=== PATIENT | male | born 1940 | race African-American/Black ===

== ENCOUNTER 2019-11-09 17:41 | Inpatient (IN) | payer MEDICARE, MEDICAID, SELFPAY ==
[2019-11-09] VITALS (8 sets, daily range): BP systolic 107–158; BP diastolic 70–99; PULSE 52–137; RESP 18–25; TEMP 36.3–36.8; O2SAT 94–99; BMI 19.5
--- NOTE | ~2019-11-09 | XR_ITS ---
EXAMINATION: XR chest 1V portable EXAM DATE: 11/09/2019 18:19 INDICATION: Atrial fibrillation. TECHNIQUE: Portable AP frontal chest x-ray was obtained. Comparison is made to prior examination from 03/27/2019. FINDINGS: The lungs are clear. There are no pleural effusions. The cardiomediastinal silhouette is within normal limits. There is no pneumothorax suspected. Patient has diffuse idiopathic skeletal h yperostosis (DISH). There are bony degenerative changes. Compared to prior study, previously seen con gestive changes have resolved. IMPRESSION: No acute cardiopulmonary findings. Reviewed, dictated and finalized at location A.
--- NOTE | ~2019-11-09 | CT_ITS ---
EXAMINATION: CT brain wo con EXAM DATE: 11/09/2019 20:38 INDICATION: Transient alteration of awareness. TECHNIQUE: Spiral CT of the head was performed without contrast. Axial, coronal and sagittal images were reviewed. The dose-length product (DLP) for this examination was 681.00 mGy-cm. The exposure w as tailored according to patient size, and iterative reconstruction (ASIR) was used as additional dos e reduction technique. Comparison is made to prior examination from 03/27/2019. FINDINGS: Study is limited due to patient motion. There is no acute intraparenchymal hemorrhage. No evidence of intraparenchymal brain mass lesion. No evidence of acute infarction. Please note that i nitial head CT has limited sensitivity for small or acute infarctions. There is old small right occi pital lobe infarction again noted. There is periventricular and subcortical hypodensity, nonspecific but probably related to small vessel ischemic disease. There is prominence of the sulci and ventri cles related to cerebral atrophy. There is intracranial carotid arteriosclerosis. There are no ext ra-axial collections. There is no mass effect or midline shift. Patient has had bilateral ocular le ns surgery. Soft tissue is unremarkable. Chronic moderate left maxillary sinus mucoperiosteal thick ening. IMPRESSION: 1. No acute intracranial findings. 2. Chronic age related findings. 3. Old small right occipital lobe infarction. Reviewed, dictated and finalized at location A.
--- NOTE | 2019-11-09 17:48 | ED.AMS ---
HPI - Altered Mental Status General Chief Complaint: Altered Mental Status Stated Complaint: . Time Seen by Provider: 11/09/19 17:48 Source: EMS and RN notes reviewed Mode of arrival: EMS Limitations: other (patient is nonverbal) History of Present Illness HPI narrative: [facility] due to being combative and hitting staff. Per EMS the patient was found to have a blood glucose of 300 and was in A-fib with RVR in the 160's on the monitor. EMS states that they were told by the group home staff that the patient is typically alert and oriented to person, place, and thing, but that the patient has only been alert to person. EMS states that group home staff noted that the patient was seen at [facility] last week. The patient living at [facility]. complaint: other (Combative and hitting group home staff) Onset (ago): unknown Timing confirmed by: caregiver (group home staff) Context: unknown Associated symptoms: other (AMS) Related Data Home Medications Medication Instructions Recorded Confirmed atorvastatin 11/09/19 diltiazem HCl 11/09/19 donepezil mg 11/09/19 famotidine 11/09/19 medroxyprogesterone mg 11/09/19 memantine mg 11/09/19 metformin mg 11/09/19 olanzapine mg 11/09/19 olanzapine mg 11/09/19 sertraline mg 11/09/19 11/09/19 Allergies Allergy/AdvReac Type Severity Reaction Status Date / Time amoxicillin Allergy Unknown Verified 12/27/18 00:46 Penicillins Allergy Unknown Verified 12/27/18 00:46 Review of Systems Review of Systems: ROS unobtainable: Yes unobtainable due to mental status Neurologic: Reports other (AMS) Psychiatric: Psychiatric: Reports irritability (Combative and hitting group home staff) [facility] Past Medical History Medical History (Updated 11/09/19 @ 23:23 by Sera Schreiber MD) BPH (benign prostatic hyperplasia) Depression DM II (diabetes mellitus, type II), controlled GERD (gastroesophageal reflux disease) H/O: HTN (hypertension) History of angina Hx: UTI (urinary tract infection) Hypercholesteremia Schizophrenia Vascular dementia Surgical History Surgical History (Updated 11/09/19 @ 18:09 by Gareth Bowser) Surgical history unknown Social History Social History (Updated 11/09/19 @ 18:09 by Gareth Bowser) Smoking status: Unknown if ever smoked Exam Const: General: no acute distress and alert Nutritional Appearance: thin Orientation/consciousness: No patient oriented x3 HENMT: Mouth: Yes dry mucous membranes (very) Chest: Chest palpation & inspection: no tenderness Resp: Effort & Inspection: normal respiratory effort Auscultation: clear to auscultation bilaterally Cardio: Rate: regular rate Rhythm: regular rhythm Heart sounds: no murmurs GI: GI Palp: No abdominal tenderness Skin: General skin exam: normal color and dry skin Neuro: Speech: Abnormal speech present (mumbling) Course Reevaluation(s) Reevaluation #1: Reevaluated the patient and asked if he wanted anything to eat or drink. The patient only responded with grunts. Date: 11/09/19 Time: 21:00 Consultations Consultation #1: Discussed case with Dr. Hoff (Hospitalist). Accepts the patient. Date: 11/09/19 Time: 21:23 Vital Signs Vital signs: Vital Signs Temperature 97.6 F 11/09/19 17:41 Pulse Rate 137 H 11/09/19 17:41 Respiratory Rate 25 H 11/09/19 17:41 Blood Pressure 128/74 11/09/19 17:41 Temperature 98.3 F 11/09/19 20:06 Pulse Rate 117 H 11/09/19 22:40 Respiratory Rate 19 11/09/19 22:40 Blood Pressure 149/95 H 11/09/19 22:40 Pulse Oximetry 95 11/09/19 22:40 MDM - Altered Mental Status Lab Data Result diagrams: 11/09/19 18:13 11/09/19 18:13 Labs: Lab Results 11/09/19 11/09/19 11/09/19 Range/Units 18:13 18:13 18:13 WBC 6.8 (4.5-10.0) K/mm3 RBC 5.36 (4.6-6.20) M/mm3 Hgb 15.3 (14.0-18.0) g/dL Hct 46.7
--- NOTE | 2019-11-09 18:03 | ECG_ITS ---
Measurements Intervals [place] Rate: 137 P: 57 VA: 184 QRS: 94 QRSD: 175 T: 67 QT: 405 QTc: 613 Interpretive Statements ATRIAL FLUTTER/TACHYCARDIA WITH RAPID VENTRICULAR RESPONSE RIGHT AXIS DEVIATION RIGHT BUNDLE BRANCH BLOCK CANNOT RULE OUT SEPTAL INFARCT, AGE INDETERMINATE BASELINE ARTIFACT- II, III, AVL, AVF ABNORMAL ECG Electronically Signed On 11-10-2019 6:58:24 CDT by Donaldo Duran D.O.
[2019-11-09 18:24] LABS: Basophils Percent Auto 0.6 % (0.2-1.2); Eosinophils Absolute Auto 0.1 K/mm3 (0-0.3); Eosinophils Percent Auto 0.7 % (0-4.4); Hematocrit 46.7 % (42.0-52.0); Hemoglobin 15.3 g/dL (14.0-18.0); Immature Granulocyte Absolute 0.06 K/mm3 (0.00-0.031); Immature Granulocyte Percent A 0.9 % (0-0.5); Lymphocytes Absolute Auto 1.64 K/mm3 (0.9-3.2); Lymphocytes Percent Auto 24.2 % (18.3-44.2); Mean Corpuscular HGB Conc 32.8 g/dl (32-36); Mean Corpuscular Hemoglobin 28.5 pg (26-34); Mean Corpuscular Volume 87.1 fl (80-100); Monocytes Absolute Auto 0.9 K/mm3 (0.1-0.6); Monocytes Percent Auto 13.6 % (2.6-8.5); Neutrophils Absolute Auto 4.1 K/mm3 (1.3-6.7); Platelet Count Result 212 k/mm3 (150-375); Red Blood Count 5.36 M/mm3 (4.6-6.20); Red Cell Distribution Width 14.1 % (11.5-14.5); White Blood Count 6.8 K/mm3 (4.5-10.0)
[2019-11-09 18:33] LABS: INR 1.2; Prothrombin Time 14.7 Seconds (11.1-14.7)
[2019-11-09 18:34] LABS: Partial Thromboplastin Time 25.9 SECONDS (22.3-36.8)
[2019-11-09 18:37] LABS: Potassium 4.4 mmol/L (3.4-5.0)
[2019-11-09 18:41] LABS: Alanine Aminotransferase 19 U/L (4-50); Albumin Level 4.7 g/dL (3.5-5.1); Alkaline Phosphatase 58 U/L (38-126); Aspartate Amino Transferase 33 U/L (17-59); Bilirubin,Total 0.8 mg/dL (0.2-1.3); Blood Urea Nitrogen 30 mg/dL (9-20); Calcium 10.2 mg/dL (8.4-10.2); Carbon Dioxide 26 mmol/L (22-30); Chloride 102 mmol/L (98-107); Estimated Glomerular Filt Rate 55; Glucose 215 mg/dL (75-110); Sodium 140 mmol/L (137-145)
[2019-11-09 18:53] LABS: Troponin I 0.069 ng/mL (0.000-0.034)
[2019-11-09] MEDS: SODIUM CHLORIDE 0.9% IV 1,000 ML 999 ML IV CONT ×3 (18:53→21:05)
--- NOTE | 2019-11-09 18:58 | PC.NURSE ---
correction did not send paperwork with patient. Unable to obtain past medication list or past medical history.
[2019-11-09 19:01] LABS: Add Urine Microscopic? YES; Appearance Urine Cloudy (Clear); Bacteria Urine 1+ /hpf; Bilirubin Urine Negative (Negative); Blood Urine 2+ (Negative); Color Urine Yellow (Yellow); Glucose Urine UA Negative (Negative); Hyaline Casts Urine 20-29 /lpf; Ketones Urine Negative (Negative); Leukocyte Esterase Ur 3+ LEU/UL (Negative); Mucus Urine Rare /lpf; Nitrate Urine Negative (Negative); Protein Urine 2+ mg/dL (Negative); RBC Urine 21-50 /hpf (0-2); Specific Grav Ur 1.016 (1.001-1.035); Squamous Epithelial Cell Urine Rare /hpf (Few); Urobilinogen Urine Negative mg/dL (<2.0); WBC Clumps Urine Present /HPF; WBC Urine >75 /hpf
[2019-11-09] MEDS: ASPIRIN 300 MG SUPPOSITORY RECTAL (19:30)
[2019-11-09 19:34] LABS: Ammonia 10 umol/L (9-30)
[2019-11-09] MEDS: MORPHINE SULFATE 2 MG/ML INJ IV PUSH (21:06)
[2019-11-09 21:47] LABS: Troponin I 0.293 ng/mL (0.000-0.034)
--- NOTE | 2019-11-09 22:19 | ECG_ITS ---
Measurements Intervals [place] Rate: 113 P: RI: 0 QRS: 269 QRSD: 153 T: -68 QT: 357 QTc: 490 Interpretive Statements ATRIAL FLUTTER/TACHYCARDIA WITH RAPID VENTRICULAR RESPONSE RIGHT BUNDLE BRANCH BLOCK LEFT POSTERIOR FASCICULAR BLOCK ABNORMAL ECG Electronically Signed On 11-10-2019 7:02:03 CDT by Donaldo Duran D.O.
--- NOTE | 2019-11-09 22:30 | PC.NURSE ---
PATIENT TAKEN ADMITTED AND TAKEN UP STAIRS BEFORE EDP ORDERED CARDIZEM. CARDIZEM NOT STARTED IN ED. EDP NOTIFIED.
[2019-11-09] MEDS: SODIUM CHLORIDE 0.9% IV 1,000 ML 150 ML IV CONT (23:17)
[2019-11-10] VITALS (17 sets, daily range): BP systolic 118–148; BP diastolic 63–95; PULSE 51–108; RESP 18–20; TEMP 36.1–36.9; O2SAT 99–100
--- NOTE | 2019-11-10 00:18 | ADMGEN ---
This patient, Chirag Kyle, was admitted to IMU Room 207-01. Patient/family oriented to hospital policies and general routines including ID bracelet, bed and alarms, visiting hours, pain management, procedures, bathroom and other care routines, personal items, smoking policy, room service/diet, and visiting hours. Valuables list has been completed. Information on how to activate the Rapid Response Team has been discussed. Patient/Family are encouraged to report perceived risks to care and to ask questions if they do not understand what they are told or what they should do.
[2019-11-10 03:26] LABS: Lactic Acid Reflex 1.5 mmol/L (0.7-2.1)
[2019-11-10 03:27] LABS: Blood Urea Nitrogen 21 mg/dL (9-20); Calcium 8.7 mg/dL (8.4-10.2); Carbon Dioxide 28 mmol/L (22-30); Chloride 108 mmol/L (98-107); Estimated CRCL calculation 44 ml/min; Estimated Glomerular Filt Rate > 60; Glucose 102 mg/dL (75-110); Potassium 4.7 mmol/L (3.4-5.0); Sodium 140 mmol/L (137-145)
[2019-11-10] MEDS: DILTIAZEM HCL 60 MG TABLET PO ×4 (08:58→20:05)
[2019-11-10] MEDS: DIVALPROEX SODIUM 250 MG TABEC PO ×2 (08:58→20:05)
[2019-11-10] MEDS: CALCIUM CARBONATE (OSCAL) 500 MG TABLET PO ×2 (08:58→16:31)
[2019-11-10] MEDS: METOPROLOL TARTRATE 25 MG TABLET PO (08:59)
[2019-11-10] MEDS: FAMOTIDINE 20 MG TABLET PO (08:59)
[2019-11-10] MEDS: ATORVASTATIN 40 MG TABLET PO (08:59)
[2019-11-10] MEDS: MEMANTINE 10 MG TABLET PO ×2 (08:59→16:31)
[2019-11-10] MEDS: SERTRALINE HCL 50 MG TABLET PO (09:00)
[2019-11-10] MEDS: APIXABAN 5 MG TABLET PO ×2 (09:00→16:32)
[2019-11-10] MEDS: CALCIUM CARBONATE (OSCAL) 250 MG TABLET PO ×2 (09:00→16:32)
[2019-11-10 09:27] LABS: Magnesium 1.7 mg/dL (1.6-2.3)
[2019-11-10 11:44] LABS: Glucose Point of Care 102 (65-105)
[2019-11-10 12:16] LABS: Glucose Point of Care 184 (65-105)
--- NOTE | 2019-11-10 17:01 | PM.IMHP ---
H&P: HPI History of Present Illness Chief complaint: UROSEPSIS Narrative: Chirag Kyle is a 79 year old male A resident of [facility] with history of dementia atrial fibrillation apparently patient was combative and was hitting is staff and and 1 time he was unresponsive, patient was sent to emergency department further evaluation patient is unable to provide any review of symptoms or history most history is recorded from electronic medical record, upon arrival to emergency department patient on a AFib with RVR he was started on diltiazem drip and continued his diltiazem 60 mg q.i.d. and metoprolol 25 mg b.i.d., currently patient's rate is under control however patient still not cooperative, Review of Systems Review of Systems: ROS unobtainable: Yes unobtainable due to medical condition [facility] Past Medical History Medical History (Updated 11/09/19 @ 23:23 by Sera Schreiber MD) BPH (benign prostatic hyperplasia) Depression DM II (diabetes mellitus, type II), controlled GERD (gastroesophageal reflux disease) H/O: HTN (hypertension) History of angina Hx: UTI (urinary tract infection) Hypercholesteremia Schizophrenia Vascular dementia Surgical History Surgical History (Updated 11/09/19 @ 18:09 by Gareth Bowser) Surgical history unknown Family History Family History (Updated 11/10/19 @ 00:32 by Lola Swift RN) Other Unknown family medical history Social History Social History (Updated 11/09/19 @ 18:09 by Gareth Bowser) Smoking status: Unknown if ever smoked Alcohol intake: unknown Substance use: unknown Spiritual care concerns: No Agree to blood products: Yes Meds Home Medications and Allergies Home Medications Medication Instructions Recorded Confirmed Type apixaban [Eliquis] 5 mg PO BID 11/09/19 11/09/19 History atorvastatin 40 mg PO DAILY 11/09/19 11/09/19 History calcium carbonate 750 mg PO BID 11/09/19 11/09/19 History diltiazem HCl 60 mg PO QID 11/09/19 11/09/19 History divalproex 250 mg PO Q12H 11/09/19 11/09/19 History donepezil 10 mg PO HS 11/09/19 11/09/19 History famotidine 20 mg PO DAILY 11/09/19 11/09/19 History medroxyprogesterone 5 mg PO BID 11/09/19 11/09/19 History memantine 10 mg PO BID 11/09/19 11/09/19 History metformin 1,000 mg PO DAILY 11/09/19 11/10/19 History metoprolol tartrate 25 mg PO DAILY 11/09/19 11/09/19 History multivit with min-folic acid 0.4 mg PO DAILY 11/09/19 11/09/19 History [Adult One Daily Multivitamin] olanzapine 5 mg PO DAILY 11/09/19 11/09/19 History olanzapine 10 mg PO HS 11/09/19 11/09/19 History sertraline 50 mg PO DAILY 11/09/19 11/09/19 History ferrous sulfate 325 mg PO DAILY 11/10/19 11/10/19 History metformin 500 mg PO HS 11/10/19 11/10/19 History Allergies Allergy/AdvReac Type Severity Reaction Status Date / Time amoxicillin Allergy Unknown Verified 12/27/18 00:46 Penicillins Allergy Unknown Verified 12/27/18 00:46 Vital Signs Vital Signs - 24 hr 11/09/19 17:41 11/09/19 18:50 11/09/19 19:03 Temperature 97.6 F Pulse Rate 137 H 134 H Respiratory Rate 25 H 19 Blood Pressure 128/74 107/79 Pulse Oximetry 98 96 11/09/19 20:06 11/09/19 21:17 11/09/19 22:30 Temperature 98.3 F 98 F Pulse Rate 133 H 130 H 133 H Respiratory Rate 25 H 25 H 20 Blood Pressure 120/70 141/99 H 158/85 H Pulse Oximetry 97 94 97 11/09/19 22:40 11/09/19 23:51 11/10/19 00:00 Temperature 97.4 F L Pulse Rate 117 H 77 68 Respiratory Rate 19 18 Blood Pressure 149/95 H 134/93 H Pulse Oximetry 95 99 11/10/19 02:00 11/10/19 03:51 11/10/19 03:55 Temperature 96.9 F L Pulse Rate 78 108 H 78 Respiratory Rate 20 20 Blood Pressure 147/76 H Pulse Oximetry 100 100 11/10/19 06:00 11/10/19 08:00 11/10/19 08:30 Temperature 98.2 F Pulse Rate 74 97 51 L Respiratory Rate 18 Blood Pressure 148/68 H Pulse Oximetry 100 11/10/19 08:59 11/10/19 10:00 11/10/19 12:00 Temperature Pulse Rate 106 H 89 64 Respiratory Rat
[2019-11-10 17:21] LABS: Glucose Point of Care 145 (65-105)
[2019-11-10 20:06] LABS: Glucose Point of Care 173 (65-105)
[2019-11-10] MEDS: DONEPEZIL HCL 10 MG TABLET PO (20:06)
--- NOTE | 2019-11-10 23:09 | PC.NURSE ---
This patient, Chirag Moura Kyle, was transferred to room 245 on 11/10/19 at 2200. Personal belongings sent with patient. Belongings list checked and signed with receiving. Report given to AYSE Dawson. Appropriate documentation sent with patient.
[2019-11-11] VITALS (10 sets, daily range): BP systolic 119–161; BP diastolic 54–73; PULSE 51–162; RESP 16–21; TEMP 36.2–36.5; O2SAT 98–100
--- NOTE | 2019-11-11 03:19 | PC.NURSE ---
This patient, Chirag Moura Kyle, was received from [ IMU] on 11/10/19 at 2205. Personal belongings list checked and signed. Patient/family oriented to unit policies and routines
[2019-11-11 05:36] LABS: Hematocrit 38.4 % (42.0-52.0); Hemoglobin 12.7 g/dL (14.0-18.0); Mean Corpuscular HGB Conc 33.1 g/dl (32-36); Mean Corpuscular Hemoglobin 28.7 pg (26-34); Mean Corpuscular Volume 86.7 fl (80-100); Mean Platelet Volume 9.8 fl (7.4-10.4); Platelet Count Result 185 k/mm3 (150-375); Red Blood Count 4.43 M/mm3 (4.6-6.20); Red Cell Distribution Width 13.9 % (11.5-14.5); White Blood Count 5.3 K/mm3 (4.5-10.0)
[2019-11-11 06:08] LABS: Potassium 4.4 mmol/L (3.4-5.0)
[2019-11-11 07:02] LABS: Blood Urea Nitrogen 14 mg/dL (9-20); Calcium 8.9 mg/dL (8.4-10.2); Carbon Dioxide 24 mmol/L (22-30); Chloride 108 mmol/L (98-107); Estimated CRCL calculation 56 ml/min; Estimated Glomerular Filt Rate > 60; Glucose 108 mg/dL (75-110); Sodium 140 mmol/L (137-145)
[2019-11-11 07:59] LABS: Glucose Point of Care 150 (65-105)
[2019-11-11] MEDS: CALCIUM CARBONATE (OSCAL) 500 MG TABLET PO ×2 (09:16→17:10)
[2019-11-11] MEDS: METOPROLOL TARTRATE 25 MG TABLET PO (09:16)
[2019-11-11] MEDS: FAMOTIDINE 20 MG TABLET PO (09:16)
[2019-11-11] MEDS: DILTIAZEM HCL 60 MG TABLET PO ×4 (09:16→23:40)
[2019-11-11] MEDS: MEMANTINE 10 MG TABLET PO ×2 (09:16→17:10)
[2019-11-11] MEDS: ATORVASTATIN 40 MG TABLET PO (09:16)
[2019-11-11] MEDS: SERTRALINE HCL 50 MG TABLET PO (09:19)
[2019-11-11] MEDS: DIVALPROEX SODIUM 250 MG TABEC PO ×2 (09:20→23:40)
[2019-11-11] MEDS: APIXABAN 5 MG TABLET PO ×2 (09:21→17:10)
[2019-11-11] MEDS: CALCIUM CARBONATE (OSCAL) 250 MG TABLET PO ×2 (09:21→17:10)
--- NOTE | 2019-11-11 11:19 | PM.DS ---
DS: Diagnosis Admitting Diagnosis Admitting Diagnosis: Unspecified atrial fibrillation Discharge Diagnosis (1) Atrial fibrillation with rapid ventricular response: Code(s): I48.91 - Unspecified atrial fibrillation Status: Acute Assessment and Plan: Chirag Kyle is a 79 year old male A resident of [facility] with history of dementia atrial fibrillation apparently patient was combative and was hitting is staff and and 1 time he was unresponsive, patient was sent to emergency department further evaluation patient is unable to provide any review of symptoms or history most history is recorded from electronic medical record, upon arrival to emergency department patient on a AFib with RVR he was started on diltiazem drip and continued his diltiazem 60 mg q.i.d. and metoprolol 25 mg b.i.d., currently patient's rate is under control will stop the diltiazem drip, patient anticoagulated with Eliquis, his clinically stable will transfer him out of IMU will monitor him overnight on tele and possibly discharge tomorrow morning back to [facility] however patient still not cooperative, (2) Non-ST elevated myocardial infarction (non-STEMI): Code(s): I21.4 - Non-ST elevation (NSTEMI) myocardial infarction Status: Acute Assessment and Plan: Most likely demand ischemia due to atrial fibrillation with RVR, patient does not express any complaint of chest pain there are no acute changes on EKG most likely type 2 myocardial infarction continue to monitor (3) Acidosis, lactic: Code(s): E87.2 - Acidosis Status: Acute Assessment and Plan: Most likely secondary to atrial fibrillation with RVR now resolved (4) Acute UTI: Code(s): N39.0 - Urinary tract infection, site not specified Status: Acute Assessment and Plan: Urine culture is growing Proteus mirabilis patient being treated with Rocephin will follow up on urine culture (5) Episode of unresponsiveness: Code(s): R41.89 - Other symptoms and signs involving cognitive functions and awareness Status: Acute Assessment and Plan: Etiology uncertain now clinically stable (6) Dementia: Qualifiers: Dementia behavioral disturbance: with behavioral disturbance Dementia type: unspecified type Qualified Code(s): F03.91 - Unspecified dementia with behavioral disturbance Code(s): F03.90 - Unspecified dementia without behavioral disturbance Status: Acute Assessment and Plan: Chronic clinically stable currently DS: Summary Hospital Course Reason for hospitalization: A resident of [facility] with history of dementia atrial fibrillation apparently patient was combative and was hitting is staff and and 1 time he was unresponsive, patient was sent to emergency department further evaluation patient is unable to provide any review of symptoms or history most history is recorded from electronic medical record, upon arrival to emergency department patient on a AFib with RVR he was started on diltiazem drip and continued his diltiazem 60 mg q.i.d. and metoprolol 25 mg b.i.d., currently patient's rate is under control however patient still not cooperative, Hospital Course: A resident of [facility] with history of dementia atrial fibrillation apparently patient was combative and was hitting is staff and and 1 time he was unresponsive, patient was sent to emergency department further evaluation patient is unable to provide any review of symptoms or history most history is recorded from electronic medical record, upon arrival to emergency department patient on a AFib with RVR he was started on diltiazem drip and continued his diltiazem 60 mg q.i.d. and metoprolol 25 mg b.i.d., currently patient's rate is under control will stop the diltiazem drip, patient anticoagulated with Eliquis, his clinically stable will transfer him out of IMU will monitor him overnight on tele and possibly discharge tomorrow morning back to
[2019-11-11 11:30] LABS: Glucose Point of Care 147 (65-105)
[2019-11-11 16:33] LABS: Glucose Point of Care 106 (65-105)
[2019-11-11] MEDS: DONEPEZIL HCL 10 MG TABLET PO (23:40)
[2019-11-11 23:49] LABS: Glucose Point of Care 121 (65-105)
[2019-11-12] VITALS: PULSE 61
[2019-11-12 04:00] VITALS: PULSE 103
[2019-11-12 05:03] LABS: Hematocrit 42.9 % (42.0-52.0); Hemoglobin 14.2 g/dL (14.0-18.0); Mean Corpuscular HGB Conc 33.1 g/dl (32-36); Mean Corpuscular Hemoglobin 28.7 pg (26-34); Mean Corpuscular Volume 86.7 fl (80-100); Mean Platelet Volume 9.6 fl (7.4-10.4); Platelet Count Result 203 k/mm3 (150-375); Red Blood Count 4.95 M/mm3 (4.6-6.20); Red Cell Distribution Width 13.5 % (11.5-14.5); White Blood Count 6.1 K/mm3 (4.5-10.0)
[2019-11-12 05:27] LABS: Blood Urea Nitrogen 14 mg/dL (9-20); Calcium 9.8 mg/dL (8.4-10.2); Carbon Dioxide 27 mmol/L (22-30); Chloride 106 mmol/L (98-107); Estimated CRCL calculation 51 ml/min; Estimated Glomerular Filt Rate > 60; Glucose 112 mg/dL (75-110); Potassium 4.4 mmol/L (3.4-5.0); Sodium 140 mmol/L (137-145)
[2019-11-12 06:00] VITALS: BP 134/82; PULSE 74; RESP 16; TEMP 36.3; O2SAT 92
[2019-11-12 08:00] VITALS: PULSE 107; PULSE 74; RESP 16; O2SAT 92
[2019-11-12 08:02] LABS: Glucose Point of Care 100 (65-105)
[2019-11-12] MEDS: CALCIUM CARBONATE (OSCAL) 500 MG TABLET PO (08:18)
[2019-11-12 08:19] VITALS: PULSE 74
[2019-11-12] MEDS: FAMOTIDINE 20 MG TABLET PO (08:19)
[2019-11-12] MEDS: APIXABAN 5 MG TABLET PO (08:19)
[2019-11-12] MEDS: MEMANTINE 10 MG TABLET PO (08:19)
[2019-11-12] MEDS: ATORVASTATIN 40 MG TABLET PO (08:19)
[2019-11-12] MEDS: METOPROLOL TARTRATE 25 MG TABLET PO (08:19)
[2019-11-12] MEDS: DIVALPROEX SODIUM 250 MG TABEC PO (08:19)
[2019-11-12] MEDS: CALCIUM CARBONATE (OSCAL) 250 MG TABLET PO (08:19)
[2019-11-12] MEDS: SERTRALINE HCL 50 MG TABLET PO (08:19)
[2019-11-12] MEDS: DILTIAZEM HCL 60 MG TABLET PO (08:19)
[2019-11-12 11:29] LABS: Glucose Point of Care 181 (65-105)
== END 2019-11-12 12:14 | DRG 281 ==
LOC: ANHED 18:29 → ANHIMU 11-10 00:33 → ANH2MED 11-11 13:00 → ANHIMU 11-15 14:10
PROVIDERS: Admitting Provider Internal Medicine; Emergency Provider Emergency Medicine; Visit Provider Family Medicine
DX: I48.91 Unspecified atrial fibrillation (principal); I21.A1 Myocardial infarction type 2; E87.2 Acidosis; N39.0 Urinary tract infection, site not specified; B96.4 Proteus (mirabilis) (morganii) as the cause of diseases classified elsewhere; F03.90 Unspecified dementia, unspecified severity, without behavioral disturbance, psychotic disturbance, mood disturbance, and anxiety; R41.89 Other symptoms and signs involving cognitive functions and awareness; N40.0 Benign prostatic hyperplasia without lower urinary tract symptoms; E78.00 Pure hypercholesterolemia, unspecified; F20.9 Schizophrenia, unspecified; K21.9 Gastro-esophageal reflux disease without esophagitis; F32.9 Major depressive disorder, single episode, unspecified; E11.9 Type 2 diabetes mellitus without complications
CPT/HCPCS: 36415; 51701; 70450; 71045; 80048; 80053; 81001; 82140; 83605; 83735; 84484; 85025; 85027; 85610; 85730; 87040; 87077; 87081; 87086; 87088; 87186; 87804; 87880; 93005; 96361; 96365; 96375; 99291; A9270; J0696; J2270; J7030

== ENCOUNTER 2020-01-05 12:40 | Inpatient (IN) | payer MEDICARE, MEDICAID, SELFPAY ==
--- NOTE | ~2020-01-05 | CT_ITS ---
EXAMINATION: CT brain wo con INDICATION: Altered mental status COMPARISON: None TECHNIQUE: Standard unenhanced head CT. The dose-length product (DLP) was 605.33 mGy-cm. The mA was a djusted according to patient size. Iterative reconstruction technique was employed. FINDINGS: There is no acute intraparenchymal hemorrhage. No evidence of mass lesion. No evidence of a cute infarction. There are areas of prior infarction in the left parietal and right occipital lobes. There is mild periventricular and subcortical hypodensity probably related to small vessel ischemic d isease. There is mild prominence of the sulci and ventricles related to cerebral atrophy. Intracrania l calcified cerebral atherosclerosis is noted. There are no extra-axial collections. There is no mass effect or midline shift. Changes in the globes are likely from ocular lens surgery. There is mild m ucosal thickening of the paranasal sinuses. IMPRESSION: 1. Areas of prior infarction without acute intracranial abnormality. 2. Age related findings. Reviewed, dictated and finalized at location A.
--- NOTE | ~2020-01-05 | XR_ITS ---
EXAMINATION: XR chest 2V DATE: 01/05/2020 13:37 INDICATION: Shortness of breath TECHNIQUE: AP and lateral views of the chest are obtained. COMPARISON: 11/09/2019 FINDINGS: There are minimal airspace opacities of the lung bases. There is no pleural effusion or pne umothorax. The cardiomediastinal silhouette is normal. There are bridging osteophytes at multiple lev els in the spine, consistent with diffuse idiopathic skeletal hyperostosis (DISH). IMPRESSION: 1. Minimal airspace opacities of the lung bases, consistent with atelectasis versus pneumonia. Reviewed, dictated and finalized at location A. IMPRESSION: 1. Minimal airspace opacities of the lung bases, consistent with atelectasis ve rsus pneumonia.
[2020-01-05 12:44] VITALS: BP 122/75; PULSE 139; RESP 29; TEMP 36.6; O2SAT 98
--- NOTE | 2020-01-05 12:51 | ECG_ITS ---
Measurements Intervals [place] Rate: 135 P: 61 [place]: 190 QRS: 243 QRSD: 167 T: 71 QT: 392 QTc: 589 Interpretive Statements ATRIAL FLUTTER/TACHYCARDIA WITH RAPID VENTRICULAR RESPONSE RIGHT BUNDLE BRANCH BLOCK LEFT POSTERIOR FASCICULAR BLOCK BASELINE ARTIFACT- I, II, III, AVR, AVL, AVF, V4 ABNORMAL ECG Electronically Signed On 01-05-2020 13:16:51 CDT by Donaldo Duran D.O.
--- NOTE | 2020-01-05 12:53 | ED.GENADULT ---
HPI - General Adult General Chief complaint: Unspecified Stated complaint: NOT ACTING RIGHT History of Present Illness HPI narrative: BIBEMS from intermediate for not acting right he has reportedly been more restless and agitated than usual. He is not able to provide history. History limited by incoprehensible speech. Related Data Home Medications Medication Instructions Recorded Confirmed Eliquis 5 mg PO BID 11/09/19 01/05/20 atorvastatin 40 mg PO DAILY 11/09/19 01/05/20 diltiazem HCl 60 mg PO QID 11/09/19 01/05/20 divalproex 250 mg PO Q12H 11/09/19 01/05/20 donepezil 10 mg PO HS 11/09/19 01/05/20 famotidine 20 mg PO DAILY 11/09/19 01/05/20 medroxyprogesterone 5 mg PO BID 11/09/19 01/05/20 memantine 10 mg PO BID 11/09/19 01/05/20 metformin 1,000 mg PO DAILY 11/09/19 01/05/20 olanzapine 10 mg PO HS 11/09/19 01/05/20 sertraline 50 mg PO DAILY 11/09/19 01/05/20 ferrous sulfate 325 mg PO DAILY 11/10/19 01/05/20 metformin 500 mg PO HS 11/10/19 01/05/20 Adult One Daily Multivitamin 1 tablet PO DAILY 01/05/20 01/05/20 acetaminophen 650 mg PO PRN 01/05/20 01/05/20 calcium carbonate [Tums] 200 mg PO BID 01/05/20 01/05/20 Allergies Allergy/AdvReac Type Severity Reaction Status Date / Time amoxicillin Allergy Unknown Unknown Verified 01/05/20 13:28 Penicillins Allergy Unknown Unknown Verified 01/05/20 13:28 Review of Systems Review of Systems: ROS unobtainable: Yes other (incomprehensible speech) [facility] Past Medical History Medical History Atrial tachycardia With history of paroxysmal atrial fibrillation and atrial flutter. Benign prostatic hyperplasia Cerebrovascular accident Brain CT shows prior infarcts in the right occipital and left parietal lobes. Depression Dysphagia He continually failed swallow studies dating back to 2014, and has continued to refuse G-tube placement. Essential hypertension Gastroesophageal reflux Hyperlipidemia Schizophrenia Systolic congestive heart failure Echocardiogram in March 2019 showed mildly enlarged left ventricular chamber and moderately increased left ventricular thickness, severely reduced left ventricular function with an ejection fraction of 25 to 30%, indeterminate left ventricular diastolic function, moderate biatrial enlargement, [id number] mitral valve regurgitation, and mild tricuspid valve regurgitation. Type 2 diabetes mellitus Vascular dementia Surgical History Surgical History Surgical history unknown Family History Family History Other Unknown family medical history Social History Social History Social History: The patient is a long-term resident [facility]. He is not able to provide much in the way of social history and cannot provide me with family history. It is noted that he is [place] and is a full code. It is unknown if he is ever smoked or if he indulges in alcohol or illicit substances. Spiritual care concerns: No Agree to blood products: Yes Exam Const: General: healthy appearing and alert Nutritional Appearance: well nourished Other: HENMT: Mouth: Yes dry mucous membranes Eyes: Pupils: Equal, round and reactive pupils present EOM: EOMs intact bilaterally Resp: Effort & Inspection: normal respiratory effort Auscultation: clear to auscultation bilaterally Cardio: Rate: tachycardic Rhythm: regular rhythm GI: GI Palp: Yes Soft to palpation and No Tenderness to palpation present (GI) Skin: General skin exam: normal color Rashes: no rashes Neuro: General: moves all extremities, no focal motor deficits and CN's II-XI intact bilaterally Speech: Abnormal speech present Other: follows simple commands Extrem: General: normal to inspection Psych: Other: agitated Course
[2020-01-05] MEDS: SODIUM CHLORIDE 0.9% IV 1,000 ML 999 ML IV CONT ×4 (13:23→17:41)
[2020-01-05 13:25] LABS: Basophils Percent Auto 0.4 % (0.2-1.2); Eosinophils Percent Auto 0.5 % (0-4.4); Hematocrit 42.4 % (42.0-52.0); Hemoglobin 14.1 g/dL (14.0-18.0); Immature Granulocyte Absolute 0.16 K/mm3 (0.00-0.031); Immature Granulocyte Percent A 2.1 % (0-0.5); Lymphocytes Absolute Auto 1.65 K/mm3 (0.9-3.2); Lymphocytes Percent Auto 21.8 % (18.3-44.2); Mean Corpuscular HGB Conc 33.3 g/dl (32-36); Mean Corpuscular Hemoglobin 29.6 pg (26-34); Mean Corpuscular Volume 88.9 fl (80-100); Mean Platelet Volume 10.5 fl (7.4-10.4); Monocytes Absolute Auto 0.9 K/mm3 (0.1-0.6); Monocytes Percent Auto 11.9 % (2.6-8.5); Neutrophils Absolute Auto 4.8 K/mm3 (1.3-6.7); Neutrophils Percent Auto 63.3 % (45.5-73.1); Platelet Count Result 190 k/mm3 (150-375); Red Blood Count 4.77 M/mm3 (4.6-6.20); Red Cell Distribution Width 13.8 % (11.5-14.5); White Blood Count 7.6 K/mm3 (4.5-10.0)
[2020-01-05 13:31] LABS: Add Urine Microscopic? YES; Appearance Urine Cloudy (Clear); Bacteria Urine Trace /hpf; Bilirubin Urine Negative (Negative); Color Urine Yellow (Yellow); Glucose Urine UA 1+ mg/dL (Negative); Ketones Urine Negative (Negative); Leukocyte Esterase Ur 3+ LEU/UL (Negative); Mucus Urine Rare /lpf; Nitrate Urine Negative (Negative); Protein Urine 1+ mg/dL (Negative); Specific Grav Ur 1.019 (1.001-1.035); Squamous Epithelial Cell Urine Rare /hpf (Few); Urobilinogen Urine Negative mg/dL (<2.0); WBC Clumps Urine Present /HPF; WBC Urine >75 /hpf
[2020-01-05 13:33] LABS: Blood Urine Negative (Negative)
--- NOTE | 2020-01-05 13:33 | PC.NURSE ---
Pt placed on bed alarm for safety
[2020-01-05 13:35] LABS: INR 1.1; Partial Thromboplastin Time 23.4 SECONDS (22.3-36.8); Prothrombin Time 13.8 Seconds (11.1-14.7)
[2020-01-05 13:42] LABS: Alanine Aminotransferase 24 U/L (4-50); Albumin Level 4.6 g/dL (3.5-5.1); Alkaline Phosphatase 44 U/L (38-126); Aspartate Amino Transferase 34 U/L (17-59); Bilirubin,Total 0.7 mg/dL (0.2-1.3); Blood Urea Nitrogen 22 mg/dL (9-20); CRP < 0.5 mg/dL (<1.0); Calcium 9.2 mg/dL (8.4-10.2); Carbon Dioxide 25 mmol/L (22-30); Chloride 101 mmol/L (98-107); Estimated CRCL calculation 41 ml/min; Estimated Glomerular Filt Rate > 60; Glucose 157 mg/dL (75-110); Potassium 4.5 mmol/L (3.4-5.0); Sodium 140 mmol/L (137-145)
[2020-01-05 13:43] LABS: Lactic Acid Reflex 6.5 mmol/L (0.7-2.1)
--- NOTE | 2020-01-05 14:20 | PC.NURSE ---
Pt attempting to get out of bed. Pt repositioned and bed alarm reset
--- NOTE | 2020-01-05 14:29 | PCRCNOTE ---
Pt. is combative and refuses to have the ABG drawn; Dr. Hernández and RSenia Richardson are both aware.
[2020-01-05 14:52] VITALS: BP 134/94; PULSE 122; RESP 22; O2SAT 99
[2020-01-05 14:53] VITALS: PULSE 128
--- NOTE | 2020-01-05 14:54 | PC.NURSE ---
Pt moved to recliner with bed alarm on him and close to nurses station
[2020-01-05 16:20] VITALS: BMI 24.8
[2020-01-05 16:21] LABS: Reflex Lactic Acid Yes or No Add Lactic
[2020-01-05] MEDS: LACTATED RINGERS 1,000 ML 125 ML IV CONT (16:34)
--- NOTE | 2020-01-05 16:51 | ADMGEN ---
This patient, Chirag Kyle, was admitted to [facility] Surg Room 307-01 at 1600. Patient/family oriented to hospital policies and general routines including ID bracelet, bed and alarms, visiting hours, pain management, procedures, bathroom and other care routines, personal items, smoking policy, room service/diet, and visiting hours. Valuables list has been completed. Information on how to activate the Rapid Response Team has been discussed. Patient/Family are encouraged to report perceived risks to care and to ask questions if they do not understand what they are told or what they should do.
[2020-01-05 16:59] LABS: Lactic Acid 6.5 mmol/L (0.7-2.1)
[2020-01-05 17:00] VITALS: BP 137/64; PULSE 103; RESP 18; O2SAT 100
--- NOTE | 2020-01-05 17:07 | PC.NURSE ---
Patient combative and resistant to care. Unable to do a full assessment at this time due to mental status. Patient cussing and hitting at staff. Call placed to [facility].
--- NOTE | 2020-01-05 17:09 | PC.NURSE ---
Unable to place patient on telemetry due to patient's mental status. Message left for Kalpana.
--- NOTE | 2020-01-05 17:40 | PC.NURSE ---
At 1540 received SBAR from ER. Patient with elevated lactic acid and elevated heart rate. Jasmin Purdy notified of elevated lactic acid and heart rate and she states that she will discuss with Aundrea. Jasmin said that Aundrea looked at chart and patient and would like patient to come to 3rd med surg.
[2020-01-05 18:07] LABS: Base Excess ABG -4.7 mEq/l (+/-2.0); Fractional Inspired Oxygen 21 %; HCO3 ABG 19.5 mEq/l (22.0-26.0); Oxygen Content ABG 15.5 %vol (16.0-22.0); Oxygen Saturation ABG 90.1 % (95.0-100.0); Oxyhemoglobin 89.6 % THb (90.0-100.0); PCO2 ABG 33.3 mmHg (35.0-45.0); PO2 ABG 57.9 mmHg (80.0-100.0); PO2 FiO2 Ratio Arterial Blood 2.76 %; Total Hemoglobin 12.3 g/dL (12.0-18.0); pH ABG 7.386 (7.350-7.450)
[2020-01-05 18:08] LABS: Device ROOM AIR; Site Drawn LEFT BRACHIAL
[2020-01-05 18:29] LABS: Glucose Point of Care 101 (65-105)
[2020-01-05 20:00] VITALS: PULSE 117
--- NOTE | 2020-01-05 21:25 | PM.IMHP ---
H&P: HPI History of Present Illness Chief complaint: Not acting right. Narrative: Chirag Kyle is an 79-year-old male with history of vascular dementia, schizophrenia with psychosis, atrial tachycardia with history of paroxysmal atrial fibrillation flutter, hypertension, systolic congestive heart failure, type 2 diabetes mellitus, and chronic dysphagia who presented to the emergency department earlier this afternoon via EMS from [facility] as he is not acting right. He is not able to provide me with much of a history, presumably due to his underlying dementia and schizophrenia in addition to speech impediment and difficulties understanding exactly with the patient is saying (I have been told that this is a chronic finding). residential staff report that he has been more restless over the past 24 hours and has been acting out of character. On arrival to the emergency department he was tachycardic with EKG showing atrial flutter /tachycardia with rapid ventricular response. He was also found to have a urinary tract infection and is being admitted due to lactic acidosis (lactic acid level 6.5). He did receive appropriate IV fluid rehydration emergency department with a repeat lactic acid level being unchanged. At the time my evaluation the patient is sitting up in bed, in attempts to answer my questions however it iss very difficult to understand the patient as detailed above and he does get a bit angry and boisterous when I ask him to repeat what he has said. Unfortunately he can give me no meaningful answers, but it does not sound as though he has any significant complaints. There is no mention of fever, vomiting, cough, cold /flu symptoms, or diarrhea. Review of Systems Review of Systems: Narrative: A review of systems is unable to be obtained accurately given the patient's chronic dementia and schizophrenia as well as dysarthria. FORMERLY [facility] Past Medical History Medical History (Updated 01/05/20 @ 21:44 by Aundrea Doan PA-C) Atrial tachycardia With history of paroxysmal atrial fibrillation and atrial flutter. Benign prostatic hyperplasia Cerebrovascular accident Brain CT shows prior infarcts in the right occipital and left parietal lobes. Depression Dysphagia He continually failed swallow studies dating back to 2014, and has continued to refuse G-tube placement. Essential hypertension Gastroesophageal reflux Hyperlipidemia Schizophrenia Systolic congestive heart failure Echocardiogram in March 2019 showed mildly enlarged left ventricular chamber and moderately increased left ventricular thickness, severely reduced left ventricular function with an ejection fraction of 25 to 30%, indeterminate left ventricular diastolic function, moderate biatrial enlargement, [id number] mitral valve regurgitation, and mild tricuspid valve regurgitation. Type 2 diabetes mellitus Vascular dementia Surgical History Surgical History Surgical history unknown Family History Family History Other Unknown family medical history Social History Social History (Updated 01/05/20 @ 21:37 by Aundrea Doan PA-C) Social History: The patient is a long-term resident [facility]. He is not able to provide much in the way of social history and cannot provide me with family history. It is noted that he is a kyle of the formerly [facility] later [facility] and is a full code. It is unknown if he is ever smoked or if he indulges in alcohol or illicit substances. Spiritual care concerns: No Agree to blood products: Yes Meds Home Medications and Allergies Home Medications Medication Instructions Recorded Confirmed Type Eliquis 5 mg PO BID 11/09/19 01/05/20 History atorvastatin 40 mg PO DAILY 11/09/19 01/05/20 History diltiazem HCl 60 mg PO QID 11/09/19 01/05/20 History divalproex 250 mg PO Q12H 11/09/19 01/05/20 Histor
--- NOTE | 2020-01-05 21:52 | ECG_ITS ---
Measurements Intervals [place] Rate: 114 P: [place]: 0 QRS: -76 QRSD: 147 T: 0 QT: 202 QTc: 279 Interpretive Statements ATRIAL FLUTTER/TACHYCARDIA WITH RAPID VENTRICULAR RESPONSE RIGHT BUNDLE BRANCH BLOCK LEFT ANTERIOR FASCICULAR BLOCK ABNORMAL ECG Electronically Signed On 01-06-2020 7:08:18 CDT by Donaldo Duran D.O.
[2020-01-05 22:00] VITALS: BP 133/84; PULSE 119; RESP 24; TEMP 36.6; O2SAT 100
[2020-01-05 23:18] LABS: Hemoglobin A1C 7.2 % (<5.7)
[2020-01-05 23:21] LABS: Troponin I 0.446 ng/mL (0.000-0.034)
[2020-01-05 23:40] LABS: Valproic Acid < 10.0 ug/mL (50-120)
[2020-01-06] VITALS (8 sets, daily range): BP systolic 97–156; BP diastolic 51–88; PULSE 62–132; RESP 24; TEMP 36.5–36.7; O2SAT 98–100
[2020-01-06 02:05] LABS: Troponin I 0.373 ng/mL (0.000-0.034)
[2020-01-06 04:00] LABS: Hematocrit 35.2 % (42.0-52.0); Hemoglobin 11.7 g/dL (14.0-18.0); Mean Corpuscular HGB Conc 33.2 g/dl (32-36); Mean Corpuscular Hemoglobin 29.8 pg (26-34); Mean Corpuscular Volume 89.6 fl (80-100); Mean Platelet Volume 10.1 fl (7.4-10.4); Platelet Count Result 152 k/mm3 (150-375); Red Blood Count 3.93 M/mm3 (4.6-6.20); White Blood Count 5.6 K/mm3 (4.5-10.0)
[2020-01-06 04:12] LABS: Lactic Acid 2.1 mmol/L (0.7-2.1)
[2020-01-06 04:14] LABS: Alanine Aminotransferase 19 U/L (4-50); Albumin Level 3.6 g/dL (3.5-5.1); Alkaline Phosphatase 36 U/L (38-126); Aspartate Amino Transferase 30 U/L (17-59); Bilirubin,Total 0.7 mg/dL (0.2-1.3); Blood Urea Nitrogen 15 mg/dL (9-20); Calcium 8.4 mg/dL (8.4-10.2); Carbon Dioxide 24 mmol/L (22-30); Chloride 110 mmol/L (98-107); Estimated CRCL calculation 54 ml/min; Estimated Glomerular Filt Rate > 60; Glucose 97 mg/dL (75-110); INR 1.1; Magnesium 1.7 mg/dL (1.6-2.3); Potassium 4.8 mmol/L (3.4-5.0); Prothrombin Time 14.2 Seconds (11.1-14.7); Sodium 141 mmol/L (137-145)
[2020-01-06 04:15] LABS: Partial Thromboplastin Time 24.4 SECONDS (22.3-36.8)
[2020-01-06 04:28] LABS: Troponin I 0.337 ng/mL (0.000-0.034)
[2020-01-06] MEDS: FAMOTIDINE 20 MG TABLET PO (11:09)
[2020-01-06] MEDS: MULTIVITAMINS THERAPEUTIC TAB (*BKC) 1 TABLET PO (11:09)
[2020-01-06] MEDS: METOPROLOL TARTRATE 25 MG TABLET PO ×2 (11:09→17:56)
[2020-01-06] MEDS: DIVALPROEX SODIUM 250 MG TABEC PO ×2 (11:10→21:12)
[2020-01-06] MEDS: MEMANTINE 10 MG TABLET PO ×2 (11:10→17:56)
[2020-01-06] MEDS: APIXABAN 5 MG TABLET PO ×2 (11:10→17:56)
[2020-01-06] MEDS: ATORVASTATIN 40 MG TABLET PO (11:10)
[2020-01-06] MEDS: SERTRALINE HCL 50 MG TABLET PO (11:10)
[2020-01-06] MEDS: FERROUS SULFATE 324 MG TABLET PO (11:10)
[2020-01-06] MEDS: DILTIAZEM HCL 60 MG TABLET PO ×4 (11:10→21:12)
[2020-01-06] MEDS: CALCIUM CARBONATE (TUMS) 500 MG (200 MG ELEMENTAL) PO ×2 (11:20→17:57)
--- NOTE | 2020-01-06 11:42 | PM.IMPN ---
Progress Note: A&P Assessment and Plan (1) Sepsis: Code(s): A41.9 - Sepsis, unspecified organism Status: Acute Assessment and Plan: Was found to be septic on arrival with an increased heart rate 139, increased respiratory rate at 29, elevated lactic acid level with an underlying diagnosis of acute infection with a UTI. IV antibiotics with ceftriaxone at this time. Pending urine and blood cultures. Continue monitoring vitals and mental status. (2) Metabolic encephalopathy: Code(s): G93.41 - Metabolic encephalopathy Status: Acute Assessment and Plan: Patient came in for altered mental status and increased combativeness. Most likely secondary to sepsis and acute underlying urinary tract infection. He is more calm today, and seems to be closer to his baseline. Continue IV antibiotics and monitoring his symptoms. (3) Urinary tract infection: Code(s): N39.0 - Urinary tract infection, site not specified Status: Acute Assessment and Plan: Empiric ceftriaxone, pending urine culture. (4) Atrial flutter with rapid ventricular response: Code(s): I48.92 - Unspecified atrial flutter Status: Acute Assessment and Plan: I got Cardiology involved because of his increasing heart rate, could be secondary to acute infection and agitation. EKG was completed due to tachycardia last night and it showed atrial flutter/fibrillation with a heart rate of 135 with RVR. He was on telemetry which shows his heart rate is still elevated and he is currently in sinus tachycardia with a heart rate of 136. He had been in atrial fibrillation most of the evening with RVR. Cardiology evaluated the patient and increase his metoprolol tartrate to 25 mg twice daily and continue with diltiazem 60 mg Q 4 times a day. He is also on Eliquis for stroke prophylaxis. Continue diltiazem and metoprolol. (5) Elevated troponin: Code(s): R79.89 - Other specified abnormal findings of blood chemistry Status: Acute Assessment and Plan: Cardiology evaluated the patient believes that troponin was elevated secondary to atrial flutter with RVR His elevated troponin does appear to be chronic when your review his prior troponins in the past. (6) Type 2 diabetes mellitus: Code(s): E11.9 - Type 2 diabetes mellitus without complications Status: Acute Assessment and Plan: Metformin on hold given lactic acidosis. Hemoglobin A1c is 7.2%. Continue monitoring glucose. Initiate sliding scale insulin, Accu-Cheks, and hypoglycemic protocol. (7) Lactic acidosis: Code(s): E87.2 - Acidosis Status: Acute Assessment and Plan: Patient was hospitalized in November 2019, also with lactic acidosis which was attributed to AFib/RVR. Patient seems to be septic with urinary tract infection but could also be secondary to AFib RVR. Blood pressures look good and thus doubt hypoperfusion, although he does have reduced ejection fraction. Liver function tests are unremarkable. At this time, he has received adequate fluid resuscitation thus will just continue to trend levels. Metformin is on hold. (8) Systolic congestive heart failure: Code(s): I50.20 - Unspecified systolic (congestive) heart failure Status: Acute Assessment and Plan: Chronic. He appears clinically compensated at this time. Monitor volume status closely with daily weights and I/O. Continue his home medications. (9) Essential hypertension: Code(s): I10 - Essential (primary) hypertensio
[2020-01-06 12:27] LABS: Glucose Point of Care 148 (65-105)
--- NOTE | 2020-01-06 13:15 | PM.CNCAR ---
Assessment and Plan Assessment and plan (1) Atrial flutter with rapid ventricular response: Code(s): I48.92 - Unspecified atrial flutter Status: Acute Assessment and Plan: well documented history of atrial flutter with variable AV block. Patient has only received metoprolol tartrate 25 mg p.o. x1 thus far. Patient is on an unusual regimen with diltiazem 60 mg p.o. 4 times daily presumably has reported he will only take medications that are crushed up in food. Will continue regimen with the exception of adjusting metoprolol tartrate to 25 mg twice daily. Will monitor response with resumption of home reported therapy. Continue Eliquis 5 mg twice daily. Patient otherwise appears comfortable, he is not in decompensated heart failure nor other reported symptoms suggestive of myocardial ischemia. If LV dysfunction persistent BP echo would prefer to avoid diltiazem/CCB in favor of beta-samy therapy for rate control. Up titrate beta-samy for additional medical management for rate control as appropriate. Note invasive workup anticipated. Continue supportive care. (2) Vascular dementia: Code(s): F01.50 - Vascular dementia without behavioral disturbance Status: Acute Assessment and Plan: Chronic secondary to history of stroke as reported. Continue systemic anticoagulation. No acute issue on CT at presentation. Exacerbated due to underlying urinary tract infection. (3) Elevated troponin: Code(s): R79.89 - Other specified abnormal findings of blood chemistry Status: Acute Assessment and Plan: Fairly flat curve, type 2 infarct not secondary to acute coronary syndrome and/or plaque rupture. Coronary status is unknown with available records. Conservative medical management. Continue systemic anticoagulation. (4) Acute UTI: Code(s): N39.0 - Urinary tract infection, site not specified Status: Acute Assessment and Plan: Supportive care, antibiotics per primary service. (5) Acidosis, lactic: Code(s): E87.2 - Acidosis Status: Acute Assessment and Plan: Resolving (6) Type 2 diabetes mellitus: Code(s): E11.9 - Type 2 diabetes mellitus without complications Status: Acute Assessment and Plan: per primary service. (7) Essential hypertension: Code(s): I10 - Essential (primary) hypertension Status: Acute Assessment and Plan: Stable, not ideally controlled. (8) H/O cardiomyopathy: Code(s): Z86.79 - Personal history of other diseases of the circulatory system Status: Acute Assessment and Plan: Reported history EF 25-30%. Records from [facility] in this regard not available for confirmation due to system malfunction. Compensated presently. If patient remains hospitalized may repeat echocardiogram Wednesday to reassess LV systolic function. Would prefer to avoid diltiazem if significant LV dysfunction persists. History of Present Illness History of Present Illness Consult date/time: Date of service: 01/06/20 13:15 Cardiology consultation at the request of Alisha Norman NP for my opinion regarding atrial flutter with rapid ventricular response. Requesting physician: Alisha Norman PA-C Consult reason: atrial fibrillation ( Atrial flutter with rapid ventricular response) Reason For Visit: Not acting right. Narrative: patient is an 79-year-old male with a history of vascular dementia, schizophrenia, paroxysmal atrial fibrillation and atrial flutter on chronic anticoagulation with Eliquis, diabetes mellitus, history of stroke, hypertension, LV systolic dysfunction EF 25-30% [facility] as he was reportedly not acting right. History is obtained electronic medical record as patient is unable to reliably provide history and is very difficult to understand when he does respond to questions. He wa
[2020-01-06] MEDS: DONEPEZIL HCL 10 MG TABLET PO (21:12)
[2020-01-06 21:46] LABS: Glucose Point of Care 175 (65-105)
[2020-01-07 04:00] VITALS: PULSE 66
[2020-01-07 06:00] VITALS: BP 122/62; PULSE 83; RESP 22; TEMP 36.7; O2SAT 96
[2020-01-07 06:17] LABS: Basophils Percent Auto 0.3 % (0.2-1.2); Eosinophils Absolute Auto 0.2 K/mm3 (0-0.3); Eosinophils Percent Auto 2.9 % (0-4.4); Hematocrit 37.2 % (42.0-52.0); Hemoglobin 12.4 g/dL (14.0-18.0); Immature Granulocyte Absolute 0.07 K/mm3 (0.00-0.031); Immature Granulocyte Percent A 0.9 % (0-0.5); Lymphocytes Absolute Auto 1.88 K/mm3 (0.9-3.2); Lymphocytes Percent Auto 25.2 % (18.3-44.2); Mean Corpuscular HGB Conc 33.3 g/dl (32-36); Mean Corpuscular Hemoglobin 29.5 pg (26-34); Mean Corpuscular Volume 88.6 fl (80-100); Mean Platelet Volume 10.1 fl (7.4-10.4); Monocytes Percent Auto 13.4 % (2.6-8.5); Neutrophils Absolute Auto 4.3 K/mm3 (1.3-6.7); Neutrophils Percent Auto 57.3 % (45.5-73.1); Platelet Count Result 165 k/mm3 (150-375); White Blood Count 7.5 K/mm3 (4.5-10.0)
[2020-01-07 06:38] LABS: Blood Urea Nitrogen 18 mg/dL (9-20); Calcium 8.8 mg/dL (8.4-10.2); Carbon Dioxide 25 mmol/L (22-30); Chloride 108 mmol/L (98-107); Estimated CRCL calculation 49 ml/min; Estimated Glomerular Filt Rate > 60; Glucose 108 mg/dL (75-110); Magnesium 1.8 mg/dL (1.6-2.3); Potassium 4.6 mmol/L (3.4-5.0); Sodium 140 mmol/L (137-145)
[2020-01-07 08:00] VITALS: PULSE 83; PULSE 91; RESP 20; O2SAT 96
[2020-01-07] MEDS: MEMANTINE 10 MG TABLET PO (09:51)
[2020-01-07] MEDS: MULTIVITAMINS THERAPEUTIC TAB (*BKC) 1 TABLET PO (09:51)
[2020-01-07] MEDS: SERTRALINE HCL 50 MG TABLET PO (09:51)
[2020-01-07] MEDS: DIVALPROEX SODIUM 250 MG TABEC PO (09:52)
[2020-01-07] MEDS: DILTIAZEM HCL 60 MG TABLET PO ×2 (09:52→13:16)
[2020-01-07] MEDS: ATORVASTATIN 40 MG TABLET PO (09:52)
[2020-01-07] MEDS: CALCIUM CARBONATE (TUMS) 500 MG (200 MG ELEMENTAL) PO (09:52)
[2020-01-07] MEDS: APIXABAN 5 MG TABLET PO (09:53)
[2020-01-07] MEDS: METOPROLOL TARTRATE 25 MG TABLET PO (09:53)
[2020-01-07] MEDS: FERROUS SULFATE 324 MG TABLET PO (09:55)
[2020-01-07] MEDS: FAMOTIDINE 20 MG TABLET PO (09:55)
[2020-01-07 12:00] VITALS: PULSE 64
--- NOTE | 2020-01-07 12:35 | PM.DS ---
DS: Admitting Diagnosis Admitting Diagnosis Admitting Diagnosis: Urinary tract infection, site not specified DS: Discharge Diagnosis Discharge Diagnosis (1) Sepsis: Code(s): A41.9 - Sepsis, unspecified organism Status: Acute Assessment and Plan: Was found to be septic on arrival with an increased heart rate 139, increased respiratory rate at 29, elevated lactic acid level with an underlying diagnosis of acute infection with a UTI. Vitals are stable, no longer tachycardic, no leukocytosis, afebrile (2) Metabolic encephalopathy: Code(s): G93.41 - Metabolic encephalopathy Status: Acute Assessment and Plan: Patient came in for altered mental status and increased combativeness. Most likely secondary to sepsis and acute underlying urinary tract infection. I feel he is back to his baseline today. He is stable to return back to his custodial. (3) Urinary tract infection: Code(s): N39.0 - Urinary tract infection, site not specified Status: Acute Assessment and Plan: Proteus mirabilis grew from his urine culture with sensitivity to Augmentin. At this time I feel like he is back to his baseline and he will be discharged back to his custodial. (4) Atrial flutter with rapid ventricular response: Code(s): I48.92 - Unspecified atrial flutter Status: Acute Assessment and Plan: I got Cardiology involved because of his increasing heart rate, could be secondary to acute infection and agitation. EKG was completed due to tachycardia last night and it showed atrial flutter/fibrillation with a heart rate of 135 with RVR. Cardiology evaluated the patient and increase his metoprolol tartrate to 25 mg twice daily and continue with diltiazem 60 mg Q 4 times a day. He is also on Eliquis for stroke prophylaxis. Today his heart rate is well controlled 70 beats per and is in atrial flutter. He is tachycardic in the morning prior to receiving his medications and then returned back to normal. Other abnormality noted. (5) Elevated troponin: Code(s): R79.89 - Other specified abnormal findings of blood chemistry Status: Acute Assessment and Plan: Cardiology evaluated the patient believes that troponin was elevated secondary to atrial flutter with RVR His elevated troponin does appear to be chronic when your review his prior troponins in the past. (6) Type 2 diabetes mellitus: Code(s): E11.9 - Type 2 diabetes mellitus without complications Status: Acute Assessment and Plan: Metformin on hold given lactic acidosis. Hemoglobin A1c is 7.2%. Continue his home medications upon discharge. Follow-up with primary care provider. (7) Lactic acidosis: Code(s): E87.2 - Acidosis Status: Acute Assessment and Plan: Patient was hospitalized in November 2019, also with lactic acidosis which was attributed to AFib/RVR. Patient seems to be septic with urinary tract infection but could also be secondary to AFib RVR. Blood pressures look good and thus doubt hypoperfusion, although he does have reduced ejection fraction. Liver function tests are unremarkable. At this time, he has received adequate fluid resuscitation thus will just continue to trend levels. Will continue with home medications upon discharge. (8) Systolic congestive heart failure: Code(s): I50.20 - Unspecified systolic (congestive) heart failure Status: Acute Assessment and Plan: Chronic. He appears clinically compensated at this time. (9) Essential hyp
[2020-01-07 14:00] VITALS: BP 122/76; PULSE 103; RESP 16; TEMP 36.5; O2SAT 100
[2020-01-07 15:55] LABS: Glucose Point of Care 194 (65-105)
--- NOTE | 2020-01-12 13:23 | PC.NURSE ---
Blood cx are negative.
== END 2020-01-07 14:40 | DRG 871 ==
LOC: ANHED 14:28 → ANH3MEDSUR 16:07
PROVIDERS: Physician Assistant; Admitting Provider Internal Medicine; Emergency Provider Emergency Medicine; Visit Provider Physician Assistant
DX: A41.9 Sepsis, unspecified organism (principal); G93.41 Metabolic encephalopathy; E87.2 Acidosis; I47.1 Supraventricular tachycardia; I48.92 Unspecified atrial flutter; I50.22 Chronic systolic (congestive) heart failure; N39.0 Urinary tract infection, site not specified; I11.0 Hypertensive heart disease with heart failure; F01.50 Vascular dementia, unspecified severity, without behavioral disturbance, psychotic disturbance, mood disturbance, and anxiety; B96.4 Proteus (mirabilis) (morganii) as the cause of diseases classified elsewhere; F20.9 Schizophrenia, unspecified; E11.9 Type 2 diabetes mellitus without complications; R79.89 Other specified abnormal findings of blood chemistry; R13.10 Dysphagia, unspecified; K21.9 Gastro-esophageal reflux disease without esophagitis; E78.5 Hyperlipidemia, unspecified; N40.0 Benign prostatic hyperplasia without lower urinary tract symptoms; Z79.01 Long term (current) use of anticoagulants; Z79.84 Long term (current) use of oral hypoglycemic drugs; Z79.899 Other long term (current) drug therapy; Z86.73 Personal history of transient ischemic attack (TIA), and cerebral infarction without residual deficits; Z88.0 Allergy status to penicillin; Z88.1 Allergy status to other antibiotic agents
CPT/HCPCS: 36415; 36600; 51701; 70450; 71046; 80048; 80053; 80164; 81001; 82805; 83036; 83605; 83735; 84100; 84443; 84484; 85025; 85027; 85610; 85730; 86140; 87040; 87077; 87086; 87088; 87186; 92610; 93005; 96361; 96365; 99285; A9270; J0696; J7030; J7120

== ENCOUNTER 2020-03-11 19:10 | Inpatient (IN) | payer MEDICARE, MEDICAID, SELFPAY ==
[2020-03-11] VITALS (9 sets, daily range): BP systolic 106–130; BP diastolic 71–87; PULSE 110–142; RESP 19–34; TEMP 36.3–36.9; O2SAT 94–100; BMI 21.8
--- NOTE | ~2020-03-11 | XR_ITS ---
EXAMINATION: XR chest 1V portable EXAM DATE: 03/11/2020 21:39 INDICATION: Aspiration pneumonia. TECHNIQUE: Portable AP frontal chest x-ray was obtained. Comparison is made to prior examination from 01/05/2020. FINDINGS: The lungs are clear. There are no pleural effusions. There are bony degenerative changes. Patient has diffuse idiopathic skeletal hyperostosis (DISH). There is no pneumothorax suspected. The bones and soft tissues are unremarkable. IMPRESSION: No acute cardiopulmonary findings. Reviewed, dictated and finalized at location G.
--- NOTE | 2020-03-11 19:26 | PC.NURSE ---
Pt. refusing blood draw and states he wants to go home.
--- NOTE | 2020-03-11 19:29 | ECG_ITS ---
Measurements Intervals [place] Rate: 144 P: 58 [place]: 164 QRS: 209 QRSD: 157 T: 59 QT: 357 QTc: 553 Interpretive Statements ATRIAL FLUTTER WITH RAPID VENTRICULAR RESPONSE RIGHT AXIS DEVIATION RIGHT BUNDLE BRANCH BLOCK ABNORMAL ECG Electronically Signed On 03-11-2020 19:58:12 CDT by Donaldo Duran D.O.
--- NOTE | 2020-03-11 19:29 | ED.CHESTPAIN ---
HPI - Chest Pain General Chief Complaint: Chest Pain Stated Complaint: cp Time Seen by Provider: 03/11/20 19:15 History of Present Illness HPI narrative: 79 yo male with h/o schizophrenia, dementia, A-fib, UTI, sepsis. Sent in from retirement for chest pain. On arrival here he is agitated and does not want to allow us to draw blood or place an IV. He is a fleming of the [facility], so we attempted to contact his guardian for assistance with making his decision. Related Data Home Medications Medication Instructions Recorded Confirmed Eliquis 5 mg PO BID 11/09/19 01/05/20 atorvastatin 40 mg PO DAILY 11/09/19 01/05/20 diltiazem HCl 60 mg PO QID 11/09/19 01/05/20 divalproex 250 mg PO Q12H 11/09/19 01/05/20 donepezil 10 mg PO HS 11/09/19 01/05/20 famotidine 20 mg PO DAILY 11/09/19 01/05/20 medroxyprogesterone 5 mg PO BID 11/09/19 01/05/20 memantine 10 mg PO BID 11/09/19 01/05/20 metformin 1,000 mg PO DAILY 11/09/19 01/05/20 olanzapine 10 mg PO HS 11/09/19 01/05/20 sertraline 50 mg PO DAILY 11/09/19 01/05/20 ferrous sulfate 325 mg PO DAILY 11/10/19 01/05/20 metformin 500 mg PO HS 11/10/19 01/05/20 Adult One Daily Multivitamin 1 tablet PO DAILY 01/05/20 01/05/20 acetaminophen 650 mg PO PRN 01/05/20 01/05/20 calcium carbonate [Tums] 200 mg PO BID 01/05/20 01/05/20 Allergies Allergy/AdvReac Type Severity Reaction Status Date / Time amoxicillin Allergy Unknown Unknown Verified 01/05/20 13:28 Penicillins Allergy Unknown Unknown Verified 01/05/20 13:28 Review of Systems Review of Systems: ROS unobtainable: Yes unobtainable due to mental status PMFSH Social History Social History Social History: The patient is a long-term resident [facility]. He is not able to provide much in the way of social history and cannot provide me with family history. It is noted that he is a [place] of the state and is a full code. It is unknown if he is ever smoked or if he indulges in alcohol or illicit substances. Spiritual care concerns: No Agree to blood products: Yes Exam Const: General: alert and confusion Nutritional Appearance: well nourished HENMT: Mouth: Yes dry mucous membranes Eyes: Pupils: Equal, round and reactive pupils present EOM: EOMs intact bilaterally Resp: Effort & Inspection: normal respiratory effort Auscultation: clear to auscultation bilaterally Cardio: Rate: tachycardic Rhythm: regular rhythm GI: Other: soft, nontender Skin: General skin exam: normal color Rashes: no rashes Neuro: General: moves all extremities, no focal motor deficits and CN's II-XI intact bilaterally Speech: Abnormal speech present (dysarhtric ) Extrem: General: no edema Course Vital Signs Vital signs: Vital Signs Temperature 36.3 C L 03/11/20 19:17 Pulse Rate 142 H 03/11/20 19:17 Respiratory Rate 34 H 03/11/20 19:17 Blood Pressure 130/83 03/11/20 19:17 Pulse Oximetry 94 03/11/20 19:17 Temperature 36.3 C L 03/11/20 19:17 Pulse Rate 138 H 03/11/20 20:51 Respiratory Rate 23 H 03/11/20 20:07 Blood Pressure 126/86 03/11/20 20:51 Pulse Oximetry 97 03/11/20 20:07 MDM - Chest Pain Medical Records Data Attestation: I reviewed the patient's medical records. Lab Data Attestation: I reviewed the patient's lab results. Result diagrams: 03/11/20 20:08 03/11/20 20:08 Labs: Lab Results 03/11/20 03/11/20 03/11/20 Range/Units 20:08 20:08 20:11 WBC 8.1 (4.5-10.0) K/mm3 RBC 5.56 (4.6-6.20) M/mm3 Hgb 16.2 D (14.0-18.0) g/dL Hct 48.1 (42.0-52.0) % MCV 86.5 (80-100) fl MCH 29.1 (26-34) pg MCHC 33.7 (32-36) g/dl RDW 13.2 (11.5-14.5) % Plt Count 271 D (150-375) k/mm3 MPV 10.3 (7.4-10.4) fl Immature Gran % (Auto) 1.5 H (0-0.5) % Neut % (Auto) 62.2 (45.5-73.1) % Lymph % (Auto) 21.6 (18.3-44.2) % [facility] % (Auto) 14.1 H (2.6-8.5) % Eos % (A
--- NOTE | 2020-03-11 19:46 | PC.NURSE ---
RN on phone for verbal consent to tx pt. Spoke w/ pt's cable television technician guardian Sarah Cali. She verbalized consent to tx pt.
[2020-03-11] MEDS: HALOPERIDOL LACTATE 5 MG/ML VIAL IM (19:56)
[2020-03-11] MEDS: SODIUM CHLORIDE 0.9% IV 1,000 ML 999 ML IV CONT (20:07)
[2020-03-11] MEDS: dilTIAZem HCl INJ 25 MG/5 ML VIAL 10 MG IV PUSH (20:15)
[2020-03-11 20:16] LABS: Basophils Percent Auto 0.5 % (0.2-1.2); Eosinophils Percent Auto 0.1 % (0-4.4); Hematocrit 48.1 % (42.0-52.0); Hemoglobin 16.2 g/dL (14.0-18.0); Immature Granulocyte Absolute 0.12 K/mm3 (0.00-0.031); Immature Granulocyte Percent A 1.5 % (0-0.5); Lymphocytes Absolute Auto 1.76 K/mm3 (0.9-3.2); Lymphocytes Percent Auto 21.6 % (18.3-44.2); Mean Corpuscular HGB Conc 33.7 g/dl (32-36); Mean Corpuscular Hemoglobin 29.1 pg (26-34); Mean Corpuscular Volume 86.5 fl (80-100); Mean Platelet Volume 10.3 fl (7.4-10.4); Monocytes Absolute Auto 1.2 K/mm3 (0.1-0.6); Monocytes Percent Auto 14.1 % (2.6-8.5); Neutrophils Absolute Auto 5.1 K/mm3 (1.3-6.7); Neutrophils Percent Auto 62.2 % (45.5-73.1); Platelet Count Result 271 k/mm3 (150-375); Red Blood Count 5.56 M/mm3 (4.6-6.20); Red Cell Distribution Width 13.2 % (11.5-14.5); White Blood Count 8.1 K/mm3 (4.5-10.0)
[2020-03-11 20:22] LABS: Add Urine Microscopic? YES; Appearance Urine Cloudy (Clear); Bacteria Urine 1+ /hpf; Bilirubin Urine Negative (Negative); Blood Urine 2+ (Negative); Color Urine Yellow (Yellow); Glucose Urine UA 2+ mg/dL (Negative); Ketones Urine Negative (Negative); Leukocyte Esterase Ur 3+ LEU/UL (Negative); Mucus Urine Rare /lpf; Nitrate Urine Negative (Negative); Protein Urine 2+ mg/dL (Negative); RBC Urine 51-75 /hpf (0-2); Specific Grav Ur 1.019 (1.001-1.035); Urobilinogen Urine Negative mg/dL (<2.0); WBC Urine >75 /hpf
[2020-03-11 20:27] LABS: Alanine Aminotransferase 52 U/L (4-50); Albumin Level 4.8 g/dL (3.5-5.1); Alkaline Phosphatase 52 U/L (38-126); Anion Gap 21.7 mmol/L (7-16); Aspartate Amino Transferase 40 U/L (17-59); Bilirubin,Total 0.6 mg/dL (0.2-1.3); Blood Urea Nitrogen 29 mg/dL (9-20); Calcium 9.9 mg/dL (8.4-10.2); Carbon Dioxide 22 mmol/L (22-30); Chloride 103 mmol/L (98-107); Estimated Glomerular Filt Rate > 60; Glucose 270 mg/dL (75-110); Potassium 4.7 mmol/L (3.4-5.0); Sodium 142 mmol/L (137-145)
--- NOTE | 2020-03-11 21:19 | PM.IMHP ---
H&P: HPI History of Present Illness Date/Time: 03/11/20 21:19 Chief complaint: Atrial flutter, UTI Narrative: This is an 79-year-old male with history of vascular dementia, schizophrenia with psychosis, atrial tachycardia with history of paroxysmal atrial fibrillation flutter, hypertension, systolic congestive heart failure, type 2 diabetes mellitus, and chronic dysphagia who presented to the emergency department supposedly for chest pain. The patient arrived aggitated and was treated with haldol and ativan in the ER. He was subsequently found to be in atrial fibrillation with RVR. The patient was started on Cardizem IV for rate control by the ER provider. Routine labs demonstrated a mildly elevated troponin and his urinalysis was grossly abnormal. On my encounter with the patient he is medicated with ativan and haldol and cannot answer any of my questions. No further history is obtainable and the patient is known to be a fleming of the [facility]. Review of Systems Review of Systems: ROS unobtainable: Yes unobtainable due to medical condition and unobtainable due to mental status PMFSH Past Medical History Medical History Atrial tachycardia With history of paroxysmal atrial fibrillation and atrial flutter. Benign prostatic hyperplasia Cerebrovascular accident Brain CT shows prior infarcts in the right occipital and left parietal lobes. Depression Dysphagia He continually failed swallow studies dating back to 2014, and has continued to refuse G-tube placement. Essential hypertension Gastroesophageal reflux Hyperlipidemia Schizophrenia Systolic congestive heart failure Echocardiogram in March 2019 showed mildly enlarged left ventricular chamber and moderately increased left ventricular thickness, severely reduced left ventricular function with an ejection fraction of 25 to 30%, indeterminate left ventricular diastolic function, moderate biatrial enlargement, [id number] mitral valve regurgitation, and mild tricuspid valve regurgitation. Type 2 diabetes mellitus Vascular dementia Surgical History Surgical History Surgical history unknown Family History Family History Other Unknown family medical history Social History Social History Social History: The patient is a long-term resident [facility]. He is not able to provide much in the way of social history and cannot provide me with family history. It is noted that he is a fleming of the [facility] and is a full code. It is unknown if he is ever smoked or if he indulges in alcohol or illicit substances. Smoking status: Unknown if ever smoked Alcohol intake: unknown Substance use: unknown Gender identity (if verbalized by the patient): Male Spiritual care concerns: No Agree to blood products: Yes Meds Home Medications and Allergies Home Medications Medication Instructions Recorded Confirmed Type Eliquis 5 mg PO BID 11/09/19 03/11/20 History atorvastatin 40 mg PO DAILY 11/09/19 03/11/20 History diltiazem HCl 60 mg PO QID 11/09/19 03/11/20 History divalproex 250 mg PO Q12H 11/09/19 03/11/20 History donepezil 10 mg PO HS 11/09/19 03/11/20 History famotidine 20 mg PO DAILY 11/09/19 03/11/20 History medroxyprogesterone 5 mg PO BID 11/09/19 03/11/20 History memantine 10 mg PO BID 11/09/19 03/11/20 History metformin 1,000 mg PO DAILY 11/09/19 03/11/20 History olanzapine 10 mg PO BIDWM 11/09/19 03/11/20 History sertraline 50 mg PO DAILY 11/09/19 03/11/20 History ferrous sulfate 325 mg PO DAILY 11/10/19 03/11/20 History metformin 500 mg PO HS 11/10/19 03/11/20 History acetaminophen 500 mg PO Q6-8H PRN 01/05/20 03/11/20 History calcium carbonate [Tums] 200 mg PO BID 01/05/20 03/11/20 History Saccharomyces boulardii [Florastor] 250 mg PO BID #14 cap 0
[2020-03-11 21:52] LABS: Alveolar/Arterial O2 Gradient 31.8 mmHg; Base Excess ABG -5.2 mEq/l (+/-2.0); Fractional Inspired Oxygen 21 %; HCO3 ABG 17.6 mEq/l (22.0-26.0); Oxygen Saturation ABG 96.8 % (95.0-100.0); Oxyhemoglobin 95.6 % THb (90.0-100.0); PCO2 ABG 27.4 mmHg (35.0-45.0); PO2 ABG 85.1 mmHg (80.0-100.0); PO2 FiO2 Ratio Arterial Blood 4.05 %; Total Hemoglobin 14.1 g/dL (12.0-18.0); pH ABG 7.425 (7.350-7.450)
[2020-03-11 21:53] LABS: Device ROOM AIR; Modified Allen's Test Pass; Site Drawn RIGHT RADIAL
--- NOTE | 2020-03-11 22:31 | ADMGEN ---
This patient, Chirag Kyle, was admitted to IMU Room 204-01 FROM ER 03/11/202209. Patient/family oriented to hospital policies and general routines including ID bracelet, bed and alarms, visiting hours, pain management, procedures, bathroom and other care routines, personal items, smoking policy, room service/diet, and visiting hours. Valuables list has been completed. Information on how to activate the Rapid Response Team has been discussed. Patient/Family are encouraged to report perceived risks to care and to ask questions if they do not understand what they are told or what they should do.
[2020-03-11 23:19] LABS: Lactic Acid Reflex 3.4 mmol/L (0.7-2.1)
[2020-03-11 23:25] LABS: Beta-Hydroxybutyrate/Acetoacetate 0.22 mmol/L (0.02-0.27)
[2020-03-11 23:40] LABS: Glucose Point of Care 161 (65-105)
[2020-03-12] VITALS (17 sets, daily range): BP systolic 100–124; BP diastolic 64–88; PULSE 45–141; RESP 18–22; TEMP 36.1–37.1; O2SAT 96–100
[2020-03-12 02:03] LABS: Reflex Lactic Acid Yes or No Add Lactic
[2020-03-12 02:42] LABS: Basophils Percent Auto 0.6 % (0.2-1.2); Eosinophils Absolute Auto 0.1 K/mm3 (0-0.3); Eosinophils Percent Auto 1.5 % (0-4.4); Hematocrit 42.9 % (42.0-52.0); Hemoglobin 14.5 g/dL (14.0-18.0); Immature Granulocyte Absolute 0.07 K/mm3 (0.00-0.031); Lymphocytes Absolute Auto 2.06 K/mm3 (0.9-3.2); Lymphocytes Percent Auto 28.8 % (18.3-44.2); Mean Corpuscular HGB Conc 33.8 g/dl (32-36); Mean Corpuscular Hemoglobin 29.5 pg (26-34); Mean Corpuscular Volume 87.4 fl (80-100); Monocytes Absolute Auto 1.3 K/mm3 (0.1-0.6); Monocytes Percent Auto 17.8 % (2.6-8.5); Neutrophils Absolute Auto 3.6 K/mm3 (1.3-6.7); Neutrophils Percent Auto 50.3 % (45.5-73.1); Platelet Count Result 204 k/mm3 (150-375); Red Blood Count 4.91 M/mm3 (4.6-6.20); Red Cell Distribution Width 13.3 % (11.5-14.5); White Blood Count 7.2 K/mm3 (4.5-10.0)
[2020-03-12 02:59] LABS: Blood Urea Nitrogen 26 mg/dL (9-20); Calcium 8.9 mg/dL (8.4-10.2); Carbon Dioxide 21 mmol/L (22-30); Chloride 107 mmol/L (98-107); Estimated CRCL calculation 54 ml/min; Estimated Glomerular Filt Rate > 60; Glucose 122 mg/dL (75-110); Magnesium 1.8 mg/dL (1.6-2.3); Sodium 139 mmol/L (137-145)
[2020-03-12 05:28] LABS: Glucose Point of Care 126 (65-105)
[2020-03-12 07:58] LABS: Troponin I 0.421 ng/mL (0.000-0.034)
--- NOTE | 2020-03-12 11:04 | PM.CNCAR ---
Assessment and Plan Assessment and plan (1) Atrial fibrillation with RVR: Code(s): I48.91 - Unspecified atrial fibrillation Status: Acute Assessment and Plan: 79-year-old male with a history of paroxysmal atrial fibrillation/flutter on chronic anticoagulation with apixaban, CHF with reduced ejection fraction ( LVEF 25-30% from 03/27/2019 echocardiogram); hypertension, History of CVA ( as documented on CT head); vascular dementia, schizophrenia, diabetes mellitus, history of stroke. Patient admitted with reported chest pain , although it is difficult to gather information from the patient due to his dementia and delirium. He was found to be in atrial flutter with RVR, troponins are minimally elevated, which are likely non ACS late in the setting of a flutter with RVR and UTI. Patient has known CHF with reduced ejection fraction, LVEF 25-30% from 03/27/2019 echocardiogram. Patient is currently on low-dose IV diltiazem without significant improvement in the heart rate. His blood pressure is reasonable at this time. Will add metoprolol tartrate 25 mg p.o. b.i.d. with holding parameters. Patient's atrial flutter/ fibrillation with RVR is possibly precipitated by his underlying infection/ UTI. Management of UTI as per primary team. resume apixaban. Continue to monitor on telemetry. Recommend addressing code status. (2) Elevated troponin: Code(s): R79.89 - Other specified abnormal findings of blood chemistry Status: Acute Assessment and Plan: Likely non ACS in the setting of atrial flutter with RVR, CHF, infection. (3) UTI (urinary tract infection): Code(s): N39.0 - Urinary tract infection, site not specified Status: Acute Assessment and Plan: Management as per primary team with appropriate antibiotics. History of Present Illness History of Present Illness Consult date/time: 03/12/20 11:04 Date of consult -03/12/2020 reason for consult: elevated troponin Requesting physician:Dr Almanza Chief complaint: HPI:79-year-old male with a history of paroxysmal atrial fibrillation/flutter on chronic anticoagulation with apixaban, CHF with reduced ejection fraction ( LVEF 25-30% from 03/27/2019 echocardiogram); hypertension, History of CVA ( as documented on CT head); vascular dementia, schizophrenia, diabetes mellitus, history of stroke. Patient was brought to [facility] emergency room 03/11/2020 with supposedly chest pain. The patient arrived aggitated and was Apparently treated with haloperidol and ativan in the ER. He was also subsequently found to be in atrial fibrillation with RVR. The patient was started on Cardizem IV for rate control. His labs showed mildly elevated troponin with a peak troponin level of 0.6. Cardiology has been therefore consulted. His EKG upon arrival which I personally evaluated showed atrial flutter with RVR, heart rate 144 beats per minute, right bundle branch block. At the time of evaluation, patient is delirious and unable to provide any detailed medical information. His speech is not coherent. On telemetry, he remains in atrial flutter with heart rates in 130s to 140s. He has been on diltiazem IV. His UA is suggestive of UTI Reason For Visit: Atrial flutter, UTI Review of Systems Review of Systems: Narrative: review of systems unobtainable, patient is delirious and has history of dementia. He apparently presented with chest pain, was found to be in atrial flutter with RVR. Information is gathered from the review of the chart and from the staff. [facility] Past Medical History Medical History Atrial tachycardia With history of paroxysmal atrial fibrillation and atrial flutter. Benign prostatic hyperplasia Cerebrovascular accident Brain CT shows prior infarcts in the right occipital and left parietal lobes. Depression Dysphagia He continually failed swallow studies dati
[2020-03-12 12:50] LABS: Glucose Point of Care 136 (65-105)
[2020-03-12 16:16] LABS: Glucose Point of Care 138 (65-105)
[2020-03-12] MEDS: SACCHAROMYCES BOULARDII 250 MG CAPSULE PO (17:28)
[2020-03-12] MEDS: METOPROLOL TARTRATE 25 MG TABLET PO ×2 (17:28→21:25)
[2020-03-12] MEDS: CALCIUM CARBONATE (TUMS) 500 MG (200 MG ELEMENTAL) PO (17:30)
--- NOTE | 2020-03-12 18:38 | PM.IMPN ---
Progress Note: A&P Assessment and Plan (1) Acute encephalopathy: Code(s): G93.40 - Encephalopathy, unspecified Status: Acute Assessment and Plan: The patient was poorly responsive and appeared medicated but did receive Haldol and Ativan in the ER. He is more alert and awake today. Resume home meds and will monitor. (2) Atrial fibrillation with RVR: Code(s): I48.91 - Unspecified atrial fibrillation Status: Acute Assessment and Plan: The patient has been started on Cardizem IV in the ER. HR still elevated. We will continue Cardizem drip. Cardiology has added metoprolol. Echo ordered. TSH normal. The patient is anticoagulated on Eliquis which has been resumed. Cardiology following. (3) Abnormal urinalysis: Code(s): R82.90 - Unspecified abnormal findings in urine Status: Acute Assessment and Plan: UA noted. UCx pending. Continue IV antibiotics. (4) Elevated troponin: Code(s): R79.89 - Other specified abnormal findings of blood chemistry Status: Acute Assessment and Plan: Troponin elevated to 0.6 before trending down. Likely secondary to atrial fibrillation w/ RVR. Cardiology following. (5) Metabolic acidosis with increased anion gap and accumulation of organic acids: Code(s): E87.2 - Acidosis Status: Acute Assessment and Plan: AG 22 but ABG normal. Glucose better. DKA ruled out. AG normalized. (6) Dementia: Qualifiers: Dementia behavioral disturbance: with behavioral disturbance Dementia type: unspecified type Qualified Code(s): F03.91 - Unspecified dementia with behavioral disturbance Code(s): F03.90 - Unspecified dementia without behavioral disturbance Status: Chronic Assessment and Plan: Stable. Resume memantine. (7) Type 2 diabetes mellitus: Qualifiers: Diabetes mellitus complication status: without complication Diabetes mellitus half-way insulin use: without half-way use Qualified Code(s): E11.9 - Type 2 diabetes mellitus without complications Code(s): E11.9 - Type 2 diabetes mellitus without complications Status: Chronic Assessment and Plan: A1c 7.2 in December. Glucose reviewed on 03/12/20. Glucose will controlled. Continue Accuchecks with SSI Coverage. Continue hypoglycemic protocol. (8) Essential hypertension: Code(s): I10 - Essential (primary) hypertension Status: Chronic Assessment and Plan: BP reviewed on 03/12/20. BP remained stable. Continue to monitor blood pressure. Currently on Dilt drip. Metoprolol to be resumed. (9) Schizophrenia: Qualifiers: Schizophrenia type: other Qualified Code(s): F20.89 - Other schizophrenia Code(s): F20.9 - Schizophrenia, unspecified Status: Chronic Assessment and Plan: Mood stable. Resume Valproic acid and olanzapine. Subjective Date/time seen: 03/12/20 18:38 Interval history: 79yo male with schizophrenia and dementia here for chest pain. Patietn alert but unable to provide history. Review of Systems Review of Systems: ROS unobtainable: Yes unobtainable due to medical condition and unobtainable due to mental status Exam Narrative: Exam Narrative: AF 98.3 116/82 139 18 100% ra Gen - NARD Chest - Lungs clear anteriorly CV - irregular irregular. Tachycardic. Telemetry shows atrial flutter with RVR Abd - Soft, NT/ND, Positive BS Ext - No pedal edema; contractures Neuro - Alert but confused. dysrhtric speech Skin - Warm and dry Objective Data Vital Signs Vital Signs: Vital Signs - 24 hr 03/11/20 19:17 03/11/20 20:07 03/11/20 20:16 Temperature 97.4 F L Pulse Rate 142 H 142 H Respiratory Rate 34 H 23 H Blood Pressure 130/83 130/83 106/74 Pulse Oximetry 94 97 03/11/20 20:51 03/11/20 20:55 03/11/20 21:55 Temperature Pulse Rate 138 H 139 H 115 H Respiratory Rate 19 20 Blo
[2020-03-12] MEDS: DIVALPROEX SODIUM 250 MG TABEC PO (21:25)
[2020-03-12] MEDS: MEMANTINE 10 MG TABLET PO (21:25)
[2020-03-12] MEDS: APIXABAN 5 MG TABLET PO (21:26)
[2020-03-12] MEDS: DONEPEZIL HCL 10 MG TABLET PO (21:27)
[2020-03-12 23:46] LABS: Glucose Point of Care 176 (65-105)
[2020-03-13] VITALS (24 sets, daily range): BP systolic 91–132; BP diastolic 55–90; PULSE 55–132; RESP 16–28; TEMP 35.8–37.2; O2SAT 97–100
--- NOTE | 2020-03-13 | ECHO_ITS ---
Patient Info Name: Chirag Moura Kyle Age: 79 years : 1940 Gender: Male Ht: 72 in Wt: 164 lbs BSA: 1.94 m2 HR: 110 bpm BP: 124 / 88 mmHg Heart Rhythm: Sinus Rhythm Technical Quality: Good Exam Date: 03/13/2020 8:04 AM Exam Location: [facility] Patient Status: Inpatient Admit Date: 03/11/2020 Staff Ordering Physician: Sven Almanza MD Arborist Representative: Thomas Abraham, ESTEVAN, RT Attending Provider: Brett Pandey MD Referring Physician: Archie MANTILLA; Exam Type: CA echo doppler color flow Study Info Indications I48.0 - Paroxysmal atrial fibrillation Complete two-dimensional, color flow and Doppler transthoracic echocardiogram is performed. Summary 1. Left ventricular chamber dimension is moderately enlarged. 2. Left ventricular systolic function is severely reduced, estimated at 25-30%. 3. Left atrial chamber dimension is moderately enlarged. 4. There is mild aortic valve sclerosis. 5. There is mild mitral valve regurgitation. 6. Compared with previous exam from March of 2019 there is no significant difference. Left Ventricle Left ventricular chamber dimension is moderately enlarged. Left ventricular systolic function is severely reduced, estimated at 25-30%. The left ventricular diastolic function is grade I diastolic dysfunction. Right Ventricle Right ventricular chamber dimension is normal. Left Atria Left atrial chamber dimension is moderately enlarged. Right Atria Right atrial chamber dimension is normal. Aortic Valve The aortic valve is trileaflet. There is mild aortic valve sclerosis. Pulmonic Valve The pulmonic valve is not well visualized. Mitral Valve The mitral valve has normal leaflets. There is mild mitral valve regurgitation. Tricuspid Valve The tricuspid valve leaflets are normal. Pericardium/Pleural The pericardium appears normal. Aorta The aortic root size at the sinus of Valsalva is normal. Left Ventricular Outflow Tract Name Value Normal LVOT 2D LVOT Diameter 2.1 cm LVOT Doppler LVOT Peak Gradient 1 mmHg LVOT Mean Gradient 1 mmHg LVOT VTI 6 cm LVOT VTI/AV VTI Ratio 0.9 LVOT Stroke Volume 23 ml LVOT CO 3.0 l/min LVOT CI 1.6 l/min/m2 Mitral Valve Name Value Normal MV Doppler MV Peak Gradient 1 mmHg MV Mean Gradient 0 mmHg MV Decel [place] 870 cm/s2 MV PHT 31 ms MV Area (PHT) 7.1 cm2 4.0-5.0 MV Area (Cont Eq VTI) 5.1 cm2 MV Regurgitation Doppler
[2020-03-13] MEDS: METOPROLOL TARTRATE 25 MG TABLET PO ×3 (02:21→21:30)
[2020-03-13 05:05] LABS: Anion Gap 12.6 mmol/L (7-16); Blood Urea Nitrogen 22 mg/dL (9-20); Calcium 8.8 mg/dL (8.4-10.2); Carbon Dioxide 23 mmol/L (22-30); Chloride 108 mmol/L (98-107); Estimated CRCL calculation 54 ml/min; Estimated Glomerular Filt Rate > 60; Glucose 140 mg/dL (75-110); Magnesium 1.9 mg/dL (1.6-2.3); Potassium 4.6 mmol/L (3.4-5.0); Sodium 139 mmol/L (137-145)
--- NOTE | 2020-03-13 07:17 | P.CDI_ITS ---
CDI Query Clarification Request - Encephalopathy has been documented. Please further specify type of encephalopathy: * Metabolic * Toxic * Hepatic * Hypertensive * Other * Unable to determine <Lisa Rowe RN - Last Filed: 03/13/20 07:18>
--- NOTE | 2020-03-13 07:17 | WPDCDIQUERY2 ---
CDI Query Clarification Request - Encephalopathy has been documented. Please further specify type of encephalopathy: Metabolic Toxic Hepatic Hypertensive Other Unable to determine <Lisa Rowe RN - Last Filed: 03/13/20 07:18>
[2020-03-13] MEDS: APIXABAN 5 MG TABLET PO ×2 (08:42→21:28)
[2020-03-13] MEDS: THERAPEUTIC MULTIVITAMINS/MINERALS TAB (*BKC) 1 TABLET PO (08:42)
[2020-03-13] MEDS: ATORVASTATIN 40 MG TABLET PO (08:42)
[2020-03-13] MEDS: SERTRALINE HCL 50 MG TABLET PO (08:42)
[2020-03-13] MEDS: SACCHAROMYCES BOULARDII 250 MG CAPSULE PO ×2 (08:44→17:20)
[2020-03-13] MEDS: metFORMIN HCL 500 MG TABLET 1000 MG PO (08:44)
[2020-03-13] MEDS: MEMANTINE 10 MG TABLET PO ×2 (08:44→21:29)
[2020-03-13] MEDS: DIVALPROEX SODIUM 250 MG TABEC PO ×2 (08:45→21:31)
[2020-03-13] MEDS: FAMOTIDINE 20 MG TABLET PO (08:45)
[2020-03-13] MEDS: CALCIUM CARBONATE (TUMS) 500 MG (200 MG ELEMENTAL) PO ×2 (08:54→17:20)
[2020-03-13 12:05] LABS: Glucose Point of Care 170 (65-105)
[2020-03-13] MEDS: FERROUS SULFATE 324 MG TABLET PO (13:13)
--- NOTE | 2020-03-13 14:26 | PM.PNCARD ---
Progress Note: A&P Assessment and Plan (1) Atrial fibrillation with RVR: Code(s): I48.91 - Unspecified atrial fibrillation Status: Acute Assessment and Plan: Continue anticoagulation with apixaban 5 mg every 12 hours. Continue Metoprolol tartrate 25 mg every 12 hours. Resume home dose of diltiazem 60 mg q.i.d.. (8:00 a.m., 12:00 p.m., 4:00 p.m., 8:00 p.m. dosing). Discontinue diltiazem drip with 1st dose of p.o. (2) Elevated troponin: Code(s): R79.89 - Other specified abnormal findings of blood chemistry Status: Acute Assessment and Plan: Likely non ACS in the setting of atrial flutter with RVR, CHF, infection. (3) UTI (urinary tract infection): Code(s): N39.0 - Urinary tract infection, site not specified Status: Acute Assessment and Plan: Management as per primary team with appropriate antibiotics. Additional Plan Plan discussed with Dr. Zamudio [id number] 03/13/2020 Time Spent With Patient Time: Time with patient: less than 15 minutes Subjective Date/time seen: 03/13/20 14:26 Interval history: Follow up for: Atrial flutter with rapid ventricular response, elevated troponin, long-term use anticoagulation, LV systolic dysfunction, urinary tract infection Date of service: 03/13/2020 Subjective: At first denied any pain then said his right hand was hurting. No shortness of breath. Unable to understand any other answers to review of system questions. Review of Systems Review of Systems: ROS unobtainable: Yes unobtainable due to medical condition and unobtainable due to mental status Exam Const: General: no acute distress Other: Confused, delirious Speech is difficult to understand . HENMT: Head: normocephalic and atraumatic Ears: hearing grossly normal bilaterally and external ears normal General nose exam: Normal external nose present and no epistaxis Face and sinus: no ecchymosis Teeth and gingiva: edentulous Eyes: Conjunctivae: conjunctivae normal Sclera: sclerae normal EOM: EOMs intact bilaterally Neck: Neck: normal visual inspection, supple and no JVD Carotids: normal carotid upstroke Resp: Effort & Inspection: normal respiratory effort and able to speak in complete sentences Auscultation: clear to auscultation bilaterally Cardio: Jugular venous distension: no JVD Rate: tachycardic Rhythm: abnormal rhythm Heart sounds: no murmurs Other: irregular rhythm, variable S1 GI: Inspection: normal to inspection Auscultation: normal bowel sounds Skin: Other: no rash on exposed areas, no cyanosis Neuro: Cranial nerves: Yes Normal hearing present Other: alert, confused Extrem: Other: contracted legs, no edema, SCDs are in place Objective Data Vital Signs Vital Signs: Vital Signs - 24 hr 03/12/20 14:39 03/12/20 14:40 03/12/20 16:00 Temperature 36.8 C Pulse Rate 138 H 140 H 140 H Respiratory Rate 18 Blood Pressure 116/82 Pulse Oximetry 100 03/12/20 17:28 03/12/20 20:00 03/12/20 21:18 Temperature 36.3 C L Pulse Rate 139 H 106 H 112 H Respiratory Rate 18 Blood Pressure 122/78 Pulse Oximetry 100 03/12/20 21:25 03/12/20 21:32 03/12/20 22:00 Temperature Pulse Rate 108 H 132 H 92 Respiratory Rate Blood Pressure Pulse Oximetry 03/12/20 22:52 03/13/20 00:00 03/13/20 00:16 Temperature 35.9 C L Pulse Rate 45 L 84 55 L Respiratory Rate 18 Blood Pressure 120/90 Pulse Oximetry 97 03/13/20 02:00 03/13/20 02:21 03/13/20 04:00 Temperature Pulse Rate 100 116 H 91 Respiratory Rate Blood Pressure Pulse Oximetry 03/13/20 04:56 03/13/20 06:00 03/13/20 08:00 Temperature 35.9 C L 36.9 C Pulse Rate 126 H 110 H 129 H Respiratory Rate 16 18 Blood Pressure 105/79 101/84 Pulse Oximetry 100 100 03/13/20 08:42 03/13/20 08:55 03/13/20 11:46 Temperature 36.6 C Pulse Rate
[2020-03-13 16:18] LABS: Glucose Point of Care 198 (65-105)
[2020-03-13] MEDS: dilTIAZem HCL 60 MG TABLET PO ×2 (17:19→21:29)
--- NOTE | 2020-03-13 19:25 | PM.IMPN ---
Progress Note: A&P Assessment and Plan (1) Acute encephalopathy: Code(s): G93.40 - Encephalopathy, unspecified Status: Acute Assessment and Plan: The patient was poorly responsive and appeared medicated. He did receive Haldol and Ativan in the ER. He became more alert and awake so suspect originally toxic from his UTI but worse due to sedatives. Continue to monitor. (2) Atrial fibrillation with RVR: Code(s): I48.91 - Unspecified atrial fibrillation Status: Acute Assessment and Plan: The patient has been started on Cardizem IV in the ER. Metoprolol and then Diltiazem added back. Diltiazem drip stopped and now monitoring HR on oral mediations. Echo showing EF 25-30% but no change from last year. TSH normal. The patient is anticoagulated on Eliquis. Appreciate Cardiology input. (3) UTI (urinary tract infection): Code(s): N39.0 - Urinary tract infection, site not specified Status: Acute Assessment and Plan: UA noted. Urine culture growing E coli and Proteus. Awaiting sensitivities. Clinically patient has improved. Will continue Rocephin. (4) Elevated troponin: Code(s): R79.89 - Other specified abnormal findings of blood chemistry Status: Acute Assessment and Plan: Troponin elevated to 0.6 before trending down. Likely secondary to atrial fibrillation w/ RVR. Cardiology following. (5) Metabolic acidosis with increased anion gap and accumulation of organic acids: Code(s): E87.2 - Acidosis Status: Acute Assessment and Plan: AG 22 but ABG normal. Lactic acid 3.4 felt related to above. Glucose better. DKA ruled out. AG has normalized. (6) Dementia: Qualifiers: Dementia behavioral disturbance: with behavioral disturbance Dementia type: unspecified type Qualified Code(s): F03.91 - Unspecified dementia with behavioral disturbance Code(s): F03.90 - Unspecified dementia without behavioral disturbance Status: Chronic Assessment and Plan: Stable. Continue memantine and Aricept (7) Type 2 diabetes mellitus: Qualifiers: Diabetes mellitus complication status: without complication Diabetes mellitus manager terminal insulin use: without manager terminal use Qualified Code(s): E11.9 - Type 2 diabetes mellitus without complications Code(s): E11.9 - Type 2 diabetes mellitus without complications Status: Chronic Assessment and Plan: A1c 7.2 in December. Glucose reviewed on 03/13/20. Glucose well controlled. Continue Accuchecks with SSI Coverage. Continue hypoglycemic protocol. Continue metformin. (8) Essential hypertension: Code(s): I10 - Essential (primary) hypertension Status: Chronic Assessment and Plan: BP reviewed on 03/13/20. BP remained stable. Continue to monitor blood pressure. Continue current medications. (9) Schizophrenia: Qualifiers: Schizophrenia type: other Qualified Code(s): F20.89 - Other schizophrenia Code(s): F20.9 - Schizophrenia, unspecified Status: Chronic Assessment and Plan: Mood stable. VPA level okay in December. Continue Valproic acid and olanzapine. Subjective Date/time seen: 03/13/20 19:25 Interval history: 79yo male with schizophrenia and dementia here for chest pain. Patietn alert but unable to provide history. No issues per nursing staff. transitioned off diltiazem drip this afternoon. Review of Systems Review of Systems: ROS unobtainable: Yes unobtainable due to medical condition Exam Narrative: Exam Narrative: AF 132/58 97 22 100% ra Gen - NARD Chest - Lungs clear anteriorly CV - irregular irregular but not tachy. Telemetry shows atrial flutter with RVR Abd - Soft, NT/ND, Positive BS Ext - No pedal edema; contractures Neuro - Alert but confused. dysrhtric speech Skin - Warm and dry Objective Data Vital Signs Vital Signs: Vital Signs - 24 hr
[2020-03-13 20:22] LABS: Glucose Point of Care 175 (65-105)
[2020-03-13] MEDS: metFORMIN HCL 500 MG TABLET PO (21:30)
[2020-03-13] MEDS: DONEPEZIL HCL 10 MG TABLET PO (21:30)
[2020-03-14] VITALS (15 sets, daily range): BP systolic 103–136; BP diastolic 53–85; PULSE 63–136; RESP 16–22; TEMP 36–37; O2SAT 98–100
[2020-03-14] MEDS: DIVALPROEX SODIUM 250 MG TABEC PO ×2 (08:10→21:19)
[2020-03-14] MEDS: dilTIAZem HCL 60 MG TABLET PO ×4 (08:10→21:19)
[2020-03-14] MEDS: THERAPEUTIC MULTIVITAMINS/MINERALS TAB (*BKC) 1 TABLET PO (08:10)
[2020-03-14] MEDS: APIXABAN 5 MG TABLET PO ×2 (08:10→21:20)
[2020-03-14] MEDS: FAMOTIDINE 20 MG TABLET PO (08:10)
[2020-03-14] MEDS: ATORVASTATIN 40 MG TABLET PO (08:10)
[2020-03-14] MEDS: SACCHAROMYCES BOULARDII 250 MG CAPSULE PO ×2 (08:10→17:45)
[2020-03-14] MEDS: MEMANTINE 10 MG TABLET PO ×2 (08:10→21:18)
[2020-03-14] MEDS: FERROUS SULFATE 324 MG TABLET PO (08:10)
[2020-03-14] MEDS: CALCIUM CARBONATE (TUMS) 500 MG (200 MG ELEMENTAL) PO ×2 (08:11→17:45)
[2020-03-14] MEDS: metFORMIN HCL 500 MG TABLET 1000 MG PO (08:11)
[2020-03-14] MEDS: SERTRALINE HCL 50 MG TABLET PO (08:11)
[2020-03-14] MEDS: METOPROLOL TARTRATE 25 MG TABLET PO ×2 (08:11→21:19)
[2020-03-14 08:12] LABS: Glucose Point of Care 133 (65-105)
[2020-03-14 12:45] LABS: Glucose Point of Care 192 (65-105)
--- NOTE | 2020-03-14 14:41 | PM.IMPN ---
Progress Note: A&P Assessment and Plan (1) Acute encephalopathy: Code(s): G93.40 - Encephalopathy, unspecified Status: Acute Assessment and Plan: The patient was poorly responsive and appeared medicated. He did receive Haldol and Ativan in the ER. He became more alert and awake so suspect originally toxic from his UTI but worse due to sedatives. [place] patient back to baseline. Continue to monitor. COVID testing needed before discharge (2) Atrial fibrillation with RVR: Code(s): I48.91 - Unspecified atrial fibrillation Status: Acute Assessment and Plan: The patient has been started on Cardizem IV in the ER. Metoprolol and then Diltiazem added back. Diltiazem drip stopped and now monitoring HR on oral mediations. Echo showing EF 25-30% but no change from last year. TSH normal. The patient is anticoagulated on Eliquis. Appreciate Cardiology input. Hold starting Lisinopril since BP soft at times (3) UTI (urinary tract infection): Code(s): N39.0 - Urinary tract infection, site not specified Status: Acute Assessment and Plan: UA noted. Urine culture growing E coli and Proteus sensitive to Rocephin. Clinically patient has improved. Will continue Rocephin. (4) Elevated troponin: Code(s): R79.89 - Other specified abnormal findings of blood chemistry Status: Acute Assessment and Plan: Troponin elevated to 0.6 before trending down. Likely secondary to atrial fibrillation w/ RVR. Cardiology following. (5) Metabolic acidosis with increased anion gap and accumulation of organic acids: Code(s): E87.2 - Acidosis Status: Acute Assessment and Plan: AG 22 but ABG normal. Lactic acid 3.4 felt related to above. Glucose better. DKA ruled out. AG has normalized. (6) Dementia: Qualifiers: Dementia behavioral disturbance: with behavioral disturbance Dementia type: unspecified type Qualified Code(s): F03.91 - Unspecified dementia with behavioral disturbance Code(s): F03.90 - Unspecified dementia without behavioral disturbance Status: Chronic Assessment and Plan: Stable. Continue memantine and Aricept (7) Type 2 diabetes mellitus: Qualifiers: Diabetes mellitus complication status: without complication Diabetes mellitus systems programmer analyst insulin use: without penitentiary use Qualified Code(s): E11.9 - Type 2 diabetes mellitus without complications Code(s): E11.9 - Type 2 diabetes mellitus without complications Status: Chronic Assessment and Plan: A1c 7.2 in December. Glucose reviewed on 03/14/20. Glucose well controlled. Continue Accuchecks with SSI Coverage. Continue hypoglycemic protocol. Continue metformin. (8) Essential hypertension: Code(s): I10 - Essential (primary) hypertension Status: Chronic Assessment and Plan: BP reviewed on 03/14/20. BP remained stable. Continue to monitor blood pressure. Continue current medications. (9) Schizophrenia: Qualifiers: Schizophrenia type: other Qualified Code(s): F20.89 - Other schizophrenia Code(s): F20.9 - Schizophrenia, unspecified Status: Chronic Assessment and Plan: Mood stable. VPA level okay in December. Continue Valproic acid and olanzapine. Subjective Date/time seen: 03/14/20 14:41 Interval history: 79yo male with schizophrenia and dementia here for chest pain. Patient alert but unable to provide history. No issues per nursing staff. Exam Narrative: Exam Narrative: AF 113/62 106 22 100% Gen - NARD lying almost flat in bed Chest - clear anteriroly, nml RR CV - irregular irregular. Telemetry shows atrial flutter with mostly controlled HR Abd - Soft, NT/ND, Positive BS Ext - No pedal edema Neuro - Alert but confused. dysarhtric speech Skin - Warm and dry Objective Data Vital Signs Vital Signs: Vital Signs - 24 hr 03/13/20 16:00 08/0
--- NOTE | 2020-03-14 15:01 | PM.PNCARD ---
Progress Note: A&P Assessment and Plan (1) Atrial fibrillation with RVR: Code(s): I48.91 - Unspecified atrial fibrillation Status: Acute Assessment and Plan: Continue anticoagulation with apixaban 5 mg every 12 hours. Continue Metoprolol tartrate 25 mg every 12 hours. Continue diltiazem 60 mg q.i.d.. Heart rate controlled with consistant medications. Heart rate elevates when time for next dose. (2) Elevated troponin: Code(s): R79.89 - Other specified abnormal findings of blood chemistry Status: Acute Assessment and Plan: Likely non ACS in the setting of atrial flutter with RVR, CHF, infection. (3) UTI (urinary tract infection): Code(s): N39.0 - Urinary tract infection, site not specified Status: Acute Assessment and Plan: Management as per primary team with appropriate antibiotics. Additional Plan No further Cardiac recommendations. Cardiology will sign off. Please do not hesitate to call if we can be of further assistance. Plan discussed with Dr Xiomara Luevano 03/14/2020 Subjective Date/time seen: 03/14/20 15:01 Interval history: Follow up for: Atrial fibrillation/flutter with rapid ventricular response, elevated troponin, long-term use anticoagulation, LV systolic dysfunction, urinary tract infection Date of service: 03/14/2020 Subjective: Unable to understand responses to questions. Review of Systems Review of Systems: ROS unobtainable: Yes unobtainable due to medical condition and unobtainable due to mental status Exam Const: General: no acute distress Other: Speech is difficult to understand . Laying comfortably in bed. HENMT: Head: normocephalic and atraumatic Ears: hearing grossly normal bilaterally and external ears normal General nose exam: Normal external nose present and no epistaxis Face and sinus: no ecchymosis Teeth and gingiva: edentulous Eyes: Conjunctivae: conjunctivae normal Sclera: sclerae normal EOM: EOMs intact bilaterally Neck: Neck: normal visual inspection, supple and no JVD Resp: Effort & Inspection: normal respiratory effort and able to speak in complete sentences Auscultation: clear to auscultation bilaterally Cardio: Jugular venous distension: no JVD Rate: regular rate Rhythm: abnormal rhythm Heart sounds: no murmurs Other: irregular rhythm, variable S1 GI: Inspection: normal to inspection Auscultation: normal bowel sounds Skin: Other: no rash on exposed areas, no cyanosis Neuro: Cranial nerves: Yes Normal hearing present Other: alert, confused Extrem: Other: contracted legs, no edema, SCDs are in place Objective Data Vital Signs Vital Signs: Vital Signs - 24 hr 03/13/20 16:00 03/13/20 16:45 03/13/20 17:17 Temperature 37.2 C Pulse Rate 92 86 96 Respiratory Rate 22 H Blood Pressure 97/69 L Pulse Oximetry 98 03/13/20 18:30 03/13/20 19:20 03/13/20 20:00 Temperature 36.6 C Pulse Rate 100 97 97 Respiratory Rate 22 H 22 H Blood Pressure 132/58 L Pulse Oximetry 100 100 03/13/20 21:30 03/13/20 22:00 03/13/20 23:53 Temperature 35.8 C L Pulse Rate 70 84 85 Respiratory Rate 16 Blood Pressure 99/55 L Pulse Oximetry 100 03/14/20 00:00 03/14/20 02:00 03/14/20 04:00 Temperature 36.4 C Pulse Rate 85 65 91 Respiratory Rate 16 16 Blood Pressure 125/53 L Pulse Oximetry 100 98 03/14/20 06:00 03/14/20 08:00 03/14/20 08:11 Temperature 36.9 C Pulse Rate 88 111 H 127 H Respiratory Rate 20 Blood Pressure 136/85 Pulse Oximetry 100 03/14/20 10:00 03/14/20 12:00 03/14/20 14:00 Temperature 36.6 C Pulse Rate 63 96 106 H Respiratory Rate 22 H Blood Pressure 113/62 Pulse Oximetry 100 Intake/Output Intake/Output: Intake & Output 03/11/20 03/12/20 03/13/20 03/14/20 23:59 23:59 23:59 23:59 Intake Total 1554 300 9913 1000 Balance 1050 630
[2020-03-14 16:30] LABS: Glucose Point of Care 144 (65-105)
[2020-03-14] MEDS: DONEPEZIL HCL 10 MG TABLET PO (21:18)
[2020-03-14] MEDS: metFORMIN HCL 500 MG TABLET PO (21:19)
[2020-03-14 21:54] LABS: Glucose Point of Care 194 (65-105)
[2020-03-15] VITALS (11 sets, daily range): BP systolic 99–132; BP diastolic 55–66; PULSE 53–105; RESP 14–18; TEMP 35.7–36.8; O2SAT 98–100
[2020-03-15 09:04] LABS: Glucose Point of Care 115 (65-105)
[2020-03-15] MEDS: FAMOTIDINE 20 MG TABLET PO (09:05)
[2020-03-15] MEDS: DIVALPROEX SODIUM 250 MG TABEC PO (09:05)
[2020-03-15] MEDS: metFORMIN HCL 500 MG TABLET 1000 MG PO (09:06)
[2020-03-15] MEDS: FERROUS SULFATE 324 MG TABLET PO (09:06)
[2020-03-15] MEDS: MEMANTINE 10 MG TABLET PO (09:06)
[2020-03-15] MEDS: ATORVASTATIN 40 MG TABLET PO (09:06)
[2020-03-15] MEDS: SERTRALINE HCL 50 MG TABLET PO (09:06)
[2020-03-15] MEDS: SACCHAROMYCES BOULARDII 250 MG CAPSULE PO ×2 (09:06→17:20)
[2020-03-15] MEDS: dilTIAZem HCL 60 MG TABLET PO ×3 (09:06→17:21)
[2020-03-15] MEDS: APIXABAN 5 MG TABLET PO (09:06)
[2020-03-15] MEDS: CALCIUM CARBONATE (TUMS) 500 MG (200 MG ELEMENTAL) PO ×2 (09:06→17:20)
[2020-03-15] MEDS: METOPROLOL TARTRATE 25 MG TABLET PO (09:06)
[2020-03-15] MEDS: THERAPEUTIC MULTIVITAMINS/MINERALS TAB (*BKC) 1 TABLET PO (09:07)
--- NOTE | 2020-03-15 11:20 | PC.NURSE ---
This patient, Chirag Moura Kyle, was transferred to [facility] on 03/15/20 at 1120. Personal belongings sent with patient. Belongings list checked and signed with receiving RN. Report given to AYSE Posey. Appropriate documentation sent with patient.
[2020-03-15 13:45] LABS: Glucose Point of Care 112 (65-105)
[2020-03-15 14:10] LABS: SARS-CoV-2 RNA PCR Negative
--- NOTE | 2020-03-15 16:20 | PM.DS ---
DS: Admitting Diagnosis Admitting Diagnosis Admitting Diagnosis: Paroxysmal atrial fibrillation DS: Discharge Diagnosis Discharge Diagnosis (1) Acute encephalopathy: Code(s): G93.40 - Encephalopathy, unspecified Status: Acute Assessment and Plan: The patient was poorly responsive and appeared medicated. He did receive Haldol and Ativan in the ER. He became more alert and awake so suspect originally toxic from his UTI but worse due to sedatives. [place] patient back to baseline. COVID test negative. (2) Atrial fibrillation with RVR: Code(s): I48.91 - Unspecified atrial fibrillation Status: Acute Assessment and Plan: The patient has been started on Cardizem IV in the ER. Metoprolol and then Diltiazem added back. Diltiazem drip stopped and now monitoring HR on oral mediations. Echo showing EF 25-30% but no change from last year. TSH normal. The patient is anticoagulated on Eliquis. Appreciate Cardiology input. Hold starting Lisinopril since BP soft at times (3) UTI (urinary tract infection): Code(s): N39.0 - Urinary tract infection, site not specified Status: Acute Assessment and Plan: UA noted and Rocephin started. Urine culture growing E coli and Proteus sensitive to Rocephin. Clinically patient has improved. (4) Elevated troponin: Code(s): R79.89 - Other specified abnormal findings of blood chemistry Status: Acute Assessment and Plan: Troponin elevated to 0.6 before trending down. Likely secondary to atrial fibrillation w/ RVR. Cardiology following. (5) Metabolic acidosis with increased anion gap and accumulation of organic acids: Code(s): E87.2 - Acidosis Status: Acute Assessment and Plan: AG 22 but ABG normal. Lactic acid 3.4 felt related to above. Glucose better. DKA ruled out. AG has normalized. (6) Dementia: Qualifiers: Dementia behavioral disturbance: with behavioral disturbance Dementia type: unspecified type Qualified Code(s): F03.91 - Unspecified dementia with behavioral disturbance Code(s): F03.90 - Unspecified dementia without behavioral disturbance Status: Chronic Assessment and Plan: Stable. We continued memantine and Aricept (7) Type 2 diabetes mellitus: Qualifiers: Diabetes mellitus rn lactation consultant insulin use: without rn lactation consultant use Diabetes mellitus complication status: without complication Qualified Code(s): E11.9 - Type 2 diabetes mellitus without complications Code(s): E11.9 - Type 2 diabetes mellitus without complications Status: Chronic Assessment and Plan: A1c 7.2 in December. Glucose monitored closely. Glucose well controlled. We started Accuchecks with SSI Coverage. Hypoglycemic protocol available as needed. We continued metformin. (8) Essential hypertension: Code(s): I10 - Essential (primary) hypertension Status: Chronic Assessment and Plan: BP monitored closely. BP remained stable. As above (9) Schizophrenia: Qualifiers: Schizophrenia type: other Qualified Code(s): F20.89 - Other schizophrenia Code(s): F20.9 - Schizophrenia, unspecified Status: Chronic Assessment and Plan: Mood stable. VPA level okay in December. We continued Valproic acid and olanzapine. DS: Summary Hospital Course Reason for hospitalization: 79yo male here for altered mental status. Please see H&P for detail Hospital Course: As above Time Spent with Patient Time attestation: Total time spent providing and/or coordinating discharge services:35 minutes Time spent: Greater than 30 minutes Exam Narrative: Exam Narrative: AF 109/63 63 Gen - NARD Chest - clear anteriroly, nml RR CV - irregular irregular Abd - Soft, NT/ND, Positive BS Ext - No pedal edema Neuro - Alert but confused. dysarhtric speech Skin - Warm and dry DS: Data Data Completed and Pending Labs
[2020-03-15 16:44] LABS: Glucose Point of Care 172 (65-105)
[2020-03-15] MEDS: ACETAMINOPHEN 500 MG TABLET PO (18:02)
== END 2020-03-15 19:00 | DRG 309 ==
LOC: ANHED 20:57 → ANHIMU 21:41 → ANH2MED 03-15 11:21
PROVIDERS: Admitting Provider Family Medicine; Emergency Provider Emergency Medicine; Visit Provider Internal Medicine
DX: I48.0 Paroxysmal atrial fibrillation (principal); F01.51 Vascular dementia, unspecified severity, with behavioral disturbance; G93.49 Other encephalopathy; F20.89 Other schizophrenia; N39.0 Urinary tract infection, site not specified; I50.20 Unspecified systolic (congestive) heart failure; I11.0 Hypertensive heart disease with heart failure; T42.75XA Adverse effect of unspecified antiepileptic and sedative-hypnotic drugs, initial encounter; B96.20 Unspecified Escherichia coli [E. coli] as the cause of diseases classified elsewhere; B96.4 Proteus (mirabilis) (morganii) as the cause of diseases classified elsewhere; Z11.59 Encounter for screening for other viral diseases; R79.89 Other specified abnormal findings of blood chemistry; N40.0 Benign prostatic hyperplasia without lower urinary tract symptoms; K21.9 Gastro-esophageal reflux disease without esophagitis; E78.5 Hyperlipidemia, unspecified; Z79.01 Long term (current) use of anticoagulants; Z79.899 Other long term (current) drug therapy; Z86.73 Personal history of transient ischemic attack (TIA), and cerebral infarction without residual deficits
CPT/HCPCS: 36415; 36600; 71045; 80048; 80053; 81001; 82010; 82805; 83605; 83735; 84443; 84484; 85025; 87077; 87086; 87088; 87186; 87635; 93005; 93306; 96361; 96372; 96374; 96375; 99285; A9270; C9803; J0696; J1630; J2060; J7030; U0003

== ENCOUNTER 2020-04-21 11:49 | Inpatient (IN) | payer OTHER, MEDICARE, MEDICAID, SELFPAY ==
[2020-04-21] VITALS (17 sets, daily range): BP systolic 100–138; BP diastolic 65–94; PULSE 78–130; RESP 15–24; TEMP 35.6–36.8; O2SAT 96–100
--- NOTE | ~2020-04-21 | XR_ITS ---
EXAMINATION: XR chest 1V portable 04/21/2020 12:37 INDICATION: Shortness of breath. Tachycardia. PROCEDURE: AP view of the chest COMPARISON: Comparison to multiple prior studies sequentially, with oldest reviewed study dated 03/27. FINDINGS: The lungs are clear. The cardiomediastinal silhouette is within normal limits. There are no pleural effusions. There is no pneumothorax suspected. IMPRESSION: 1: NO ACUTE CARDIOPULMONARY DISEASE. Reviewed, dictated and finalized at location A.
[2020-04-21] MEDS: dilTIAZem HCl INJ 25 MG/5 ML VIAL 10 MG IV PUSH (12:01)
[2020-04-21 12:07] LABS: Basophils Percent Auto 0.5 % (0.2-1.2); Eosinophils Absolute Auto 0.2 K/mm3 (0-0.3); Eosinophils Percent Auto 2.4 % (0-4.4); Hematocrit 41.8 % (42.0-52.0); Hemoglobin 13.6 g/dL (14.0-18.0); Immature Granulocyte Absolute 0.06 K/mm3 (0.00-0.031); Lymphocytes Absolute Auto 1.86 K/mm3 (0.9-3.2); Lymphocytes Percent Auto 29.9 % (18.3-44.2); Mean Corpuscular HGB Conc 32.5 g/dl (32-36); Mean Corpuscular Hemoglobin 29.1 pg (26-34); Mean Corpuscular Volume 89.5 fl (80-100); Mean Platelet Volume 10.3 fl (7.4-10.4); Monocytes Absolute Auto 0.9 K/mm3 (0.1-0.6); Monocytes Percent Auto 14.3 % (2.6-8.5); Neutrophils Absolute Auto 3.2 K/mm3 (1.3-6.7); Neutrophils Percent Auto 51.9 % (45.5-73.1); Platelet Count Result 215 k/mm3 (150-375); Red Blood Count 4.67 M/mm3 (4.6-6.20); Red Cell Distribution Width 13.5 % (11.5-14.5); White Blood Count 6.2 K/mm3 (4.5-10.0)
[2020-04-21 12:16] LABS: INR 1.2; Prothrombin Time 15.2 Seconds (11.1-14.7)
[2020-04-21 12:17] LABS: Partial Thromboplastin Time 26.4 SECONDS (22.3-36.8)
[2020-04-21 12:19] LABS: Alanine Aminotransferase 26 U/L (4-50); Albumin Level 4.3 g/dL (3.5-5.1); Alkaline Phosphatase 46 U/L (38-126); Anion Gap 13 mmol/L (8-16); Aspartate Amino Transferase 31 U/L (17-59); Bilirubin,Total 0.9 mg/dL (0.2-1.3); Blood Urea Nitrogen 24 mg/dL (9-20); Calcium 9.5 mg/dL (8.4-10.2); Carbon Dioxide 24 mmol/L (22-30); Chloride 107 mmol/L (98-107); Estimated Glomerular Filt Rate > 60; Glucose 197 mg/dL (75-110); Potassium 4.6 mmol/L (3.4-5.0); Sodium 144 mmol/L (137-145)
[2020-04-21 12:27] LABS: NT Pro B Type Natriuretic Pept 3600 PG/ML (5-100)
[2020-04-21 12:30] LABS: Add Urine Microscopic? YES; Appearance Urine Cloudy (Clear); Bacteria Urine Trace /hpf; Bilirubin Urine Negative (Negative); Blood Urine Negative (Negative); Color Urine Yellow (Yellow); Glucose Urine UA Negative (Negative); Ketones Urine Negative (Negative); Leukocyte Esterase Ur 3+ LEU/UL (Negative); Nitrate Urine Negative (Negative); Protein Urine 1+ mg/dL (Negative); Specific Grav Ur 1.019 (1.001-1.035); Squamous Epithelial Cell Urine Rare /hpf (Few); Urobilinogen Urine Negative mg/dL (<2.0); WBC Urine >75 /hpf
[2020-04-21 12:34] LABS: Troponin I 0.063 ng/mL (0.000-0.034)
--- NOTE | 2020-04-21 12:42 | ECG_ITS ---
Measurements Intervals [place] Rate: 102 P: ID: 0 QRS: 269 QRSD: 133 T: -59 QT: 389 QTc: 508 Interpretive Statements ATRIAL FLUTTER WITH RAPID VENTRICULAR RESPONSE RIGHT AXIS DEVIATION RIGHT BUNDLE BRANCH BLOCK BASELINE WANDER- I, III, AVR, AVL, AVF ABNORMAL ECG Electronically Signed On 04-21-2020 14:10:58 CDT by Donaldo Duran D.O.
--- NOTE | 2020-04-21 12:58 | ED.ARRPALP ---
HPI - Arrhythmia/Palpitations General Chief Complaint: Arrhythmia/Palpitations Stated Complaint: fast heart rate Time Seen by Provider: 04/21/20 11:52 History of Present Illness HPI narrative: Patient is an 80-year-old male who is referred to the ER from his halfway for an elevated heart rate. He has history of atrial fibrillation as well as atrial flutter. At baseline he has dementia and schizophrenia and is oriented to self alone. He has no complaints of pain and is in no distress but he does have some frequent coughing. Related Data Home Medications Medication Instructions Recorded Confirmed Eliquis 5 mg PO BID 11/09/19 04/21/20 atorvastatin 40 mg PO DAILY 11/09/19 04/21/20 diltiazem HCl 60 mg PO QID 11/09/19 04/21/20 divalproex 250 mg PO Q12H 11/09/19 04/21/20 donepezil 10 mg PO HS 11/09/19 04/21/20 medroxyprogesterone 5 mg PO BID 11/09/19 04/21/20 memantine 10 mg PO BID 11/09/19 04/21/20 metformin 1,000 mg PO DAILY 11/09/19 04/21/20 sertraline 50 mg PO DAILY 11/09/19 04/21/20 ferrous sulfate 325 mg PO DAILY 11/10/19 04/21/20 metformin 500 mg PO HS 11/10/19 04/21/20 acetaminophen 500 mg PO Q6-8H PRN 01/05/20 04/21/20 Azo Cranberry 250 mg PO BID 03/11/20 04/21/20 multivitamin with minerals 1 tablet PO DAILY 03/11/20 04/21/20 olanzapine 5 mg PO DAILY 03/11/20 04/21/20 calcium carbonate 750 mg PO Q12H 04/21/20 04/21/20 famotidine 20 mg PO DAILY 04/21/20 04/21/20 metoprolol tartrate 25 mg PO DAILY 04/21/20 04/21/20 olanzapine 10 mg PO HS 04/21/20 04/21/20 Allergies Allergy/AdvReac Type Severity Reaction Status Date / Time amoxicillin Allergy Unknown Unknown Verified 04/21/20 16:00 Penicillins Allergy Unknown Unknown Verified 04/21/20 16:00 Review of Systems Review of Systems: ROS unobtainable: Yes unobtainable due to mental status PMFSH Social History Social History Social History: The patient is a long-term resident [facility]. He is not able to provide much in the way of social history and cannot provide me with family history. It is noted that he is a [place] of the [facility] and is a full code. It is unknown if he is ever smoked or if he indulges in alcohol or illicit substances. Smoking status: Unknown if ever smoked Alcohol intake: unknown Substance use: unknown Gender identity (if verbalized by the patient): Male Sexual Orientation (if Verbalized by the Patient): Straight or Heterosexual Spiritual care concerns: No Agree to blood products: Yes Exam Narrative: Exam Narrative: GENERAL: Well-appearing, well-nourished, and in no acute distress. HEAD: Normocephalic, atraumatic. ENT: Mucous membranes moist. CHEST: Diffuse rales with occasional cough. No respiratory distress. HEART: Tachycardic and irregular. Normal peripheral pulses. ABDOMEN: Soft, nontender, nondistended. EXTREMITIES: Normal range of motion. No edema. SKIN: Warm, dry, no rash. NEURO: Alert and oriented x1. Course Vital Signs Vital signs: Vital Signs Temperature 98.2 F 04/21/20 11:49 Pulse Rate 130 H 04/21/20 11:49 Respiratory Rate 20 04/21/20 11:49 Blood Pressure 122/72 04/21/20 11:49 Pulse Oximetry 99 04/21/20 11:49 Temperature 96.3 F L 04/21/20 16:46 Pulse Rate 92 04/21/20 18:10 Respiratory Rate 22 H 04/21/20 16:46 Blood Pressure 109/77 04/21/20 16:46 Pulse Oximetry 96 04/21/20 16:46 MDM - Arrhythmia/Palpitations Lab Data Result diagrams: 04/21/20 12:00 04/21/20 12:00 Labs: Lab Results 04/21/20 04/21/20 04/21/20 Range/Units 12:00 12:00 12:00 WBC 6.2 (4.5-10.0) K/mm3 RBC 4.67 (4.6-6.20) M/mm3 Hgb 13.6 L (14.0-18.0) g/dL Hct 41.8 L (42.0-52.0) % MCV 89.5 (80-100) fl MCH 29.1 (26-34) pg MCHC 32.5 (32-36) g/dl RDW 13.5 (11.5-14.5) % Plt Count 215 (150-375) k/mm3 MPV 10.3 (7.4-10.4) fl Immature Gran % (Auto) 1.0 H (0-0.5) %
--- NOTE | 2020-04-21 15:37 | ADMGEN ---
This patient, Chirag Kyle, was admitted to IMU Room 202-01. Patient/family oriented to hospital policies and general routines including ID bracelet, bed and alarms, visiting hours, pain management, procedures, bathroom and other care routines, personal items, smoking policy, room service/diet, and visiting hours. Valuables list has been completed. Information on how to activate the Rapid Response Team has been discussed. Patient/Family are encouraged to report perceived risks to care and to ask questions if they do not understand what they are told or what they should do.
--- NOTE | 2020-04-21 20:03 | PM.IMHP ---
H&P: HPI History of Present Illness Date/Time: 04/21/20 20:03 Chief complaint: afiv rvr,elevated trop,uti Narrative: Chirag Kyle is a 80 year old male Who comes from [facility]. He does have a history of atrial fib fibrillation atrial flutter the patient is on oral diltiazem. The patient was brought here via ambulance from the senior care for an elevated heart rate. Patient does have a history of schizophrenia and is a poor historian. He also has dementia. He is only orientated to himself. The patient is noted to be a kyle of the [facility]. Troponin is 0.063 but looking back at his history it looks like his troponins always elevated. The patient was found to to have urinary tract infection was started on Rocephin. He was given Cardizem IV in the emergency room. His heart rate is still in the 120s. He appears to be in atrial flutter. Date of service is 04/21/2020 Review of Systems Review of Systems: All systems reviewed & are unremarkable except as noted in HPI and below Constitutional: Constitutional: Reports as per HPI and Reports no additional constitutional complaints Eyes: Eyes: Reports as per HPI and Reports no additional eye complaints ENT: Reports system reviewed and no additional complaints, except as documented and Reports Normal hearing present Cardiovascular: Cardiovascular: Reports no additional cardiovascular complaints Respiratory: Respiratory: Reports no additional respiratory complaints and Reports no additional respiratory complaints Gastrointestinal: Gastrointestinal: Reports as per HPI and Reports no additional gastrointestinal complaints Musculoskeletal: Musculoskeletal: Reports no additional musculoskeletal complaints Integumentary/Breasts: Skin/Breast: Reports system reviewed and no additional complaints, except as docu and Reports as per HPI Neurologic: Reports system reviewed and no additional complaints, except as documented, Reports as per HPI and Reports Normal hearing present Psychiatric: Psychiatric: Reports no additional psychiatric complaints and Reports as per HPI Endocrine: Endocrine: Reports no additional endocrine complaints Hematologic/Lymphatic: Hematologic/Lymphatic: Reports no additional hematologic/lymphatic complaints Allergic/Immunologic: Allergic/Immunologic: Reports no additional allergic/immunologic complaints [facility] Past Medical History Medical History (Updated 04/21/20 @ 20:08 by Felicia Burnette NP) Atrial tachycardia With history of paroxysmal atrial fibrillation and atrial flutter. Benign prostatic hyperplasia Cerebrovascular accident Brain CT shows prior infarcts in the right occipital and left parietal lobes. Depression Dysphagia He continually failed swallow studies dating back to 2014, and has continued to refuse G-tube placement. Essential hypertension Gastroesophageal reflux Hyperlipidemia Schizophrenia Systolic congestive heart failure Echocardiogram in March 2019 showed mildly enlarged left ventricular chamber and moderately increased left ventricular thickness, severely reduced left ventricular function with an ejection fraction of 25 to 30%, indeterminate left ventricular diastolic function, moderate biatrial enlargement, [id number] mitral valve regurgitation, and mild tricuspid valve regurgitation. Type 2 diabetes mellitus Vascular dementia Surgical History Surgical History Surgical history unknown Family History Family History Other Unknown family medical history Social History Social History (Updated 04/21/20 @ 20:09 by Felicia Burnette NP) Social History: The patient is a long-term resident [facility]. He is not able to provide much in the way of social history and cannot provide me with family history. It is noted that he is a [place] of the [place] and is a full code. It is unknown if he
[2020-04-21 21:09] LABS: Glucose Point of Care 105 (65-105)
[2020-04-21] MEDS: DONEPEZIL HCL 10 MG TABLET PO (21:31)
[2020-04-21] MEDS: dilTIAZem HCL 60 MG TABLET PO (21:31)
[2020-04-21] MEDS: DIVALPROEX SODIUM 250 MG TABEC PO (21:31)
[2020-04-21 21:33] LABS: Hemoglobin A1C 7.1 % (<5.7)
[2020-04-22] VITALS (15 sets, daily range): BP systolic 90–145; BP diastolic 51–99; PULSE 57–130; RESP 12–20; TEMP 35.8–36.6; O2SAT 91–100
[2020-04-22 05:06] LABS: Basophils Percent Auto 0.5 % (0.2-1.2); Eosinophils Absolute Auto 0.2 K/mm3 (0-0.3); Eosinophils Percent Auto 2.7 % (0-4.4); Hematocrit 37.5 % (42.0-52.0); Hemoglobin 12.5 g/dL (14.0-18.0); Immature Granulocyte Absolute 0.04 K/mm3 (0.00-0.031); Immature Granulocyte Percent A 0.7 % (0-0.5); Lymphocytes Absolute Auto 1.74 K/mm3 (0.9-3.2); Lymphocytes Percent Auto 31.1 % (18.3-44.2); Mean Corpuscular HGB Conc 33.3 g/dl (32-36); Mean Platelet Volume 10.1 fl (7.4-10.4); Monocytes Absolute Auto 0.9 K/mm3 (0.1-0.6); Monocytes Percent Auto 15.2 % (2.6-8.5); Neutrophils Absolute Auto 2.8 K/mm3 (1.3-6.7); Neutrophils Percent Auto 49.8 % (45.5-73.1); Platelet Count Result 163 k/mm3 (150-375); Red Blood Count 4.31 M/mm3 (4.6-6.20); Red Cell Distribution Width 13.2 % (11.5-14.5); White Blood Count 5.6 K/mm3 (4.5-10.0)
[2020-04-22 05:20] LABS: Anion Gap 8 mmol/L (8-16); Blood Urea Nitrogen 20 mg/dL (9-20); Calcium 8.9 mg/dL (8.4-10.2); Carbon Dioxide 23 mmol/L (22-30); Chloride 107 mmol/L (98-107); Estimated Glomerular Filt Rate > 60; Glucose 106 mg/dL (75-110); Magnesium 1.7 mg/dL (1.6-2.3); Potassium 4.5 mmol/L (3.4-5.0); Sodium 138 mmol/L (137-145)
[2020-04-22 08:17] LABS: Glucose Point of Care 104 (65-105)
[2020-04-22] MEDS: APIXABAN 5 MG TABLET PO ×2 (08:25→17:27)
[2020-04-22] MEDS: DIVALPROEX SODIUM 250 MG TABEC PO ×2 (08:25→21:18)
[2020-04-22] MEDS: dilTIAZem HCL 60 MG TABLET PO ×4 (08:25→23:06)
[2020-04-22] MEDS: FERROUS SULFATE 324 MG TABLET PO (08:25)
[2020-04-22] MEDS: SERTRALINE HCL 50 MG TABLET PO (08:26)
[2020-04-22] MEDS: FAMOTIDINE 20 MG TABLET PO (08:26)
[2020-04-22] MEDS: METOPROLOL TARTRATE 25 MG TABLET PO ×2 (08:26→21:19)
[2020-04-22] MEDS: CALCIUM CARBONATE (OSCAL) 250 MG TABLET 750 MG PO ×2 (08:26→21:20)
[2020-04-22] MEDS: ATORVASTATIN 40 MG TABLET PO (08:26)
[2020-04-22] MEDS: THERAPEUTIC MULTIVITAMINS/MINERALS TAB (*BKC) 1 TABLET PO (08:26)
[2020-04-22] MEDS: MEMANTINE 10 MG TABLET PO ×2 (08:26→17:27)
--- NOTE | 2020-04-22 08:46 | PM.IMPN ---
Progress Note: A&P Assessment and Plan (1) Atrial flutter with rapid ventricular response: Code(s): I48.92 - Unspecified atrial flutter Status: Acute Assessment and Plan: He was started on a cardizem drip but then the drip was sopped and his regular oral cardizem dose was resumed, he still in RVR at this time, his HR in the 130'S. Metoprolol tartrate should be changed from daily to BID and since the blood pressure is stable we can go up to 50 mg. Cardiology has been consulted. Continue AC with apixaban. Replace magnesium with a goal above 2 ( 1.6 today), will give him 2 grams and recheck levels tomorrow. (2) Essential hypertension: Code(s): I10 - Essential (primary) hypertension Status: Chronic Assessment and Plan: Controlled. (3) Systolic congestive heart failure: Code(s): I50.20 - Unspecified systolic (congestive) heart failure Status: Chronic Assessment and Plan: Compensated at this time, no clinical signs of acute HF. (4) Urinary tract infection: Code(s): N39.0 - Urinary tract infection, site not specified Status: Acute Assessment and Plan: Continue ceftriaxone. (5) Dementia: Qualifiers: Dementia behavioral disturbance: with behavioral disturbance Dementia type: unspecified type Qualified Code(s): F03.91 - Unspecified dementia with behavioral disturbance Code(s): F03.90 - Unspecified dementia without behavioral disturbance Status: Chronic Assessment and Plan: With behavioral problems, at this time he seems calm. His medications had been resumed. (6) Type 2 diabetes mellitus: Qualifiers: Diabetes mellitus local intermodal truck driver insulin use: without local intermodal truck driver use Diabetes mellitus complication status: without complication Qualified Code(s): E11.9 - Type 2 diabetes mellitus without complications Code(s): E11.9 - Type 2 diabetes mellitus without complications Status: Chronic Assessment and Plan: Under control at this time, continue insulin correctional scale. (7) Hyperlipidemia: Code(s): E78.5 - Hyperlipidemia, unspecified Status: Chronic Subjective Date/time seen: Pt seen and examined, alert and oriented only to self, not in distress. 04/22/20 08:46 Exam Const: General: comfortable and no acute distress Neck: Neck: supple and no JVD Resp: Effort & Inspection: normal respiratory effort Auscultation: clear to auscultation bilaterally Cardio: Rate: tachycardic Other: Irregularly irregular rhythm GI: Auscultation: normal bowel sounds Other: Soft, non tender, non distended. Skin: General skin exam: no rashes or lesions noted Neuro: Cognition (Neuro): abnormal cognition Motor exam (neuro): 5/5 motor strength present throughout and Normal motor muscle tone present throughout Sensory Exam: normal sensation Extrem: General: normal to inspection Other: No peripheral edema or cyanosis. Objective Data Vital Signs Vital Signs: Vital Signs - 24 hr 04/21/20 11:49 04/21/20 12:00 04/21/20 12:01 Temperature 98.2 F Pulse Rate 130 H 106 H 107 H Respiratory Rate 20 22 H 20 Blood Pressure 122/72 Pulse Oximetry 99 04/21/20 12:03 04/21/20 12:04 04/21/20 12:15 Temperature Pulse Rate 90 106 H 121 H Respiratory Rate 23 H 20 Blood Pressure 109/66 109/66 104/77 Pulse Oximetry 97 04/21/20 12:16 04/21/20 12:41 04/21/20 14:21 Temperature Pulse Rate 129 H 103 H 78 Respiratory Rate 15 20 20 Blood Pressure 103/65 Pulse Oximetry 99 96 04/21/20 15:30 04/21/20 15:55 04/21/20 16:00 Temperature 96.1 F L Pulse Rate 93 92 94 Respiratory Rate 18 24 H Blood Pressure 108/81 100/76 Pulse Oximetry 98 96 04/21/20 16:06 04/21/20 16:46 04/21/20 18:10 Temperature 96.3 F L 96.3 F L Pulse Rate 96 96 92 Respiratory Rate 22 H 22 H Blood Pressure 109/77 109/77 Pulse Oximetry 96 96 04/21/20 20:00 04/21/20 22:00 04/22/20 00:00 T
[2020-04-22] MEDS: MAGNESIUM SULF 2 GM/WATER 50ML 2 GM/50 ML BAG IVPB (10:26)
[2020-04-22 12:15] LABS: Glucose Point of Care 138 (65-105)
[2020-04-22 16:44] LABS: Glucose Point of Care 134 (65-105)
[2020-04-22 19:44] LABS: Glucose Point of Care 256 (65-105)
[2020-04-22] MEDS: DONEPEZIL HCL 10 MG TABLET PO (21:18)
[2020-04-23] VITALS (11 sets, daily range): BP systolic 94–119; BP diastolic 66–80; PULSE 62–102; RESP 18–22; TEMP 36.4–36.6; O2SAT 97–100
[2020-04-23 05:14] LABS: Anion Gap 10 mmol/L (8-16); Blood Urea Nitrogen 18 mg/dL (9-20); Calcium 9.1 mg/dL (8.4-10.2); Carbon Dioxide 23 mmol/L (22-30); Chloride 105 mmol/L (98-107); Estimated Glomerular Filt Rate > 60; Glucose 135 mg/dL (75-110); Magnesium 2.1 mg/dL (1.6-2.3); Potassium 4.7 mmol/L (3.4-5.0); Sodium 138 mmol/L (137-145)
[2020-04-23] MEDS: dilTIAZem HCL 60 MG TABLET PO ×3 (06:12→18:18)
[2020-04-23] MEDS: METOPROLOL TARTRATE 25 MG TABLET PO (08:50)
[2020-04-23] MEDS: SERTRALINE HCL 50 MG TABLET PO (08:50)
[2020-04-23] MEDS: ATORVASTATIN 40 MG TABLET PO (08:50)
[2020-04-23] MEDS: CALCIUM CARBONATE (OSCAL) 250 MG TABLET 750 MG PO (08:50)
[2020-04-23] MEDS: MEMANTINE 10 MG TABLET PO ×2 (08:51→16:28)
[2020-04-23] MEDS: DIVALPROEX SODIUM 250 MG TABEC PO (08:51)
[2020-04-23] MEDS: FERROUS SULFATE 324 MG TABLET PO (08:51)
[2020-04-23] MEDS: FAMOTIDINE 20 MG TABLET PO (08:51)
[2020-04-23] MEDS: THERAPEUTIC MULTIVITAMINS/MINERALS TAB (*BKC) 1 TABLET PO (08:52)
[2020-04-23] MEDS: APIXABAN 5 MG TABLET PO ×2 (08:52→16:28)
[2020-04-23 09:31] LABS: Glucose Point of Care 126 (65-105)
[2020-04-23 12:40] LABS: Glucose Point of Care 170 (65-105)
--- NOTE | 2020-04-23 13:06 | PM.IMPN ---
Progress Note: A&P Assessment and Plan (1) Atrial flutter with rapid ventricular response: Code(s): I48.92 - Unspecified atrial flutter Status: Acute Assessment and Plan: Patient with chronic atrial flutter with RVR. He was started on a cardizem drip but then the drip was sopped and his regular oral cardizem dose was resumed. Still with RVR so Metoprolol tartrate changed from daily to BID. Mag 2.1. Continue AC with apixaban. Okay for discharge if COVID returns negative. (2) Essential hypertension: Code(s): I10 - Essential (primary) hypertension Status: Chronic Assessment and Plan: Patient's blood pressure was reviewed on 04/23 Blood pressure remains well controlled. Will continue current medications. (3) Systolic congestive heart failure: Code(s): I50.20 - Unspecified systolic (congestive) heart failure Status: Chronic Assessment and Plan: Patient with history of systolic CHF. Patient appears compensated at this time. No evidence acute heart failure. (4) Urinary tract infection: Code(s): N39.0 - Urinary tract infection, site not specified Status: Acute Assessment and Plan: UA noted. Urine culture growing Proteus. Sensitivities are pending. White count normal on admission. No fevers. Will continue with Rocephin for now. (5) Dementia: Qualifiers: Dementia behavioral disturbance: with behavioral disturbance Dementia type: unspecified type Qualified Code(s): F03.91 - Unspecified dementia with behavioral disturbance Code(s): F03.90 - Unspecified dementia without behavioral disturbance Status: Chronic Assessment and Plan: With behavioral problems and psychiatric problems. Mood is calm. His home medications have been resumed. Continue to monitor. (6) Type 2 diabetes mellitus: Qualifiers: Diabetes mellitus mcfp insulin use: without laborer marine terminal use Diabetes mellitus complication status: without complication Qualified Code(s): E11.9 - Type 2 diabetes mellitus without complications Code(s): E11.9 - Type 2 diabetes mellitus without complications Status: Chronic Assessment and Plan: The patient's blood glucose was reviewed on 04/23 Glucose remains reasonably well controlled. Continue AccuCheks covering with sliding scale. Hypoglycemia protocol available as needed. (7) Hyperlipidemia: Code(s): E78.5 - Hyperlipidemia, unspecified Status: Chronic Assessment and Plan: AST/ALT normal. Continue Lipitor. (8) DVT prophylaxis: Code(s): Z29.9 - Encounter for prophylactic measures, unspecified Status: Acute Assessment and Plan: Luis Ba Date/time seen: 04/23/20 13:06 Interval history: Date of service: 04/23 80yo male with schizophrenia and dementia here for elevated heart rate. Patient alert but unable to provide history. No issues per nursing staff. Exam Narrative: Exam Narrative: AF 114/80 64 18 100% Gen - NARD Chest - lungs clear anteriroly and in the flanks, nml RR CV - irregular irregular. Telemetry showing AFib with controlled rate Abd - Soft, NT/ND, Positive BS Ext - No pedal edema Neuro - Alert but confused. Dysarthric speech Skin - Warm and dry Objective Data Vital Signs Vital Signs: Vital Signs - 24 hr 04/22/20 14:00 04/22/20 16:00 04/22/20 18:00 Temperature 96.4 F L Pulse Rate 77 73 79 Respiratory Rate 18 Blood Pressure 96/63 L Pulse Oximetry 91 04/22/20 20:00 04/22/20 21:19 04/22/20 22:00 Temperature 97.6 F Pulse Rate 64 64 85 Respiratory Rate 20 Blood Pressure 121/85 Pulse Oximetry 100 04/22/20 23:43 04/23/20 00:00 04/23/20 02:00 Temperature 97.9 F Pulse Rate 71 67 71 Respiratory Rate 20 Blood Pressure 90/67 L Pulse Oximetry 96 04/23/20 04:00 04/23/20 06:00 04/23/20 08:00 Temperature 97.5 F L 97.7 F Pulse Rate
[2020-04-23 13:17] LABS: SARS-CoV-2 RNA PCR Negative
[2020-04-23] MEDS: INSULIN ASPART (*BKC) 100 UNITS/ML SUB-Q (16:28)
[2020-04-23 16:43] LABS: Glucose Point of Care 217 (65-105)
--- NOTE | 2020-04-23 17:15 | PM.DS ---
DS: Admitting Diagnosis Admitting Diagnosis Admitting Diagnosis: afiv rvr,elevated trop,uti DS: Discharge Diagnosis Discharge Diagnosis (1) Atrial flutter with rapid ventricular response: Code(s): I48.92 - Unspecified atrial flutter Status: Acute Assessment and Plan: Patient with chronic atrial flutter with RVR. He was started on a cardizem drip but then the drip was sopped and his regular oral cardizem dose was resumed. Still with RVR so Metoprolol tartrate changed from daily to BID. Mag 2.1. We continued AC with apixaban. (2) Essential hypertension: Code(s): I10 - Essential (primary) hypertension Status: Chronic Assessment and Plan: Patient's blood pressure was reviewed on 04/23 Blood pressure remains well controlled. Will continue current medications. (3) Systolic congestive heart failure: Code(s): I50.20 - Unspecified systolic (congestive) heart failure Status: Chronic Assessment and Plan: Patient with history of systolic CHF. Patient appears compensated at this time. No evidence acute heart failure. (4) Urinary tract infection: Code(s): N39.0 - Urinary tract infection, site not specified Status: Acute Assessment and Plan: UA noted. Urine culture growing Proteus sensitive to Rocephin. White count normal on admission. No fevers. (5) Dementia: Qualifiers: Dementia behavioral disturbance: with behavioral disturbance Dementia type: unspecified type Qualified Code(s): F03.91 - Unspecified dementia with behavioral disturbance Code(s): F03.90 - Unspecified dementia without behavioral disturbance Status: Chronic Assessment and Plan: With behavioral problems and psychiatric problems. Mood is calm. His home medications have been resumed. Continue to monitor. (6) Type 2 diabetes mellitus: Qualifiers: Diabetes mellitus terminal press operator insulin use: without nursing home use Diabetes mellitus complication status: without complication Qualified Code(s): E11.9 - Type 2 diabetes mellitus without complications Code(s): E11.9 - Type 2 diabetes mellitus without complications Status: Chronic Assessment and Plan: The patient's blood glucose was reviewed Glucose remains reasonably well controlled. Continue AccuCheks covering with sliding scale. Hypoglycemia protocol available as needed. (7) Hyperlipidemia: Code(s): E78.5 - Hyperlipidemia, unspecified Status: Chronic Assessment and Plan: AST/ALT normal. Continue Lipitor. (8) DVT prophylaxis: Code(s): Z29.9 - Encounter for prophylactic measures, unspecified Status: Acute Assessment and Plan: Luis DS: Summary Hospital Course Reason for hospitalization: 80yo male with AFib here for RVR. Please see H&P for details Hospital Course: As above Time Spent with Patient Time attestation: Total time spent providing and/or coordinating discharge services: 34 minutes Time spent: Greater than 30 minutes Exam Narrative: Exam Narrative: AF 114/80 64 18 100% Gen - NARD Chest - lungs clear anteriroly and in the flanks, nml RR CV - irregular irregular. Telemetry showing AFib with controlled rate Abd - Soft, NT/ND, Positive BS Ext - No pedal edema Neuro - Alert but confused. Dysarthric speech Skin - Warm and dry DS: Data Data Completed and Pending Labs on day of discharge: Labs from last 24 hours 04/23/20 04/23/20 04/23/20 15:51 11:53 08:58 Sodium Potassium Chloride Carbon Dioxide Anion Gap BUN Creatinine Estim Creat Clear Calc Estimated GFR Glucose POC Capillary Glucose 217 H 170 H 126 H Calcium Magnesium SARS-CoV-2 RNA (RT-PCR) 04/23/20 04/23/20 04/22/20 04:19 01:40 19:41 Sodium 138 Potassium 4.7 Chloride 105 Carbon Dioxide 23 Anion Gap 10 BUN 18 Creatinine 1.00 Estim Crea
--- NOTE | 2020-04-23 20:27 | PC.NURSE ---
Pt left via ambulance at approx 194
== END 2020-04-23 19:45 | DRG 309 ==
LOC: ANHED 14:58 → ANHIMU 15:24
PROVIDERS: Family Medicine; Hospitalist; Nurse Practitioner; Admitting Provider Internal Medicine; Emergency Provider Emergency Medicine; Visit Provider Internal Medicine
DX: I48.92 Unspecified atrial flutter (principal); I50.22 Chronic systolic (congestive) heart failure; N39.0 Urinary tract infection, site not specified; Z20.828 Contact with and (suspected) exposure to other viral communicable diseases; I11.0 Hypertensive heart disease with heart failure; B96.4 Proteus (mirabilis) (morganii) as the cause of diseases classified elsewhere; E78.5 Hyperlipidemia, unspecified; N40.0 Benign prostatic hyperplasia without lower urinary tract symptoms; K21.9 Gastro-esophageal reflux disease without esophagitis; F20.9 Schizophrenia, unspecified; F01.50 Vascular dementia, unspecified severity, without behavioral disturbance, psychotic disturbance, mood disturbance, and anxiety; F32.9 Major depressive disorder, single episode, unspecified; I48.20 Chronic atrial fibrillation, unspecified; Z86.73 Personal history of transient ischemic attack (TIA), and cerebral infarction without residual deficits
CPT/HCPCS: 36415; 51701; 71045; 80048; 80053; 81001; 83036; 83735; 83880; 84443; 84484; 85025; 85610; 85730; 87077; 87086; 87088; 87186; 87635; 93005; 96365; 96367; 96375; 99285; A9270; C9803; G0378; J0696; J1815; J3475; U0003

== ENCOUNTER 2020-05-18 09:05 | Inpatient (IN) | payer MEDICARE, MEDICAID, SELFPAY ==
[2020-05-18] VITALS (15 sets, daily range): BP systolic 96–138; BP diastolic 54–92; PULSE 121–132; RESP 14–22; TEMP 36.2–36.7; O2SAT 95–100; BMI 22.1
--- NOTE | ~2020-05-18 | XR_ITS ---
EXAMINATION: XR chest 1V portable DATE: 05/20/2020 10:40 INDICATION: Shortness of breath TECHNIQUE: frontal view of the chest was obtained. COMPARISON: Chest radiograph and CT dated 05/18/2020 FINDINGS: Mild streaky right basilar opacities. Skinfold projects over the left upper lung zone. No pulmonary e leona, pleural effusion or pneumothorax. Cardiomediastinal silhouette is within normal limits for AP t echnique. There are bridging osteophytes at multiple levels in the spine, consistent with diffuse idi opathic skeletal hyperostosis (DISH). IMPRESSION: 1. Mild right basilar opacities and favor atelectasis over pneumonia or pulmonary edema. Reviewed, dictated and finalized at location B. IMPRESSION: 1. Mild right basilar opacities and favor atelectasis over pneumonia or pulmona ry edema.
--- NOTE | ~2020-05-18 | XR_ITS ---
XR chest 2V 05/18/2020 10:19 Indication: Dyspnea Procedure: 2 view chest Comparison: No prior studies for comparison. Findings: Bibasilar airspace disease. Heart size upper normal. No edema, pleural effusion, pneumothor ax. No acute osseous abnormality. Impression: 1: Bibasilar airspace disease may represent atelectasis and/or developing pneumonia. Reviewed, dictated and finalized at location A. Impression: 1: Bibasilar airspace disease may represent atelectasis and/or developing pneum onia.
--- NOTE | ~2020-05-18 | CT_ITS ---
EXAMINATION: CTA chest PE protocol DATE: 05/18/2020 16:12 INDICATION: Shortness of breath, tachycardia TECHNIQUE: Computed tomography angiography (CTA) of the chest was performed with 100 mL Omnipaque-350 intravenous contrast timed to evaluate the pulmonary arteries. Coronal maximum intensity projection 3D-reconstructions were created by the technologist. Automated exposure control and iterative reconst ruction technique were employed. Exam dose: 743.43 mGy-cm total exam DLP. COMPARISON: 05/18/2020 2 view chest 07/18/2015 CT pulmonary scan FINDINGS: There is diagnostic contrast enhancement of the pulmonary arteries and no evidence of pulmo nary embolism No hilar or mediastinal mass lesion or lymphadenopathy. No thoracic aortic aneurysm. Heart size is within normal limits. No pericardial or pleural effusion. Limited evaluation of the lungs due to motion. Minimal dependent left lower lobe atelectasis or infil trate; otherwise no pulmonary infiltrate or consolidation or pneumothorax is detected. 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 IMPRESSION: No evidence of pulmonary embolism Reviewed, dictated and finalized at Location A. Reviewed, dictated and finalized at location A.
--- NOTE | 2020-05-18 09:07 | ECG_ITS ---
Measurements Intervals [place] Rate: 132 P: 55 WI: 202 QRS: -47 QRSD: 183 T: 63 QT: 361 QTc: 535 Interpretive Statements ATRIAL FLUTTER/TACHYCARDIA WITH RAPID VENTRICULAR RESPONSE RIGHT BUNDLE BRANCH BLOCK BASELINE ARTIFACT- I, III, AVL, AVF, V2-V3 ABNORMAL ECG Electronically Signed On 05-18-2020 18:08:34 CDT by Donaldo Duran D.O.
[2020-05-18 09:56] LABS: Base Excess ABG -6.6 mEq/l (+/-2.0); Carboxyhemoglobin 0.2 % THb (0-2.0); Fractional Inspired Oxygen 21 %; HCO3 ABG 15.8 mEq/l (22.0-26.0); Methemoglobin ABG 0.2 %THb (0-1.5); Oxygen Content ABG 17.6 %vol (16.0-22.0); Oxygen Saturation ABG 97.8 % (95.0-100.0); Oxyhemoglobin 96.4 % THb (90.0-100.0); PCO2 ABG 24.2 mmHg (35.0-45.0); PO2 ABG 98.8 mmHg (80.0-100.0); Reduced Hemoglobin 3.2 %THb (0-5.0); Total Hemoglobin 12.9 g/dL (12.0-18.0); pH ABG 7.434 (7.350-7.450)
[2020-05-18 09:57] LABS: Device ROOM AIR; Modified Allen's Test Pass; Site Drawn RIGHT RADIAL
[2020-05-18 10:07] LABS: Basophils Percent Auto 0.3 % (0.2-1.2); Eosinophils Percent Auto 0.5 % (0-4.4); Hematocrit 39.6 % (42.0-52.0); Hemoglobin 13.1 g/dL (14.0-18.0); Immature Granulocyte Absolute 0.04 K/mm3 (0.00-0.031); Immature Granulocyte Percent A 0.5 % (0-0.5); Lymphocytes Absolute Auto 1.13 K/mm3 (0.9-3.2); Lymphocytes Percent Auto 14.6 % (18.3-44.2); Mean Corpuscular HGB Conc 33.1 g/dl (32-36); Mean Corpuscular Hemoglobin 29.6 pg (26-34); Mean Corpuscular Volume 89.4 fl (80-100); Mean Platelet Volume 10.6 fl (7.4-10.4); Monocytes Absolute Auto 0.7 K/mm3 (0.1-0.6); Monocytes Percent Auto 8.5 % (2.6-8.5); Neutrophils Absolute Auto 5.8 K/mm3 (1.3-6.7); Neutrophils Percent Auto 75.6 % (45.5-73.1); Platelet Count Result 170 k/mm3 (150-375); Red Blood Count 4.43 M/mm3 (4.6-6.20); Red Cell Distribution Width 13.6 % (11.5-14.5); White Blood Count 7.7 K/mm3 (4.5-10.0)
[2020-05-18 10:28] LABS: Anion Gap 16 mmol/L (8-16); Blood Urea Nitrogen 24 mg/dL (9-20); Calcium 9.3 mg/dL (8.4-10.2); Carbon Dioxide 25 mmol/L (22-30); Chloride 105 mmol/L (98-107); Estimated CRCL calculation 39 ml/min; Estimated Glomerular Filt Rate > 60; Glucose 166 mg/dL (75-110); Potassium 4.7 mmol/L (3.4-5.0); Sodium 146 mmol/L (137-145)
--- NOTE | 2020-05-18 10:33 | PC.NURSE ---
CALLED LAB- NOTIFIED OF ADD ON BNP
[2020-05-18] MEDS: SODIUM CHLORIDE 0.9% IV 500 ML 999 ML IV CONT ×2 (11:01→18:39)
--- NOTE | 2020-05-18 11:05 | ED.SOB ---
HPI - SOB/Dyspnea General Chief Complaint: Shortness of Breath/Dyspnea Stated Complaint: sob and low 02 Time Seen by Provider: 05/18/20 10:13 Source: patient and EMS Mode of arrival: EMS Limitations: dementia History of Present Illness HPI Narrative: This is a 80 year old male that presents to the ER via EMS for reported hypoxia from senior living. They reported low O2 sats this morning. Upon EMS arrival patient's oxygen saturation 100% on room air. He remains 100% on room air in the ED. Patient with history of dementia and schizophrenia, unable to obtain much history from him. He does report he feels short of breath and has a cough. Denies fever or chest pain. Related Data Home Medications Medication Instructions Recorded Confirmed Eliquis 5 mg PO BID 11/09/19 04/21/20 atorvastatin 40 mg PO DAILY 11/09/19 04/21/20 diltiazem HCl 60 mg PO QID 11/09/19 04/21/20 divalproex 250 mg PO Q12H 11/09/19 04/21/20 donepezil 10 mg PO HS 11/09/19 04/21/20 medroxyprogesterone 5 mg PO BID 11/09/19 04/21/20 memantine 10 mg PO BID 11/09/19 04/21/20 metformin 1,000 mg PO DAILY 11/09/19 04/21/20 sertraline 50 mg PO DAILY 11/09/19 04/21/20 ferrous sulfate 325 mg PO DAILY 11/10/19 04/21/20 metformin 500 mg PO HS 11/10/19 04/21/20 acetaminophen 500 mg PO Q6-8H PRN 01/05/20 04/21/20 Azo Cranberry 250 mg PO BID 03/11/20 04/21/20 multivitamin with minerals 1 tablet PO DAILY 03/11/20 04/21/20 olanzapine 5 mg PO DAILY 03/11/20 04/21/20 calcium carbonate 750 mg PO Q12H 04/21/20 04/21/20 famotidine 20 mg PO DAILY 04/21/20 04/21/20 olanzapine 10 mg PO HS 04/21/20 04/21/20 Allergies Allergy/AdvReac Type Severity Reaction Status Date / Time amoxicillin Allergy Unknown Unknown Verified 04/21/20 16:00 Penicillins Allergy Unknown Unknown Verified 04/21/20 16:00 Review of Systems Review of Systems: Narrative: CONSTITUTIONAL: Denies fever CARDIOVASCULAR: Denies chest pain, or edema. RESPIRATORY: Reports cough and dyspnea. All systems reviewed & are unremarkable except as noted in HPI and below PMFSH Past Medical History Medical History (Updated 05/18/20 @ 18:20 by Nidia Calvin PA-C) Atrial tachycardia With history of paroxysmal atrial fibrillation and atrial flutter. Benign prostatic hyperplasia Cerebrovascular accident Brain CT shows prior infarcts in the right occipital and left parietal lobes. Depression Dysphagia He continually failed swallow studies dating back to 2014, and has continued to refuse G-tube placement. Essential hypertension Gastroesophageal reflux Hyperlipidemia Schizophrenia Systolic congestive heart failure Echocardiogram in March 2019 showed mildly enlarged left ventricular chamber and moderately increased left ventricular thickness, severely reduced left ventricular function with an ejection fraction of 25 to 30%, indeterminate left ventricular diastolic function, moderate biatrial enlargement, [id number] mitral valve regurgitation, and mild tricuspid valve regurgitation. Type 2 diabetes mellitus Vascular dementia Surgical History Surgical History Surgical history unknown Family History Family History Other Unknown family medical history Social History Social History (Updated 04/21/20 @ 20:09 by Felicia Burnette NP) Social History: The patient is a long-term resident [facility]. He is not able to provide much in the way of social history and cannot provide me with family history. It is noted that he is a [place] and is a full code. It is unknown if he is ever smoked or if he indulges in alcohol or illicit substances. his legal power of employment attorney is Cecilia Boucher Smoking status: Unknown if ever smoked Alcohol intake: unknown Substance use: unknown Gender identity (if verbalized by the patient): Male Spiritual care concerns: No Agree to blood products: Yes
[2020-05-18 11:08] LABS: NT Pro B Type Natriuretic Pept 7020 PG/ML (5-100)
[2020-05-18 11:55] LABS: Alanine Aminotransferase 26 U/L (4-50); Albumin Level 4.3 g/dL (3.5-5.1); Alkaline Phosphatase 40 U/L (38-126); Aspartate Amino Transferase 33 U/L (17-59); Bilirubin,Total 0.6 mg/dL (0.2-1.3); CRP 0.7 mg/dL (<1.0); Lactate Dehydrogenase 474 U/L (313-618)
[2020-05-18] MEDS: LORazepam INJ (*CRX) 2 MG/ML VIAL 1 MG IV PUSH (12:06)
[2020-05-18] MEDS: dilTIAZem HCl INJ 25 MG/5 ML VIAL 10 MG IV PUSH (14:00)
[2020-05-18] MEDS: METOPROLOL TARTRATE INJ 5 MG/5 ML VIAL IV PUSH ×2 (18:39→21:31)
[2020-05-18 18:48] LABS: Lactic Acid Reflex 3.1 mmol/L (0.7-2.1)
[2020-05-18 18:59] LABS: SARS-CoV-2 RNA PCR Negative
--- NOTE | 2020-05-18 20:08 | ADMGEN ---
This patient, Chirag Kyle, was admitted to Intensive Care Unit-2. Patient/family oriented to hospital policies and general routines including ID bracelet, bed and alarms, visiting hours, pain management, procedures, bathroom and other care routines, personal items, smoking policy, room service/diet, and visiting hours. Valuables list has been completed. Information on how to activate the Rapid Response Team has been discussed. Patient/Family are encouraged to report perceived risks to care and to ask questions if they do not understand what they are told or what they should do.
--- NOTE | 2020-05-18 21:04 | PM.IMHP ---
H&P: HPI History of Present Illness Date/Time: 05/18/20 21:04 Chief complaint: Pneumonia, coronavirus PUI, sinus tachycardia Narrative: Chirag Kyle is a 80 year old male In [facility]. The patient was just admitted here on 04/21/2020 due to rapid atrial flutter. The patient has a history of AFib a flutter. He also has a history of schizophrenia is a poor historian. The patient had been on a Cardizem drip when he was here last time and then he was taken off the drip and his metoprolol was increased to twice a day. Patient is on apixaban for his atrial fibrillation. Today that the patient was Admitted for AFib with RVR but the EKG looks more like atrial flutter. the patient was placed on a Cardizem drip. Patient had a chest x-ray that was read as bibasilar airspace disease may represent atelectasis and/or developing pneumonia. However I did review the chest x-ray with my collaborative Dr. suarez and compared it to his last chest x-ray last month. his x-ray this month was not very convincing for pneumonia. However the patient came in today because he was hypoxic. He did have a CTA performed today. Which was read as no evidence of pulmonary embolism. There was limited evaluation of the lungs due to motion. There was no pulmonary infiltrate or consolidation or pneumothorax detected on the CTA. Patient was given a Zithromax and Rocephin. The patient was just here last month and was treated for UTI which was sensitive to Rocephin. He had Proteus and was discharged on Omnicef. It looks like he was on that 4 days after was discharged and was discharged on 04/23/2020. The patient was reported to be hypoxic at the assisted but upon arrival to ER he was 100% on room air. Patient had been on a Cardizem drip for the possibility of AFib with RVR. But the EKG read was atrial flutter. Per my review as well as Dr. suarez and review the patient looks like he is in atrial flutter. The Cardizem drip was not helping with the rate control at all. I requested that the patient be given a beta-samy. And he was given metoprolol 5 mg IV push x1 and a 2nd 1 was ordered once he gets to the ICU. He was given IV fluids and IV antibiotics in the emergency room. Patient remains in the 1 teens. Patient was admitted to ICU because he was swabbed for COVID and placed in isolation in ICU. Date of service 05/18/2020 Review of Systems Review of Systems: ROS unobtainable: Yes unobtainable due to mental status Constitutional: Constitutional: Reports as per HPI and Reports no additional constitutional complaints Eyes: Eyes: Reports as per HPI and Reports no additional eye complaints ENT: Reports system reviewed and no additional complaints, except as documented and Reports Normal hearing present Cardiovascular: Cardiovascular: Reports no additional cardiovascular complaints Respiratory: Respiratory: Reports no additional respiratory complaints and Reports no additional respiratory complaints Gastrointestinal: Gastrointestinal: Reports as per HPI and Reports no additional gastrointestinal complaints Musculoskeletal: Musculoskeletal: Reports no additional musculoskeletal complaints Integumentary/Breasts: Skin/Breast: Reports system reviewed and no additional complaints, except as docu and Reports as per HPI Neurologic: Reports system reviewed and no additional complaints, except as documented, Reports as per HPI and Reports Normal hearing present Psychiatric: Psychiatric: Reports no additional psychiatric complaints and Reports as per HPI Endocrine: Endocrine: Reports no additional endocrine complaints Hematologic/Lymphatic: Hematologic/Lymphatic: Reports no additional hematologic/lymphatic complaints Allergic/Immunologic: Allergic/Immunologic: Reports no additional allergic/immunologic complaints PMFSH Past Medical History Medical History Atrial tachycardia With history
[2020-05-18 21:35] LABS: Reflex Lactic Acid Yes or No Add Lactic
[2020-05-18 23:49] LABS: Lactic Acid 3.1 mmol/L (0.7-2.1)
[2020-05-19] VITALS (12 sets, daily range): BP systolic 90–116; BP diastolic 71–79; PULSE 94–124; RESP 16–29; TEMP 36.1–36.6; O2SAT 94–100
[2020-05-19] MEDS: dilTIAZem HCL 60 MG TABLET PO ×4 (01:20→18:20)
[2020-05-19 04:54] LABS: Basophils Percent Auto 0.4 % (0.2-1.2); Eosinophils Absolute Auto 0.1 K/mm3 (0-0.3); Eosinophils Percent Auto 1.7 % (0-4.4); Hematocrit 38.8 % (42.0-52.0); Hemoglobin 12.7 g/dL (14.0-18.0); Immature Granulocyte Absolute 0.02 K/mm3 (0.00-0.031); Immature Granulocyte Percent A 0.3 % (0-0.5); Lymphocytes Absolute Auto 2.33 K/mm3 (0.9-3.2); Lymphocytes Percent Auto 33.2 % (18.3-44.2); Mean Corpuscular HGB Conc 32.7 g/dl (32-36); Mean Corpuscular Hemoglobin 28.9 pg (26-34); Mean Corpuscular Volume 88.2 fl (80-100); Mean Platelet Volume 10.8 fl (7.4-10.4); Monocytes Absolute Auto 0.8 K/mm3 (0.1-0.6); Monocytes Percent Auto 10.7 % (2.6-8.5); Neutrophils Absolute Auto 3.8 K/mm3 (1.3-6.7); Neutrophils Percent Auto 53.7 % (45.5-73.1); Platelet Count Result 184 k/mm3 (150-375)
[2020-05-19 05:21] LABS: Alanine Aminotransferase 33 U/L (4-50); Albumin Level 3.9 g/dL (3.5-5.1); Alkaline Phosphatase 43 U/L (38-126); Anion Gap 11 mmol/L (8-16); Aspartate Amino Transferase 53 U/L (17-59); Bilirubin,Total 0.9 mg/dL (0.2-1.3); Blood Urea Nitrogen 21 mg/dL (9-20); Carbon Dioxide 23 mmol/L (22-30); Chloride 109 mmol/L (98-107); Estimated CRCL calculation 49 ml/min; Estimated Glomerular Filt Rate > 60; Glucose 121 mg/dL (75-110); Lactate Dehydrogenase 517 U/L (313-618); Magnesium 1.9 mg/dL (1.6-2.3); Potassium 5.2 mmol/L (3.4-5.0); Sodium 143 mmol/L (137-145)
--- NOTE | 2020-05-19 05:33 | PC.NURSE ---
Capillary blood glucose obtained at 2037 on 05-18-2020 resulted as 108 mm/dl per STAT Strip device. Data appears not to have uploaded to [employer].
--- NOTE | 2020-05-19 07:35 | PC.NURSE ---
This patient, Chirag Kyle, was transferred to [facility] on 05/19/20 at 0730. Personal belongings sent with patient. Belongings list checked and signed with receiving. Report given to Antonella. Appropriate documentation sent with patient.
[2020-05-19] MEDS: THERAPEUTIC MULTIVITAMINS/MINERALS TAB (*BKC) 1 TABLET PO (08:46)
[2020-05-19] MEDS: FAMOTIDINE 20 MG TABLET PO (08:46)
[2020-05-19] MEDS: FERROUS SULFATE 324 MG TABLET PO (08:47)
[2020-05-19] MEDS: MEMANTINE 10 MG TABLET PO ×2 (08:47→18:21)
[2020-05-19] MEDS: SERTRALINE HCL 50 MG TABLET PO (08:47)
[2020-05-19] MEDS: METOPROLOL TARTRATE 25 MG TABLET PO ×3 (08:47→20:39)
[2020-05-19] MEDS: APIXABAN 5 MG TABLET PO ×2 (08:47→18:20)
[2020-05-19] MEDS: ATORVASTATIN 40 MG TABLET PO (08:47)
[2020-05-19] MEDS: DIVALPROEX SODIUM 250 MG TABEC PO ×3 (08:48→20:39)
[2020-05-19 09:22] LABS: Lactic Acid Reflex 1.9 mmol/L (0.7-2.1)
--- NOTE | 2020-05-19 16:55 | PM.IMPN ---
Progress Note: A&P Assessment and Plan (1) Pneumonia: Qualifiers: Laterality: bilateral Lung location: lower lobe of lung Pneumonia type: due to unspecified organism Qualified Code(s): J18.9 - Pneumonia, unspecified organism Code(s): J18.9 - Pneumonia, unspecified organism Status: Acute Assessment and Plan: the patient was not hypoxic when he came to the emergency room. He was satting 100% on room air. His CTA did not show any consolidation. . He was given azithromycin and Rocephin in the emergency room. We did not continue with any further antibiotics at this time. As the patient has been on multiple antibiotics recently for UTI. . blood cultures are pending and will attempt to get a sputum specimen. (2) Person under investigation for severe acute respiratory syndrome coronavirus 2 (SARS-CoV-2) infection: Code(s): Z20.828 - Contact with and (suspected) exposure to other viral communicable diseases Status: Acute Assessment and Plan: patient is in ICU under surveillance for COVID-19. and COVID swab returned negative (3) Atrial flutter with rapid ventricular response: Code(s): I48.92 - Unspecified atrial flutter Status: Acute Assessment and Plan: Patient's metoprolol was doubled last time he was here and that seemed to help the patient he is on oral Cardizem because he has a history of AFib as well but today he is in atrial flutter. I believe that it would be more beneficial to give him a beta-samy that it would be to give him Diltiazem. The patient is on Eliquis due to his history of atrial fibrillation will increase beta-samy as blood pressure allows. (4) Hyperlipidemia: Code(s): E78.5 - Hyperlipidemia, unspecified Status: Chronic Assessment and Plan: Continue with Lipitor (5) Benign prostatic hyperplasia: Code(s): N40.0 - Benign prostatic hyperplasia without lower urinary tract symptoms Status: Chronic Assessment and Plan: continue with home medication. (6) Depression: Code(s): F32.9 - Major depressive disorder, single episode, unspecified Status: Chronic Assessment and Plan: Continue with Zoloft. (7) Schizophrenia: Qualifiers: Schizophrenia type: other Qualified Code(s): F20.89 - Other schizophrenia Code(s): F20.9 - Schizophrenia, unspecified Status: Chronic Assessment and Plan: Continue with olanzapine, Zoloft, Namenda, Aricept and Depakote (8) Essential hypertension: Code(s): I10 - Essential (primary) hypertension Status: Chronic Assessment and Plan: patient is on metoprolol and Cardizem and blood pressure is normal to low Subjective Date/time seen: 05/19/20 16:55 Interval history: date of visit 05/19. 80-year-old demented male with chronic fib flutter sent to the emergency room from nursing facility for hypoxia. Here was found to be saturating 100% on room air but fibrillation flutter was rapid and patient was admitted. No infiltrates seen on CT and lactate was initially elevated but fell with hydration. No obvious source of any infection. Exam Narrative: Exam Narrative: Blood pressure 94/76 pulse 94 irregular saturating 100% on room air afebrile pupils equal reactive light sclera anicteric mouth mucosa appears normal hydration now after fluid from ER, edentulous lungs clear CV irregular hear no murmur abdomen soft nontender extremities without edema distal pulses are 2+ neuro alert no obvious focal deficits speech is hard to understand Objective Data Vital Signs Vital Signs: Vital Signs - 24 hr 05/18/20 17:56 05/18/20 18:39 05/18/20 19:21 Temperature 36.7 C Pulse Rate 130 H 128 H 123 H Respiratory Rate 22 H 17 Blood Pressure 112/85 100/68 Pulse Oximetry 95 100 05/18/20 19:50 05/18/20 21:31 05/18/20 22:00 Temperature 36.2 C L Pulse Rate 124 H 123 H 121 H Respiratory Rate
[2020-05-19 20:06] LABS: Glucose Point of Care 232 (65-105)
[2020-05-19] MEDS: DONEPEZIL HCL 10 MG TABLET PO ×2 (20:39)
--- NOTE | 2020-05-19 21:44 | PC.NURSE ---
This patient, Chirag Kyle, was transferred to [facility] on 05/19/20 at 2139. Personal belongings sent with patient. Report given to AYSE Lentz. Appropriate documentation sent with patient.
--- NOTE | 2020-05-19 21:50 | PC.NURSE ---
This patient, Chirag Moura Kyle, was received from [facility] on 05/19/20 at 2158. Personal belongings list checked and signed. Patient/family oriented to unit policies and routines
[2020-05-20] MEDS: dilTIAZem HCL 60 MG TABLET PO ×3 (00:13→11:51)
[2020-05-20 06:00] VITALS: BP 111/65; PULSE 118; RESP 18; TEMP 37; O2SAT 93
[2020-05-20 08:04] LABS: Anion Gap 10 mmol/L (8-16); Blood Urea Nitrogen 25 mg/dL (9-20); Calcium 8.7 mg/dL (8.4-10.2); Carbon Dioxide 24 mmol/L (22-30); Chloride 105 mmol/L (98-107); Estimated CRCL calculation 49 ml/min; Estimated Glomerular Filt Rate > 60; Glucose 145 mg/dL (75-110); Potassium 4.3 mmol/L (3.4-5.0); Sodium 139 mmol/L (137-145)
[2020-05-20 08:21] LABS: Glucose Point of Care 148 (65-105)
[2020-05-20] MEDS: ATORVASTATIN 40 MG TABLET PO (08:54)
[2020-05-20] MEDS: DIVALPROEX SODIUM 250 MG TABEC PO (08:54)
[2020-05-20] MEDS: APIXABAN 5 MG TABLET PO (08:54)
[2020-05-20] MEDS: FERROUS SULFATE 324 MG TABLET PO (08:54)
[2020-05-20 08:55] VITALS: PULSE 92
[2020-05-20] MEDS: METOPROLOL TARTRATE 25 MG TABLET PO (08:55)
[2020-05-20] MEDS: MEMANTINE 10 MG TABLET PO (08:55)
[2020-05-20] MEDS: FAMOTIDINE 20 MG TABLET PO (08:55)
[2020-05-20] MEDS: SERTRALINE HCL 50 MG TABLET PO (08:56)
[2020-05-20] MEDS: THERAPEUTIC MULTIVITAMINS/MINERALS TAB (*BKC) 1 TABLET PO (08:56)
[2020-05-20 10:26] VITALS: O2SAT 98
--- NOTE | 2020-05-20 11:40 | PC.NURSE ---
Patient refused blood glucose check.
--- NOTE | 2020-05-20 12:02 | WPDCDIQUERY2 ---
CDI Query Clarification Request - Pneumonia, status acute on problem list - His CTA did not show any consolidation. He was given azithromycin and Rocephin in the emergency room. We did not continue with any further antibiotics at this time. also documented. Please clarify if pneumonia was ruled out or ruled in.
--- NOTE | 2020-05-20 14:00 | PC.NURSE ---
Report called to Mikayla at [facility].
--- NOTE | 2020-05-24 11:12 | PM.DS ---
DS: Admitting Diagnosis Admitting Diagnosis Admitting Diagnosis: Pneumonia, coronavirus PUI, sinus tachycardia DS: Discharge Diagnosis Discharge Diagnosis (1) Pneumonia: Qualifiers: Laterality: bilateral Lung location: lower lobe of lung Pneumonia type: due to unspecified organism Qualified Code(s): J18.9 - Pneumonia, unspecified organism Code(s): J18.9 - Pneumonia, unspecified organism Status: Acute Assessment and Plan: the patient was not hypoxic when he came to the emergency room. He was satting 100% on room air. His CTA did not show any consolidation. . He was given azithromycin and Rocephin in the emergency room. We did not continue with any further antibiotics at this time. As the patient has been on multiple antibiotics recently for UTI. . blood cultures negative as was sputum No pneumonia found (2) Person under investigation for severe acute respiratory syndrome coronavirus 2 (SARS-CoV-2) infection: Code(s): Z20.828 - Contact with and (suspected) exposure to other viral communicable diseases Status: Acute Assessment and Plan: patient is in ICU under surveillance for COVID-19. and COVID swab returned negative (3) Atrial flutter with rapid ventricular response: Code(s): I48.92 - Unspecified atrial flutter Status: Acute Assessment and Plan: Patient's metoprolol was doubled last time he was here and that seemed to help the patient he is on oral Cardizem because he has a history of AFib as . The patient is on Eliquis due to his history of atrial fibrillation (4) Hyperlipidemia: Code(s): E78.5 - Hyperlipidemia, unspecified Status: Chronic Assessment and Plan: Continue with Lipitor (5) Benign prostatic hyperplasia: Code(s): N40.0 - Benign prostatic hyperplasia without lower urinary tract symptoms Status: Chronic Assessment and Plan: continue with home medication. (6) Depression: Code(s): F32.9 - Major depressive disorder, single episode, unspecified Status: Chronic Assessment and Plan: Continue with Zoloft. (7) Schizophrenia: Qualifiers: Schizophrenia type: other Qualified Code(s): F20.89 - Other schizophrenia Code(s): F20.9 - Schizophrenia, unspecified Status: Chronic Assessment and Plan: Continue with olanzapine, Zoloft, Namenda, Aricept and Depakote (8) Essential hypertension: Code(s): I10 - Essential (primary) hypertension Status: Chronic Assessment and Plan: patient is on metoprolol and Cardizem and blood pressure is normal to low DS: Summary Hospital Course Hospital Course: 80-year-old demented male hypertension diabetes history of atrial fibrillation flutter sent to the emergency room evaluation of hypoxia. Arrival here he was saturating 100% room air and was never hypoxic during his observation. Initially it was felt that he may have pneumonia but chest x-ray did not show any definite infiltrate cultures were all negative with normal white count so no antibiotics were continued. Patient remained stable and was discharged back to the residential on his same medication regime. Time Spent with Patient Time attestation: Total time spent providing and/or coordinating discharge services: 35 minutes Exam Narrative: Exam Narrative: Condition on discharge blood pressure 110/64 pulse is 72 afebrile and saturating high 90s on room air lungs clear CV regular rate rhythm abdomen soft nontender extremities without edema distal pulses 1+ neuro alert at his baseline taking mechanical soft diet well and able to be discharged back to senior care care to residential in stable condition DS: Data Data Completed and Pending Labs on day of discharge: Preliminary micro results at discharge 05/18/20 18:29 Blood Culture - Preliminary Blood 05/18/20 18:29 Blood Culture - Preliminary Blood Discharge Plan Dis
== END 2020-05-20 14:30 | DRG 309 ==
LOC: ANHED 18:20 → ANHICU 22:40 → ANHIMU 05-19 10:20 → ANH3MEDSUR 05-19 21:59 → ANHICU 05-23 15:07 → ANHIMU 05-23 15:07
PROVIDERS: Nurse Practitioner; Physician Assistant; Admitting Provider Internal Medicine; Emergency Provider Emergency Medicine; Visit Provider Internal Medicine
DX: I48.92 Unspecified atrial flutter (principal); F20.89 Other schizophrenia; I50.22 Chronic systolic (congestive) heart failure; R09.02 Hypoxemia; Z20.828 Contact with and (suspected) exposure to other viral communicable diseases; I48.20 Chronic atrial fibrillation, unspecified; E78.5 Hyperlipidemia, unspecified; N40.0 Benign prostatic hyperplasia without lower urinary tract symptoms; F32.9 Major depressive disorder, single episode, unspecified; E11.9 Type 2 diabetes mellitus without complications; F01.50 Vascular dementia, unspecified severity, without behavioral disturbance, psychotic disturbance, mood disturbance, and anxiety; K21.9 Gastro-esophageal reflux disease without esophagitis; I10 Essential (primary) hypertension; Z79.01 Long term (current) use of anticoagulants; Z86.73 Personal history of transient ischemic attack (TIA), and cerebral infarction without residual deficits
CPT/HCPCS: 36415; 36600; 71045; 71046; 71275; 80048; 80053; 80076; 82375; 82728; 82805; 82948; 83050; 83605; 83615; 83735; 83880; 85025; 86140; 87040; 87086; 87635; 87804; 93005; 96361; 96374; 96375; 99291; A9270; C9803; J0456; J0696; J2060; J7040; Q9967; U0003

== ENCOUNTER 2020-05-30 12:25 | Inpatient (IN) | payer MEDICARE, MEDICAID, SELFPAY ==
[2020-05-30] VITALS (17 sets, daily range): BP systolic 101–139; BP diastolic 25–101; PULSE 52–126; RESP 12–31; TEMP 35.9–36.6; O2SAT 97–100
--- NOTE | ~2020-05-30 | CT_ITS ---
EXAMINATION: CT abdomen pelvis w con EXAM DATE: 05/30/2020 16:04 INDICATION: Lower abdominal pain. TECHNIQUE: Spiral CT of the abdomen and pelvis was performed following intravenous injection of 100 m L Omnipaque 350. Axial, coronal and sagittal images were reviewed. The dose-length product (DLP) fo r this examination was 751.50 mGy-cm. The exposure was tailored according to patient size (auto mA e xposure control), and iterative reconstruction (ASIR) was used as additional dose reduction technique . There is no prior study for comparison. FINDINGS: Study is limited due to patient motion. Mild nonspecific periportal edema and pericholecy stic fluid, between the gallbladder and the liver. Gallbladder itself is unremarkable. No biliary o bstruction. There are several regions of decreased cortical enhancement within each kidney, also wit h evidence of volume loss in these locations suggesting this is most likely scarring from prior infec tions or infarctions. There is no significant perinephric fat stranding or hydronephrosis. Small pro state versus prostatectomy. The bladder is unremarkable. There is no retroperitoneal or pelvic lymp hadenopathy. There is moderate scattered arteriosclerotic disease. There is possible right-sided posterolateral rectal wall thickening The appendix is not positively vi sualized. There is no pericecal inflammatory change to suggest appendicitis. There is extensive sigm oid and descending colonic diverticulosis. There is no adjacent inflammatory change to suggest diver ticulitis. The stomach and small bowel are unremarkable. There is expected amount of colonic stool. No free intraperitoneal gas. There is cardiomegaly. There is basilar pulmonary vascular congestion and possible mild pulmonary demetrice ma. There is small loculated right-sided subpulmonic pleural effusion. There is interlobular septal thickening at the lung bases, appearance suspicious for mild pulmonary edema. There are no osteoblas tic or osteolytic lesions identified. IMPRESSION: 1. Possible right posterolateral rectal wall thickening, possible adenocarcinoma. Has patient had re cent colonoscopy? 2. Nonspecific periportal edema and pericholecystic fluid. 3. Extensive colonic diverticulosis. 4. Regions of renal cortical scarring bilaterally. 5. Cardiomegaly, congestion and suspect mild pulmonary edema. Reviewed, dictated and finalized at location A. IMPRESSION: 1. Possible right posterolateral rectal wall thickening, possible adenocarcino ma. Has patient had recent colonoscopy? 2. Nonspecific periportal edema and pericholecystic fluid. 3. Extensive colonic diverticulosis. 4. Regions of renal cortical scarring bilaterally. 5. Cardiomegaly, congestion and suspect mild pulmonary edema.
--- NOTE | ~2020-05-30 | XR_ITS ---
XR chest 1V portable 05/31/2020 15:55 Indication: Cough and dyspnea Procedure: AP portable chest Comparison: Comparison to multiple prior studies sequentially, with oldest reviewed study dated 04/21. Findings: There are infiltrates of the right lower lung zone. Borderline heart size. Possible small e ffusion. No edema or pneumothorax. No acute osseous abnormality. Impression: 1: Infiltrates of the right lower lung zone, differential includes pneumonia and/or atelectasis. Reviewed, dictated and finalized at location B. Impression: 1: Infiltrates of the right lower lung zone, differential includes pneumonia an d/or atelectasis.
--- NOTE | ~2020-05-30 | XR_ITS ---
EXAMINATION: XR chest 1V portable EXAM DATE: 05/31/2020 22:19 INDICATION: Shortness of breath. TECHNIQUE: Portable AP frontal chest x-ray was obtained. Comparison is made to prior examination from earlier same date. FINDINGS: There is cardiomegaly and pulmonary vascular congestion. There is indistinct reticulation w ith a bibasal predominance which may indicate pulmonary edema. Infection not excludable. No pneumotho rax or pleural effusion. There are mild bony degenerative changes. IMPRESSION: 1. Congestive changes, possible mild pulmonary edema. Infection not excludable. Reviewed, dictated and finalized at location A. IMPRESSION: 1. Congestive changes, possible mild pulmonary edema. Infection not excludable .
--- NOTE | ~2020-05-30 | XR_ITS ---
EXAMINATION: XR chest 1V portable 05/30/2020 13:24 INDICATION: Shortness of breath PROCEDURE: AP portable chest COMPARISON: Comparison to multiple prior studies sequentially, with oldest reviewed study dated 10/2019. FINDINGS: The lungs are clear. The cardiomediastinal silhouette is within normal limits. There are no pleural effusions. There is no pneumothorax suspected. IMPRESSION: 1: NO ACUTE CARDIOPULMONARY DISEASE. Reviewed, dictated and finalized at location B.
--- NOTE | 2020-05-30 12:47 | ECG_ITS ---
Measurements Intervals [place] Rate: 126 P: 258 KS: 113 QRS: 254 QRSD: 154 T: 17 QT: 371 QTc: 539 Interpretive Statements ATRIAL FLUTTER WITH RAPID VENTRICULAR RESPONSE RIGHT AXIS DEVIATION RIGHT BUNDLE BRANCH BLOCK AND POSSIBLE RIGHT VENTRICULAR HYPERTROPHY BASELINE ARTIFACT- I, III, AVR, AVL, AVF ABNORMAL ECG Electronically Signed On 05-31-2020 8:30:51 CDT by Donaldo Duran D.O.
[2020-05-30 12:58] LABS: Anion Gap 18 mmol/L (8-16); Blood Urea Nitrogen 19 mg/dL (9-20); Calcium 9.5 mg/dL (8.4-10.2); Carbon Dioxide 23 mmol/L (22-30); Chloride 102 mmol/L (98-107); Estimated Glomerular Filt Rate > 60; Glucose 267 mg/dL (75-110); Potassium 4.1 mmol/L (3.4-5.0); Sodium 143 mmol/L (137-145)
[2020-05-30 12:59] LABS: Basophils Percent Auto 0.6 % (0.2-1.2); Eosinophils Absolute Auto 0.1 K/mm3 (0-0.3); Eosinophils Percent Auto 0.7 % (0-4.4); Hematocrit 42.9 % (42.0-52.0); Immature Granulocyte Absolute 0.11 K/mm3 (0.00-0.031); Immature Granulocyte Percent A 1.6 % (0-0.5); Lymphocytes Absolute Auto 0.96 K/mm3 (0.9-3.2); Lymphocytes Percent Auto 14.2 % (18.3-44.2); Mean Corpuscular HGB Conc 32.6 g/dl (32-36); Mean Corpuscular Hemoglobin 28.4 pg (26-34); Monocytes Absolute Auto 0.5 K/mm3 (0.1-0.6); Monocytes Percent Auto 7.3 % (2.6-8.5); Neutrophils Absolute Auto 5.1 K/mm3 (1.3-6.7); Neutrophils Percent Auto 75.6 % (45.5-73.1); Platelet Count Result 225 k/mm3 (150-375); Red Blood Count 4.93 M/mm3 (4.6-6.20); Red Cell Distribution Width 13.8 % (11.5-14.5); White Blood Count 6.8 K/mm3 (4.5-10.0)
[2020-05-30 13:02] LABS: Lactic Acid Reflex 7.3 mmol/L (0.7-2.1)
[2020-05-30 15:09] LABS: Add Urine Microscopic? YES; Appearance Urine Cloudy (Clear); Bilirubin Urine Negative (Negative); Blood Urine 1+ (Negative); Color Urine Yellow (Yellow); Glucose Urine UA 2+ mg/dL (Negative); Ketones Urine Negative (Negative); Leukocyte Esterase Ur Trace LEU/UL (Negative); Mucus Urine Rare /lpf; Nitrate Urine Negative (Negative); Protein Urine Negative (Negative); Specific Grav Ur 1.013 (1.001-1.035); Squamous Epithelial Cell Urine Rare /hpf (Few); Urobilinogen Urine Negative mg/dL (<2.0)
[2020-05-30 15:46] LABS: Reflex Lactic Acid Yes or No Add Lactic
[2020-05-30 16:45] LABS: Lactic Acid Reflex 2.2 mmol/L (0.7-2.1)
--- NOTE | 2020-05-30 18:16 | ED.GENADULT ---
HPI - General Adult General Chief complaint: Shortness of Breath/Dyspnea Stated complaint: SOB Time Seen by Provider: 05/30/20 12:38 History of Present Illness HPI narrative: Patient is an 80-year-old male with history of schizophrenia and dementia who presents from his [facility] with reports of increased respiratory distress/work of breathing. Patient is shouting and mumbling incoherently in the room. Does not seem to be short of breath however he is quite tachycardic. He has history of atrial flutter with RVR. He takes metoprolol. He is recently admitted for similar issues. Despite inability to give history patient does endorse some mild discomfort in his lower abdomen. This may have correlation with his recent straight catheterization. Related Data Home Medications Medication Instructions Recorded Confirmed Eliquis 5 mg PO BID 11/09/19 05/18/20 atorvastatin 40 mg PO DAILY 11/09/19 05/18/20 diltiazem HCl 60 mg PO QID 11/09/19 05/18/20 divalproex 250 mg PO BID 11/09/19 05/18/20 donepezil 10 mg PO HS 11/09/19 05/18/20 medroxyprogesterone 5 mg PO BID 11/09/19 05/18/20 memantine 10 mg PO BID 11/09/19 05/18/20 metformin 1,000 mg PO DAILY 11/09/19 05/18/20 sertraline 50 mg PO DAILY 11/09/19 05/18/20 ferrous sulfate 325 mg PO DAILY 11/10/19 05/18/20 acetaminophen 500 mg PO Q6-8H PRN 01/05/20 05/18/20 Azo Cranberry 250 mg PO BID 03/11/20 05/18/20 multivitamin with minerals 1 tablet PO DAILY 03/11/20 05/18/20 famotidine 20 mg PO DAILY 04/21/20 05/18/20 olanzapine 15 mg PO HS 04/21/20 05/18/20 metoprolol tartrate 25 mg PO BID 05/18/20 05/18/20 Saccharomyces boulardii [Florastor] mg BID 05/30/20 loratadine [Claritin] mg 05/30/20 Allergies Allergy/AdvReac Type Severity Reaction Status Date / Time amoxicillin Allergy Unknown Unknown Verified 05/30/20 12:29 Penicillins Allergy Unknown Unknown Verified 05/30/20 12:29 Review of Systems Review of Systems: ROS unobtainable: Yes unobtainable due to medical condition [facility] Past Medical History Medical History (Updated 05/30/20 @ 18:18 by Kirby Lundberg MD) Atrial tachycardia With history of paroxysmal atrial fibrillation and atrial flutter. Benign prostatic hyperplasia Cerebrovascular accident Brain CT shows prior infarcts in the right occipital and left parietal lobes. Depression Dysphagia He continually failed swallow studies dating back to 2014, and has continued to refuse G-tube placement. Essential hypertension Gastroesophageal reflux Hyperlipidemia Schizophrenia Systolic congestive heart failure Echocardiogram in March 2019 showed mildly enlarged left ventricular chamber and moderately increased left ventricular thickness, severely reduced left ventricular function with an ejection fraction of 25 to 30%, indeterminate left ventricular diastolic function, moderate biatrial enlargement, [id number] mitral valve regurgitation, and mild tricuspid valve regurgitation. Type 2 diabetes mellitus Vascular dementia Surgical History Surgical History (Updated 05/18/20 @ 21:17 by Felicia Burnette NP) H/O abdominal surgery the patient has a midline abdominal scar. Family History Family History Other Unknown family medical history Social History Social History (Updated 05/18/20 @ 21:18 by Felicia Burnette NP) Social History: The patient is a long-term resident [facility]. He is not able to provide much in the way of social history and cannot provide me with family history. It is noted that he is a [place] and is a full code. It is unknown if he is ever smoked or if he indulges in alcohol or illicit substances. his legal power of claim attorney is Cecilia Nguyễnrecarolynn The patient tells me that he smokes and was laughing his poor historian. Smoking status: Unknown if ever smoked Alcohol intake: unknown Substance use: unknown Gender identity (if verbalized by the patient): Male Spi
[2020-05-30] MEDS: METOPROLOL TARTRATE 25 MG TABLET PO (18:52)
--- NOTE | 2020-05-30 18:59 | PC.NURSE ---
1853- spoke with Avery at [facility], he will have the o/c guardian contact this facility. They have one hr to return the call. phone number is [phone] .
--- NOTE | 2020-05-30 19:28 | PC.NURSE ---
1925- SPoke with Ernestine from the [facility] [employer] office. She is aware of the patient admit, and stated she is fine with the admission. She will notify the patients guardian.
--- NOTE | 2020-05-30 20:42 | ADMGEN ---
This patient, Chirag Kyle, was admitted to IMU Room 232-01 at 2024. Patient/family oriented to hospital policies and general routines including ID bracelet, bed and alarms, visiting hours, pain management, procedures, bathroom and other care routines, personal items, smoking policy, room service/diet, and visiting hours. Information on how to activate the Rapid Response Team has been discussed. Patient/Family are encouraged to report perceived risks to care and to ask questions if they do not understand what they are told or what they should do.
--- NOTE | 2020-05-30 23:58 | PM.IMHP ---
H&P: HPI History of Present Illness Date/Time: 05/30/20 23:58 Chief complaint: Atrial flutter/elevated lactic acid/rectal mass Narrative: Chirag Kyle is a 80 year old male who is from [facility]. His a history of schizophrenia and atrial fib with atrial flutter. From the custodial due to increased respiratory distress and work of breathing. The patient was shouting and mumbling incoherently the room. The patient was just admitted here about 13 days ago and was discharged 4 days ago. In from when I have seen of the patient he can be aggressive at times and has behavioral problems with his dementia. The patient has a history of the atrial flutter versus atrial fibrillation with RVR. On 05/24/2020 where he had been treated for pneumonia. On his CT a the images did not show any consolidation at that time. He was started on a Zithromax and Rocephin in the emergency and no further antibiotics were given at that time. Blood cultures were negative as well as sputum. No pneumonia had been found. Patient was checked for COVID-19 at that time and he was found to be negative. Patient was found to be in atrial flutter with rapid ventricular response and his metoprolol was doubled and remained on oral Cardizem. He is also on Eliquis. The patient was given IV fluids and Lopressor oral x1. Right posterior lateral rectal wall thickening possible adenocarcinoma. Nonspecific peripheral edema and pericholecystic fluid. Extensive colonic diverticulosis. Regions of renal cortical scarring bilaterally. Cardiomegaly congestive and suggest mild pulmonary edema. When I assessed the patient he had the blanket over his head and was mumbling. Patient is admitted as observation to IMU date of service 05/30/2020 Review of Systems Review of Systems: All systems reviewed & are unremarkable except as noted in HPI and below Constitutional: Constitutional: Reports as per HPI and Reports no additional constitutional complaints Eyes: Eyes: Reports as per HPI and Reports no additional eye complaints ENT: Reports system reviewed and no additional complaints, except as documented and Reports Normal hearing present Cardiovascular: Cardiovascular: Reports no additional cardiovascular complaints Respiratory: Respiratory: Reports no additional respiratory complaints and Reports no additional respiratory complaints Gastrointestinal: Gastrointestinal: Reports as per HPI and Reports no additional gastrointestinal complaints Musculoskeletal: Musculoskeletal: Reports no additional musculoskeletal complaints Integumentary/Breasts: Skin/Breast: Reports system reviewed and no additional complaints, except as docu and Reports as per HPI Neurologic: Reports system reviewed and no additional complaints, except as documented, Reports as per HPI and Reports Normal hearing present Psychiatric: Psychiatric: Reports no additional psychiatric complaints and Reports as per HPI Endocrine: Endocrine: Reports no additional endocrine complaints Hematologic/Lymphatic: Hematologic/Lymphatic: Reports no additional hematologic/lymphatic complaints Allergic/Immunologic: Allergic/Immunologic: Reports no additional allergic/immunologic complaints [facility] Past Medical History Medical History Atrial tachycardia With history of paroxysmal atrial fibrillation and atrial flutter. Benign prostatic hyperplasia Cerebrovascular accident Brain CT shows prior infarcts in the right occipital and left parietal lobes. Depression Dysphagia He continually failed swallow studies dating back to 2014, and has continued to refuse G-tube placement. Essential hypertension Gastroesophageal reflux Hyperlipidemia Schizophrenia Systolic congestive heart failure Echocardiogram in March 2019 showed mildly enlarged left ventricular chamber and moderately increased left ventricular thickness, severely reduced left ventricular function wit
[2020-05-31] VITALS (18 sets, daily range): BP systolic 109–152; BP diastolic 76–108; PULSE 14–117; RESP 20–28; TEMP 35.7–36.9; O2SAT 96–100
[2020-05-31] MEDS: DONEPEZIL HCL 10 MG TABLET PO ×2 (01:09→21:13)
[2020-05-31] MEDS: METOPROLOL TARTRATE 25 MG TABLET PO ×3 (01:09→21:13)
[2020-05-31 08:06] LABS: Glucose Point of Care 106 (65-105)
[2020-05-31] MEDS: LORATADINE 10 MG TABLET PO (09:08)
[2020-05-31] MEDS: DIVALPROEX SODIUM 250 MG TABEC PO ×2 (09:09→21:13)
[2020-05-31] MEDS: FERROUS SULFATE 324 MG TABLET PO (09:09)
[2020-05-31] MEDS: SACCHAROMYCES BOULARDII 250 MG CAPSULE PO ×2 (09:09→17:14)
[2020-05-31] MEDS: APIXABAN 5 MG TABLET PO (09:09)
[2020-05-31] MEDS: THERAPEUTIC MULTIVITAMINS/MINERALS TAB (*BKC) 1 TABLET PO (09:09)
[2020-05-31] MEDS: FAMOTIDINE 20 MG TABLET PO (09:09)
[2020-05-31] MEDS: ATORVASTATIN 40 MG TABLET PO (09:09)
[2020-05-31] MEDS: CALCIUM CARBONATE (OSCAL) 500 MG TABLET PO ×2 (09:09→17:13)
[2020-05-31] MEDS: dilTIAZem HCL 60 MG TABLET PO ×4 (09:09→21:13)
[2020-05-31] MEDS: MEMANTINE 10 MG TABLET PO ×2 (09:09→17:14)
[2020-05-31 09:15] LABS: Hematocrit 42.6 % (42.0-52.0); Hemoglobin 13.7 g/dL (14.0-18.0); Mean Corpuscular HGB Conc 32.2 g/dl (32-36); Mean Corpuscular Hemoglobin 29.1 pg (26-34); Mean Corpuscular Volume 90.6 fl (80-100); Mean Platelet Volume 10.5 fl (7.4-10.4); Platelet Count Result 190 k/mm3 (150-375); Red Cell Distribution Width 14.4 % (11.5-14.5); White Blood Count 6.8 K/mm3 (4.5-10.0)
[2020-05-31 09:38] LABS: Anion Gap 12 mmol/L (8-16); Blood Urea Nitrogen 19 mg/dL (9-20); Calcium 9.3 mg/dL (8.4-10.2); Carbon Dioxide 21 mmol/L (22-30); Chloride 110 mmol/L (98-107); Estimated Glomerular Filt Rate > 60; Glucose 177 mg/dL (75-110); Potassium 5.3 mmol/L (3.4-5.0); Sodium 143 mmol/L (137-145)
--- NOTE | 2020-05-31 11:36 | PM.IMPN ---
Progress Note: A&P Assessment and Plan (1) Atrial flutter: Code(s): I48.92 - Unspecified atrial flutter Status: Acute Assessment and Plan: Evident on EKG at admission with HR ranging 110-120s. Heart rate is well controlled at this time. Telemetry reviewed showing HR in the 60s with occasional episode of atrial flutter in the 100s. Continue PO metoprolol Continue cardizem Monitor on telemetry (2) Mass in rectum: Code(s): K62.89 - Other specified diseases of anus and rectum Status: Acute Assessment and Plan: CT a/p shows possible right posterolateral rectal wall thickening, possibly adenocarcinoma. GI has been consulted and recommendations are appreciated. Plan for colonoscopy tomorrow per GI recs. Luis is on hold for procedure. (3) Hyperlipidemia: Code(s): E78.5 - Hyperlipidemia, unspecified Status: Chronic Assessment and Plan: Continue atorvastatin (4) Depression: Code(s): F32.9 - Major depressive disorder, single episode, unspecified Status: Chronic Assessment and Plan: Mood is stable at this time. Continue with Zoloft (5) Schizophrenia: Qualifiers: Schizophrenia type: other Qualified Code(s): F20.89 - Other schizophrenia Code(s): F20.9 - Schizophrenia, unspecified Status: Chronic Assessment and Plan: Mood is stable at this time. Continue with Zyprexa (6) Vascular dementia: Code(s): F01.50 - Vascular dementia without behavioral disturbance Status: Chronic Assessment and Plan: Chronic and severe. Patient is not able to answer any questions or follow any commands. Continue memantine and donepezil (7) Essential hypertension: Code(s): I10 - Essential (primary) hypertension Status: Chronic Assessment and Plan: Blood pressure evaluated today and stable at 115/76. Continue PO metoprolol and diltiazem (8) Systolic congestive heart failure: Code(s): I50.20 - Unspecified systolic (congestive) heart failure Status: Chronic Assessment and Plan: Appears euvolemic at this time. Monitor I&O closely and continue heart healthy diet Continue metoprolol (9) Type 2 diabetes mellitus: Qualifiers: Diabetes mellitus complication status: without complication Diabetes mellitus microbiology professor insulin use: without microbiology professor use Qualified Code(s): E11.9 - Type 2 diabetes mellitus without complications Code(s): E11.9 - Type 2 diabetes mellitus without complications Status: Chronic Assessment and Plan: A1c is 7.1 (April 2020). Blood sugar evaluated today and is stable at 177. Continue accuchecks ACHS, SSI, and hypoglycemic protocol Metformin is in hold at this time. Additional Plan Will downgrade from IMU to med/surg as patient is stable and HR is controlled. Subjective Date/time seen: 05/31/20 11:36 Interval history: Date of service: 05/31/2020 Chirag Kyle is an 80 year old male with a history of atrial flutter, BPH, CVA, HTN, Type 2 DM, schizophrenia, and vascular dementia who is seen in follow up for suspected rectal mass. He is resting comfortably. He has severe dementia and is unable to contribute to HPI. He occasionally grunts in response to questions but does not respond verbally. He does not follow any commands. Review of Systems Review of Systems: Narrative: 12 systems reviewed with pertinent positives and negatives as per HPI. ROS unobtainable: Yes unobtainable due to mental status Exam Narrative: Exam Narrative: Mr. Kyle is a well-nourished 80-year-old male who is lying supine in bed. He appears comfortable and is in NARD. HR 115, BP 115/76, RR 20, T 96.8, 97% on room air Neuro: awake, unable to respond to questions or follow commands, grunts in response to questions with no verbal responses, no focal neuro deficits noted HEENMT: normocephalic
[2020-05-31 12:10] LABS: Glucose Point of Care 176 (65-105)
--- NOTE | 2020-05-31 12:54 | WPDGICN ---
Assessment and Plan Assessment and plan (1) Abnormal CT scan, gastrointestinal tract: Code(s): R93.3 - Abnormal findings on diagnostic imaging of other parts of digestive tract Status: Acute Assessment and Plan: CT scan was performed for unclear reasons. It appears to show a rectal mass. Plan is for colonoscopy tomorrow after preparation today. Further recommendations will be given after this is accomplished. Eliquis anticoagulation should probably be held until this is accomplished. (2) Schizophrenia: Qualifiers: Schizophrenia type: other Qualified Code(s): F20.89 - Other schizophrenia Code(s): F20.9 - Schizophrenia, unspecified Status: Chronic (3) Vascular dementia: Code(s): F01.50 - Vascular dementia without behavioral disturbance Status: Chronic (4) Atrial fibrillation with rapid ventricular response: Code(s): I48.91 - Unspecified atrial fibrillation Status: Acute GI Consult Note Consult date/time: 05/31/20 12:54 HPI: Chirag Fleming is a 80 year old male Seen in evaluation at the request of the hospitalist service. Patient has multiple medical problems including schizophrenia dementia atrial fibrillation, diabetes mellitus. He apparently had increasing shortness of breath and was sent to the hospital. A CT scan of the abdomen was performed raising the question of a rectal mass. Patient is unable to give any useful additional history. No reported history of bleeding or weight loss is encountered. I have been asked to see him for colonoscopy to evaluate this abnormality. Review of Systems Review of Systems: ROS unobtainable: Yes unobtainable due to mental status PMFSH Past Medical History Medical History Atrial tachycardia With history of paroxysmal atrial fibrillation and atrial flutter. Benign prostatic hyperplasia Cerebrovascular accident Brain CT shows prior infarcts in the right occipital and left parietal lobes. Depression Dysphagia He continually failed swallow studies dating back to 2014, and has continued to refuse G-tube placement. Essential hypertension Gastroesophageal reflux Hyperlipidemia Schizophrenia Systolic congestive heart failure Echocardiogram in March 2019 showed mildly enlarged left ventricular chamber and moderately increased left ventricular thickness, severely reduced left ventricular function with an ejection fraction of 25 to 30%, indeterminate left ventricular diastolic function, moderate biatrial enlargement, [id number] mitral valve regurgitation, and mild tricuspid valve regurgitation. Type 2 diabetes mellitus Vascular dementia Surgical History Surgical History H/O abdominal surgery the patient has a midline abdominal scar. Family History Family History Other Unknown family medical history Social History Social History Social History: The patient is a long-term resident [facility]. He is not able to provide much in the way of social history and cannot provide me with family history. It is noted that he is a [place] and is a full code. It is unknown if he is ever smoked or if he indulges in alcohol or illicit substances. his legal power of family law attorney is Cecilia Boucher The patient tells me that he smokes and was laughing his poor historian. Smoking status: Unknown if ever smoked Alcohol intake: unknown Substance use: unknown Gender identity (if verbalized by the patient): Male Spiritual care concerns: No Agree to blood products: Yes Meds Home Medications and Allergies Home Medications Medication Instructions Recorded Confirmed Type Eliquis 5 mg PO BID 11/09/19 05/30/20 History atorvastatin 40 mg PO DAILY 11/09/19 05/30/20 History
[2020-05-31] MEDS: PEG (High)/E-LYTE SOLN 4,000 ML BTL 4000 ML PO (15:14)
[2020-05-31 16:21] LABS: Glucose Point of Care 204 (65-105)
[2020-05-31 16:41] LABS: Potassium 4.5 mmol/L (3.4-5.0)
[2020-05-31] MEDS: INSULIN ASPART (*BKC) 100 UNITS/ML SUB-Q (17:13)
[2020-05-31] MEDS: SERTRALINE HCL 50 MG TABLET PO (17:14)
--- NOTE | 2020-05-31 18:31 | PC.NURSE ---
This patient, Chirag Moura Kyle, was transferred to [facility] on 05/31/20 at 1830. Personal belongings sent with patient. Report given to AYSE Payton. Appropriate documentation sent with patient.
--- NOTE | 2020-05-31 19:21 | PC.NURSE ---
Transfer received from [facility] at 1830.
[2020-05-31 21:16] LABS: Glucose Point of Care 138 (65-105)
[2020-05-31] MEDS: ALBUTEROL SULFATE NEB 2.5 MG/0.5 ML INH INHALATION (22:07)
[2020-05-31 22:11] LABS: Alveolar/Arterial O2 Gradient 125.7 mmHg; Base Excess ABG -9.4 mEq/l (+/-2.0); Carboxyhemoglobin 0.3 % THb (0-2.0); Device NASAL CANNULA; Fractional Inspired Oxygen 36 %; HCO3 ABG 14.6 mEq/l (22.0-26.0); Methemoglobin ABG 0.4 %THb (0-1.5); Modified Allen's Test Pass; Oxygen Content ABG 18.9 %vol (16.0-22.0); Oxygen Saturation ABG 97.3 % (95.0-100.0); Oxyhemoglobin 95.5 % THb (90.0-100.0); PCO2 ABG 27.4 mmHg (35.0-45.0); PO2 ABG 99.2 mmHg (80.0-100.0); PO2 FiO2 Ratio Arterial Blood 2.76 %; Reduced Hemoglobin 3.8 %THb (0-5.0); Site Drawn RIGHT RADIAL; pH ABG 7.345 (7.350-7.450)
--- NOTE | 2020-05-31 22:25 | ECG_ITS ---
Measurements Intervals [place] Rate: 116 P: 241 IN: 198 QRS: -88 QRSD: 156 T: -14 QT: 360 QTc: 500 Interpretive Statements ATRIFL FLUTTER/TACHYCARDIA WITH RAPID VENTRICULAR RESPONSE RIGHT BUNDLE BRANCH BLOCK WITH POSSIBLE RIGHT VENTRICULAR HYPERTROPHY BASELINE ARTIFACT- I, II, III, AVR, AVL, AVF, V1-V6 ABNORMAL ECG Electronically Signed On 06-03-2020 14:06:52 CDT by Donaldo Duran D.O.
[2020-05-31] MEDS: FUROSEMIDE INJ 40 MG/4 ML VIAL IV PUSH (22:27)
[2020-05-31 23:08] LABS: Basophils Percent Auto 0.6 % (0.2-1.2); Eosinophils Absolute Auto 0.1 K/mm3 (0-0.3); Eosinophils Percent Auto 1.1 % (0-4.4); Hemoglobin 13.8 g/dL (14.0-18.0); Immature Granulocyte Absolute 0.04 K/mm3 (0.00-0.031); Immature Granulocyte Percent A 0.6 % (0-0.5); Lymphocytes Absolute Auto 2.38 K/mm3 (0.9-3.2); Lymphocytes Percent Auto 37.7 % (18.3-44.2); Mean Corpuscular HGB Conc 32.1 g/dl (32-36); Mean Corpuscular Hemoglobin 29.1 pg (26-34); Mean Corpuscular Volume 90.7 fl (80-100); Monocytes Absolute Auto 1.1 K/mm3 (0.1-0.6); Monocytes Percent Auto 16.6 % (2.6-8.5); Neutrophils Absolute Auto 2.7 K/mm3 (1.3-6.7); Neutrophils Percent Auto 43.4 % (45.5-73.1); Platelet Count Result 206 k/mm3 (150-375); Red Blood Count 4.74 M/mm3 (4.6-6.20); Red Cell Distribution Width 14.5 % (11.5-14.5); White Blood Count 6.3 K/mm3 (4.5-10.0)
--- NOTE | 2020-05-31 23:09 | ADMGEN ---
Addendum entered by Neena Tineo RN 05/31/20 23:09: wrong pt Original Note: This patient, Chirag Kyle, was admitted to Medical Room [facility] at 2305. Patient/family oriented to hospital policies and general routines including ID bracelet, bed and alarms, visiting hours, pain management, procedures, bathroom and other care routines, personal items, smoking policy, room service/diet, and visiting hours. Information on how to activate the Rapid Response Team has been discussed. Patient/Family are encouraged to report perceived risks to care and to ask questions if they do not understand what they are told or what they should do.
--- NOTE | 2020-05-31 23:10 | PC.NURSE ---
transferred pt to IMU at 2305.
[2020-05-31 23:46] LABS: Lactic Acid Reflex 3.4 mmol/L (0.7-2.1)
[2020-06-01] VITALS (26 sets, daily range): BP systolic 105–160; BP diastolic 56–96; PULSE 63–123; RESP 16–24; TEMP 36–36.6; O2SAT 87–100
--- NOTE | 2020-06-01 00:06 | PM.EVENT ---
Event Note Event Note Event Note: Rapid Response Note Called to bedside via Rapid response to see this 80 year old male with known systolic heart failure secondary to acute severe shortness of breath. The patient was found to be desaturating on pulse oximetry with increased work of breathing. On my encounter with the patient, he is demented and cannot answer any of my questions. Auscultation revealed bilateral crackles in all lung de la cruz. Nursing informed me that the patient was receiving GoLytly bowel prep and has almost ingested all of it. CXR demonstrated increased pulmonary congestion. The patient was placed on 4L of oxygen and his sats improved. ABG demonstrated appropriate pO2 of 95%. I administered Lasix 40 mg IV and the patient was transferred to IMU for closer observation. I will continue to monitor as needed overnight.
--- NOTE | 2020-06-01 01:19 | PC.NURSE ---
This patient, Chirag Moura Kyle, was received from [id number] on 05/31/20 at 2300 after a rapid response call. Personal belongings list checked and signed. Patient/family oriented to unit policies and routines
[2020-06-01 02:26] LABS: Reflex Lactic Acid Yes or No Add Lactic
[2020-06-01] MEDS: ALBUTEROL SULFATE NEB 2.5 MG/0.5 ML INH INHALATION ×2 (03:04→08:44)
[2020-06-01 03:09] LABS: Lactic Acid 2.1 mmol/L (0.7-2.1)
[2020-06-01 03:10] LABS: Alanine Aminotransferase 42 U/L (4-50); Albumin Level 3.9 g/dL (3.5-5.1); Alkaline Phosphatase 52 U/L (38-126); Anion Gap 11 mmol/L (8-16); Aspartate Amino Transferase 45 U/L (17-59); Bilirubin,Total 0.8 mg/dL (0.2-1.3); Blood Urea Nitrogen 22 mg/dL (9-20); Calcium 8.9 mg/dL (8.4-10.2); Carbon Dioxide 27 mmol/L (22-30); Chloride 105 mmol/L (98-107); Estimated Glomerular Filt Rate > 60; Glucose 140 mg/dL (75-110); Magnesium 2.1 mg/dL (1.6-2.3); Potassium 4.5 mmol/L (3.4-5.0); Sodium 143 mmol/L (137-145)
[2020-06-01 03:18] LABS: Basophils Percent Auto 0.3 % (0.2-1.2); Eosinophils Absolute Auto 0.1 K/mm3 (0-0.3); Eosinophils Percent Auto 0.8 % (0-4.4); Hematocrit 37.7 % (42.0-52.0); Hemoglobin 12.3 g/dL (14.0-18.0); Immature Granulocyte Absolute 0.04 K/mm3 (0.00-0.031); Immature Granulocyte Percent A 0.6 % (0-0.5); Lymphocytes Absolute Auto 1.75 K/mm3 (0.9-3.2); Lymphocytes Percent Auto 27.1 % (18.3-44.2); Mean Corpuscular HGB Conc 32.6 g/dl (32-36); Mean Corpuscular Hemoglobin 29.2 pg (26-34); Mean Corpuscular Volume 89.5 fl (80-100); Mean Platelet Volume 10.2 fl (7.4-10.4); Monocytes Percent Auto 15.5 % (2.6-8.5); Neutrophils Absolute Auto 3.6 K/mm3 (1.3-6.7); Neutrophils Percent Auto 55.7 % (45.5-73.1); Platelet Count Result 176 k/mm3 (150-375); Red Blood Count 4.21 M/mm3 (4.6-6.20); Red Cell Distribution Width 14.5 % (11.5-14.5); White Blood Count 6.5 K/mm3 (4.5-10.0)
--- NOTE | 2020-06-01 07:26 | WPDANESEPPF ---
Anes - Initial Pre Proc Eval Procedure: Operation Date: 06/01/20 07:30 Proposed Procedures p Colonoscopy - Wiliam Steen MD Date/Time: 06/01/20 07:26 Surgeon: Lizzy Arias PA-C Pre Op Diagnosis: Atrial flutter/elevated lactic acid/rectal mass Patient Data Age: 80 Gender: M Height: Weight: 71.2 kg Last Vital Signs Temp 36.2 C L 05/31/20 23:10 Pulse 106 H 06/01/20 06:00 Resp 22 H 06/01/20 03:25 BP 128/88 05/31/20 23:10 Pulse Ox 100 06/01/20 03:25 Allergies Allergy/AdvReac Type Severity Reaction Status Date / Time amoxicillin Allergy Unknown Unknown Verified 06/01/20 07:17 Penicillins Allergy Unknown Unknown Verified 06/01/20 07:17 Home Medications Medication Instructions Recorded Confirmed Type Eliquis 5 mg PO BID 11/09/19 05/30/20 History atorvastatin 40 mg PO DAILY 11/09/19 05/30/20 History diltiazem HCl 60 mg PO QID 11/09/19 05/30/20 History divalproex 250 mg PO BID 11/09/19 05/30/20 History donepezil 10 mg PO HS 11/09/19 05/30/20 History medroxyprogesterone 5 mg PO BID 11/09/19 05/30/20 History memantine 10 mg PO BID 11/09/19 05/30/20 History metformin 1,000 mg PO DAILY 11/09/19 05/30/20 History sertraline 50 mg PO QPM 11/09/19 05/30/20 History ferrous sulfate 325 mg PO DAILY 11/10/19 05/30/20 History acetaminophen 500 mg PO Q6-8H PRN 01/05/20 05/30/20 History Azo Cranberry 250 mg PO BID 03/11/20 05/30/20 History multivitamin with minerals 1 tablet PO DAILY 03/11/20 05/30/20 History famotidine 20 mg PO DAILY 04/21/20 05/30/20 History olanzapine 15 mg PO DAILY 04/21/20 05/30/20 History metoprolol tartrate 25 mg PO Q12H 05/18/20 05/30/20 History Saccharomyces boulardii [Florastor] 250 mg PO BID 05/30/20 05/30/20 History calcium carbonate 650 mg PO BID 05/30/20 05/30/20 History loperamide 2 mg PO PRN PRN 05/30/20 05/30/20 History loratadine [Claritin] 10 mg PO DAILY 05/30/20 05/30/20 History metformin 500 mg PO HS 05/30/20 05/30/20 History olanzapine 10 mg PO QPM 05/30/20 05/30/20 History Laboratory Tests 05/31/20 05/31/20 05/31/20 07:44 09:07 09:07 WBC 6.8 K/mm3 K/mm3 (4.5-10.0) RBC 4.70 M/mm3 M/mm3 (4.6-6.20) Hgb 13.7 g/dL L g/dL (14.0-18.0) Hct 42.6 % % (42.0-52.0) MCV 90.6 fl fl (80-100) MCH 29.1 pg pg (26-34) MCHC 32.2 g/dl g/dl (32-36) RDW 14.4 % % (11.5-14.5) Plt Count 190 k/mm3 k/mm3 (150-375) MPV 10.5 fl H fl (7.4-10.4) Immature Gran % (Auto) Neut % (Auto) Lymph % (Auto) [place] % (Auto) Eos % (Auto) Baso % (Auto) Lymph # (Auto) [place] # (Auto) Eos # (Auto) Baso # (Auto) Abs Immat Gran (auto) Absolute Neuts (auto) Absolute Nucleated RBC Nucleated RBC % Puncture Site ABG pH ABG pCO2 ABG pO2 ABG PO2/FiO2 Ratio ABG HCO3 ABG O2 Saturation ABG O2 Content ABG Base Excess A-a Gradient Oxyhemoglobin Carboxyhemoglobin Methemoglobin Reduced Hemoglobin Total Hemoglobin O2 Delivery Device O2 Liters/Min FiO2 Sodium 143 mmol/L mmol/L (137-145) Potassium 5.3 mmol/L H mmol/L (3.4-5.0) Chloride 110 mmol/L H mmol/L (98-107) Carbon Dioxide 21 mmol/L L mmol/L (22-30) Anion Gap 12 mmol/L mmol/L (8-16) BUN 19 mg/dL mg/dL (9-20) Creatinine 1.20 mg/dL mg/dL (0.7-1.3) Estim Creat Clear Calc Not Reportable Estimated GFR > 60 (59 - ) Glucose 177 mg/dL H mg/dL (75-110) POC Capillary Glucose 106 mg/dl mg/dl (65-105) Lactic Acid Calcium 9.3 mg/dL m
[2020-06-01] MEDS: LACTATED RINGERS 1,000 ML 150 ML IV CONT (07:29)
[2020-06-01 09:31] LABS: Glucose Point of Care 126 (65-105)
[2020-06-01] MEDS: SACCHAROMYCES BOULARDII 250 MG CAPSULE PO ×2 (12:19→18:28)
[2020-06-01] MEDS: polyethylene glycoL 3350 17 GM POWD.PACK PO (12:19)
[2020-06-01] MEDS: dilTIAZem HCL 60 MG TABLET PO ×3 (12:20→23:09)
[2020-06-01] MEDS: THERAPEUTIC MULTIVITAMINS/MINERALS TAB (*BKC) 1 TABLET PO (12:20)
[2020-06-01] MEDS: ATORVASTATIN 40 MG TABLET PO (12:20)
[2020-06-01] MEDS: CALCIUM CARBONATE (OSCAL) 500 MG TABLET PO ×2 (12:20→18:27)
[2020-06-01] MEDS: FAMOTIDINE 20 MG TABLET PO (12:21)
[2020-06-01] MEDS: METOPROLOL TARTRATE 25 MG TABLET PO ×2 (12:21→20:38)
[2020-06-01] MEDS: DIVALPROEX SODIUM 250 MG TABEC PO ×2 (12:22→20:38)
[2020-06-01] MEDS: MEMANTINE 10 MG TABLET PO ×2 (12:22→18:27)
[2020-06-01] MEDS: FERROUS SULFATE 324 MG TABLET PO (12:22)
[2020-06-01] MEDS: LORATADINE 10 MG TABLET PO (12:22)
[2020-06-01 12:54] LABS: Glucose Point of Care 111 (65-105)
--- NOTE | 2020-06-01 14:26 | PM.IMPN ---
Progress Note: A&P Assessment and Plan (1) Atrial flutter: Code(s): I48.92 - Unspecified atrial flutter Status: Acute Assessment and Plan: Evident on EKG at admission with HR ranging 110-120s. Heart rate is well controlled at this time. Telemetry showed HR in the 60s with occasional episode of atrial flutter in the 100s. Telemetry has since been discontinued as rate remained stable. Continue PO metoprolol Continue cardizem (2) Internal hemorrhoid: Code(s): K64.8 - Other hemorrhoids Status: Acute Assessment and Plan: CT a/p showed possible right posterolateral rectal wall thickening, possibly adenocarcinoma, with recommendations for follow up colonoscopy. Patient underwent colonoscopy on 06/01/[address] Steen. No rectal mass was visualized and CT findings were felt to be due to stool in rectum. A few small uncomplicated hemorrhoids were visualized with no evidence of active bleeding. Begin Miralax daily per GI recommendations. Will resume eliquis which was previously on hold for colonoscopy. (3) Pulmonary edema: Qualifiers: Chronicity: acute Qualified Code(s): J81.0 - Acute pulmonary edema Code(s): J81.1 - Chronic pulmonary edema Status: Acute Assessment and Plan: On 05/31 at approximately 1500, nursing reported that patient developed course breath sounds and were concerned for aspiration. At that time, CXR showed infiltrates of right lower lung zone with no evidence of edema. Later that evening at approximately 2200, patient became acutely short of breath and hypoxic. CXR at that time showed congestive changes, possible mild pulmonary edema, with infection not excludable. This acute SOB was felt to be due to fluid overload secondary to large volume GoLytly bowel prep. He had prompt symptomatic improvement with IV Lasix. He was transferred back to IMU for closer monitoring. Aspiration pneumonia is considered based on initial CXR findings, however seems less likely as lungs are CTA today, he has no fever or other s/sx of infection, and he had symptomatic improvement with Lasix, suggesting pulmonary edema as more likely etiology. Monitor I&O closely. Avoid IV fluids. Monitor closely for additional s/sx. Supplemental O2 as needed with goal saturation 92% or above (4) Systolic congestive heart failure: Code(s): I50.20 - Unspecified systolic (congestive) heart failure Status: Chronic Assessment and Plan: Appears euvolemic following diuresis. Monitor I&O closely and continue heart healthy diet. Closely monitor fluid intake. Continue metoprolol (5) Hyperlipidemia: Code(s): E78.5 - Hyperlipidemia, unspecified Status: Chronic Assessment and Plan: Continue atorvastatin (6) Depression: Code(s): F32.9 - Major depressive disorder, single episode, unspecified Status: Chronic Assessment and Plan: Mood is stable at this time. Continue with Zoloft (7) Schizophrenia: Qualifiers: Schizophrenia type: other Qualified Code(s): F20.89 - Other schizophrenia Code(s): F20.9 - Schizophrenia, unspecified Status: Chronic Assessment and Plan: Mood is stable at this time. Continue with Zyprexa (8) Vascular dementia: Code(s): F01.50 - Vascular dementia without behavioral disturbance Status: Chronic Assessment and Plan: Chronic and severe. Patient is not able to answer any questions or follow any commands. Continue memantine and donepezil (9) Essential hypertension: Code(s): I10 - Essential (primary) hypertension Status: Chronic Assessment and Plan: Blood pressure evaluated today and stable at 126/96. Continue PO metoprolol and diltiazem (10) Type 2 diabetes mellitus: Qualifiers: Diabetes mellitus complication status: without complication Diabetes mellitus nursing home insulin use: without
[2020-06-01 17:02] LABS: Glucose Point of Care 198 (65-105)
[2020-06-01] MEDS: SERTRALINE HCL 50 MG TABLET PO (18:28)
[2020-06-01 20:24] LABS: Glucose Point of Care 153 (65-105)
[2020-06-01] MEDS: DONEPEZIL HCL 10 MG TABLET PO (20:38)
[2020-06-01] MEDS: APIXABAN 5 MG TABLET PO (20:38)
[2020-06-01 21:05] LABS: SARS-CoV-2 RNA PCR Negative
[2020-06-02] VITALS (10 sets, daily range): BP systolic 105–111; BP diastolic 68–85; PULSE 73–117; RESP 16–20; TEMP 35.8–36.1; O2SAT 97–100
[2020-06-02 05:28] LABS: Hematocrit 37.3 % (42.0-52.0); Hemoglobin 11.9 g/dL (14.0-18.0); Mean Corpuscular HGB Conc 31.9 g/dl (32-36); Mean Corpuscular Hemoglobin 28.7 pg (26-34); Mean Corpuscular Volume 90.1 fl (80-100); Mean Platelet Volume 10.8 fl (7.4-10.4); Platelet Count Result 168 k/mm3 (150-375); Red Blood Count 4.14 M/mm3 (4.6-6.20); Red Cell Distribution Width 14.6 % (11.5-14.5); White Blood Count 7.5 K/mm3 (4.5-10.0)
[2020-06-02 05:37] LABS: Anion Gap 10 mmol/L (8-16); Blood Urea Nitrogen 22 mg/dL (9-20); Carbon Dioxide 27 mmol/L (22-30); Chloride 107 mmol/L (98-107); Estimated Glomerular Filt Rate 59; Glucose 121 mg/dL (75-110); Potassium 4.4 mmol/L (3.4-5.0); Sodium 144 mmol/L (137-145)
[2020-06-02] MEDS: LORATADINE 10 MG TABLET PO (08:08)
[2020-06-02] MEDS: FAMOTIDINE 20 MG TABLET PO (08:08)
[2020-06-02] MEDS: METOPROLOL TARTRATE 25 MG TABLET PO (08:08)
[2020-06-02] MEDS: dilTIAZem HCL 60 MG TABLET PO ×2 (08:08→12:26)
[2020-06-02] MEDS: polyethylene glycoL 3350 17 GM POWD.PACK PO (08:08)
[2020-06-02] MEDS: ATORVASTATIN 40 MG TABLET PO (08:08)
[2020-06-02] MEDS: SACCHAROMYCES BOULARDII 250 MG CAPSULE PO (08:09)
[2020-06-02] MEDS: FERROUS SULFATE 324 MG TABLET PO (08:09)
[2020-06-02] MEDS: MEMANTINE 10 MG TABLET PO (08:09)
[2020-06-02] MEDS: DIVALPROEX SODIUM 250 MG TABEC PO (08:09)
[2020-06-02] MEDS: APIXABAN 5 MG TABLET PO (08:09)
[2020-06-02] MEDS: CALCIUM CARBONATE (OSCAL) 500 MG TABLET PO (08:09)
[2020-06-02] MEDS: THERAPEUTIC MULTIVITAMINS/MINERALS TAB (*BKC) 1 TABLET PO (08:09)
[2020-06-02] MEDS: HYDROcodone/acetaminophen (*CRX) 5-325 MG TABLET 1 TAB PO ×2 (08:09→12:12)
[2020-06-02 09:20] LABS: Glucose Point of Care 174 (65-105)
--- NOTE | 2020-06-02 12:19 | PM.DS ---
DS: Admitting Diagnosis Admitting Diagnosis Admitting Diagnosis: Atrial flutter/elevated lactic acid/rectal mass DS: Discharge Diagnosis Discharge Diagnosis (1) Atrial flutter: Code(s): I48.92 - Unspecified atrial flutter Status: Acute Assessment and Plan: Evident on EKG at admission with HR ranging 110-120s. Rate was controlled with oral medications and he remained stable and asymptomatic. Telemetry was reviewed showing HR in the 60s with occasional episodes of atrial flutter in the 100s. Continue PO metoprolol and cardizem. Continue eliquis. (2) Internal hemorrhoid: Code(s): K64.8 - Other hemorrhoids Status: Acute Assessment and Plan: CT a/p showed possible right posterolateral rectal wall thickening, possibly adenocarcinoma, with recommendations for follow up colonoscopy. Patient underwent colonoscopy on 06/01/[address] Steen. No rectal mass was visualized and CT findings were felt to be due to stool in rectum. A few small uncomplicated hemorrhoids were visualized with no evidence of active bleeding. He was started on Miralax daily per GI recommendations. Eliquis was held for colonoscopy and resumed on 06/01 following procedure. (3) Pulmonary edema: Qualifiers: Chronicity: acute Qualified Code(s): J81.0 - Acute pulmonary edema Code(s): J81.1 - Chronic pulmonary edema Status: Acute Assessment and Plan: On 05/31 at approximately 1500, nursing reported that patient developed course breath sounds and were concerned for aspiration. At that time, CXR showed infiltrates of right lower lung zone with no evidence of pulmonary edema. Later that evening at approximately 2200, patient became acutely short of breath and hypoxic. CXR at that time showed congestive changes, possible mild pulmonary edema, with infection not excludable. This acute SOB was felt to be due to fluid overload secondary to large volume GoLytly bowel prep. He had prompt symptomatic improvement with IV Lasix. He was briefly placed on supplemental O2. He was transferred to IMU for closer monitoring. Aspiration pneumonia was considered based on initial CXR findings, however is less likely as lungs were CTA following event, he had no fever or other s/sx of infection, and he had symptomatic improvement with Lasix, suggesting pulmonary edema as most likely etiology. (4) Systolic congestive heart failure: Code(s): I50.20 - Unspecified systolic (congestive) heart failure Status: Chronic Assessment and Plan: Last echo March 2020 showed severely reduced EF 25-30%. He appeared euvolemic following diuresis. (5) Hyperlipidemia: Code(s): E78.5 - Hyperlipidemia, unspecified Status: Chronic Assessment and Plan: Continue atorvastatin (6) Depression: Code(s): F32.9 - Major depressive disorder, single episode, unspecified Status: Chronic Assessment and Plan: Mood remained stable. Continue sertraline. (7) Schizophrenia: Qualifiers: Schizophrenia type: other Qualified Code(s): F20.89 - Other schizophrenia Code(s): F20.9 - Schizophrenia, unspecified Status: Chronic Assessment and Plan: Continue with Zyprexa (8) Vascular dementia: Code(s): F01.50 - Vascular dementia without behavioral disturbance Status: Chronic Assessment and Plan: Chronic and severe. Continue memantine and donepezil (9) Essential hypertension: Code(s): I10 - Essential (primary) hypertension Status: Chronic Assessment and Plan: Blood pressure was monitored daily and remained well-controlled. Continue PO metoprolol and diltiazem (10) Type 2 diabetes mellitus: Qualifiers: Diabetes mellitus complication status: without complication Diabetes mellitus termite helper insulin use: without termite helper use Qualified Code(s): E11.9 - Type 2 diabetes mellitus without complications Co
[2020-06-02] MEDS: INSULIN ASPART (*BKC) 100 UNITS/ML SUB-Q (12:25)
[2020-06-02 12:33] LABS: Glucose Point of Care 210 (65-105)
== END 2020-06-02 14:20 | DRG 309 ==
LOC: ANHED 18:18 → ANHIMU 19:39 → ANH2MED 05-31 22:52 → ANHIMU 06-02 09:41 → ANH2MED 06-04 12:11 → ANHIMU 06-04 12:11
PROVIDERS: Family Medicine; Internal Medicine Gastroenterology; Nurse Practitioner; Physician Assistant; Admitting Provider Family Medicine; Emergency Provider Emergency Medicine; PCP Internal Medicine; Visit Provider Internal Medicine
PROC: 0DJD8ZZ Inspection of Lower Intestinal Tract, Via Natural or Artificial Opening Endoscopic (ICD-10-PCS; CPT 45378; principal; 2020-06-01 07:30)
DX: I48.92 Unspecified atrial flutter (principal); I50.22 Chronic systolic (congestive) heart failure; J81.1 Chronic pulmonary edema; I11.0 Hypertensive heart disease with heart failure; Z20.828 Contact with and (suspected) exposure to other viral communicable diseases; K64.8 Other hemorrhoids; R79.89 Other specified abnormal findings of blood chemistry; F01.50 Vascular dementia, unspecified severity, without behavioral disturbance, psychotic disturbance, mood disturbance, and anxiety; E11.9 Type 2 diabetes mellitus without complications; E78.5 Hyperlipidemia, unspecified; N40.0 Benign prostatic hyperplasia without lower urinary tract symptoms; F32.9 Major depressive disorder, single episode, unspecified; F20.9 Schizophrenia, unspecified; R13.10 Dysphagia, unspecified; K21.9 Gastro-esophageal reflux disease without esophagitis; Z79.01 Long term (current) use of anticoagulants; Z79.84 Long term (current) use of oral hypoglycemic drugs; Z86.73 Personal history of transient ischemic attack (TIA), and cerebral infarction without residual deficits; Z88.0 Allergy status to penicillin
CPT/HCPCS: 36415; 36600; 51701; 71045; 74177; 80048; 80053; 81001; 82375; 82805; 83050; 83605; 83735; 84132; 84443; 85025; 85027; 87040; 87086; 87635; 87804; 93005; 94640; 96360; 99285; A9270; C9803; G0378; J1815; J1940; J2704; J7030; J7120; Q9967; U0003

== ENCOUNTER 2020-06-07 11:20 | Inpatient (IN) | payer MEDICARE, MEDICAID, SELFPAY ==
[2020-06-07] VITALS (9 sets, daily range): BP systolic 92–122; BP diastolic 58–80; PULSE 79–115; RESP 24–35; TEMP 36.3–36.8; O2SAT 95–100
--- NOTE | ~2020-06-07 | XR_ITS ---
EXAMINATION: XR chest 1V portable DATE: 06/07/2020 12:38 INDICATION: Shortness of breath. Atrial fibrillation. TECHNIQUE: frontal view of the chest was obtained. COMPARISON: Chest radiograph dated 05/31/2020 FINDINGS: New airspace opacities in the right mid to upper lung zone. Unchanged mild opacities in the lower arianna g zones. No pleural effusion or pneumothorax. The cardiomediastinal silhouette is normal. IMPRESSION: 1. Increasing opacities in the right mid and upper lung zones which are concerning for pneumonia. 2. Unchanged mild bibasilar opacities which could represent additional pneumonia, pulmonary edema or atelectasis. Reviewed, dictated and finalized at location B. IMPRESSION: 1. Increasing opacities in the right mid and upper lung zones which are concern ing for pneumonia. 2. Unchanged mild bibasilar opacities which could represent additional pneumoni a, pulmonary edema or atelectasis.
--- NOTE | ~2020-06-07 | XR_ITS ---
EXAMINATION: XR chest 1V portable DATE: 06/16/2020 06:21 INDICATION: Respiratory failure. TECHNIQUE: A single frontal view of the chest was obtained. COMPARISON: Chest single view 06/14/2020, CT abdomen and pelvis 05/30/2020 FINDINGS: There is a diffuse interstitial pattern in the lungs, consistent with mild pulmonary edema. There are airspace opacities at the lung bases. There is a small right pleural effusion. No pneumoth orax. Cardiomegaly is noted. A left internal jugular central venous catheter is seen with tip in the superior vena cava. IMPRESSION: 1. Mild pulmonary edema. 2. Stable airspace opacities at the lung bases, consistent with atelectasis versus pneumonia. 3. Small right pleural effusion. 4. Cardiomegaly. Reviewed, dictated and finalized at location A. TING MACHINE OPERATOR TAPE RULES IMPRESSION: 1. Mild pulmonary edema. 2. Stable airspace opacities at the lung bases, consistent with atelectasis yumi osmel pneumonia. 3. Small right pleural effusion. 4. Cardiomegaly.
--- NOTE | ~2020-06-07 | XR_ITS ---
EXAMINATION: XR chest 1V portable EXAM DATE: 06/17/2020 06:24 INDICATION: Respiratory failure. TECHNIQUE: Portable AP frontal chest x-ray was obtained. Comparison is made to prior examination from 06/16/2020. FINDINGS: There is a left IJ venous line. There is small left pleural effusion. There is bibasilar chaudhary bsegmental atelectasis. Additional ill-defined bilateral edema and/or pneumonia likely. The cardiomed iastinal silhouette is prominent but magnified on this AP technique. Cardiac silhouette is stable in size compared to prior exam. There is aortic arteriosclerosis. There are bony degenerative changes. IMPRESSION: 1. Patchy ill-defined bilateral edema or pneumonia. 2. Bibasilar subsegmental atelectasis. 3. Small left pleural effusion. Reviewed, dictated and finalized at location A. OPERATOR
--- NOTE | ~2020-06-07 | XR_ITS ---
EXAMINATION: XR abdomen NG/feed tube insert INDICATION: OG placement TECHNIQUE: Portable AP KUB-NG at 1153 hours COMPARISON: 07/19/2015 FINDINGS: An OG tube is present in the stomach. There is mild gaseous distention of the stomach. The visualized lung bases are clear. IMPRESSION: 1. OG tube in the mildly distended stomach. Reviewed, dictated and finalized at location A.
--- NOTE | ~2020-06-07 | XR_ITS ---
EXAMINATION: XR chest 1V portable INDICATION: Acute respiratory failure, pneumonia TECHNIQUE: Portable AP chest at 0556 hours COMPARISON: 06/12/2020 FINDINGS: The endotracheal tube ends approximately 2.6 cm above the dory. The nasogastric tube is f ollowed as far as the stomach. Its tip is beyond the inferior margin of the radiograph. A left real estate internship al jugular central venous catheter ends with its tip in the proximal superior vena cava. Small pleura l effusions persist with decrease in size. There is stable cardiomegaly. A mild diffuse interstitial pattern is present. Airspace opacities in the mid and lower lung zones persist but have decreased. IMPRESSION: 1. Small pleural effusions with decrease in size. 2. Improved airspace opacities of the mid and lower lung zones, likely due to improving atelectasis a nd effusions. 3. Cardiomegaly with likely mild pulmonary edema. Reviewed, dictated and finalized at location A. TER AND CUTTER OPERATOR IMPRESSION: 1. Small pleural effusions with decrease in size. 2. Improved airspace opacities of the mid and lower lung zones, likely due to i mproving atelectasis and effusions. 3. Cardiomegaly with likely mild pulmonary edema.
--- NOTE | ~2020-06-07 | XR_ITS ---
EXAMINATION: XR chest 1V portable INDICATION: Shortness of breath, possible aspiration TECHNIQUE: Portable AP chest at 0643 hours COMPARISON: 06/07/2020 FINDINGS: Airspace opacities of the right mid and upper lung zones persist with slight improvement. T here is no pleural effusion or pneumothorax. The cardiomediastinal silhouette is stable. IMPRESSION: 1. Airspace opacities of the right mid and upper lung zones with slight improvement, consistent with atelectasis versus pneumonia. Reviewed, dictated and finalized at location A. IMPRESSION: 1. Airspace opacities of the right mid and upper lung zones with slight improve ment, consistent with atelectasis versus pneumonia.
--- NOTE | ~2020-06-07 | XR_ITS ---
EXAMINATION: XR chest port-a-cath/central INDICATION: Central line insertion TECHNIQUE: Portable AP chest at 1150 hours COMPARISON: 0643 hours FINDINGS: A left internal jugular central venous catheter has been inserted which ends with its tip i n the proximal superior vena cava. No pneumothorax is identified. Endotracheal and orogastric tubes h ave also been inserted in adequate position. Airspace opacities of the right mid and upper lung zones persist without significant change. IMPRESSION: 1. Left internal jugular central venous catheter insertion, no pneumothorax. Also endotracheal and or ogastric tube insertion. Reviewed, dictated and finalized at location A. IMPRESSION: 1. Left internal jugular central venous catheter insertion, no pneumothorax. Al so endotracheal and orogastric tube insertion.
--- NOTE | ~2020-06-07 | XR_ITS ---
EXAMINATION: XR chest ET placement INDICATION: Endotracheal tube placement TECHNIQUE: Portable AP chest at 1152 hours COMPARISON: 0653 hours FINDINGS: The endotracheal tube ends approximately 2.5 cm above the dory. The orogastric tube is fo llowed as far as the stomach. Its tip is beyond the inferior margin of the radiograph. Minimal airspa ce opacities of the right mid and upper lung zones persist without significant change. There is no pl eural effusion or pneumothorax. A left internal jugular central venous catheter has been inserted whi ch ends with its tip in the proximal superior vena cava. IMPRESSION: 1. Endotracheal and orogastric tube insertion and central line placement, in adequate position. 2. Airspace opacities of the right mid and upper lung zones, consistent with atelectasis versus pneum onia. Reviewed, dictated and finalized at location A. IMPRESSION: 1. Endotracheal and orogastric tube insertion and central line placement, in ad equate position. 2. Airspace opacities of the right mid and upper lung zones, consistent with at electasis versus pneumonia.
--- NOTE | ~2020-06-07 | XR_ITS ---
EXAMINATION: XR chest 1V portable INDICATION: Acute respiratory failure TECHNIQUE: Portable AP chest at 0613 hours COMPARISON: 06/09/2020 FINDINGS: The endotracheal tube ends approximately 2.0 cm above the dory. The nasogastric tube is f ollowed as far as the stomach. Its tip is beyond the inferior margin of the radiograph. A left learning and development intern al jugular central venous catheter ends with its tip in the proximal superior vena cava. Airspace opa cities of the right mid and upper lung zones and left lung base persist but have improved. The cardio mediastinal silhouette is stable. No pleural effusion or pneumothorax is identified. IMPRESSION: 1. Improving airspace opacities of the right mid and upper lung zones and left lung base, consistent with atelectasis versus pneumonia. Reviewed, dictated and finalized at location A. RAFT POWERTRAIN REPAIRER
--- NOTE | ~2020-06-07 | XR_ITS ---
EXAMINATION: XR chest ET placement INDICATION: Endotracheal tube placement TECHNIQUE: Portable AP chest at 0320 hours COMPARISON: 06/13/2020 FINDINGS: The endotracheal tube ends approximately 1.4 cm above the dory. The nasogastric tube is f ollowed as far as the stomach. Its tip is beyond the inferior margin of the radiograph. A left engineering intern al jugular central venous catheter ends with its tip in the proximal superior vena cava. Small pleura l effusions persist without significant change. A mild diffuse interstitial pattern is present. Airsp ricki opacities of the mid and lower lung zones persist but have improved. There is no pneumothorax. St able cardiomegaly is noted. IMPRESSION: 1. Tubes and lines in adequate position. 2. Small pleural effusions with decreased. 3. Decreasing airspace opacities of the mid and lower lung zones, consistent with improving atelectas is and/or pneumonia. 4. Stable cardiomegaly with improving mild pulmonary edema. Reviewed, dictated and finalized at location A. ENT SERVICES REP IMPRESSION: 1. Tubes and lines in adequate position. 2. Small pleural effusions with decreased. 3. Decreasing airspace opacities of the mid and lower lung zones, consistent wi th improving atelectasis and/or pneumonia. 4. Stable cardiomegaly with improving mild pulmonary edema.
--- NOTE | ~2020-06-07 | US_ITS ---
EXAMINATION: US right upper quadrant DATE: 06/08/2020 10:54 INDICATION: Elevated liver function tests TECHNIQUE: Multiple grayscale and Doppler ultrasound images of the abdomen were obtained. COMPARISON: 07/24/2015 FINDINGS: Bowel gas obscures visualization of the pancreas. The visualized portions of the pancreas a re unremarkable. The liver is normal with normal echogenicity and echotexture. No surface nodularity. Normal hepatopetal flow in the main portal vein. Stones are present in the gallbladder. There is gal lbladder wall thickening and small amount of pericholecystic fluid. The normal common bile duct measu res 5 mm. There was no sonographic Abraham sign. IMPRESSION: 1. Cholelithiasis, gallbladder wall thickening, and pericholecystic fluid. Sonographic features are c onsistent with cholecystitis. Reviewed, dictated and finalized at location A. IMPRESSION: 1. Cholelithiasis, gallbladder wall thickening, and pericholecystic fluid. Sono graphic features are consistent with cholecystitis.
--- NOTE | ~2020-06-07 | XR_ITS ---
EXAMINATION: XR chest 1V portable INDICATION: Acute respiratory failure TECHNIQUE: Portable AP chest at 0525 hours COMPARISON: 06/11/2020 FINDINGS: The endotracheal tube ends approximately 1.6 cm above the dory. The nasogastric tube is i n the stomach. Bilateral pleural effusions persist with increase on the right. There are increasing o pacities of the lung bases and right midlung zone. Stable cardiomegaly is noted. IMPRESSION: 1. Small pleural effusions with increase in size. 2. Increasing opacities of the mid and lower lung zones which could be due to atelectasis and/or pneu monia and/or effusions. Reviewed, dictated and finalized at location A. OR VALIDATION ENGINEER IMPRESSION: 1. Small pleural effusions with increase in size. 2. Increasing opacities of the mid and lower lung zones which could be due to a telectasis and/or pneumonia and/or effusions.
--- NOTE | ~2020-06-07 | XR_ITS ---
EXAMINATION: XR chest 1V portable INDICATION: Acute respiratory failure TECHNIQUE: Portable AP chest at 0541 hours COMPARISON: 06/08/2020 FINDINGS: The endotracheal tube ends approximately 2.1 cm above the dory. The nasogastric tube is f ollowed as far as the stomach. Its tip is beyond the inferior margin of the radiograph. A left international representative al jugular central venous catheter ends with its tip in the proximal superior vena cava. Airspace opa cities of the right mid and upper lung zones are stable. There is developing airspace opacity of the left lung base. The cardiomediastinal silhouette is stable. There is no pleural effusion or pneumotho rax. IMPRESSION: 1. Stable airspace opacities of the right mid and upper lung zones and developing left basilar airspa ce opacity, consistent with atelectasis versus pneumonia. Reviewed, dictated and finalized at location A. IMPRESSION: 1. Stable airspace opacities of the right mid and upper lung zones and developi ng left basilar airspace opacity, consistent with atelectasis versus pneumonia.
--- NOTE | ~2020-06-07 | XR_ITS ---
EXAMINATION: XR chest 1V portable INDICATION: Acute respiratory failure TECHNIQUE: Portable AP chest at 0533 hours COMPARISON: 06/10/2020 FINDINGS: The endotracheal tube ends approximately 2.0 cm above the dory. The nasogastric tube is f ollowed as far as the stomach. Its tip is beyond the inferior margin of the radiograph. A left international first officer al jugular central venous catheter ends with its tip in the proximal superior vena cava. There is sta ble cardiomegaly. Small pleural effusions are unchanged. No pneumothorax is identified. Right upper l deacon zone and bibasilar airspace opacities persist but have improved. IMPRESSION: 1. Improving airspace opacities of the right lung and left lung base, consistent with atelectasis yumi osmel pneumonia. 2. Small pleural effusions. Reviewed, dictated and finalized at location A. RVISOR TESTING IMPRESSION: 1. Improving airspace opacities of the right lung and left lung base, consisten t with atelectasis versus pneumonia. 2. Small pleural effusions.
[2020-06-07] MEDS: diazePAM INJ (*CRX) 10 MG/2 ML SYRINGE (11:48)
[2020-06-07] MEDS: dilTIAZem HCl INJ 25 MG/5 ML VIAL (11:48)
--- NOTE | 2020-06-07 11:50 | ED.GENADULT ---
HPI - General Adult General Chief complaint: Unspecified Stated complaint: SOB Time Seen by Provider: 06/07/20 11:47 Source: EMS Mode of arrival: EMS Limitations: dementia History of Present Illness HPI narrative: 80 years old white male brought to the emergency room because of shortness of breath. On arrival to the emergency room the EKG AND the monitor showing atrial flutter/fibrillation at 236 bpm. Patient is very restless, not cooperative, I/O right tibia in place, unable to get IV access. Then the monitor showing what looks like V. tach, cardiogenic shock 100 J given, converted to normal sinus rhythm. Patient received 5 mg of Valium, IO History of hypertension, diabetes and, atrial flutter, fibrillation, hypoxia, dementia, schizophrenia. Patient on Eliquis and Cardizem Related Data Home Medications Medication Instructions Recorded Confirmed Eliquis 5 mg PO BID 11/09/19 05/30/20 atorvastatin 40 mg PO DAILY 11/09/19 05/30/20 diltiazem HCl 60 mg PO QID 11/09/19 05/30/20 divalproex 250 mg PO BID 11/09/19 05/30/20 donepezil 10 mg PO HS 11/09/19 05/30/20 medroxyprogesterone 5 mg PO BID 11/09/19 05/30/20 memantine 10 mg PO BID 11/09/19 05/30/20 metformin 1,000 mg PO DAILY 11/09/19 05/30/20 sertraline 50 mg PO QPM 11/09/19 05/30/20 ferrous sulfate 325 mg PO DAILY 11/10/19 05/30/20 acetaminophen 500 mg PO Q6-8H PRN 01/05/20 05/30/20 Azo Cranberry 250 mg PO BID 03/11/20 05/30/20 multivitamin with minerals 1 tablet PO DAILY 03/11/20 05/30/20 famotidine 20 mg PO DAILY 04/21/20 05/30/20 olanzapine 15 mg PO DAILY 04/21/20 05/30/20 metoprolol tartrate 25 mg PO Q12H 05/18/20 05/30/20 Saccharomyces boulardii [Florastor] 250 mg PO BID 05/30/20 05/30/20 calcium carbonate 650 mg PO BID 10/22/20 10/22/20 loperamide 2 mg PO PRN PRN 05/30/20 05/30/20 loratadine [Claritin] 10 mg PO DAILY 05/30/20 05/30/20 metformin 500 mg PO HS 05/30/20 05/30/20 olanzapine 10 mg PO QPM 05/30/20 05/30/20 Allergies Allergy/AdvReac Type Severity Reaction Status Date / Time amoxicillin Allergy Unknown Unknown Verified 06/01/20 07:17 Penicillins Allergy Unknown Unknown Verified 06/01/20 07:17 Review of Systems Review of Systems: ROS unobtainable: Yes unobtainable due to medical condition and unobtainable due to mental status PMF Past Medical History Medical History Atrial tachycardia With history of paroxysmal atrial fibrillation and atrial flutter. Benign prostatic hyperplasia Cerebrovascular accident Brain CT shows prior infarcts in the right occipital and left parietal lobes. Depression Dysphagia He continually failed swallow studies dating back to 2014, and has continued to refuse G-tube placement. Essential hypertension Gastroesophageal reflux Hyperlipidemia Schizophrenia Systolic congestive heart failure Echocardiogram in March 2019 showed mildly enlarged left ventricular chamber and moderately increased left ventricular thickness, severely reduced left ventricular function with an ejection fraction of 25 to 30%, indeterminate left ventricular diastolic function, moderate biatrial enlargement, [id number] mitral valve regurgitation, and mild tricuspid valve regurgitation. Type 2 diabetes mellitus Vascular dementia Surgical History Surgical History H/O abdominal surgery the patient has a midline abdominal scar. Family History Family History Other Unknown family medical history Social History Social History Social History: The patient is a long-term resident [facility]. He is not able to provide much in the way of social history and cannot provide me with family history. It is noted that he [place] and is a full code. It is unknown if he is ever smoked or if he indulges in alcohol or illicit substances.
[2020-06-07 12:06] LABS: Basophils Percent Auto 0.5 % (0.2-1.2); Eosinophils Percent Auto 0.3 % (0-4.4); Hematocrit 45.5 % (42.0-52.0); Hemoglobin 14.2 g/dL (14.0-18.0); Immature Granulocyte Absolute 0.11 K/mm3 (0.00-0.031); Immature Granulocyte Percent A 1.9 % (0-0.5); Lymphocytes Percent Auto 39.5 % (18.3-44.2); Mean Corpuscular HGB Conc 31.2 g/dl (32-36); Mean Corpuscular Hemoglobin 28.7 pg (26-34); Mean Corpuscular Volume 91.9 fl (80-100); Mean Platelet Volume 10.3 fl (7.4-10.4); Monocytes Absolute Auto 0.6 K/mm3 (0.1-0.6); Monocytes Percent Auto 10.7 % (2.6-8.5); Neutrophils Absolute Auto 2.7 K/mm3 (1.3-6.7); Neutrophils Percent Auto 47.1 % (45.5-73.1); Platelet Count Result 234 k/mm3 (150-375); Red Blood Count 4.95 M/mm3 (4.6-6.20); Red Cell Distribution Width 14.6 % (11.5-14.5); White Blood Count 5.8 K/mm3 (4.5-10.0)
[2020-06-07 12:15] LABS: INR 1.2; Prothrombin Time 14.9 Seconds (11.1-14.7)
[2020-06-07 12:16] LABS: Partial Thromboplastin Time 27.4 SECONDS (22.3-36.8)
[2020-06-07 12:18] LABS: Alanine Aminotransferase 66 U/L (4-50); Albumin Level 4.7 g/dL (3.5-5.1); Alkaline Phosphatase 63 U/L (38-126); Anion Gap 25 mmol/L (8-16); Aspartate Amino Transferase 98 U/L (17-59); Blood Urea Nitrogen 19 mg/dL (9-20); Calcium 9.6 mg/dL (8.4-10.2); Carbon Dioxide 19 mmol/L (22-30); Chloride 102 mmol/L (98-107); Estimated CRCL calculation 36 ml/min; Estimated Glomerular Filt Rate 54; Glucose 248 mg/dL (75-110); Potassium 5.2 mmol/L (3.4-5.0); Sodium 146 mmol/L (137-145)
[2020-06-07] MEDS: LORazepam INJ (*CRX) 2 MG/ML VIAL 1 MG IV PUSH (12:22)
[2020-06-07 12:25] LABS: NT Pro B Type Natriuretic Pept 9080 PG/ML (5-100)
[2020-06-07 12:33] LABS: Troponin I 0.147 ng/mL (0.000-0.034)
--- NOTE | 2020-06-07 12:42 | ECG_ITS ---
Measurements Intervals Mccormick Rate: 102 P: 18 LA: 140 QRS: 265 QRSD: 143 T: 71 QT: 380 QTc: 495 Interpretive Statements SINUS TACHYCARDIA RIGHT AXIS DEVIATION RIGHT BUNDLE BRANCH BLOCK BASELINE ARTIFACT- I, II, III, AVR, AVL, AVF, V4-V6 ABNORMAL ECG Electronically Signed On 06-10-2020 8:47:40 BANKING ATTORNEY by Donaldo Duran D.O.
--- NOTE | 2020-06-07 14:00 | PM.IMHP ---
H&P: HPI History of Present Illness Date/Time: 06/07/20 14:30 Chief complaint: Shortness of breath and lethargy. Narrative: Chirag Kyle is an 80-year-old male with vascular dementia, schizophrenia with psychosis, atrial tachycardia with history of paroxysmal atrial fibrillation and flutter, hypertension, systolic congestive heart failure, type 2 diabetes mellitus, and chronic dysphagia presented to the emergency department earlier this afternoon via EMS from [facility] for evaluation of shortness of breath and reported lethargy. The patient is known to myself from prior admissions and it is very difficult to obtain history from him as his speech is hard to understand and he frequently gets frustrated when this occurs. From what I can gather he has not been feeling good for the past day or so and he notes feeling short of breath. It sounds as though he may have had a cough as well but I am unable to tell for certain if he is had a productive cough or not. Apparently he was ?lethargic? this morning and thus was sent in today for evaluation. On arrival to the emergency department his heart rate was 252 for which he received 100 joules with anabaptist of sinus rhythm. Fever, headache, cold and flu symptoms, chest pain, pleuritic pain, palpitations (even denying palpitations when his heart rate was above 250), nausea, and vomiting. Of note he has had several hospitalizations since December 2019, and was last discharged on 06/02/2020 after being admitted with similar complaints. At that time he apparently had some blood in his stools with imaging showing possible rectal mass. Colonoscopy was performed but was limited, and no rectal masses were noted. Review of Systems Review of Systems: Narrative: Twelve systems were reviewed with pertinent positives and negatives as per HPI. As detailed above it is very difficult to understand his speech, which is chronic, and as such it was difficult to obtain history. I attempted to review all systems but it was limited, except for as per documented in the HPI. [facility] Past Medical History Medical History (Updated 06/07/20 @ 22:23 by Aundrea Doan PA-C) Atrial tachycardia With history of paroxysmal atrial fibrillation and atrial flutter. Benign prostatic hyperplasia Cerebrovascular accident Brain CT shows prior infarcts in the right occipital and left parietal lobes. Depression Dysphagia He continually failed swallow studies dating back to 2014, and has continued to refuse G-tube placement. Essential hypertension Gastroesophageal reflux Hyperlipidemia Schizophrenia Systolic congestive heart failure Echocardiogram in March 2020 showed a moderately enlarged left ventricular chamber, severely reduced left ventricular systolic function with an EF estimated at 25 to 30%, and moderate left atrial enlargement. Type 2 diabetes mellitus Hemoglobin A1c was 7.1% in April 2020. Vascular dementia Surgical History Surgical History (Updated 06/07/20 @ 22:13 by Aundrea Doan PA-C) History of abdominal surgery Patient has midline abdominal scar but cannot provide any details with what kind of surgery he had. Family History Family History Other Unknown family medical history Social History Social History (Updated 06/07/20 @ 22:13 by Aundrea Doan PA-C) Social History: The patient is a long-term resident [facility]. He is not able to provide much in the way of social history and cannot provide me with family history. It is noted that he [place] and is a full code. It is unknown if he is ever smoked or if he indulges in alcohol or illicit substances. His legal power of trust and estates attorney is Cecilia Boucher. Gender identity (if verbalized by the patient): Male Spiritual care concerns: No Agree to blood products: Yes Meds Home Medications and Allergies Home Medications Medication Instruct
--- NOTE | 2020-06-07 15:17 | ADMGEN ---
This patient, Chirag Kyle, was admitted to Intensive Care Unit-8. Patient/family oriented to hospital policies and general routines including ID bracelet, bed and alarms, visiting hours, pain management, procedures, bathroom and other care routines, personal items, smoking policy, room service/diet, and visiting hours. Information on how to activate the Rapid Response Team has been discussed. Patient/Family are encouraged to report perceived risks to care and to ask questions if they do not understand what they are told or what they should do.
[2020-06-07 17:08] LABS: Troponin I 0.392 ng/mL (0.000-0.034)
[2020-06-07] MEDS: AZTREONAM 1 GM in DEXTROSE 5% IN WATER 50 ML IVPB (18:28)
[2020-06-07 19:46] LABS: Troponin I 0.464 ng/mL (0.000-0.034)
[2020-06-07 21:13] LABS: Lactic Acid Reflex 2.7 mmol/L (0.7-2.1)
[2020-06-07 21:16] LABS: Alanine Aminotransferase 83 U/L (4-50); Albumin Level 3.5 g/dL (3.5-5.1); Alkaline Phosphatase 59 U/L (38-126); Anion Gap 10 mmol/L (8-16); Aspartate Amino Transferase 166 U/L (17-59); Bilirubin,Total 0.4 mg/dL (0.2-1.3); Blood Urea Nitrogen 21 mg/dL (9-20); CRP 7.5 mg/dL (<1.0); Carbon Dioxide 23 mmol/L (22-30); Chloride 107 mmol/L (98-107); Estimated CRCL calculation 44 ml/min; Estimated Glomerular Filt Rate > 60; Glucose 203 mg/dL (75-110); Lactate Dehydrogenase 1128 U/L (313-618); Potassium 4.5 mmol/L (3.4-5.0); Sodium 140 mmol/L (137-145)
[2020-06-07 21:18] LABS: Glucose Point of Care 175 (65-105)
[2020-06-07 22:07] LABS: SARS-CoV-2 RNA PCR Positive
[2020-06-07 22:41] LABS: Troponin I 0.384 ng/mL (0.000-0.034)
[2020-06-07 23:57] LABS: Reflex Lactic Acid Yes or No Add Lactic
[2020-06-08] VITALS (25 sets, daily range): BP systolic 90–127; BP diastolic 51–104; PULSE 50–83; RESP 18–37; TEMP 35.9–36.8; O2SAT 90–100
[2020-06-08] MEDS: METOPROLOL TARTRATE 25 MG TABLET PO (00:50)
[2020-06-08] MEDS: DONEPEZIL HCL 10 MG TABLET PO ×2 (00:51→19:51)
[2020-06-08] MEDS: dilTIAZem HCL 60 MG TABLET PO (00:51)
[2020-06-08 05:31] LABS: Basophils Percent Auto 0.4 % (0.2-1.2); Eosinophils Percent Auto 0.1 % (0-4.4); Hemoglobin 12.9 g/dL (14.0-18.0); Immature Granulocyte Absolute 0.09 K/mm3 (0.00-0.031); Immature Granulocyte Percent A 1.3 % (0-0.5); Mean Corpuscular HGB Conc 31.5 g/dl (32-36); Mean Corpuscular Hemoglobin 28.9 pg (26-34); Mean Corpuscular Volume 91.7 fl (80-100); Mean Platelet Volume 10.6 fl (7.4-10.4); Monocytes Absolute Auto 0.6 K/mm3 (0.1-0.6); Neutrophils Absolute Auto 3.5 K/mm3 (1.3-6.7); Neutrophils Percent Auto 52.2 % (45.5-73.1); Nucleated Red Blood Cells Perc 0.3 % (0.0-0.2); Platelet Count Result 181 k/mm3 (150-375); Red Blood Count 4.47 M/mm3 (4.6-6.20); Red Cell Distribution Width 14.7 % (11.5-14.5); White Blood Count 6.8 K/mm3 (4.5-10.0)
[2020-06-08 06:01] LABS: Alanine Aminotransferase 154 U/L (4-50); Albumin Level 3.7 g/dL (3.5-5.1); Alkaline Phosphatase 80 U/L (38-126); Anion Gap 13 mmol/L (8-16); Aspartate Amino Transferase 327 U/L (17-59); Bilirubin,Total 0.9 mg/dL (0.2-1.3); Blood Urea Nitrogen 24 mg/dL (9-20); Calcium 8.3 mg/dL (8.4-10.2); Carbon Dioxide 18 mmol/L (22-30); Chloride 108 mmol/L (98-107); Estimated CRCL calculation 36 ml/min; Estimated Glomerular Filt Rate 54; Glucose 157 mg/dL (75-110); Lactate Dehydrogenase 1903 U/L (313-618); Magnesium 1.9 mg/dL (1.6-2.3); Potassium 5.8 mmol/L (3.4-5.0); Sodium 139 mmol/L (137-145)
[2020-06-08 06:06] LABS: Lactic Acid Reflex 5.8 mmol/L (0.7-2.1)
[2020-06-08 06:08] LABS: Alanine Aminotransferase 153 U/L (4-50); Albumin Level 3.7 g/dL (3.5-5.1); Alkaline Phosphatase 76 U/L (38-126); Aspartate Amino Transferase 321 U/L (17-59)
[2020-06-08 06:41] LABS: Valproic Acid 10.5 ug/mL (50-120)
--- NOTE | 2020-06-08 06:57 | PC.NURSE ---
Attempted baseline cheetah 3 times. Pt unable to lay still enough to achieve results.
[2020-06-08] MEDS: SODIUM CHLORIDE 0.9% IV 500 ML IV CONT ×2 (07:30→14:58)
--- NOTE | 2020-06-08 09:36 | P.PNIM_ITS ---
Progress Note: A&P Assessment and Plan (1) COVID-19: Code(s): U07.1 - COVID-19 Status: Acute Assessment and Plan: * 06/08 patient transition to ICU status due to impending respiratory failure * discussed with test desk trouble locator and due to guardian on-call inability to confirm patient's wishes to be medical treatment only he will have an elective endotracheal intubation this morning * continue dexamethasone * 06/08 convalescent plasma * No remdisivir due to LFTs > 3xNL (2) Pneumonia: Qualifiers: Laterality: unspecified laterality Lung location: unspecified part of lung Pneumonia type: due to unspecified organism Qualified Code(s): J18.9 - Pneumonia, unspecified organism Code(s): J18.9 - Pneumonia, unspecified organism Status: Acute Assessment and Plan: * currently receiving vancomycin Levaquin and Primaxin (3) Atrial fibrillation with rapid ventricular response: Code(s): I48.91 - Unspecified atrial fibrillation Status: Acute Assessment and Plan: * rate now controlled * continue Eliquis * continue diltiazem as pressure tolerates and heart rate requires (4) Sepsis: Qualifiers: Sepsis acute organ dysfunction status: with acute organ dysfunction Sepsis type: sepsis due to unspecified organism Severe sepsis acute organ dysfunction type: encephalopathy Severe sepsis shock status: with septic shock Qualified Code(s): A41.9 - Sepsis, unspecified organism; R65.21 - Severe sepsis with septic shock; G93.40 - Encephalopathy, unspecified Code(s): A41.9 - Sepsis, unspecified organism Status: Acute Assessment and Plan: * Due to pneumonia (5) Elevated LFTs: Code(s): R79.89 - Other specified abnormal findings of blood chemistry Status: Acute Assessment and Plan: * Likely due to sepsis (6) Metabolic encephalopathy: Code(s): G93.41 - Metabolic encephalopathy Status: Acute Assessment and Plan: * currently patient is oriented to person only * but he is able to state that he does not want to go on living like this * His prognosis with severe pneumonia, COVID-19, kidney failure, heart failure, dementia, diabetes, and schizophrenia is very poor. (7) Elevated troponin: Code(s): R79.89 - Other specified abnormal findings of blood chemistry Status: Acute Assessment and Plan: * Due to sepsis, PAWEL, afib/rvr * No ACS (8) Schizophrenia: Qualifiers: Schizophrenia type: other Qualified Code(s): F20.89 - Other schizophrenia Code(s): F20.9 - Schizophrenia, unspecified Status: Chronic Assessment and Plan: * Continue antipsychotic therapy * Hold divalproex due to elevated LFTs (9) Vascular dementia: Qualifiers: Dementia behavioral disturbance: with behavioral disturbance Qualified Code(s): F01.51 - Vascular dementia with behavioral disturbance Code(s): F01.50 - Vascular dementia without behavioral disturbance Status: Chronic (10) Systolic congestive heart failure: Qualifiers: Heart failure chronicity: chronic Qualified Code(s): I50.22 - Chronic systolic (congestive) heart failure Code(s): I50.20 - Unspecified systolic (congestive) heart failure Status: Chronic Assessment and Plan: * poor ejection fraction contributes to his overall prognosis (11) Type 2 diabetes mellitus: Qualifiers: Diabetes mellitus complication status: without complication Diabetes mellitus superintendent terminal insulin use: w
--- NOTE | 2020-06-08 09:36 | PM.IMPN ---
Progress Note: A&P Assessment and Plan (1) COVID-19: Code(s): U07.1 - COVID-19 Status: Acute Assessment and Plan: 06/08 patient transition to ICU status due to impending respiratory failure discussed with poultry farm worker and due to guardian on-call inability to confirm patient's wishes to be medical treatment only he will have an elective endotracheal intubation this morning continue dexamethasone 06/08 convalescent plasma No remdisivir due to LFTs > 3xNL (2) Pneumonia: Qualifiers: Laterality: unspecified laterality Lung location: unspecified part of lung Pneumonia type: due to unspecified organism Qualified Code(s): J18.9 - Pneumonia, unspecified organism Code(s): J18.9 - Pneumonia, unspecified organism Status: Acute Assessment and Plan: currently receiving vancomycin Levaquin and Primaxin (3) Atrial fibrillation with rapid ventricular response: Code(s): I48.91 - Unspecified atrial fibrillation Status: Acute Assessment and Plan: rate now controlled continue Eliquis continue diltiazem as pressure tolerates and heart rate requires (4) Sepsis: Qualifiers: Sepsis acute organ dysfunction status: with acute organ dysfunction Sepsis type: sepsis due to unspecified organism Severe sepsis acute organ dysfunction type: encephalopathy Severe sepsis shock status: with septic shock Qualified Code(s): A41.9 - Sepsis, unspecified organism; R65.21 - Severe sepsis with septic shock; G93.40 - Encephalopathy, unspecified Code(s): A41.9 - Sepsis, unspecified organism Status: Acute Assessment and Plan: Due to pneumonia (5) Elevated LFTs: Code(s): R79.89 - Other specified abnormal findings of blood chemistry Status: Acute Assessment and Plan: Likely due to sepsis (6) Metabolic encephalopathy: Code(s): G93.41 - Metabolic encephalopathy Status: Acute Assessment and Plan: currently patient is oriented to person only but he is able to state that he does not want to go on living like this His prognosis with severe pneumonia, COVID-19, kidney failure, heart failure, dementia, diabetes, and schizophrenia is very poor. (7) Elevated troponin: Code(s): R79.89 - Other specified abnormal findings of blood chemistry Status: Acute Assessment and Plan: Due to sepsis, PAWEL, afib/rvr No ACS (8) Schizophrenia: Qualifiers: Schizophrenia type: other Qualified Code(s): F20.89 - Other schizophrenia Code(s): F20.9 - Schizophrenia, unspecified Status: Chronic Assessment and Plan: Continue antipsychotic therapy Hold divalproex due to elevated LFTs (9) Vascular dementia: Qualifiers: Dementia behavioral disturbance: with behavioral disturbance Qualified Code(s): F01.51 - Vascular dementia with behavioral disturbance Code(s): F01.50 - Vascular dementia without behavioral disturbance Status: Chronic (10) Systolic congestive heart failure: Qualifiers: Heart failure chronicity: chronic Qualified Code(s): I50.22 - Chronic systolic (congestive) heart failure Code(s): I50.20 - Unspecified systolic (congestive) heart failure Status: Chronic Assessment and Plan: poor ejection fraction contributes to his overall prognosis (11) Type 2 diabetes mellitus: Qualifiers: Diabetes mellitus complication status: without complication Diabetes mellitus skilled nursing insulin use: without skilled nursing use Qualified Code(s): E11.9 - Type 2 diabetes mellitus without complications Code(s): E11.9 - Type 2 diabetes mellitus without complications Status: Chronic Assessment and Plan: continue to treat with basal and sliding scale insulin (12) Lactic acidosis: Code(s): E87.2 - Acidosis Status: Acute Assessment and Plan: due to severe pneumonia with hy
--- NOTE | 2020-06-08 11:07 | PM.CNCAR ---
Assessment and Plan Assessment and plan (1) COVID-19: Code(s): U07.1 - COVID-19 Status: Acute Assessment and Plan: Soon to be intubated by the ICU team. Management per them (2) Atrial fibrillation with rapid ventricular response: Code(s): I48.91 - Unspecified atrial fibrillation Status: Acute Assessment and Plan: status post cardioversion in the ER. He remains in sinus rhythm. Continue anticoagulation. He is increasingly hypotensive and will hold his diltiazem for now (3) Non-ST elevated myocardial infarction (non-STEMI): Code(s): I21.4 - Non-ST elevation (NSTEMI) myocardial infarction Status: Acute Assessment and Plan: likely secondary to AFib with RVR rather than plaque rupture. (4) Vascular dementia: Qualifiers: Dementia behavioral disturbance: with behavioral disturbance Qualified Code(s): F01.51 - Vascular dementia with behavioral disturbance Code(s): F01.50 - Vascular dementia without behavioral disturbance Status: Chronic History of Present Illness History of Present Illness Consult date/time: 06/08/20 11:07 Requesting physician: Miranda Almonte MD Consult reason: atrial fibrillation Reason For Visit: Shortness of breath and lethargy. Narrative: date of service 06/08/2020 Reason for consultation atrial fibrillation History: Chirag Kyle is an 80-year-old male with vascular dementia, schizophrenia with psychosis, atrial tachycardia with history of paroxysmal atrial fibrillation and flutter, hypertension, systolic congestive heart failure, type 2 diabetes mellitus, and chronic dysphagia . He was more lethargic as well as short of breath at the nursing facility. History is predominantly obtained by reviewing the chart record. He is currently very short of breath. He has tested positive for Coronavirus. He has had several admissions for shortness of breath and lethargy. He has had a history of atrial fibrillation with rapid ventricular response. He had reportedly not been feeling very well over the past couple of days and his mental state became more lethargic. Reportedly there was a cough also. In the emergency department he was found have a heart rate as high as 250 beats per minute and in a wide complex tachycardia. It was the same morphology though as his underlying right bundle-branch block and there was RR irregularity. This is likely secondary to atrial fibrillation with rapid ventricular response. Because of the extreme tachycardia he did undergo cardioversion using 100 joules of energy. This did restore sinus rhythm. Because of some shortness of breath he was under isolation and Coronavirus testing was performed which have since turned positive. He is in the ICU at this point and is increasingly more dyspneic. He is reportedly soon to be intubated. He denies any chest pain but does admit to shortness of breath. No significant swelling. He remains in sinus rhythm at this point. No syncope or presyncope. Review of Systems Review of Systems: All systems reviewed & are unremarkable except as noted in HPI and below Constitutional: Constitutional: Reports weakness Eyes: Eyes: Denies blurry vision ENT: Reports Normal hearing present Cardiovascular: Cardiovascular: Denies leg edema Respiratory: Respiratory: Reports cough and Reports dyspnea Gastrointestinal: Gastrointestinal: Denies abdominal pain Comments: history of GI bleeding Genitourinary: Genitourinary: Denies hematuria Musculoskeletal: Musculoskeletal: Denies neck pain Integumentary/Breasts: Skin/Breast: Denies unusual bruising Neurologic: Denies headache(s) Psychiatric: Psychiatric: Reports anxiety and Reports confusion Endocrine: Endocrine: Denies fatigue Hematologic/Lymphatic: Hematologic/Lymphatic: Denies easy bleeding Allergic/Immunologic: Allergic/Immunologic: Denies lip swelling PMFSH Past Medical History Medical History (Reviewed 1
[2020-06-08] MEDS: FENTANYL 2,500MCG/NS250ML(*CRX 2,500 MCG/250 ML BAG IV CONT (11:20)
[2020-06-08 12:04] LABS: Glucose Point of Care 84 (65-105)
--- NOTE | 2020-06-08 13:07 | WPDCNINT ---
Assessment and Plan Assessment and plan (1) Acute respiratory failure: Code(s): J96.00 - Acute respiratory failure, unspecified whether with hypoxia or hypercapnia Status: Acute Assessment and Plan: acute respiratory failure likely multifactorial, COVID-19 pneumonia, aspiration, volume overload secondary to systolic heart failure - patient and pending respiratory failure with expiratory wheezing and using accessory muscles of respiration - patient was intubated on 06/08/2020 - will start bronchodilators - patient on imipenem, will add vancomycin since he has been in the hospital recently ( started on 06/08/2020) - patient started on fentanyl and Versed infusion for sedation, maintain RASS of 0 to -2, daily sedation vacation (2) Pneumonia due to COVID-19 virus: Code(s): U07.1 - COVID-19; J12.89 - Other viral pneumonia Status: Acute Assessment and Plan: SARS-CoV-2 PCR positive for COVID-19 19 - elevated inflammatory markers will continue to trend - started patient on dexamethasone, - elevated LFTs, will hold Remdesivir - will order convalescent plasma - continue droplet, airborne, contact isolation and precautions (3) Severe sepsis: Code(s): A41.9 - Sepsis, unspecified organism; R65.20 - Severe sepsis without septic shock Status: Acute Assessment and Plan: patient with severe sepsis that developed this morning, likely related to pneumonia - cultures have been obtained and pending - continue antibiotics as above ( vancomycin and imipenem) - will repeat lactic acid level - will obtain a UA - will give small bolus of IV fluids - will maintain mean arterial pressures of > 65 mmHg (4) Elevated LFTs: Code(s): R79.89 - Other specified abnormal findings of blood chemistry Status: Acute Assessment and Plan: likely secondary to severe sepsis - maintain adequate pressure (5) Atrial fibrillation with rapid ventricular response: Code(s): I48.91 - Unspecified atrial fibrillation Status: Acute Assessment and Plan: patient with atrial fibrillation with rapid ventricular rate in the ER requiring cardioversion. Started on Cardizem infusion and p.o. Cardizem which dropped his heart rate in the 50s, diltiazem was stopped - appreciate cardiology evaluation recommendations. - will continue therapeutic Lovenox and hold Eliquis for now (6) Type 2 diabetes mellitus: Qualifiers: Diabetes mellitus [facility] insulin use: without [facility] use Diabetes mellitus complication status: without complication Qualified Code(s): E11.9 - Type 2 diabetes mellitus without complications Code(s): E11.9 - Type 2 diabetes mellitus without complications Status: Chronic Assessment and Plan: Continue Accu-Cheks and sliding scale insulin (7) Systolic congestive heart failure: Qualifiers: Heart failure chronicity: chronic Qualified Code(s): I50.22 - Chronic systolic (congestive) heart failure Code(s): I50.20 - Unspecified systolic (congestive) heart failure Status: Chronic Assessment and Plan: systolic heart failure with EF off 25-30% on echocardiogram done on 03/13/2020. - Will be cautious with fluids in the face off severe sepsis (8) DVT prophylaxis: Code(s): Z29.9 - Encounter for prophylactic measures, unspecified Status: Acute Assessment and Plan: DVT prophylaxis; therapeutic Lovenox stress ulcer prophylaxis: Protonix Additional Plan discussed with Christian Iyer, at [phone]- [phone], this was the on-call Phone line for the state guardian. Christian understood that the patient probably needs to be a DNR, asked me to log on to develop website [email or web address].[email or web address] and printout the [facility] Office of state guardian what DNR/DNI / withholding/withdrawal of treatment form to 3 page form and will require to be completed by the physician and signed by 2 physicians and fax it to their o
[2020-06-08] MEDS: PANTOPRAZOLE SODIUM IV 40 MG VIAL IV PUSH (13:37)
[2020-06-08] MEDS: ALBUTEROL SULFATE NEB 2.5 MG/0.5 ML INH INHALATION ×2 (13:40→20:22)
[2020-06-08] MEDS: IPRATROPIUM BR 0.02% INH SOLN 0.5 MG/2.5 ML VIAL INHALATION ×2 (13:40→20:22)
--- NOTE | 2020-06-08 13:41 | WPDPROCEDUR ---
Procedures Intubation Intubation Date: 06/08/20 A pre-procedural Time-Out was completed immediately before starting the procedure and confirmed: Patient Identification, Site, Procedure, Patient Position and the Availability of Requisite Equipment: Yes Sedative: etomidate Paralytic: rocuronium Laryngoscope: fiber optic video scope Assist device used: fiber optic device ET tube size: 8 Tube secured depth (cm): 25 Tube secured location: lips Tube placement confirmation: visualized tube passing through cords, equal breath sounds bilaterally, no breath sounds over epigastrium and confirmation by capnometry Patient tolerated procedure: well Intubation complications: none Additional comments: patient is a [place] of the [facility], discussed with the on-call guardian. She stated that for now we have to intubate the patient. The patient was lying in the supine position. Preoxygenation via BVM was provided for a minimum of 3 minutes. The patient had continuous cardiac as well as pulse oximetry monitoring during the procedure. Rapid sequence induction was provided by administration of Etomidate and rocuronium. A Glidescope blade 4 was used to directly visualize the vocal cords. A 8 mm endotracheal tube was visualized advancing between the cords to a level of 25 cm at the lip. The stylette was then removed. Tube placement was also noted by fogging in the tube, equal and bilateral breath sounds, no sounds over the epigastrium, and end-tidal colorimetric monitoring. The cuff was then inflated with 10 ml of air and the tube secured using a commercially available device. A good pulse oximetry wave form was seen on the monitor throughout the procedure. The patient was then connected to the ventilator at a tidal volume of 500 ml; rate of 18; FiO2 of 100%; and PEEP of 5. A portable chest x-ray has been ordered for placement. Continued sedation will be provided by Fentanyl and Versed continuous infusion titrated to a RASS of -2. The patient tolerated the procedure well.
--- NOTE | 2020-06-08 13:43 | P.PCNBED_ITS ---
Procedures Central Line Placement Left IJ: Central Line Date: 06/08/20 Discussed w/ the patient/family/POA,the placement of a central venous catheter, including its clinical necessity/indication & associated potential risks, benifits and alternatives.: Yes The patient/family/POA understand(s) and acknowledge(s) the need to proceed with central venous catheter insertion as an important element of the patient's clinical management.: Yes Time Out Performed: Yes Patient Position: supine Patient placed on monitor/pulse ox: Yes Provider Prep: mask, sterile gown, sterile gloves, Max. sterile barrier precautions and hand hygiene with conventional soap/water or alcohol based hand rub Central line prep: 2% Chlorhexidine scrub and sterile full body sheet applied Local anesthesia used: lidocaine 1% Amount of anesthesia used (ml): 4 Sterile US Technique with sterile gel/sterile probe covers: Yes Central line lumen inserted: triple Russian: 16 Length (cm): 16 Depth of Insertion (cm): 16 Post procedure: sutured in place, good blood return, all ports aspirated, flushed, capped, tegaderm, hemostatic disc, antimicrobial disc and aseptic technique maintained throughout procedure Post procedure x-ray: tip of catheter in good position and no pneumothorax seen Patient tolerated procedure: well Complications: none
[2020-06-08 13:53] LABS: Alveolar/Arterial O2 Gradient 164.3 mmHg; Fractional Inspired Oxygen 100 %; HCO3 ABG 13.2 mEq/l (22.0-26.0); Oxygen Content ABG 20.7 %vol (16.0-22.0); Oxygen Saturation ABG 99.9 % (95.0-100.0); Oxyhemoglobin 98.6 % THb (90.0-100.0); PCO2 ABG 25.7 mmHg (35.0-45.0); PO2 FiO2 Ratio Arterial Blood 5.23 %; Total Hemoglobin 13.9 g/dL (12.0-18.0); pH ABG 7.327 (7.350-7.450)
[2020-06-08 13:54] LABS: Site Drawn LEFT BRACHIAL
[2020-06-08 13:55] LABS: Arterial Blood Gas PEEP 5 cmH2O; Arterial Blood Gas Vent Mode CMV; Arterial Blood Gas Ventilator rate 18 /MIN; Device VENTILATOR
[2020-06-08 13:56] LABS: Arterial Blood Gas Pressure Support 0 cmH2O; Arterial Blood Gas Tidal Volume 500 ml
[2020-06-08 14:16] LABS: Glucose Point of Care 101 (65-105)
[2020-06-08 14:39] LABS: Add Urine Microscopic? YES; Amorphous Sediment Urine Few; Appearance Urine Cloudy (Clear); Bacteria Urine 1+ /hpf; Bilirubin Urine Negative (Negative); Blood Urine 2+ (Negative); Color Urine Amber (Yellow); Glucose Urine UA 1+ mg/dL (Negative); Ketones Urine Trace mg/dL (Negative); Leukocyte Esterase Ur 2+ LEU/UL (NEGATIVE); Mucus Urine Rare /lpf; Nitrate Urine Negative (Negative); Protein Urine 2+ mg/dL (Negative); RBC Urine 21-50 /hpf (0-2); Specific Grav Ur 1.018 (1.001-1.035); Squamous Epithelial Cell Urine Few /hpf (Few); WBC Urine 31-50 /hpf (0-3)
--- NOTE | 2020-06-08 15:00 | PC.NURSE ---
During morning rounds; 1000 06/08/20, pt noted to be tachapenic, wheezing, and gasping for air. M/d decides best to intubate. At 1113 pt given 20 of etomidate, 50 of roccironium. Pt still fighting against the bag. At 1120 100 fentanyl, 2 versed and 100 succ given. Pt intubated, bilateral breath sounds, and og placed. Md to place central line.
[2020-06-08 17:17] LABS: Reflex Lactic Acid Yes or No Add Lactic
[2020-06-08] MEDS: SODIUM CHLORIDE 0.9% IV 1,000 ML 75 ML IV CONT (17:31)
[2020-06-08 17:52] LABS: Lactic Acid 3.3 mmol/L (0.7-2.1)
[2020-06-08] MEDS: CENTRAL LINE FLUSH 10 ML IV PUSH ×2 (18:25→19:51)
[2020-06-08] MEDS: INSULIN ASPART (*BKC) 100 UNITS/ML SUB-Q (18:26)
[2020-06-08 18:49] LABS: Glucose Point of Care 201 (65-105)
[2020-06-08] MEDS: ENOXAPARIN 80 MG/0.8 ML SYRINGE 73 MG SUB-Q (19:51)
[2020-06-08 23:28] LABS: Glucose Point of Care 120 (65-105)
[2020-06-09] VITALS (35 sets, daily range): BP systolic 85–136; BP diastolic 35–88; PULSE 56–78; RESP 18; TEMP 35.9–37.8; O2SAT 95–100
--- NOTE | 2020-06-09 01:02 | PC.NURSE ---
Daylight Savings Time For Daylight Savings Time Ending in the Fall - Clocks are moved back. For Daylight Savings Time Beginning in the Spring - Clocks are moved ahead. For [facility], the time of change occurs at 0200 hrs. Time is taken from the ware server. This entry on the patient's chart recognizes the change in time reflected during documentation. Example: 2 entries for vital signs may be charted for 0200 hrs.
[2020-06-09] MEDS: IPRATROPIUM BR 0.02% INH SOLN 0.5 MG/2.5 ML VIAL INHALATION ×4 (02:31→20:07)
[2020-06-09] MEDS: ALBUTEROL SULFATE NEB 2.5 MG/0.5 ML INH INHALATION ×4 (02:31→20:07)
[2020-06-09] MEDS: CENTRAL LINE FLUSH 10 ML IV PUSH ×4 (04:32→20:02)
[2020-06-09 04:51] LABS: Hematocrit 36.5 % (42.0-52.0); Hemoglobin 11.7 g/dL (14.0-18.0); Immature Platelet Fraction Pct 7.1 % (0.9-11.2); Mean Corpuscular HGB Conc 32.1 g/dl (32-36); Mean Corpuscular Hemoglobin 28.3 pg (26-34); Mean Corpuscular Volume 88.4 fl (80-100); Mean Platelet Volume 10.7 fl (7.4-10.4); Platelet Count Result 146 k/mm3 (150-375); Red Blood Count 4.13 M/mm3 (4.6-6.20); Red Cell Distribution Width 14.6 % (11.5-14.5); White Blood Count 4.3 K/mm3 (4.5-10.0)
[2020-06-09 05:04] LABS: Lactic Acid Reflex 2.4 mmol/L (0.7-2.1)
[2020-06-09 05:09] LABS: Alveolar/Arterial O2 Gradient 124.5 mmHg; Base Excess ABG -5.2 mEq/l (+/-2.0); Carboxyhemoglobin 0.3 % THb (0-2.0); Fractional Inspired Oxygen 45 %; HCO3 ABG 18.3 mEq/l (22.0-26.0); Methemoglobin ABG 0.5 %THb (0-1.5); Oxygen Content ABG 18.5 %vol (16.0-22.0); Oxygen Saturation ABG 99.1 % (95.0-100.0); Oxyhemoglobin 97.8 % THb (90.0-100.0); PCO2 ABG 29.7 mmHg (35.0-45.0); PO2 ABG 162.6 mmHg (80.0-100.0); PO2 FiO2 Ratio Arterial Blood 3.61 %; Reduced Hemoglobin 1.4 %THb (0-5.0); Total Hemoglobin 13.2 g/dL (12.0-18.0); pH ABG 7.407 (7.350-7.450)
[2020-06-09 05:10] LABS: Arterial Blood Gas Ventilator rate 18 /MIN; Device VENTILATOR; Modified Allen's Test Unable to perform; Site Drawn LEFT RADIAL
[2020-06-09 05:11] LABS: Arterial Blood Gas PEEP 5 cmH2O; Arterial Blood Gas Tidal Volume 500 ml; Arterial Blood Gas Vent Mode CMV
[2020-06-09 05:16] LABS: D Dimer 5.14 ug/mL (<0.48)
[2020-06-09 05:44] LABS: Alkaline Phosphatase 79 U/L (38-126); Anion Gap 8 mmol/L (8-16); Blood Urea Nitrogen 32 mg/dL (9-20); CRP 8.6 mg/dL (<1.0); Calcium 7.4 mg/dL (8.4-10.2); Carbon Dioxide 23 mmol/L (22-30); Chloride 110 mmol/L (98-107); Estimated CRCL calculation 38 ml/min; Estimated Glomerular Filt Rate 59; Glucose 95 mg/dL (75-110); Magnesium 1.8 mg/dL (1.6-2.3); Phosphorus 3.8 mg/dL (2.5-4.5); Potassium 4.3 mmol/L (3.4-5.0); Sodium 141 mmol/L (137-145)
[2020-06-09 06:28] LABS: Alanine Aminotransferase 2505 U/L (4-50)
[2020-06-09 07:14] LABS: Aspartate Amino Transferase 6351 U/L (17-59); Lactate Dehydrogenase > 10000 U/L (313-618)
[2020-06-09] MEDS: SODIUM CHLORIDE 0.9% IV 1,000 ML 75 ML IV CONT (07:17)
[2020-06-09 07:47] LABS: Reflex Lactic Acid Yes or No Add Lactic
[2020-06-09 08:47] LABS: Ferritin > 2000.00 ng/mL (11.1-264)
[2020-06-09] MEDS: ENOXAPARIN 80 MG/0.8 ML SYRINGE 73 MG SUB-Q ×2 (09:23→20:01)
[2020-06-09] MEDS: DEXAMETHASONE SOD PHOS INJ 4 MG/ML VIAL 6 MG IV PUSH (09:24)
[2020-06-09] MEDS: PANTOPRAZOLE SODIUM IV 40 MG VIAL IV PUSH (09:24)
[2020-06-09] MEDS: polyethylene glycoL 3350 17 GM POWD.PACK PO (09:28)
[2020-06-09] MEDS: MEMANTINE 10 MG TABLET PO ×2 (09:28→17:53)
[2020-06-09] MEDS: SACCHAROMYCES BOULARDII 250 MG CAPSULE PO ×2 (09:28→17:53)
--- NOTE | 2020-06-09 10:29 | PM.PNCARD ---
Progress Note: A&P Assessment and Plan (1) COVID-19: Code(s): U07.1 - COVID-19 Status: Acute Assessment and Plan: currently intubated and sedated. Management per them (2) Atrial fibrillation with rapid ventricular response: Code(s): I48.91 - Unspecified atrial fibrillation Status: Acute Assessment and Plan: He remains in sinus rhythm. Continue anticoagulation. Blood pressure is low to initiate CHF regimen at this point. Continue supportive care (3) Non-ST elevated myocardial infarction (non-STEMI): Code(s): I21.4 - Non-ST elevation (NSTEMI) myocardial infarction Status: Acute Assessment and Plan: likely secondary to AFib with RVR rather than plaque rupture. (4) Vascular dementia: Qualifiers: Dementia behavioral disturbance: with behavioral disturbance Qualified Code(s): F01.51 - Vascular dementia with behavioral disturbance Code(s): F01.50 - Vascular dementia without behavioral disturbance Status: Chronic Subjective Date/time seen: 06/09/20 10:29 Interval history: Admitted for shortness of breath atrial fibrillation with rapid ventricular response, COVID positive Date of service 06/09/2020: Patient intubated shortly after being seen yesterday. He is a multi-system organ failure. Rhythm does though remained stable and in sinus rhythm. B Review of Systems Review of Systems: ROS unobtainable: Yes unobtainable due to medical condition Constitutional: Constitutional: Denies headache(s) ENT: Denies headache(s), Denies lip swelling and Denies neck pain Cardiovascular: Cardiovascular: Reports dyspnea Exam Narrative: Exam Narrative: intubated and sedated Const: General: comfortable and confusion Orientation/consciousness: confusion HENMT: General nose exam: Normal nares present Chest: Other: no reproducible chest wall pain to palpation Cardio: Rate: regular rate Rhythm: regular rhythm Skin: General skin exam: normal color Neuro: General: confusion Cranial nerves: Yes Normal hearing present Other: diminished muscle tone throughout Psych: Other: sedated Objective Data Vital Signs Vital Signs: Vital Signs - 24 hr 06/08/20 12:00 06/08/20 13:46 06/08/20 14:00 Temperature 36.6 C Pulse Rate 54 L 54 L 54 L Respiratory Rate 18 18 Blood Pressure 107/51 L Pulse Oximetry 100 06/08/20 14:25 06/08/20 16:00 06/08/20 16:06 Temperature 36.1 C L Pulse Rate 54 L 56 L 55 L Respiratory Rate 18 18 Blood Pressure 111/69 115/68 Pulse Oximetry 100 100 100 06/08/20 17:42 06/08/20 18:00 06/08/20 18:27 Temperature Pulse Rate 54 L 54 L 54 L Respiratory Rate 18 18 Blood Pressure 103/67 Pulse Oximetry 100 100 06/08/20 20:00 06/08/20 20:22 06/08/20 20:24 Temperature 35.9 C L Pulse Rate 66 54 L 54 L Respiratory Rate 18 18 Blood Pressure 113/80 Pulse Oximetry 100 100 06/08/20 20:28 06/08/20 22:00 06/08/20 23:20 Temperature 35.9 C L Pulse Rate 54 L 56 L 56 L Respiratory Rate 18 18 Blood Pressure 90/64 L Pulse Oximetry 100 100 06/09/20 00:00 06/09/20 00:52 06/09/20 02:00 Temperature 36.1 C L 36.2 C L 36.5 C Pulse Rate 56 L 64 61 Respiratory Rate 18 18 18 Blood Pressure 86/59 L 102/35 L 85/64 L Pulse Oximetry 100 100 99 06/09/20 02:32 06/09/20 02:37 06/09/20 02:39 Temperature Pulse Rate 64 64 63 Respiratory Rate 18 18 Blood Pressure Pulse Oximetry 100 06/09/20 04:00 06/09/20 04:30 06/09/20 04:31 Temperature 36.7 C Pulse Rate 65 72 71 Respiratory Rate 18 18 18 Blood Pressure 90/56 L Pulse Oximetry 100 06/09/20 04:50 06/09/20 06:00 06/09/20 08:00 Temperature 36.9 C 37.2 C Pulse Rate 67 65 70 Respiratory Rate 18 18 Blood Pressure 88/60 L 103/65 Pulse Oximetry 100 95 98 06/09/20 09:48 06/09/20 09:56 06/09/20 10:00 Temperature Pulse Rate 75 74 72 Respiratory Rate 18 18 Blood Pressure 104/50 L Pulse Oximetry 100 98
--- NOTE | 2020-06-09 11:35 | WPDGICN ---
Assessment and Plan Assessment and plan (1) Elevated LFTs: Code(s): R79.89 - Other specified abnormal findings of blood chemistry Status: Acute Assessment and Plan: Marked elevated serum transaminases most consistent with shock liver. Patient does have gallstones identified by ultrasound there is a question of gallbladder wall thickening. Surgery has been asked to see the patient as well. I would suggest conservative therapy at this point perhaps cover with antibiotics as he is already on these for pneumonia. Monitor LFTs. Most likely this is related to hypertensive state during his presentation. Bilirubin and alkaline phosphatase remain normal. We will follow LFTs in the interim period (2) Acute respiratory failure: Code(s): J96.00 - Acute respiratory failure, unspecified whether with hypoxia or hypercapnia Status: Acute (3) Severe sepsis: Code(s): A41.9 - Sepsis, unspecified organism; R65.20 - Severe sepsis without septic shock Status: Acute (4) Pneumonia due to COVID-19 virus: Code(s): U07.1 - COVID-19; J12.89 - Other viral pneumonia Status: Acute (5) Pulmonary edema: Qualifiers: Chronicity: acute Qualified Code(s): J81.0 - Acute pulmonary edema Code(s): J81.1 - Chronic pulmonary edema Status: Acute (6) Atrial fibrillation with rapid ventricular response: Code(s): I48.91 - Unspecified atrial fibrillation Status: Acute (7) Atrial fibrillation with RVR: Code(s): I48.91 - Unspecified atrial fibrillation Status: Acute (8) Schizophrenia: Qualifiers: Schizophrenia type: other Qualified Code(s): F20.89 - Other schizophrenia Code(s): F20.9 - Schizophrenia, unspecified Status: Chronic (9) Systolic congestive heart failure: Qualifiers: Heart failure chronicity: chronic Qualified Code(s): I50.22 - Chronic systolic (congestive) heart failure Code(s): I50.20 - Unspecified systolic (congestive) heart failure Status: Chronic (10) Dementia: Qualifiers: Dementia behavioral disturbance: with behavioral disturbance Dementia type: unspecified type Qualified Code(s): F03.91 - Unspecified dementia with behavioral disturbance Code(s): F03.90 - Unspecified dementia without behavioral disturbance Status: Chronic GI Consult Note Consult date/time: 06/09/20 11:35 HPI: Chirag Kyle is a 80 year old male I am asked to see because of elevated LFTs and gallstones. Patient admitted to the hospital with acute respiratory failure shortness of breath was ultimately intubated found to have COVID-19 pneumonia. Patient has underlying history of atrial fibrillation on Eliquis anticoagulation schizophrenia stroke this mentioned dementia congestive heart failure upon presenting to the emergency room was found to be very tachycardic required cardioversion. He had a low blood pressure during that interval. After admission hospitalist found to have markedly elevated LFTs predominantly transaminases. An ultrasound revealed gallstones there is a question of the thickening of the gallbladder wall. Patient known to me from recent hospital stay a flexible sigmoidoscopy excluded a colon mass suggested on prior CT scan. Review of Systems Review of Systems: ROS unobtainable: Yes unobtainable due to endotracheal tube PMFSH Past Medical History Medical History Atrial tachycardia With history of paroxysmal atrial fibrillation and atrial flutter. Benign prostatic hyperplasia Cerebrovascular accident Brain CT shows prior infarcts in the right occipital and left parietal lobes. Depression Dysphagia He continually failed swallow studies dating back to 2014, and has continued to refuse G-tube placement. Essential hypertension Gastroesophageal reflux Hyperlipidemia Schizophrenia Systolic congestive heart failure Echocardi
[2020-06-09 11:53] LABS: Glucose Point of Care 90 (65-105)
--- NOTE | 2020-06-09 13:24 | WPDINTPN ---
Progress Note: A&P Assessment and Plan (1) Acute respiratory failure: Code(s): J96.00 - Acute respiratory failure, unspecified whether with hypoxia or hypercapnia Status: Acute Assessment and Plan: acute respiratory failure likely multifactorial, COVID-19 pneumonia, aspiration, volume overload secondary to systolic heart failure - - patient was intubated on 06/08/2020 secondary impending respiratory failure - continue vancomycin and imipenem ( started on 06/08/2020) - patient started on fentanyl and Versed infusion for sedation, maintain RASS of 0 to -2, daily sedation vacation (2) Pneumonia due to COVID-19 virus: Code(s): U07.1 - COVID-19; J12.89 - Other viral pneumonia Status: Acute Assessment and Plan: SARS-CoV-2 PCR positive for COVID-19 19 - elevated inflammatory markers will continue to trend - continue dexamethasone, started on 06/08/2020 - elevated LFTs, will hold Remdesivir - patient to receive convalescent plasma - continue droplet, airborne, contact isolation and precautions (3) Severe sepsis: Code(s): A41.9 - Sepsis, unspecified organism; R65.20 - Severe sepsis without septic shock Status: Acute Assessment and Plan: patient with severe sepsis that developed this morning, likely related to pneumonia - blood cultures negative x2 so far - urine cultures pending - continue antibiotics as above ( vancomycin and imipenem) - lactic acid trending down - UA reflective of UTI - continue maintenance IV fluids - will maintain mean arterial pressures of > 65 mmHg (4) Elevated LFTs: Code(s): R79.89 - Other specified abnormal findings of blood chemistry Status: Acute Assessment and Plan: shock liver with significant elevation in LFTs - Cholelithiasis, gallbladder wall thickening, and pericholecystic fluid. Sonographic features are consistent with cholecystitis. - appreciate GI evaluation recommendation - consulted surgery - check hepatitis panel (5) Atrial fibrillation with rapid ventricular response: Code(s): I48.91 - Unspecified atrial fibrillation Status: Acute Assessment and Plan: patient with atrial fibrillation with rapid ventricular rate in the ER requiring cardioversion. Started on Cardizem infusion and p.o. Cardizem which dropped his heart rate in the 50s, diltiazem was stopped - appreciate cardiology evaluation recommendations. - will continue therapeutic Lovenox and hold Eliquis for now - currently sinus rhythm rate controlled in the 60s, continue to monitor (6) Type 2 diabetes mellitus: Qualifiers: Diabetes mellitus intermediate teacher insulin use: without fpc use Diabetes mellitus complication status: without complication Qualified Code(s): E11.9 - Type 2 diabetes mellitus without complications Code(s): E11.9 - Type 2 diabetes mellitus without complications Status: Chronic Assessment and Plan: Continue Accu-Cheks and sliding scale insulin - blood sugars within decent range (7) Systolic congestive heart failure: Qualifiers: Heart failure chronicity: chronic Qualified Code(s): I50.22 - Chronic systolic (congestive) heart failure Code(s): I50.20 - Unspecified systolic (congestive) heart failure Status: Chronic Assessment and Plan: systolic heart failure with EF off 25-30% on echocardiogram done on 03/13/2020. - Will be cautious with fluids in the face off severe sepsis (8) DVT prophylaxis: Code(s): Z29.9 - Encounter for prophylactic measures, unspecified Status: Acute Assessment and Plan: DVT prophylaxis; therapeutic Lovenox stress ulcer prophylaxis: Protonix Additional Plan discussed with Christian Iyer, at 1- [phone], this was the on-call Phone line for the state guardian. Christian understood that the patient probably needs to be a DNR, asked me to log on to develop website [email or web address] and printout the co
--- NOTE | 2020-06-09 16:33 | P.PNIM_ITS ---
Progress Note: A&P Assessment and Plan (1) Acute respiratory failure: Code(s): J96.00 - Acute respiratory failure, unspecified whether with hypoxia or hypercapnia Status: Acute Assessment and Plan: Patient developed respiratory failure with pending collapse on 06/08 requiring intubation. [place] to be multifactorial from COVID, aspiration PNA and CHF. Patient intuabted and stabilized. ABG this morning stable. Wean vent as tolerated (2) Severe sepsis: Code(s): A41.9 - Sepsis, unspecified organism; R65.20 - Severe sepsis without septic shock Status: Acute Assessment and Plan: Severe sepsis with PAWEL, elevated lactic and respiratory failure. Patient had mildly elevated lactic acid on admission but worsened to 5.8 prior to being intubated on 06/08. Patient stabilized now. Not requiring pressors (3) COVID-19: Code(s): U07.1 - COVID-19 Status: Acute Assessment and Plan: * 06/08 patient transition to ICU status due to impending respiratory failure * Could not determine esdrasnet's code status with guardian over the weekend so patient intubated * LDH >94702, Ferritin >2000, CRP 8.6, DD 5.14 * continue dexamethasone * convalescent plasma ordered * No remdisivir due to LFTs > 3xNL * Continue droplet, airborne, contact isolation and precautions (4) Pneumonia: Qualifiers: Laterality: unspecified laterality Lung location: unspecified part of lung Pneumonia type: due to unspecified organism Qualified Code(s): J18.9 - Pneumonia, unspecified organism Code(s): J18.9 - Pneumonia, unspecified organism Status: Acute Assessment and Plan: * CXR today reviewed showing airspace opacities of the right mid and upper lung zones and developing left basilar airspace opacity * currently receiving vancomycin and Primaxin * BCx NGTD (5) Atrial fibrillation with rapid ventricular response: Code(s): I48.91 - Unspecified atrial fibrillation Status: Acute Assessment and Plan: * rate now controlled; NSR by tele now * Eliquis on hold; Lovenox therapeutic dosing started * diltiazem stopped; Hold on scheduled diltiazem or BB since HR in the 50's (6) Elevated LFTs: Code(s): R79.89 - Other specified abnormal findings of blood chemistry Status: Acute Assessment and Plan: * AST has climbed to 6351 and ALT 2505 * RUQ US showing cholelithiasis, gallbladder wall thickening, and perichol ecystic fluid * Likely due to sepsis/shock liver +/- GB disease but felt less likely to be GB disease. * Appreciate GenSurg input (7) Metabolic encephalopathy: Code(s): G93.41 - Metabolic encephalopathy Status: Acute Assessment and Plan: * currently patient is sedated but was oriented to person only prior to intubation * He did state that he does not want to go on living like this * His prognosis with severe pneumonia, COVID-19, kidney failure, heart failure, dementia, diabetes, and schizophrenia is very poor. (8) Elevated troponin: Code(s): R79.89 - Other specified abnormal findings of blood chemistry Status: Acute Assessment and Plan: * Trop elevated to 0.46 but overall flat * Due to sepsis, PAWEL, afib/rvr * No ACS (9) Schizophrenia: Qualifiers: Schizophrenia type: other Qualified Code(s): F20.89 - Other schizophrenia Code(s): F20.9 - Schizophrenia, unspecified Status: Chronic Assessment and Plan: * Continue antipsychotic thera
--- NOTE | 2020-06-09 16:33 | PM.IMPN ---
Progress Note: A&P Assessment and Plan (1) Acute respiratory failure: Code(s): J96.00 - Acute respiratory failure, unspecified whether with hypoxia or hypercapnia Status: Acute Assessment and Plan: Patient developed respiratory failure with pending collapse on 06/08 requiring intubation. [place] to be multifactorial from COVID, aspiration PNA and CHF. Patient intuabted and stabilized. ABG this morning stable. Wean vent as tolerated (2) Severe sepsis: Code(s): A41.9 - Sepsis, unspecified organism; R65.20 - Severe sepsis without septic shock Status: Acute Assessment and Plan: Severe sepsis with PAWEL, elevated lactic and respiratory failure. Patient had mildly elevated lactic acid on admission but worsened to 5.8 prior to being intubated on 06/08. Patient stabilized now. Not requiring pressors (3) COVID-19: Code(s): U07.1 - COVID-19 Status: Acute Assessment and Plan: 06/08 patient transition to ICU status due to impending respiratory failure Could not determine edsrasnet's code status with guardian over the weekend so patient intubated LDH >69369, Ferritin >2000, CRP 8.6, DD 5.14 continue dexamethasone convalescent plasma ordered No remdisivir due to LFTs > 3xNL Continue droplet, airborne, contact isolation and precautions (4) Pneumonia: Qualifiers: Laterality: unspecified laterality Lung location: unspecified part of lung Pneumonia type: due to unspecified organism Qualified Code(s): J18.9 - Pneumonia, unspecified organism Code(s): J18.9 - Pneumonia, unspecified organism Status: Acute Assessment and Plan: CXR today reviewed showing airspace opacities of the right mid and upper lung zones and developing left basilar airspace opacity currently receiving vancomycin and Primaxin BCx NGTD (5) Atrial fibrillation with rapid ventricular response: Code(s): I48.91 - Unspecified atrial fibrillation Status: Acute Assessment and Plan: rate now controlled; NSR by tele now Eliquis on hold; Lovenox therapeutic dosing started diltiazem stopped; Hold on scheduled diltiazem or BB since HR in the 50's (6) Elevated LFTs: Code(s): R79.89 - Other specified abnormal findings of blood chemistry Status: Acute Assessment and Plan: AST has climbed to 6351 and ALT 2505 RUQ US showing cholelithiasis, gallbladder wall thickening, and pericholecystic fluid Likely due to sepsis/shock liver +/- GB disease but felt less likely to be GB disease. Appreciate GenSurg input (7) Metabolic encephalopathy: Code(s): G93.41 - Metabolic encephalopathy Status: Acute Assessment and Plan: currently patient is sedated but was oriented to person only prior to intubation He did state that he does not want to go on living like this His prognosis with severe pneumonia, COVID-19, kidney failure, heart failure, dementia, diabetes, and schizophrenia is very poor. (8) Elevated troponin: Code(s): R79.89 - Other specified abnormal findings of blood chemistry Status: Acute Assessment and Plan: Trop elevated to 0.46 but overall flat Due to sepsis, PAWEL, afib/rvr No ACS (9) Schizophrenia: Qualifiers: Schizophrenia type: other Qualified Code(s): F20.89 - Other schizophrenia Code(s): F20.9 - Schizophrenia, unspecified Status: Chronic Assessment and Plan: Continue antipsychotic therapy Hold divalproex due to elevated LFTs (10) Systolic congestive heart failure: Qualifiers: Heart failure chronicity: chronic Qualified Code(s): I50.22 - Chronic systolic (congestive) heart failure Code(s): I50.20 - Unspecified systolic (congestive) heart failure Status: Chronic Assessment and Plan: Echo in March showing EF 25-30% with Grade i diastolic dysfunction poor ejection fraction contributes to his ov
--- NOTE | 2020-06-09 16:38 | PM.CNGS ---
Assessment and Plan Assessment and plan (1) Abnormal findings on imaging of biliary tract: Code(s): R93.2 - Abnormal findings on diagnostic imaging of liver and biliary tract Status: Acute Assessment and Plan: I agree with Dr. Steen's assessment. Patient does have gallstones but I think it is unlikely he has cholecystitis. Before developing respiratory failure, he had no symptoms of this. The pericholecystic fluid and gallbladder wall thickening is not an infrequent finding when patients have congestive heart failure and some generalized edema. These findings were essentially noted on his CT scan of May 30 of this year as well although gallstones were not seen. Patient would not be a surgical candidate even if he did have cholecystitis. If his condition should change such that cholecystitis seems more likely, he could have ultrasound or CT-guided placement of a cholecystostomy tube if necessary. Patient has other findings, COVID-19, pneumonia, sepsis, respiratory failure, and repeated episodes of rapid atrial tachycardia would seem to make overall prognosis very poor. It appears that DNR status is being discussed and support withdrawal may be decided upon and the next couple of days. At present, I would not do additional testing or any intervention regarding gallbladder disease. (2) Elevated LFTs: Code(s): R79.89 - Other specified abnormal findings of blood chemistry Status: Acute Assessment and Plan: Agree with Dr. Steen. The significant elevation in AST and ALT while alk-phos and bilirubin stay normal are suggestive of shock liver and very unlikely to be due to cholecystitis. (3) Pneumonia due to COVID-19 virus: Code(s): U07.1 - COVID-19; J12.89 - Other viral pneumonia Status: Acute Assessment and Plan: Prognosis very poor in this gentleman with multiple comorbidities. (4) Severe sepsis: Code(s): A41.9 - Sepsis, unspecified organism; R65.20 - Severe sepsis without septic shock Status: Acute (5) Acute respiratory failure: Code(s): J96.00 - Acute respiratory failure, unspecified whether with hypoxia or hypercapnia Status: Acute (6) Atrial fibrillation with rapid ventricular response: Code(s): I48.91 - Unspecified atrial fibrillation Status: Acute History of Present Illness Consult details Consult date: 06/09/20 Reason for consult: gallstones Narrative: Patient is an 80-year-old man who is a [place] of the formerly [facility]. He resides at [facility]. He was admitted on June 07 with his 4th episode since April 21 of rapid atrial tachycardia. He was shocked in the emergency room and converted to sinus tachycardia. He has however tested positive for spears virus. He proceeded to respiratory failure the next day 06/08/2020. He is felt to have pneumonia due to Coronavirus and is currently being treated with dexamethasone and convalescent plasma. On admission his BNP was about 9000. His lactate initially was 2.7 but then on 06/08 increased to 5.8. Under intensive care unit care he has reduced this back down to 2.4 this morning. He remains on a mechanical ventilator with blood pressure is relatively low at 85 to 90 this morning. His liver enzymes had been abnormal. AST and ALT were elevated but this morning went quite high well into the thousands. Alkaline phosphatase has remain normal as has his bilirubin. an ultrasound of his gallbladder was done yesterday which showed gallstones. There was some pericholecystic fluid and gallbladder wall thickening noted as well. There was no Abraham sign and concern was expressed on the ultrasound report for cholecystitis. Patient is intubated on a mechanical ventilator and no history is able to be obtained from him. Extensive review of the records was done. He also had a CT scan of the abdomen on 05/30/2020 which was his last admission for atrial flutter. This was complicated by pulmonary
[2020-06-09 17:33] LABS: Glucose Point of Care 163 (65-105)
[2020-06-09] MEDS: SERTRALINE HCL 50 MG TABLET PO (17:53)
[2020-06-09 19:35] LABS: Hepatitis B Surface Antigen Negative (Negative)
[2020-06-09 19:41] LABS: HAV RESULT Negative (Negative); Hepatitis B Core IgM Result Negative (Negative)
[2020-06-09 19:52] LABS: Hepatitis C Virus Antibody Negative (Negative)
[2020-06-09] MEDS: DONEPEZIL HCL 10 MG TABLET PO (20:01)
[2020-06-09] MEDS: SODIUM CHLORIDE 0.9% IV 1,000 ML 50 ML IV CONT (23:16)
[2020-06-09] MEDS: INSULIN ASPART (*BKC) 100 UNITS/ML SUB-Q (23:18)
[2020-06-10] VITALS (36 sets, daily range): BP systolic 104–152; BP diastolic 53–78; PULSE 61–90; RESP 17–19; TEMP 35.5–37.8; O2SAT 97–100; BMI 23.3
[2020-06-10 00:02] LABS: Glucose Point of Care 255 (65-105)
[2020-06-10] MEDS: IPRATROPIUM BR 0.02% INH SOLN 0.5 MG/2.5 ML VIAL INHALATION ×4 (02:47→21:13)
[2020-06-10] MEDS: ALBUTEROL SULFATE NEB 2.5 MG/0.5 ML INH INHALATION ×4 (02:47→21:13)
[2020-06-10 04:38] LABS: Alveolar/Arterial O2 Gradient 80.5 mmHg; Base Excess ABG -10.5 mEq/l (+/-2.0); Carboxyhemoglobin 0.3 % THb (0-2.0); Fractional Inspired Oxygen 30 %; HCO3 ABG 13.4 mEq/l (22.0-26.0); Methemoglobin ABG 0.6 %THb (0-1.5); Oxygen Content ABG 15.4 %vol (16.0-22.0); Oxygen Saturation ABG 97.7 % (95.0-100.0); Oxyhemoglobin 95.8 % THb (90.0-100.0); PCO2 ABG 24.5 mmHg (35.0-45.0); PO2 ABG 104.6 mmHg (80.0-100.0); PO2 FiO2 Ratio Arterial Blood 3.49 %; Reduced Hemoglobin 3.3 %THb (0-5.0); Total Hemoglobin 11.3 g/dL (12.0-18.0); pH ABG 7.356 (7.350-7.450)
[2020-06-10 04:39] LABS: Device VENTILATOR; Modified Allen's Test Pass; Site Drawn RIGHT RADIAL
[2020-06-10 04:42] LABS: Arterial Blood Gas PEEP 5 cmH2O; Arterial Blood Gas Tidal Volume 500 ml; Arterial Blood Gas Vent Mode CMV; Arterial Blood Gas Ventilator rate 18 /MIN
[2020-06-10] MEDS: CENTRAL LINE FLUSH 10 ML IV PUSH ×4 (05:43→21:34)
[2020-06-10 05:55] LABS: Hematocrit 32.1 % (42.0-52.0); Hemoglobin 10.5 g/dL (14.0-18.0); Mean Corpuscular HGB Conc 32.7 g/dl (32-36); Mean Corpuscular Volume 88.7 fl (80-100); Mean Platelet Volume 10.8 fl (7.4-10.4); Platelet Count Result 126 k/mm3 (150-375); Red Blood Count 3.62 M/mm3 (4.6-6.20); Red Cell Distribution Width 14.5 % (11.5-14.5)
[2020-06-10 06:10] LABS: Lactic Acid Reflex 6.3 mmol/L (0.7-2.1)
[2020-06-10 06:10] LABS: Albumin Level 2.9 g/dL (3.5-5.1); Alkaline Phosphatase 74 U/L (38-126); Anion Gap 12 mmol/L (8-16); Bilirubin,Total 0.7 mg/dL (0.2-1.3); Blood Urea Nitrogen 24 mg/dL (9-20); Calcium 7.4 mg/dL (8.4-10.2); Carbon Dioxide 19 mmol/L (22-30); Chloride 110 mmol/L (98-107); Estimated CRCL calculation 53 ml/min; Estimated Glomerular Filt Rate > 60; Glucose 281 mg/dL (75-110); Magnesium 1.8 mg/dL (1.6-2.3); Phosphorus 3.1 mg/dL (2.5-4.5); Potassium 4.1 mmol/L (3.4-5.0); Sodium 141 mmol/L (137-145)
[2020-06-10] MEDS: INSULIN ASPART (*BKC) 100 UNITS/ML SUB-Q ×3 (06:40→17:16)
[2020-06-10 07:05] LABS: Alanine Aminotransferase 3525 U/L (4-50)
[2020-06-10 07:13] LABS: Aspartate Amino Transferase 6673 U/L (17-59)
[2020-06-10] MEDS: SACCHAROMYCES BOULARDII 250 MG CAPSULE PO (07:54)
[2020-06-10] MEDS: ENOXAPARIN 80 MG/0.8 ML SYRINGE 73 MG SUB-Q ×2 (07:55→21:33)
[2020-06-10] MEDS: polyethylene glycoL 3350 17 GM POWD.PACK PO (07:55)
[2020-06-10] MEDS: DEXAMETHASONE SOD PHOS INJ 4 MG/ML VIAL 6 MG IV PUSH (07:55)
[2020-06-10] MEDS: MEMANTINE 10 MG TABLET PO (07:56)
[2020-06-10] MEDS: PANTOPRAZOLE SODIUM IV 40 MG VIAL IV PUSH (07:56)
[2020-06-10] MEDS: FENTANYL 2,500MCG/NS250ML(*CRX 2,500 MCG/250 ML BAG IV CONT (08:10)
[2020-06-10 08:52] LABS: Reflex Lactic Acid Yes or No Add Lactic
[2020-06-10 09:28] LABS: Lactic Acid 4.8 mmol/L (0.7-2.1)
--- NOTE | 2020-06-10 09:32 | PM.PNCARD ---
Progress Note: A&P Assessment and Plan (1) COVID-19: Code(s): U07.1 - COVID-19 Status: Acute Assessment and Plan: currently intubated and sedated. Management per ICU team (2) Atrial fibrillation with rapid ventricular response: Code(s): I48.91 - Unspecified atrial fibrillation Status: Acute Assessment and Plan: He remains in sinus rhythm. Continue anticoagulation. Blood pressure is low to initiate CHF regimen at this point. Continue supportive care. Diuresis when able (3) Non-ST elevated myocardial infarction (non-STEMI): Code(s): I21.4 - Non-ST elevation (NSTEMI) myocardial infarction Status: Acute Assessment and Plan: likely secondary to AFib with RVR rather than plaque rupture. (4) Vascular dementia: Qualifiers: Dementia behavioral disturbance: with behavioral disturbance Qualified Code(s): F01.51 - Vascular dementia with behavioral disturbance Code(s): F01.50 - Vascular dementia without behavioral disturbance Status: Chronic Subjective Date/time seen: 06/10/20 09:32 Interval history: Admitted for shortness of breath atrial fibrillation with rapid ventricular response, COVID positive Date of service 06/10/2020: Patient intubated shortly after being seen yesterday. He is a multi-system organ failure. Rhythm does though remained stable and in sinus rhythm the now with PAC. Review of Systems Review of Systems: All systems reviewed & are unremarkable except as noted in HPI and below ROS unobtainable: Yes unobtainable due to medical condition Exam Narrative: Exam Narrative: intubated and sedated Const: General: comfortable HENMT: General nose exam: Normal nares present Eyes: Sclera: sclerae normal Neck: Neck: no JVD Cardio: Rate: regular rate Rhythm: regular rhythm Skin: General skin exam: normal color Neuro: Other: diminished muscle tone throughout Psych: Other: sedated Objective Data Vital Signs Vital Signs: Vital Signs - 24 hr 06/09/20 09:48 06/09/20 09:56 06/09/20 10:00 Temperature Pulse Rate 75 74 72 Respiratory Rate 18 18 Blood Pressure 104/50 L Pulse Oximetry 100 98 06/09/20 11:33 06/09/20 11:50 06/09/20 12:00 Temperature 37.7 C H 37.8 C H 37.7 C H Pulse Rate 72 69 67 Respiratory Rate 18 18 18 Blood Pressure 105/62 101/60 97/59 L Pulse Oximetry 100 99 99 06/09/20 12:31 06/09/20 13:00 06/09/20 14:00 Temperature 37.4 C Pulse Rate 65 64 64 Respiratory Rate 18 18 Blood Pressure 102/64 110/68 Pulse Oximetry 99 99 100 06/09/20 15:12 06/09/20 15:14 06/09/20 15:18 Temperature Pulse Rate 62 64 63 Respiratory Rate 18 18 Blood Pressure Pulse Oximetry 99 06/09/20 16:00 06/09/20 16:54 06/09/20 17:57 Temperature 37.1 C Pulse Rate 63 67 57 L Respiratory Rate 18 18 Blood Pressure 118/76 127/79 Pulse Oximetry 100 100 100 06/09/20 18:00 06/09/20 19:45 06/09/20 20:00 Temperature Pulse Rate 59 L 63 65 Respiratory Rate 18 18 18 Blood Pressure Pulse Oximetry 06/09/20 20:01 06/09/20 20:08 06/09/20 20:11 Temperature 36.4 C L Pulse Rate 68 64 63 Respiratory Rate 18 18 Blood Pressure 136/88 Pulse Oximetry 100 100 06/09/20 22:00 06/09/20 23:28 06/10/20 00:00 Temperature 35.9 C L Pulse Rate 67 76 66 Respiratory Rate 18 19 Blood Pressure 124/60 Pulse Oximetry 98 99 06/10/20 00:01 06/10/20 02:00 06/10/20 02:35 Temperature 35.5 C L 35.6 C L Pulse Rate 66 62 62 Respiratory Rate 19 18 18 Blood Pressure 147/74 H 106/53 L Pulse Oximetry 98 97 06/10/20 02:49 06/10/20 02:50 06/10/20 04:00 Temperature 36.1 C L Pulse Rate 61 62 66 Respiratory Rate 18 18 Blood Pressure 114/61 Pulse Oximetry 98 97 06/10/20 04:41 06/10/20 06:00 06/10/20 07:33 Temperature 36.6 C Pulse Rate 76 65 66 Respiratory Rate 18 18 Blood Pressure 104/58 L Pulse Oximetry 99 98 98 06/10/20 07:52 06/10/20 08:00
--- NOTE | 2020-06-10 10:37 | WPDGIPROGNO ---
Progress Note: A&P Additional Plan Patient remains intubated and sedated this morning. On exam abdomen remains soft nontender with no organomegaly. Labs reveal persistent LFT elevation. Total bilirubin 0.7, AST 6673. ALT 3525. Alk-phos 74. Impression 1. Elevated LFTs. Most suspicious for shock liver. They remain quite elevated today. Plan to monitor closely. Conservative management at this time suggested. 2. Gallstones. [place] to be asymptomatic. Surgery following to ensure these are not etiology for his elevated LFTs. Patient considered unsafe to send off the floor for HIDA scan. 3. Respiratory failure. Patient remains on the ventilator. 4. COVID positive pneumonia. 5. Non ST elevated [place]. Cardiology following. Subjective Date/time seen: 06/10/20 10:37 Objective Data Vital Signs Vital Signs: Vital Signs - 24 hr 06/09/20 11:33 06/09/20 11:50 06/09/20 12:00 Temperature 100 F H 100.1 F H 100 F H Pulse Rate 72 69 67 Respiratory Rate 18 18 18 Blood Pressure 105/62 101/60 97/59 L Pulse Oximetry 100 99 99 06/09/20 12:31 06/09/20 13:00 06/09/20 14:00 Temperature 99.4 F Pulse Rate 65 64 64 Respiratory Rate 18 18 Blood Pressure 102/64 110/68 Pulse Oximetry 99 99 100 06/09/20 15:12 06/09/20 15:14 06/09/20 15:18 Temperature Pulse Rate 62 64 63 Respiratory Rate 18 18 Blood Pressure Pulse Oximetry 99 06/09/20 16:00 06/09/20 16:54 06/09/20 17:57 Temperature 98.7 F Pulse Rate 63 67 57 L Respiratory Rate 18 18 Blood Pressure 118/76 127/79 Pulse Oximetry 100 100 100 06/09/20 18:00 06/09/20 19:45 06/09/20 20:00 Temperature Pulse Rate 59 L 63 65 Respiratory Rate 18 18 18 Blood Pressure Pulse Oximetry 06/09/20 20:01 06/09/20 20:08 06/09/20 20:11 Temperature 97.5 F L Pulse Rate 68 64 63 Respiratory Rate 18 18 Blood Pressure 136/88 Pulse Oximetry 100 100 06/09/20 22:00 06/09/20 23:28 11/02/20 00:00 Temperature 96.6 F L Pulse Rate 67 76 66 Respiratory Rate 18 19 Blood Pressure 124/60 Pulse Oximetry 98 99 06/10/20 00:01 06/10/20 02:00 06/10/20 02:35 Temperature 95.9 F L 96.0 F L Pulse Rate 66 62 62 Respiratory Rate 19 18 18 Blood Pressure 147/74 H 106/53 L Pulse Oximetry 98 97 06/10/20 02:49 06/10/20 02:50 06/10/20 04:00 Temperature 97.0 F L Pulse Rate 61 62 66 Respiratory Rate 18 18 Blood Pressure 114/61 Pulse Oximetry 98 97 06/10/20 04:41 06/10/20 06:00 06/10/20 07:33 Temperature 97.9 F Pulse Rate 76 65 66 Respiratory Rate 18 18 Blood Pressure 104/58 L Pulse Oximetry 99 98 98 06/10/20 07:52 06/10/20 08:00 06/10/20 08:08 Temperature 98.2 F Pulse Rate 65 66 68 Respiratory Rate 18 18 18 Blood Pressure 107/58 L Pulse Oximetry 98 98 06/10/20 08:09 06/10/20 08:10 06/10/20 08:11 Temperature Pulse Rate 68 67 66 Respiratory Rate 18 18 18 Blood Pressure Pulse Oximetry 06/10/20 09:11 06/10/20 09:13 06/10/20 09:57 Temperature Pulse Rate 66 67 66 Respiratory Rate 18 18 Blood Pressure Pulse Oximetry 06/10/20 10:00 Temperature Pulse Rate 69 Respiratory Rate 18 Blood Pressure 139/59 L Pulse Oximetry 98 Intake/Output Intake/Output: Intake & Output 06/08/20 06/09/20 06/09/20 06/10/20 00:59 00:59 23:59 23:59 Intake Total 987 Output Total 850 Balance 137 Meds/Results Medications: Active Medications Generic Name Dose Route Start Last Admin Trade Name Freq PRN Reason Stop Dose Admin Albuterol 2.5 mg 06/08/20 14:00 06/10/20 07:33 Albuterol Sulfate Neb 2.5 Mg/0.5 Ml Inh INHALATION 2.5 mg Q6HRT HELENE Administration Calcium Carbonate 250 mg 06/08/20 09:00 06/08/20 11:07 Calcium Carbonate (Oscal) 250 Mg Tablet PO Not Given BID HELENE Calcium Carbonate 500 mg 06/08/20 09:00 06/08/20 11:07 Calcium Carbonate (Oscal) 500 Mg Tablet PO Not Given BID [facility] Dexamethasone Sodium Phosphate 6 mg 06/09/20 0
[2020-06-10] MEDS: SODIUM CHLORIDE 0.9% IV 1,000 ML 100 ML IV CONT (12:15)
--- NOTE | 2020-06-10 12:16 | WPDINTPN ---
Progress Note: A&P Assessment and Plan (1) Acute respiratory failure: Code(s): J96.00 - Acute respiratory failure, unspecified whether with hypoxia or hypercapnia Status: Acute Assessment and Plan: acute respiratory failure likely multifactorial, COVID-19 pneumonia, aspiration, volume overload secondary to systolic heart failure - - patient was intubated on 06/08/2020 secondary impending respiratory failure - continue vancomycin and imipenem ( started on 06/08/2020) - patient started on fentanyl and Versed infusion for sedation, maintain RASS of 0 to -2, daily sedation vacation (2) Pneumonia due to COVID-19 virus: Code(s): U07.1 - COVID-19; J12.89 - Other viral pneumonia Status: Acute Assessment and Plan: SARS-CoV-2 PCR positive for COVID-19 - elevated inflammatory markers will continue to trend - continue dexamethasone, started on 06/08/2020 - elevated LFTs, will hold Remdesivir - patient received convalescent plasma - continue droplet, airborne, contact isolation and precautions (3) Severe sepsis: Code(s): A41.9 - Sepsis, unspecified organism; R65.20 - Severe sepsis without septic shock Status: Acute Assessment and Plan: patient with severe sepsis related to pneumonia - UA reflective of UTI - blood cultures negative x2 so far - urine cultures pending - continue antibiotics as above ( vancomycin and imipenem) - lactic acid elevated this morning - will give 1 L saline bolus - at 25% albumin - continue maintenance IV fluids - will maintain mean arterial pressures of > 65 mmHg. BP adequate at this time without any vasopressors (4) Elevated LFTs: Code(s): R79.89 - Other specified abnormal findings of blood chemistry Status: Acute Assessment and Plan: shock liver with significant elevation in LFTs. Monitor levels - right upper quadrant ultrasound showed Cholelithiasis, gallbladder wall thickening, and pericholecystic fluid. Sonographic features are consistent with cholecystitis. - appreciate GI and surgery consultation - negative hepatitis panel - check ammonia and coags (5) Atrial fibrillation with rapid ventricular response: Code(s): I48.91 - Unspecified atrial fibrillation Status: Acute Assessment and Plan: patient with atrial fibrillation with rapid ventricular rate in the ER requiring cardioversion. Started on Cardizem infusion and p.o. Cardizem which dropped his heart rate in the 50s, diltiazem was stopped - heart rate currently controlled patient is normal sinus rhythm with PACs - appreciate cardiology evaluation recommendations. - will continue therapeutic Lovenox and hold Eliquis for now - continue to monitor (6) Type 2 diabetes mellitus: Qualifiers: Diabetes mellitus terminal operations manager insulin use: without detention use Diabetes mellitus complication status: without complication Qualified Code(s): E11.9 - Type 2 diabetes mellitus without complications Code(s): E11.9 - Type 2 diabetes mellitus without complications Status: Chronic Assessment and Plan: Continue Accu-Cheks and sliding scale insulin - blood sugars within decent range (7) Systolic congestive heart failure: Qualifiers: Heart failure chronicity: chronic Qualified Code(s): I50.22 - Chronic systolic (congestive) heart failure Code(s): I50.20 - Unspecified systolic (congestive) heart failure Status: Chronic Assessment and Plan: systolic heart failure with EF off 25-30% on echocardiogram done on 03/13/2020. - Will be cautious with fluids in the face off severe sepsis - 1 L saline bolus in light of elevated lactic acid level (8) DVT prophylaxis: Code(s): Z29.9 - Encounter for prophylactic measures, unspecified Status: Acute Assessment and Plan: DVT prophylaxis; therapeutic Lovenox stress ulcer prophylaxis: Protonix Additional Plan resume tube feeding pat
[2020-06-10 12:33] LABS: Glucose Point of Care 268 (65-105)
[2020-06-10 16:20] LABS: Anion Gap 10 mmol/L (8-16); Blood Urea Nitrogen 21 mg/dL (9-20); Calcium 7.4 mg/dL (8.4-10.2); Carbon Dioxide 21 mmol/L (22-30); Chloride 111 mmol/L (98-107); Estimated CRCL calculation 58 ml/min; Estimated Glomerular Filt Rate > 60; Glucose 277 mg/dL (75-110); Magnesium 1.9 mg/dL (1.6-2.3); Sodium 142 mmol/L (137-145)
[2020-06-10 16:21] LABS: Ammonia < 9 umol/L (9-30)
[2020-06-10] MEDS: SODIUM CHLORIDE 0.9% IV 1,000 ML 999 ML IV CONT (16:23)
[2020-06-10 16:25] LABS: Lactic Acid Reflex 4.8 mmol/L (0.7-2.1)
[2020-06-10 16:35] LABS: INR 2.1; Prothrombin Time 23.7 Seconds (11.1-14.7)
--- NOTE | 2020-06-10 16:57 | P.PNIM_ITS ---
Progress Note: A&P Assessment and Plan (1) Acute respiratory failure: Code(s): J96.00 - Acute respiratory failure, unspecified whether with hypoxia or hypercapnia Status: Acute Assessment and Plan: Patient developed respiratory failure with pending collapse on 06/08 requiring intubation. Could not determine patinet's code status with guardian over the weekend so patient intubated 06/08. [place] to be multifactorial from COVID, aspiration PNA and CHF. Patient intuabted and stabilized. ABG this morning stable. Off sedation but not alert. DNR form filled out. (2) Severe sepsis: Code(s): A41.9 - Sepsis, unspecified organism; R65.20 - Severe sepsis without septic shock Status: Acute Assessment and Plan: Severe sepsis with PAWEL, elevated lactic, shock liver and respiratory failure. Patient had mildly elevated lactic acid on admission but worsened to 5.8 prior to being intubated on 06/08. Patient stabilized. Lactic acid worse today at 6.3 and INR now 2.1. Hgb slowly trending down. Continue IV abx. (3) COVID-19: Code(s): U07.1 - COVID-19 Status: Acute Assessment and Plan: * Could not determine patinet's code status with guardian over the weekend so patient intubated 06/08 * LDH >65519, Ferritin >2000, CRP 8.6, DD 5.14 yesterday * continue dexamethasone * received convalescent plasma * No remdisivir due to LFTs > 3xNL * Continue droplet, airborne, contact isolation and precautions (4) Pneumonia: Qualifiers: Laterality: unspecified laterality Lung location: unspecified part of lung Pneumonia type: due to unspecified organism Qualified Code(s): J18.9 - Pneumonia, unspecified organism Code(s): J18.9 - Pneumonia, unspecified organism Status: Acute Assessment and Plan: * CXR today reviewed showing improvement in xray findings * currently receiving vancomycin and Primaxin * BCx NGTD (5) Atrial fibrillation with rapid ventricular response: Code(s): I48.91 - Unspecified atrial fibrillation Status: Acute Assessment and Plan: * rate now controlled; NSR by tele now * Eliquis on hold; Lovenox therapeutic dosing started * diltiazem stopped; Hold on scheduled diltiazem or BB since HR in the 50's * Appreciate cardiology input (6) Elevated LFTs: Code(s): R79.89 - Other specified abnormal findings of blood chemistry Status: Acute Assessment and Plan: * AST continues to climb to 6673 and ALT 3525 * RUQ US showing cholelithiasis, gallbladder wall thickening, and pericholecystic fluid. Normal hepatopetal flow in the main portal vein. * Ammonia level negative. * Likely due to sepsis/shock liver +/- GB disease but felt less likely to be GB disease. Consider idiosyncratic response to medications. * Appreciate GenSurg and GI input (7) Metabolic encephalopathy: Code(s): G93.41 - Metabolic encephalopathy Status: Acute Assessment and Plan: Currently patient is sedated but was oriented to person only prior to intubation. Per the previous provider: He did state that he does not want to go on living like this. * His prognosis with severe pneumonia, COVID-19, kidney failure, shock liver, heart failure, dementia, diabetes, and schizophrenia is very poor. (8) Elevated troponin: Code(s): R79.89 - Other specified abnormal findings of blood chemistry Status: Acute Assessment and Plan: Trop elevated to 0.46 but overall flat felt due to sepsis, PAWEL, afib/rvr * No ACS.
--- NOTE | 2020-06-10 16:57 | PM.IMPN ---
Progress Note: A&P Assessment and Plan (1) Acute respiratory failure: Code(s): J96.00 - Acute respiratory failure, unspecified whether with hypoxia or hypercapnia Status: Acute Assessment and Plan: Patient developed respiratory failure with pending collapse on 06/08 requiring intubation. Could not determine patinet's code status with guardian over the weekend so patient intubated 06/08. [place] to be multifactorial from COVID, aspiration PNA and CHF. Patient intuabted and stabilized. ABG this morning stable. Off sedation but not alert. DNR form filled out. (2) Severe sepsis: Code(s): A41.9 - Sepsis, unspecified organism; R65.20 - Severe sepsis without septic shock Status: Acute Assessment and Plan: Severe sepsis with PAWEL, elevated lactic, shock liver and respiratory failure. Patient had mildly elevated lactic acid on admission but worsened to 5.8 prior to being intubated on 06/08. Patient stabilized. Lactic acid worse today at 6.3 and INR now 2.1. Hgb slowly trending down. Continue IV abx. (3) COVID-19: Code(s): U07.1 - COVID-19 Status: Acute Assessment and Plan: Could not determine patinet's code status with guardian over the weekend so patient intubated 06/08 LDH >31390, Ferritin >2000, CRP 8.6, DD 5.14 yesterday continue dexamethasone received convalescent plasma No remdisivir due to LFTs > 3xNL Continue droplet, airborne, contact isolation and precautions (4) Pneumonia: Qualifiers: Laterality: unspecified laterality Lung location: unspecified part of lung Pneumonia type: due to unspecified organism Qualified Code(s): J18.9 - Pneumonia, unspecified organism Code(s): J18.9 - Pneumonia, unspecified organism Status: Acute Assessment and Plan: CXR today reviewed showing improvement in xray findings currently receiving vancomycin and Primaxin BCx NGTD (5) Atrial fibrillation with rapid ventricular response: Code(s): I48.91 - Unspecified atrial fibrillation Status: Acute Assessment and Plan: rate now controlled; NSR by tele now Eliquis on hold; Lovenox therapeutic dosing started diltiazem stopped; Hold on scheduled diltiazem or BB since HR in the 50's Appreciate cardiology input (6) Elevated LFTs: Code(s): R79.89 - Other specified abnormal findings of blood chemistry Status: Acute Assessment and Plan: AST continues to climb to 6673 and ALT 3525 RUQ US showing cholelithiasis, gallbladder wall thickening, and pericholecystic fluid. Normal hepatopetal flow in the main portal vein. Ammonia level negative. Likely due to sepsis/shock liver +/- GB disease but felt less likely to be GB disease. Consider idiosyncratic response to medications. Appreciate GenSurg and GI input (7) Metabolic encephalopathy: Code(s): G93.41 - Metabolic encephalopathy Status: Acute Assessment and Plan: Currently patient is sedated but was oriented to person only prior to intubation. Per the previous provider: He did state that he does not want to go on living like this. His prognosis with severe pneumonia, COVID-19, kidney failure, shock liver, heart failure, dementia, diabetes, and schizophrenia is very poor. (8) Elevated troponin: Code(s): R79.89 - Other specified abnormal findings of blood chemistry Status: Acute Assessment and Plan: Trop elevated to 0.46 but overall flat felt due to sepsis, PAWEL, afib/rvr No ACS. (9) Schizophrenia: Qualifiers: Schizophrenia type: other Qualified Code(s): F20.89 - Other schizophrenia Code(s): F20.9 - Schizophrenia, unspecified Status: Chronic Assessment and Plan: Antipsychotic therapy stopped due to the worsening liver function. Divalproex also held due to elevated LFTs. Poor clearance could explain his continued sedation. (10) Systolic congestive
[2020-06-10] MEDS: ALBUMIN HUMAN 25% 25 GM/100 ML 100 ML IVPB (17:14)
[2020-06-10] MEDS: SERTRALINE HCL 50 MG TABLET PO (17:17)
[2020-06-10 17:38] LABS: Glucose Point of Care 232 (65-105)
[2020-06-11] VITALS (30 sets, daily range): BP systolic 128–172; BP diastolic 69–98; PULSE 70–84; RESP 17–22; TEMP 36.6–37.3; O2SAT 95–99
[2020-06-11] MEDS: ALBUMIN HUMAN 25% 25 GM/100 ML 100 ML IVPB ×3 (01:50→11:35)
[2020-06-11] MEDS: IPRATROPIUM BR 0.02% INH SOLN 0.5 MG/2.5 ML VIAL INHALATION ×4 (03:05→20:53)
[2020-06-11] MEDS: ALBUTEROL SULFATE NEB 2.5 MG/0.5 ML INH INHALATION ×4 (03:05→20:53)
[2020-06-11 05:07] LABS: Hematocrit 31.2 % (42.0-52.0); Hemoglobin 10.3 g/dL (14.0-18.0); Immature Platelet Fraction Pct 7.1 % (0.9-11.2); Mean Corpuscular Hemoglobin 28.9 pg (26-34); Mean Corpuscular Volume 87.4 fl (80-100); Platelet Count Result 117 k/mm3 (150-375); Red Blood Count 3.57 M/mm3 (4.6-6.20); Red Cell Distribution Width 14.4 % (11.5-14.5); White Blood Count 7.3 K/mm3 (4.5-10.0)
[2020-06-11 05:19] LABS: Partial Thromboplastin Time 38.3 SECONDS (22.3-36.8)
[2020-06-11 05:25] LABS: Lactic Acid Reflex 3.3 mmol/L (0.7-2.1)
[2020-06-11 05:25] LABS: Alveolar/Arterial O2 Gradient 59.8 mmHg; Base Excess ABG -3.9 mEq/l (+/-2.0); Carboxyhemoglobin 0.3 % THb (0-2.0); Device VENTILATOR; Fractional Inspired Oxygen 30 %; HCO3 ABG 18.9 mEq/l (22.0-26.0); Methemoglobin ABG 0.4 %THb (0-1.5); Modified Allen's Test Pass; Oxygen Content ABG 18.1 %vol (16.0-22.0); Oxygen Saturation ABG 98.5 % (95.0-100.0); Oxyhemoglobin 97.1 % THb (90.0-100.0); PCO2 ABG 28.6 mmHg (35.0-45.0); PO2 ABG 120.5 mmHg (80.0-100.0); PO2 FiO2 Ratio Arterial Blood 4.02 %; Reduced Hemoglobin 2.2 %THb (0-5.0); Site Drawn RIGHT RADIAL; Total Hemoglobin 13.1 g/dL (12.0-18.0); pH ABG 7.439 (7.350-7.450)
[2020-06-11 05:26] LABS: Arterial Blood Gas PEEP 5 cmH2O; Arterial Blood Gas Tidal Volume 500 ml; Arterial Blood Gas Vent Mode CMV; Arterial Blood Gas Ventilator rate 18 /MIN
[2020-06-11 05:35] LABS: D Dimer 4.76 ug/mL (<0.48)
[2020-06-11 05:45] LABS: Albumin Level 3.6 g/dL (3.5-5.1); Alkaline Phosphatase 86 U/L (38-126); Anion Gap 9 mmol/L (8-16); Bilirubin,Total 1.1 mg/dL (0.2-1.3); Blood Urea Nitrogen 20 mg/dL (9-20); CRP 7.1 mg/dL (<1.0); Calcium 8.2 mg/dL (8.4-10.2); Carbon Dioxide 24 mmol/L (22-30); Chloride 110 mmol/L (98-107); Estimated CRCL calculation 58 ml/min; Estimated Glomerular Filt Rate > 60; Glucose 272 mg/dL (75-110); Magnesium 2.2 mg/dL (1.6-2.3); Phosphorus 2.1 mg/dL (2.5-4.5); Potassium 3.9 mmol/L (3.4-5.0); Sodium 143 mmol/L (137-145)
[2020-06-11 06:22] LABS: Alanine Aminotransferase 2645 U/L (4-50); Aspartate Amino Transferase 2993 U/L (17-59); Lactate Dehydrogenase 2922 U/L (313-618)
[2020-06-11] MEDS: INSULIN ASPART (*BKC) 100 UNITS/ML SUB-Q ×3 (06:38→17:01)
[2020-06-11] MEDS: CENTRAL LINE FLUSH 10 ML IV PUSH ×4 (06:38→22:58)
[2020-06-11] MEDS: ENOXAPARIN 80 MG/0.8 ML SYRINGE 73 MG SUB-Q ×2 (07:32→22:57)
[2020-06-11] MEDS: polyethylene glycoL 3350 17 GM POWD.PACK PO (07:32)
[2020-06-11] MEDS: PANTOPRAZOLE SODIUM IV 40 MG VIAL IV PUSH (07:32)
[2020-06-11] MEDS: DEXAMETHASONE SOD PHOS INJ 4 MG/ML VIAL 6 MG IV PUSH (07:33)
[2020-06-11 08:02] LABS: Reflex Lactic Acid Yes or No Add Lactic
--- NOTE | 2020-06-11 08:28 | WPDGIPROGNO ---
Progress Note: A&P Additional Plan Patient remains on the ventilator. No significant change in status noted today. Abdomen reported to be benign. Labs reveal AST 2993 ALT 2645 is slight decline from yesterday. Impression 1. Elevated LFTs. Most consistent with shock liver period related to hypotensive event. Continuing to gradually resolve. Plan is to monitor conservatively at this point. 2. Gallstones. Appear to be asymptomatic. Surgery is aware of condition. 3. Respiratory failure on ventilator. 4. COVID positive pneumonia identified. Subjective Date/time seen: 06/11/20 08:28 Objective Data Vital Signs Vital Signs: Vital Signs - 24 hr 06/10/20 09:11 06/10/20 09:13 06/10/20 09:57 Temperature Pulse Rate 66 67 66 Respiratory Rate 18 18 Blood Pressure Pulse Oximetry 06/10/20 10:00 06/10/20 10:57 06/10/20 11:56 Temperature Pulse Rate 66 67 72 Respiratory Rate 18 18 Blood Pressure 139/59 L Pulse Oximetry 98 98 98 06/10/20 12:00 06/10/20 13:42 06/10/20 13:50 Temperature 97.6 F Pulse Rate 65 70 70 Respiratory Rate 18 18 18 Blood Pressure 152/78 H Pulse Oximetry 98 97 06/10/20 14:00 06/10/20 15:32 06/10/20 16:00 Temperature 97.6 F Pulse Rate 66 67 70 Respiratory Rate 18 18 18 Blood Pressure 109/59 L 118/73 Pulse Oximetry 97 97 97 06/10/20 17:19 06/10/20 18:00 06/10/20 20:00 Temperature 98 F Pulse Rate 71 89 70 Respiratory Rate 17 18 Blood Pressure 138/78 128/76 Pulse Oximetry 100 98 98 06/10/20 21:13 06/10/20 21:22 06/10/20 23:20 Temperature Pulse Rate 72 85 72 Respiratory Rate 18 18 Blood Pressure Pulse Oximetry 97 06/11/20 00:00 06/11/20 02:00 06/11/20 02:07 Temperature 98 F 98 F Pulse Rate 76 76 74 Respiratory Rate 18 18 Blood Pressure 172/98 H 157/92 H Pulse Oximetry 98 97 97 06/11/20 03:05 06/11/20 03:11 06/11/20 04:00 Temperature 97.8 F Pulse Rate 75 72 71 Respiratory Rate 18 18 18 Blood Pressure 140/90 Pulse Oximetry 97 06/11/20 04:44 06/11/20 07:25 06/11/20 07:26 Temperature Pulse Rate 78 83 82 Respiratory Rate 18 17 Blood Pressure Pulse Oximetry 97 06/11/20 07:42 06/11/20 08:00 Temperature 97.9 F Pulse Rate 81 75 Respiratory Rate 18 18 Blood Pressure 143/84 H Pulse Oximetry 97 97 Intake/Output Intake/Output: Intake & Output 06/09/20 06/09/20 06/10/20 06/11/20 00:59 23:59 23:59 23:59 Intake Total 2627 805 Output Total 1650 800 Balance 977 5 Meds/Results Medications: Active Medications Generic Name Dose Route Start Last Admin Trade Name Freq PRN Reason Stop Dose Admin Albuterol 2.5 mg 06/08/20 14:00 06/11/20 03:05 Albuterol Sulfate Neb 2.5 Mg/0.5 Ml Inh INHALATION 2.5 mg Q6HRT HELENE Administration Calcium Carbonate 250 mg 06/08/20 09:00 06/08/20 11:07 Calcium Carbonate (Oscal) 250 Mg Tablet PO Not Given BID HELENE Calcium Carbonate 500 mg 06/08/20 09:00 06/08/20 11:07 Calcium Carbonate (Oscal) 500 Mg Tablet PO Not Given BID HELENE Dexamethasone Sodium Phosphate 6 mg 06/09/20 09:00 06/11/20 07:33 Dexamethasone Sod Phos Inj 4 Mg/Ml Vial IV PUSH 06/18/20 09:01 6 mg DAILY HELENE Administration Dextrose 12.5 gm 06/07/20 19:49 Dextrose 50% 25 Gm/50 Ml Syringe IV PUSH PRN PRN Hypoglycemia Protocol Docusate Sodium 100 mg 06/08/20 09:00 06/08/20 11:07 Docusate Sodium 100 Mg Capsule PO Not Given DAILY HELENE Enoxaparin Sodium 73 mg 06/08/20 21:00 06/11/20 07:32 Enoxaparin 80 Mg/0.8 Ml Syringe SUB-Q 73 mg Q12HR HELENE Administration Glucagon 1 mg 06/07/20 19:49 Glucagon For Inj 1 Mg Vial IM PRN PRN Hypoglycemia Protocol Glucose 15 gm 06/07/20 19:49 Glucose Oral Gel 15 Gm Of Glucse In 37.5 Gm Tube PO PRN PRN Hypoglycemia Protocol Dextrose 1,000 mls @ 100 mls/hr 06/07/20 19:49 Dextrose 5% 1,000 Ml IVPB PRN PRN Hyp
[2020-06-11 09:22] LABS: Lactic Acid 2.8 mmol/L (0.7-2.1)
--- NOTE | 2020-06-11 09:40 | PM.PNCARD ---
Progress Note: A&P Assessment and Plan (1) COVID-19: Code(s): U07.1 - COVID-19 Status: Acute Assessment and Plan: currently intubated. Management per ICU team . Continue anticoagulation (2) Atrial fibrillation with rapid ventricular response: Code(s): I48.91 - Unspecified atrial fibrillation Status: Acute Assessment and Plan: He remains in sinus rhythm. Continue anticoagulation. will likely initiate some heart failure medications tomorrow (3) Non-ST elevated myocardial infarction (non-STEMI): Code(s): I21.4 - Non-ST elevation (NSTEMI) myocardial infarction Status: Acute Assessment and Plan: likely secondary to AFib with RVR rather than plaque rupture. (4) Vascular dementia: Qualifiers: Dementia behavioral disturbance: with behavioral disturbance Qualified Code(s): F01.51 - Vascular dementia with behavioral disturbance Code(s): F01.50 - Vascular dementia without behavioral disturbance Status: Chronic Subjective Date/time seen: 06/11/20 09:40 Interval history: Admitted for shortness of breath atrial fibrillation with rapid ventricular response, COVID positive Date of service 06/11/2020: Still intubated. Rhythm remains stable. Review of Systems Review of Systems: All systems reviewed & are unremarkable except as noted in HPI and below ROS unobtainable: Yes unobtainable due to medical condition Exam Narrative: Exam Narrative: intubated and sedated Const: General: comfortable HENMT: General nose exam: Normal nares present Cardio: Rate: regular rate Rhythm: regular rhythm Skin: General skin exam: normal color Psych: Other: Intubated Objective Data Vital Signs Vital Signs: Vital Signs - 24 hr 06/10/20 09:57 06/10/20 10:00 06/10/20 10:57 Temperature Pulse Rate 66 66 67 Respiratory Rate 18 Blood Pressure 139/59 L Pulse Oximetry 98 98 06/10/20 11:56 06/10/20 12:00 06/10/20 13:42 Temperature 36.4 C Pulse Rate 72 65 70 Respiratory Rate 18 18 18 Blood Pressure 152/78 H Pulse Oximetry 98 98 97 06/10/20 13:50 06/10/20 14:00 06/10/20 15:32 Temperature Pulse Rate 70 66 67 Respiratory Rate 18 18 18 Blood Pressure 109/59 L Pulse Oximetry 97 97 06/10/20 16:00 06/10/20 17:19 06/10/20 18:00 Temperature 36.4 C Pulse Rate 70 71 89 Respiratory Rate 18 17 Blood Pressure 118/73 138/78 Pulse Oximetry 97 100 98 06/10/20 20:00 06/10/20 21:13 06/10/20 21:22 Temperature 36.6 C Pulse Rate 70 72 85 Respiratory Rate 18 18 18 Blood Pressure 128/76 Pulse Oximetry 98 06/10/20 23:20 06/11/20 00:00 06/11/20 02:00 Temperature 36.6 C 36.6 C Pulse Rate 72 76 76 Respiratory Rate 18 18 Blood Pressure 172/98 H 157/92 H Pulse Oximetry 97 98 97 06/11/20 02:07 06/11/20 03:05 06/11/20 03:11 Temperature Pulse Rate 74 75 72 Respiratory Rate 18 18 Blood Pressure Pulse Oximetry 97 06/11/20 04:00 06/11/20 04:44 06/11/20 07:25 Temperature 36.6 C Pulse Rate 71 78 83 Respiratory Rate 18 18 Blood Pressure 140/90 Pulse Oximetry 97 97 06/11/20 07:26 06/11/20 07:42 06/11/20 08:00 Temperature 36.6 C Pulse Rate 82 81 74 Respiratory Rate 17 18 18 Blood Pressure 143/84 H Pulse Oximetry 97 97 Intake/Output Intake/Output: Intake & Output 06/09/20 06/09/20 06/10/20 06/11/20 00:59 23:59 23:59 23:59 Intake Total 2627 805 Output Total 1650 800 Balance 977 5 Meds/Results Medications: Active Medications Generic Name Dose Route Start Last Admin Trade Name Freq PRN Reason Stop Dose Admin Albuterol 2.5 mg 06/08/20 14:00 06/11/20 03:05 Albuterol Sulfate Neb 2.5 Mg/0.5 Ml Inh INHALATION 2.5 mg Q6HRT [facility] Administration Calcium Carbonate 250 mg 06/08/20 09:00 06/08/20 11:07 Calcium Carbonate (Oscal) 250 Mg Tablet PO Not Given BID [facility] Calcium Carbonate 500 mg 06/08/20 09:00 06/08/20 11:07 Calcium Carbonate (O
[2020-06-11 10:58] LABS: Ferritin > 2000.00 ng/mL (11.1-264)
--- NOTE | 2020-06-11 10:58 | PCDIET ---
Nutrition Follow-Up Complete: Nutrition Diagnosis: Inadequate infusion of enteral nutrition related to tube feeding hold as evidenced by tube feeding infusion of 20mL/hr vs estimated needs of 65mL/hr Glucerna 1.2. Nutrition Goal: Patient to meet estimated nutritional needs. Goal in progress. Patient tolerating Glucerna 1.2 at 40mL/hr. Would now consider gradual advancement toward 65mL/hr, as tolerated. Last recorded weight is 80.2 kg which is increased from last review. +I/O. Bowel Motility: BM x 3 on 06/08/20. Labs Reviewed: Hgb (10.3), Hct (31.2), Glu (272), PO4 (2.1), Alb (3.6), Ca (8.2) Meds Noted: Albumin, Albuterol, Decadron, Primaxin, Novolog, Atrovent, Miralax, Vancomycin Additional Notes: Coccyx with preventative Mepilex. No documented pressure ulcers. Nutrition Monitoring and Evaluation: Follow up every Wednesday/Wednesday. Follow daily in ICU rounds.
--- NOTE | 2020-06-11 11:42 | WPDINTPN ---
Progress Note: A&P Assessment and Plan (1) Acute respiratory failure: Code(s): J96.00 - Acute respiratory failure, unspecified whether with hypoxia or hypercapnia Status: Acute Assessment and Plan: acute respiratory failure likely multifactorial, COVID-19 pneumonia, aspiration, volume overload secondary to systolic heart failure - - patient was intubated on 06/08/2020 secondary impending respiratory failure - continue vancomycin and imipenem ( started on 06/08/2020) - currently off of sedation (2) Pneumonia due to COVID-19 virus: Code(s): U07.1 - COVID-19; J12.89 - Other viral pneumonia Status: Acute Assessment and Plan: SARS-CoV-2 PCR positive for COVID-19 - elevated inflammatory markers will continue to trend - continue dexamethasone, started on 06/08/2020 - elevated LFTs hence Remdesivir was not given - patient received convalescent plasma - continue droplet, airborne, contact isolation and precautions (3) Severe sepsis: Code(s): A41.9 - Sepsis, unspecified organism; R65.20 - Severe sepsis without septic shock Status: Acute Assessment and Plan: patient with severe sepsis related to pneumonia - UA reflective of UTI - blood cultures negative x2 so far - urine cultures negative for now - continue antibiotics as above ( vancomycin and imipenem) - lactic acid elevated this morning but has improved and trended down. some of it can be secondary to decreased hepatic clearance as blood pressure is normal or elevated - received 1 L saline bolus yesterday and 25% albumin - hold further IV fluids - will maintain mean arterial pressures of > 65 mmHg. BP adequate at this time without any vasopressors (4) Elevated LFTs: Code(s): R79.89 - Other specified abnormal findings of blood chemistry Status: Acute Assessment and Plan: shock liver with significant elevation in LFTs. levels are decreasing. monitor - right upper quadrant ultrasound showed Cholelithiasis, gallbladder wall thickening, and pericholecystic fluid. Sonographic features are consistent with cholecystitis. - appreciate GI and surgery consultation - negative hepatitis panel - unremarkable ammonia and coags (5) Atrial fibrillation with rapid ventricular response: Code(s): I48.91 - Unspecified atrial fibrillation Status: Acute Assessment and Plan: patient with atrial fibrillation with rapid ventricular rate in the ER requiring cardioversion. Started on Cardizem infusion and p.o. Cardizem which dropped his heart rate in the 50s, diltiazem was stopped - heart rate currently controlled patient is normal sinus rhythm with PACs - appreciate cardiology evaluation recommendations. - will continue therapeutic Lovenox and hold Eliquis for now - continue to monitor (6) Type 2 diabetes mellitus: Qualifiers: Diabetes mellitus intermediate insulin use: without intermediate use Diabetes mellitus complication status: without complication Qualified Code(s): E11.9 - Type 2 diabetes mellitus without complications Code(s): E11.9 - Type 2 diabetes mellitus without complications Status: Chronic Assessment and Plan: Continue Accu-Cheks and sliding scale insulin - blood sugars within decent range (7) Systolic congestive heart failure: Qualifiers: Heart failure chronicity: chronic Qualified Code(s): I50.22 - Chronic systolic (congestive) heart failure Code(s): I50.20 - Unspecified systolic (congestive) heart failure Status: Chronic Assessment and Plan: systolic heart failure with EF off 25-30% on echocardiogram done on 03/13/2020. - hold further IV fluids (8) DVT prophylaxis: Code(s): Z29.9 - Encounter for prophylactic measures, unspecified Status: Acute Assessment and Plan: DVT prophylaxis; therapeutic Lovenox stress ulcer prophylaxis: Protonix Additional Plan continue tube feeding p
[2020-06-11 11:48] LABS: Glucose Point of Care 238 (65-105)
--- NOTE | 2020-06-11 16:15 | P.PNIM_ITS ---
Progress Note: A&P Assessment and Plan (1) Acute respiratory failure: Code(s): J96.00 - Acute respiratory failure, unspecified whether with hypoxia or hypercapnia Status: Acute Assessment and Plan: Patient developed respiratory failure with pending collapse on 06/08 requiring intubation. [place] to be multifactorial from COVID, aspiration PNA and CHF. Patient intuabted and stabilized. . Wean vent as tolerated (2) Severe sepsis: Code(s): A41.9 - Sepsis, unspecified organism; R65.20 - Severe sepsis without septic shock Status: Acute Assessment and Plan: Severe sepsis with PAWEL, elevated lactic and respiratory failure. Patient had mildly elevated lactic acid on admission but worsened to 5.8 prior to being intubated on 06/08. Patient stabilized now. Not requiring pressors (3) COVID-19: Code(s): U07.1 - COVID-19 Status: Acute Assessment and Plan: * 06/08 patient transition to ICU status due to impending respiratory failure * Could not determine edilson's code status with guardian over the weekend so patient intubated * LDH >86987, Ferritin >2000, CRP 8.6, DD 5.14 * continue dexamethasone * convalescent plasma ordered * No remdisivir due to LFTs > 3xNL * Continue droplet, airborne, contact isolation and precautions (4) Pneumonia: Qualifiers: Laterality: unspecified laterality Lung location: unspecified part of lung Pneumonia type: due to unspecified organism Qualified Code(s): J18.9 - Pneumonia, unspecified organism Code(s): J18.9 - Pneumonia, unspecified organism Status: Acute Assessment and Plan: * CXR today reviewed showing airspace opacities of the right mid and upper lung zones and developing left basilar airspace opacity * currently receiving vancomycin and Primaxin * BCx NGTD (5) Atrial fibrillation with rapid ventricular response: Code(s): I48.91 - Unspecified atrial fibrillation Status: Acute Assessment and Plan: * rate now controlled; NSR by tele now * Eliquis on hold; Lovenox therapeutic dosing started * diltiazem stopped; Hold on scheduled diltiazem or BB since HR in the 50's (6) Elevated LFTs: Code(s): R79.89 - Other specified abnormal findings of blood chemistry Status: Acute Assessment and Plan: * AST has climbed to 6351 and now 2993 * RUQ US showing cholelithiasis, gallbladder wall thickening, and pericholecystic fluid * Likely due to sepsis/shock liver +/- GB disease but felt less likely to be GB disease. (7) Metabolic encephalopathy: Code(s): G93.41 - Metabolic encephalopathy Status: Acute Assessment and Plan: * currently patient is sedated but was oriented to person only prior to intubation * He did state that he does not want to go on living like this * His prognosis with severe pneumonia, COVID-19, kidney failure, heart failure, dementia, diabetes, and schizophrenia is very poor. (8) Elevated troponin: Code(s): R79.89 - Other specified abnormal findings of blood chemistry Status: Acute Assessment and Plan: * Trop elevated to 0.46 but overall flat * Due to sepsis, PAWEL, afib/rvr * No ACS (9) Schizophrenia: Qualifiers: Schizophrenia type: other Qualified Code(s): F20.89 - Other schizophrenia Code(s): F20.9 - Schizophrenia, unspecified Status: Chronic Assessment and Plan: * Continue antipsychotic therapy * Hold divalproex due to elevated LFTs
--- NOTE | 2020-06-11 16:15 | PM.IMPN ---
Progress Note: A&P Assessment and Plan (1) Acute respiratory failure: Code(s): J96.00 - Acute respiratory failure, unspecified whether with hypoxia or hypercapnia Status: Acute Assessment and Plan: Patient developed respiratory failure with pending collapse on 06/08 requiring intubation. [place] to be multifactorial from COVID, aspiration PNA and CHF. Patient intuabted and stabilized. . Wean vent as tolerated (2) Severe sepsis: Code(s): A41.9 - Sepsis, unspecified organism; R65.20 - Severe sepsis without septic shock Status: Acute Assessment and Plan: Severe sepsis with PAWEL, elevated lactic and respiratory failure. Patient had mildly elevated lactic acid on admission but worsened to 5.8 prior to being intubated on 06/08. Patient stabilized now. Not requiring pressors (3) COVID-19: Code(s): U07.1 - COVID-19 Status: Acute Assessment and Plan: 06/08 patient transition to ICU status due to impending respiratory failure Could not determine patinet's code status with guardian over the weekend so patient intubated LDH >97438, Ferritin >2000, CRP 8.6, DD 5.14 continue dexamethasone convalescent plasma ordered No remdisivir due to LFTs > 3xNL Continue droplet, airborne, contact isolation and precautions (4) Pneumonia: Qualifiers: Laterality: unspecified laterality Lung location: unspecified part of lung Pneumonia type: due to unspecified organism Qualified Code(s): J18.9 - Pneumonia, unspecified organism Code(s): J18.9 - Pneumonia, unspecified organism Status: Acute Assessment and Plan: CXR today reviewed showing airspace opacities of the right mid and upper lung zones and developing left basilar airspace opacity currently receiving vancomycin and Primaxin BCx NGTD (5) Atrial fibrillation with rapid ventricular response: Code(s): I48.91 - Unspecified atrial fibrillation Status: Acute Assessment and Plan: rate now controlled; NSR by tele now Eliquis on hold; Lovenox therapeutic dosing started diltiazem stopped; Hold on scheduled diltiazem or BB since HR in the 50's (6) Elevated LFTs: Code(s): R79.89 - Other specified abnormal findings of blood chemistry Status: Acute Assessment and Plan: AST has climbed to 6351 and now 2993 RUQ US showing cholelithiasis, gallbladder wall thickening, and pericholecystic fluid Likely due to sepsis/shock liver +/- GB disease but felt less likely to be GB disease. (7) Metabolic encephalopathy: Code(s): G93.41 - Metabolic encephalopathy Status: Acute Assessment and Plan: currently patient is sedated but was oriented to person only prior to intubation He did state that he does not want to go on living like this His prognosis with severe pneumonia, COVID-19, kidney failure, heart failure, dementia, diabetes, and schizophrenia is very poor. (8) Elevated troponin: Code(s): R79.89 - Other specified abnormal findings of blood chemistry Status: Acute Assessment and Plan: Trop elevated to 0.46 but overall flat Due to sepsis, PAWEL, afib/rvr No ACS (9) Schizophrenia: Qualifiers: Schizophrenia type: other Qualified Code(s): F20.89 - Other schizophrenia Code(s): F20.9 - Schizophrenia, unspecified Status: Chronic Assessment and Plan: Continue antipsychotic therapy Hold divalproex due to elevated LFTs (10) Systolic congestive heart failure: Qualifiers: Heart failure chronicity: chronic Qualified Code(s): I50.22 - Chronic systolic (congestive) heart failure Code(s): I50.20 - Unspecified systolic (congestive) heart failure Status: Chronic Assessment and Plan: Echo in March showing EF 25-30% with Grade i diastolic dysfunction poor ejection fraction contributes to his overall prognosis Monitor fluid status closely
[2020-06-11] MEDS: SERTRALINE HCL 50 MG TABLET PO (17:02)
[2020-06-11 17:31] LABS: Glucose Point of Care 250 (65-105)
[2020-06-11 21:05] LABS: Vancomycin Trough < 5.0 ug/mL (10.0-20.0)
[2020-06-12] VITALS (25 sets, daily range): BP systolic 120–158; BP diastolic 72–92; PULSE 61–89; RESP 17–24; TEMP 37.2–37.5; O2SAT 94–100
[2020-06-12] MEDS: INSULIN ASPART (*BKC) 100 UNITS/ML SUB-Q ×4 (00:48→17:34)
[2020-06-12 02:01] LABS: Glucose Point of Care 263 (65-105)
[2020-06-12] MEDS: ALBUTEROL SULFATE NEB 2.5 MG/0.5 ML INH INHALATION ×4 (02:01→19:38)
[2020-06-12] MEDS: IPRATROPIUM BR 0.02% INH SOLN 0.5 MG/2.5 ML VIAL INHALATION ×4 (02:02→19:38)
[2020-06-12] MEDS: CENTRAL LINE FLUSH 10 ML IV PUSH ×4 (04:56→23:18)
[2020-06-12] MEDS: LORazepam INJ (*CRX) 2 MG/ML VIAL 0.5 MG IV PUSH (05:03)
[2020-06-12 05:10] LABS: Hematocrit 31.4 % (42.0-52.0); Hemoglobin 10.5 g/dL (14.0-18.0); Immature Platelet Fraction Pct 7.5 % (0.9-11.2); Mean Corpuscular HGB Conc 33.4 g/dl (32-36); Mean Corpuscular Hemoglobin 29.1 pg (26-34); Mean Platelet Volume 11.4 fl (7.4-10.4); Platelet Count Result 105 k/mm3 (150-375); Red Blood Count 3.61 M/mm3 (4.6-6.20); Red Cell Distribution Width 14.6 % (11.5-14.5); White Blood Count 11.6 K/mm3 (4.5-10.0)
[2020-06-12 05:26] LABS: Alveolar/Arterial O2 Gradient 99.7 mmHg; Base Excess ABG -3.7 mEq/l (+/-2.0); Carboxyhemoglobin 0.3 % THb (0-2.0); Fractional Inspired Oxygen 30 %; Methemoglobin ABG 0.3 %THb (0-1.5); Oxygen Content ABG 15.6 %vol (16.0-22.0); Oxygen Saturation ABG 96.7 % (95.0-100.0); Oxyhemoglobin 94.9 % THb (90.0-100.0); PCO2 ABG 27.5 mmHg (35.0-45.0); PO2 ABG 81.9 mmHg (80.0-100.0); PO2 FiO2 Ratio Arterial Blood 2.73 %; Reduced Hemoglobin 4.5 %THb (0-5.0); Total Hemoglobin 11.6 g/dL (12.0-18.0); pH ABG 7.458 (7.350-7.450)
[2020-06-12 05:27] LABS: Arterial Blood Gas PEEP 5 cmH2O; Arterial Blood Gas Vent Mode CMV; Arterial Blood Gas Ventilator rate 18 /MIN; Device VENTILATOR; Modified Allen's Test Pass; Site Drawn RIGHT RADIAL
[2020-06-12 05:28] LABS: Alkaline Phosphatase 78 U/L (38-126); Anion Gap 12 mmol/L (8-16); Aspartate Amino Transferase 747 U/L (17-59); Bilirubin,Total 1.3 mg/dL (0.2-1.3); Blood Urea Nitrogen 22 mg/dL (9-20); Calcium 8.6 mg/dL (8.4-10.2); Carbon Dioxide 23 mmol/L (22-30); Chloride 109 mmol/L (98-107); Estimated CRCL calculation 65 ml/min; Estimated Glomerular Filt Rate > 60; Glucose 256 mg/dL (75-110); Magnesium 2.2 mg/dL (1.6-2.3); Phosphorus 2.9 mg/dL (2.5-4.5); Potassium 4.4 mmol/L (3.4-5.0); Sodium 144 mmol/L (137-145)
[2020-06-12 05:28] LABS: Arterial Blood Gas Tidal Volume 500 ml
[2020-06-12 05:30] LABS: Lactic Acid Reflex 4.2 mmol/L (0.7-2.1)
[2020-06-12 05:36] LABS: Alanine Aminotransferase 1455 U/L (4-50)
[2020-06-12 08:06] LABS: Reflex Lactic Acid Yes or No Add Lactic
[2020-06-12] MEDS: PANTOPRAZOLE SODIUM IV 40 MG VIAL IV PUSH (09:28)
[2020-06-12] MEDS: DEXAMETHASONE SOD PHOS INJ 4 MG/ML VIAL 6 MG IV PUSH (09:28)
[2020-06-12] MEDS: ENOXAPARIN 80 MG/0.8 ML SYRINGE 73 MG SUB-Q ×2 (09:28→23:18)
[2020-06-12] MEDS: polyethylene glycoL 3350 17 GM POWD.PACK PO (09:29)
--- NOTE | 2020-06-12 10:49 | PCDIET ---
ICU Rounding Note: Patient tolerating Glucerna 1.2 at 40mL/hr. MD order to increase to recommended goal rate of 65mL/hr. Last recorded weight is 81kg which is increased from last review. Bowel Motility: No new BM documented. Labs Reviewed: Hgb (10.5), Hct (31.4), Glu (256), BUN (22), Cl (109) Meds Noted: Albuterol, Decadron, Primaxin, Novolog, Atrovent, Protonix, Miralax, Vancomycin Additional Notes: Mepilex to coccyx (preventative). No pressure ulcers reported. Following daily in ICU rounds. Assessing/reassessing every Wednesday/Wednesday.
--- NOTE | 2020-06-12 10:56 | WPDINTPN ---
Progress Note: A&P Assessment and Plan (1) Acute respiratory failure: Code(s): J96.00 - Acute respiratory failure, unspecified whether with hypoxia or hypercapnia Status: Acute Assessment and Plan: acute respiratory failure likely multifactorial, COVID-19 pneumonia, aspiration, volume overload secondary to systolic heart failure - - patient was intubated on 06/08/2020 secondary impending respiratory failure - continue vancomycin and imipenem ( started on 06/08/2020) - currently off of sedation - decrease tidal volume to 450 - his chest x-ray is worse today. I will start him on low-dose Lasix (2) Pneumonia due to COVID-19 virus: Code(s): U07.1 - COVID-19; J12.89 - Other viral pneumonia Status: Acute Assessment and Plan: SARS-CoV-2 PCR positive for COVID-19 - elevated inflammatory markers will continue to trend - continue dexamethasone, started on 06/08/2020 - elevated LFTs hence Remdesivir was not given - patient received convalescent plasma - continue droplet, airborne, contact isolation and precautions (3) Severe sepsis: Code(s): A41.9 - Sepsis, unspecified organism; R65.20 - Severe sepsis without septic shock Status: Acute Assessment and Plan: patient with severe sepsis related to pneumonia - UA reflective of UTI - blood cultures negative x2 so far - urine cultures negative for now - continue imipenem. since patient's all cultures have been negative other discontinue vancomycin at this time - lactic acid elevated. some of it can be secondary to decreased hepatic clearance as blood pressure is normal or elevated - received 1 L saline bolus 06/10 and 25% albumin - hold further IV fluids as patient has congestive heart failure - will maintain mean arterial pressures of > 65 mmHg. BP adequate at this time without any vasopressors (4) Elevated LFTs: Code(s): R79.89 - Other specified abnormal findings of blood chemistry Status: Acute Assessment and Plan: shock liver with significant elevation in LFTs. levels are decreasing. monitor - right upper quadrant ultrasound showed Cholelithiasis, gallbladder wall thickening, and pericholecystic fluid. Sonographic features are consistent with cholecystitis. - appreciate GI and surgery consultation - negative hepatitis panel - unremarkable ammonia and coags (5) Atrial fibrillation with rapid ventricular response: Code(s): I48.91 - Unspecified atrial fibrillation Status: Acute Assessment and Plan: patient with atrial fibrillation with rapid ventricular rate in the ER requiring cardioversion. Started on Cardizem infusion and p.o. Cardizem which dropped his heart rate in the 50s, diltiazem was stopped - heart rate currently controlled patient is normal sinus rhythm with PACs - appreciate cardiology evaluation recommendations. - will continue therapeutic Lovenox and hold Eliquis for now - continue to monitor (6) Type 2 diabetes mellitus: Qualifiers: Diabetes mellitus skilled nursing insulin use: without skilled nursing use Diabetes mellitus complication status: without complication Qualified Code(s): E11.9 - Type 2 diabetes mellitus without complications Code(s): E11.9 - Type 2 diabetes mellitus without complications Status: Chronic Assessment and Plan: Continue Accu-Cheks and sliding scale insulin - add Lantus (7) Systolic congestive heart failure: Qualifiers: Heart failure chronicity: chronic Qualified Code(s): I50.22 - Chronic systolic (congestive) heart failure Code(s): I50.20 - Unspecified systolic (congestive) heart failure Status: Chronic Assessment and Plan: systolic heart failure with EF off 25-30% on echocardiogram done on 03/13/2020. - hold further IV fluids (8) DVT prophylaxis: Code(s): Z29.9 - Encounter for prophylactic measures, unspecified Status: Acute Assessment and Plan:
[2020-06-12] MEDS: LORazepam INJ (*CRX) 2 MG/ML VIAL 1 MG IV PUSH (11:15)
--- NOTE | 2020-06-12 13:18 | PM.PNCARD ---
Progress Note: A&P Assessment and Plan (1) COVID-19: Code(s): U07.1 - COVID-19 Status: Acute Assessment and Plan: currently intubated. Management per ICU team . Continue anticoagulation (2) Atrial fibrillation with rapid ventricular response: Code(s): I48.91 - Unspecified atrial fibrillation Status: Acute Assessment and Plan: He remains in sinus rhythm. Continue anticoagulation. Will start some low-dose metoprolol 12.5 mg p.o. b.i.d.. Would transition to long-acting metoprolol once extubated (3) Non-ST elevated myocardial infarction (non-STEMI): Code(s): I21.4 - Non-ST elevation (NSTEMI) myocardial infarction Status: Acute Assessment and Plan: likely secondary to AFib with RVR rather than plaque rupture. (4) Vascular dementia: Qualifiers: Dementia behavioral disturbance: with behavioral disturbance Qualified Code(s): F01.51 - Vascular dementia with behavioral disturbance Code(s): F01.50 - Vascular dementia without behavioral disturbance Status: Chronic Subjective Date/time seen: 06/12/20 13:18 Interval history: Admitted for shortness of breath atrial fibrillation with rapid ventricular response, COVID positive Date of service 06/12/2020: Still intubated. Rhythm remains stable. blood pressure quite stable at this point. Review of Systems Review of Systems: All systems reviewed & are unremarkable except as noted in HPI and below ROS unobtainable: Yes unobtainable due to medical condition Constitutional: Constitutional: Denies headache(s) ENT: Denies lip swelling and Denies epistaxis Cardiovascular: Cardiovascular: Reports dyspnea Gastrointestinal: Gastrointestinal: Denies hematemesis Genitourinary: Genitourinary: Denies hematuria Integumentary/Breasts: Skin/Breast: Denies unusual bruising Psychiatric: Psychiatric: Reports anxiety Hematologic/Lymphatic: Hematologic/Lymphatic: Denies easy bleeding Allergic/Immunologic: Allergic/Immunologic: Denies lip swelling Exam Narrative: Exam Narrative: intubated and sedated Const: General: comfortable HENMT: General nose exam: Normal nares present Cardio: Rate: regular rate Rhythm: regular rhythm Skin: General skin exam: normal color Neuro: Other: diminished muscle tone throughout Extrem: General: no edema Psych: Other: Intubated Objective Data Vital Signs Vital Signs: Vital Signs - 24 hr 06/11/20 13:59 06/11/20 14:00 06/11/20 14:22 Temperature 36.8 C Pulse Rate 79 77 80 Respiratory Rate 18 18 Blood Pressure 171/81 H Pulse Oximetry 96 06/11/20 14:30 06/11/20 14:38 06/11/20 16:00 Temperature 36.9 C Pulse Rate 71 84 71 Respiratory Rate 18 19 Blood Pressure 156/69 H Pulse Oximetry 96 95 06/11/20 16:46 06/11/20 18:00 06/11/20 20:00 Temperature 37.1 C 37.3 C Pulse Rate 70 81 70 Respiratory Rate 20 18 Blood Pressure 133/85 128/81 Pulse Oximetry 97 97 99 06/11/20 20:53 06/11/20 21:00 06/11/20 22:00 Temperature 37.3 C Pulse Rate 72 70 83 Respiratory Rate 18 18 22 H Blood Pressure 151/86 H Pulse Oximetry 98 96 06/11/20 23:10 06/12/20 00:00 06/12/20 02:00 Temperature 37.4 C 37.2 C Pulse Rate 83 71 61 Respiratory Rate 20 18 Blood Pressure 158/72 H 154/90 H Pulse Oximetry 95 94 95 06/12/20 02:02 06/12/20 02:09 06/12/20 04:00 Temperature 37.3 C Pulse Rate 66 74 78 Respiratory Rate 18 18 18 Blood Pressure 148/78 H Pulse Oximetry 95 96 06/12/20 05:00 06/12/20 06:00 06/12/20 08:00 Temperature 37.4 C 37.3 C Pulse Rate 80 89 66 Respiratory Rate 22 H 18 Blood Pressure 137/83 135/74 Pulse Oximetry 99 100 06/12/20 09:00 06/12/20 09:10 06/12/20 10:00 Temperature Pulse Rate 83 85 66 Respiratory Rate 18 18 Blood Pressure Pulse Oximetry 99 Intake/Output Intake/Output: Intake & Output 06/09/20 06/10/20 06/11/20 06/12/20 23:59 23:59 23:59 23:59 Intake Total 28
--- NOTE | 2020-06-12 13:38 | P.PNIM_ITS ---
Progress Note: A&P Assessment and Plan (1) Acute respiratory failure: Code(s): J96.00 - Acute respiratory failure, unspecified whether with hypoxia or hypercapnia Status: Acute Assessment and Plan: Patient developed respiratory failure with pending collapse on 06/08 requiring intubation. [place] to be multifactorial from COVID, aspiration PNA and CHF. Patient intuabted and stabilized. . Wean vent as tolerated (2) Severe sepsis: Code(s): A41.9 - Sepsis, unspecified organism; R65.20 - Severe sepsis without septic shock Status: Acute Assessment and Plan: Severe sepsis with PAWEL, elevated lactic and respiratory failure. Patient had mildly elevated lactic acid on admission but worsened to 5.8 prior to being intubated on 06/08. Patient stabilized now. Not requiring pressors (3) COVID-19: Code(s): U07.1 - COVID-19 Status: Acute Assessment and Plan: * 06/08 patient transition to ICU status due to impending respiratory failure * Could not determine esdrasnet's code status with guardian over the weekend so patient intubated * LDH >07827, Ferritin >2000, CRP 8.6, DD 5.14 * continue dexamethasone * convalescent plasma given 06/10 * No remdisivir due to LFTs > 3xNL * Continue droplet, airborne, contact isolation and precautions (4) Pneumonia: Qualifiers: Laterality: unspecified laterality Lung location: unspecified part of lung Pneumonia type: due to unspecified organism Qualified Code(s): J18.9 - Pneumonia, unspecified organism Code(s): J18.9 - Pneumonia, unspecified organism Status: Acute Assessment and Plan: * CXR reviewed showing airspace opacities of the right mid and upper lung zones and developing left basilar airspace opacity * currently receiving vancomycin and Primaxin * BCx NGTD (5) Atrial fibrillation with rapid ventricular response: Code(s): I48.91 - Unspecified atrial fibrillation Status: Acute Assessment and Plan: * rate now controlled; NSR by tele now * Eliquis on hold; Lovenox therapeutic dosing started * diltiazem stopped; Hold on scheduled diltiazem or BB since HR in the 50's (6) Elevated LFTs: Code(s): R79.89 - Other specified abnormal findings of blood chemistry Status: Acute Assessment and Plan: * AST has climbed to 6351 and now 747 * RUQ US showing cholelithiasis, gallbladder wall thickening, and pericholecystic fluid * Likely due to sepsis/shock liver +/- GB disease but felt less likely to be GB disease. (7) Metabolic encephalopathy: Code(s): G93.41 - Metabolic encephalopathy Status: Acute Assessment and Plan: * currently patient is sedated but was oriented to person only prior to intubation * He did state that he does not want to go on living like this * His prognosis with severe pneumonia, COVID-19, kidney failure, heart failure, dementia, diabetes, and schizophrenia is very poor. (8) Elevated troponin: Code(s): R79.89 - Other specified abnormal findings of blood chemistry Status: Acute Assessment and Plan: * Trop elevated to 0.46 but overall flat * Due to sepsis, PAWEL, afib/rvr * No ACS (9) Schizophrenia: Qualifiers: Schizophrenia type: other Qualified Code(s): F20.89 - Other [place] izophrenia Code(s): F20.9 - Schizophrenia, unspecified Status: Chronic Assessment and Plan: * Continue antipsychotic therapy * Hold divalproex due to elevated LFTs
--- NOTE | 2020-06-12 13:38 | PM.IMPN ---
Progress Note: A&P Assessment and Plan (1) Acute respiratory failure: Code(s): J96.00 - Acute respiratory failure, unspecified whether with hypoxia or hypercapnia Status: Acute Assessment and Plan: Patient developed respiratory failure with pending collapse on 06/08 requiring intubation. [place] to be multifactorial from COVID, aspiration PNA and CHF. Patient intuabted and stabilized. . Wean vent as tolerated (2) Severe sepsis: Code(s): A41.9 - Sepsis, unspecified organism; R65.20 - Severe sepsis without septic shock Status: Acute Assessment and Plan: Severe sepsis with PAWEL, elevated lactic and respiratory failure. Patient had mildly elevated lactic acid on admission but worsened to 5.8 prior to being intubated on 06/08. Patient stabilized now. Not requiring pressors (3) COVID-19: Code(s): U07.1 - COVID-19 Status: Acute Assessment and Plan: 06/08 patient transition to ICU status due to impending respiratory failure Could not determine patinet's code status with guardian over the weekend so patient intubated LDH >60207, Ferritin >2000, CRP 8.6, DD 5.14 continue dexamethasone convalescent plasma given 06/10 No remdisivir due to LFTs > 3xNL Continue droplet, airborne, contact isolation and precautions (4) Pneumonia: Qualifiers: Laterality: unspecified laterality Lung location: unspecified part of lung Pneumonia type: due to unspecified organism Qualified Code(s): J18.9 - Pneumonia, unspecified organism Code(s): J18.9 - Pneumonia, unspecified organism Status: Acute Assessment and Plan: CXR reviewed showing airspace opacities of the right mid and upper lung zones and developing left basilar airspace opacity currently receiving vancomycin and Primaxin BCx NGTD (5) Atrial fibrillation with rapid ventricular response: Code(s): I48.91 - Unspecified atrial fibrillation Status: Acute Assessment and Plan: rate now controlled; NSR by tele now Eliquis on hold; Lovenox therapeutic dosing started diltiazem stopped; Hold on scheduled diltiazem or BB since HR in the 50's (6) Elevated LFTs: Code(s): R79.89 - Other specified abnormal findings of blood chemistry Status: Acute Assessment and Plan: AST has climbed to 6351 and now 747 RUQ US showing cholelithiasis, gallbladder wall thickening, and pericholecystic fluid Likely due to sepsis/shock liver +/- GB disease but felt less likely to be GB disease. (7) Metabolic encephalopathy: Code(s): G93.41 - Metabolic encephalopathy Status: Acute Assessment and Plan: currently patient is sedated but was oriented to person only prior to intubation He did state that he does not want to go on living like this His prognosis with severe pneumonia, COVID-19, kidney failure, heart failure, dementia, diabetes, and schizophrenia is very poor. (8) Elevated troponin: Code(s): R79.89 - Other specified abnormal findings of blood chemistry Status: Acute Assessment and Plan: Trop elevated to 0.46 but overall flat Due to sepsis, PAWEL, afib/rvr No ACS (9) Schizophrenia: Qualifiers: Schizophrenia type: other Qualified Code(s): F20.89 - Other schizophrenia Code(s): F20.9 - Schizophrenia, unspecified Status: Chronic Assessment and Plan: Continue antipsychotic therapy Hold divalproex due to elevated LFTs (10) Systolic congestive heart failure: Qualifiers: Heart failure chronicity: chronic Qualified Code(s): I50.22 - Chronic systolic (congestive) heart failure Code(s): I50.20 - Unspecified systolic (congestive) heart failure Status: Chronic Assessment and Plan: Echo in March showing EF 25-30% with Grade i diastolic dysfunction poor ejection fraction contributes to his overall prognosis Monitor fluid status closely (1
[2020-06-12] MEDS: FUROSEMIDE INJ 40 MG/4 ML VIAL IV PUSH (14:00)
[2020-06-12] MEDS: INSULIN GLARGINE (*BKC) 100 UNITS/ML 15 UNITS SUB-Q (14:01)
[2020-06-12 16:40] LABS: Glucose Point of Care 307 (65-105)
--- NOTE | 2020-06-12 17:03 | WPDGIPROGNO ---
Progress Note: A&P Additional Plan Patient remains intubated in the ICU. Physical exam reveals abdomen to be benign. Labs reveal a decline in liver function test total bilirubin 1.3, AST 747, ALT 1455, alk-phos 78, hepatitis viral serologies are negative. Impression 1. Elevated LFTs. Continued improved. Most consistent with shock liver. Continue observation conservative therapy. 2. Gallstones. [place] to be asymptomatic. Surgery aware and following at this time no treatment planned. 3. Respiratory failure. Patient remains on ventilator. 4. COVID positive pneumonia. 5. Atrial fibrillation. Subjective Date/time seen: 06/12/20 17:03 Objective Data Vital Signs Vital Signs: Vital Signs - 24 hr 06/11/20 18:00 06/11/20 20:00 06/11/20 20:53 Temperature 98.8 F 99.1 F Pulse Rate 81 70 72 Respiratory Rate 20 18 18 Blood Pressure 133/85 128/81 Pulse Oximetry 97 99 98 06/11/20 21:00 06/11/20 22:00 06/11/20 23:10 Temperature 99.1 F Pulse Rate 70 83 83 Respiratory Rate 18 22 H Blood Pressure 151/86 H Pulse Oximetry 96 95 06/12/20 00:00 06/12/20 02:00 06/12/20 02:02 Temperature 99.3 F 98.9 F Pulse Rate 71 61 66 Respiratory Rate 20 18 18 Blood Pressure 158/72 H 154/90 H Pulse Oximetry 94 95 95 06/12/20 02:09 06/12/20 04:00 06/12/20 05:00 Temperature 99.1 F Pulse Rate 74 78 80 Respiratory Rate 18 18 Blood Pressure 148/78 H Pulse Oximetry 96 06/12/20 06:00 06/12/20 08:00 06/12/20 09:00 Temperature 99.3 F 99.1 F Pulse Rate 89 66 83 Respiratory Rate 22 H 18 18 Blood Pressure 137/83 135/74 Pulse Oximetry 99 100 99 06/12/20 09:10 06/12/20 10:00 06/12/20 11:40 Temperature 99.2 F Pulse Rate 85 67 85 Respiratory Rate 18 19 Blood Pressure 131/79 Pulse Oximetry 99 99 06/12/20 12:00 06/12/20 14:00 06/12/20 14:50 Temperature 99.5 F 99.1 F Pulse Rate 65 83 66 Respiratory Rate 18 18 18 Blood Pressure 134/77 125/86 Pulse Oximetry 100 97 100 06/12/20 15:00 Temperature Pulse Rate 68 Respiratory Rate 18 Blood Pressure Pulse Oximetry Intake/Output Intake/Output: Intake & Output 06/09/20 06/10/20 06/11/20 06/12/20 23:59 23:59 23:59 23:59 Intake Total 2877 1795 911 Output Total 1650 1500 875 Balance 1227 295 36 Meds/Results Medications: Active Medications Generic Name Dose Route Start Last Admin Trade Name Freq PRN Reason Stop Dose Admin Albuterol 2.5 mg 06/08/20 14:00 06/12/20 14:59 Albuterol Sulfate Neb 2.5 Mg/0.5 Ml Inh INHALATION 2.5 mg Q6HRT HELENE Administration Calcium Carbonate 250 mg 06/08/20 09:00 06/08/20 11:07 Calcium Carbonate (Oscal) 250 Mg Tablet PO Not Given BID HELENE Calcium Carbonate 500 mg 06/08/20 09:00 06/08/20 11:07 Calcium Carbonate (Oscal) 500 Mg Tablet PO Not Given BID [facility] Dexamethasone Sodium Phosphate 6 mg 06/09/20 09:00 06/12/20 09:28 Dexamethasone Sod Phos Inj 4 Mg/Ml Vial IV PUSH 06/18/20 09:01 6 mg DAILY HELENE Administration Dextrose 12.5 gm 06/07/20 19:49 Dextrose 50% 25 Gm/50 Ml Syringe IV PUSH PRN PRN Hypoglycemia Protocol Docusate Sodium 100 mg 06/08/20 09:00 06/08/20 11:07 Docusate Sodium 100 Mg Capsule PO Not Given DAILY HELENE Enoxaparin Sodium 73 mg 06/08/20 21:00 06/12/20 09:28 Enoxaparin 80 Mg/0.8 Ml Syringe SUB-Q 73 mg Q12HR HELENE Administration Fentanyl Citrate 25 mcg 06/12/20 10:55 Fentanyl Citrate Inj (*Crx) 100 Mcg/2 Ml Vial IV PUSH Q1H PRN Pain while on Vent Glucagon 1 mg 06/07/20 19:49 Glucagon For Inj 1 Mg Vial IM PRN PRN Hypoglycemia Protocol Glucose 15 gm 06/07/20 19:49 Glucose Oral Gel 15 Gm Of Glucse In 37.5 Gm Tube PO PRN PRN Hypoglycemia Protocol Dextrose 1,000 mls @ 100 mls/hr 06/07/20 19:49 Dextrose 5% 1,000 Ml IVPB PRN PRN Hypoglycemia Protocol Imipenem/Cilastatin Sodium 500 mg in 100 mls @ 300 mls/
[2020-06-12] MEDS: SERTRALINE HCL 50 MG TABLET PO (17:33)
[2020-06-12 20:39] LABS: Glucose Point of Care 225 (65-105)
[2020-06-12] MEDS: METOPROLOL TARTRATE 12.5 MG TABLET PO (23:19)
[2020-06-13] VITALS (29 sets, daily range): BP systolic 135–161; BP diastolic 76–98; PULSE 60–86; RESP 17–25; TEMP 37.3–37.7; O2SAT 98–100
[2020-06-13 01:30] LABS: Glucose Point of Care 155 (65-105)
[2020-06-13] MEDS: IPRATROPIUM BR 0.02% INH SOLN 0.5 MG/2.5 ML VIAL INHALATION ×4 (02:30→21:19)
[2020-06-13] MEDS: ALBUTEROL SULFATE NEB 2.5 MG/0.5 ML INH INHALATION ×4 (02:30→21:18)
[2020-06-13 06:02] LABS: Hematocrit 32.2 % (42.0-52.0); Hemoglobin 10.6 g/dL (14.0-18.0); Immature Platelet Fraction Pct 8.9 % (0.9-11.2); Mean Corpuscular HGB Conc 32.9 g/dl (32-36); Mean Corpuscular Volume 85.2 fl (80-100); Mean Platelet Volume 12.4 fl (7.4-10.4); Platelet Count Result 96 k/mm3 (150-375); Red Blood Count 3.78 M/mm3 (4.6-6.20); Red Cell Distribution Width 14.6 % (11.5-14.5); White Blood Count 12.1 K/mm3 (4.5-10.0)
[2020-06-13 06:06] LABS: Alveolar/Arterial O2 Gradient 79.6 mmHg; Base Excess ABG 0.7 mEq/l (+/-2.0); Carboxyhemoglobin 0.3 % THb (0-2.0); Fractional Inspired Oxygen 30 %; HCO3 ABG 23.2 mEq/l (22.0-26.0); Methemoglobin ABG 0.3 %THb (0-1.5); Oxygen Content ABG 16.1 %vol (16.0-22.0); Oxyhemoglobin 96.4 % THb (90.0-100.0); PCO2 ABG 30.7 mmHg (35.0-45.0); PO2 ABG 98.2 mmHg (80.0-100.0); PO2 FiO2 Ratio Arterial Blood 3.27 %; Total Hemoglobin 11.8 g/dL (12.0-18.0); pH ABG 7.497 (7.350-7.450)
[2020-06-13 06:07] LABS: Arterial Blood Gas PEEP 5 cmH2O; Arterial Blood Gas Tidal Volume 500 ml; Arterial Blood Gas Vent Mode CMV; Arterial Blood Gas Ventilator rate 18 /MIN; Device VENTILATOR; Modified Allen's Test Unable to perform; Site Drawn LEFT RADIAL
[2020-06-13 06:16] LABS: D Dimer 1.57 ug/mL (<0.48)
[2020-06-13 06:17] LABS: Lactic Acid Reflex 2.4 mmol/L (0.7-2.1)
[2020-06-13 06:24] LABS: Albumin Level 3.6 g/dL (3.5-5.1); Alkaline Phosphatase 82 U/L (38-126); Anion Gap 9 mmol/L (8-16); Aspartate Amino Transferase 211 U/L (17-59); Bilirubin,Total 1.9 mg/dL (0.2-1.3); Blood Urea Nitrogen 29 mg/dL (9-20); Carbon Dioxide 30 mmol/L (22-30); Chloride 102 mmol/L (98-107); Estimated CRCL calculation 65 ml/min; Estimated Glomerular Filt Rate > 60; Glucose 225 mg/dL (75-110); Lactate Dehydrogenase 858 U/L (313-618); Magnesium 1.9 mg/dL (1.6-2.3); Phosphorus 3.5 mg/dL (2.5-4.5); Potassium 4.1 mmol/L (3.4-5.0); Sodium 141 mmol/L (137-145)
[2020-06-13 06:31] LABS: CRP 11.9 mg/dL (<1.0)
[2020-06-13 06:39] LABS: Alanine Aminotransferase 895 U/L (4-50)
[2020-06-13 08:58] LABS: Reflex Lactic Acid Yes or No Add Lactic
[2020-06-13] MEDS: fentaNYL CITRATE INJ (*CRX) 100 MCG/2 ML VIAL 25 MCG IV PUSH ×2 (09:15→19:27)
[2020-06-13] MEDS: ENOXAPARIN 80 MG/0.8 ML SYRINGE 73 MG SUB-Q ×2 (09:18→19:55)
[2020-06-13] MEDS: METOPROLOL TARTRATE 12.5 MG TABLET PO ×2 (09:19→10:54)
[2020-06-13] MEDS: DEXAMETHASONE SOD PHOS INJ 4 MG/ML VIAL 6 MG IV PUSH (09:19)
[2020-06-13] MEDS: PANTOPRAZOLE SODIUM IV 40 MG VIAL IV PUSH (09:20)
[2020-06-13 09:44] LABS: Glucose Point of Care 254 (65-105)
--- NOTE | 2020-06-13 09:54 | PM.PNCARD ---
Progress Note: A&P Assessment and Plan (1) COVID-19: Code(s): U07.1 - COVID-19 Status: Acute Assessment and Plan: currently intubated. Management per ICU team . Continue anticoagulation (2) Atrial fibrillation with rapid ventricular response: Code(s): I48.91 - Unspecified atrial fibrillation Status: Acute Assessment and Plan: He remains in sinus rhythm. Continue anticoagulation. Will increase metoprolol of 25 mg p.o. b.i.d.. Would transition to long-acting metoprolol once extubated (3) Non-ST elevated myocardial infarction (non-STEMI): Code(s): I21.4 - Non-ST elevation (NSTEMI) myocardial infarction Status: Acute Assessment and Plan: likely secondary to AFib with RVR rather than plaque rupture. (4) Vascular dementia: Qualifiers: Dementia behavioral disturbance: with behavioral disturbance Qualified Code(s): F01.51 - Vascular dementia with behavioral disturbance Code(s): F01.50 - Vascular dementia without behavioral disturbance Status: Chronic Subjective Date/time seen: 06/13/20 09:54 Interval history: Admitted for shortness of breath atrial fibrillation with rapid ventricular response, COVID positive Date of service 06/13/2020: Still intubated. Rhythm remains stable. blood pressure is elevated Review of Systems Review of Systems: All systems reviewed & are unremarkable except as noted in HPI and below ROS unobtainable: Yes unobtainable due to medical condition Eyes: Eyes: Denies blurry vision ENT: Denies lip swelling and Denies epistaxis Gastrointestinal: Gastrointestinal: Denies hematemesis Genitourinary: Genitourinary: Denies hematuria Integumentary/Breasts: Skin/Breast: Denies unusual bruising Hematologic/Lymphatic: Hematologic/Lymphatic: Denies easy bleeding Allergic/Immunologic: Allergic/Immunologic: Denies lip swelling Exam Narrative: Exam Narrative: intubated and sedated Const: General: comfortable HENMT: General nose exam: Normal nares present Neck: Neck: no JVD Cardio: Rate: regular rate Rhythm: regular rhythm Skin: General skin exam: normal color Neuro: Other: diminished muscle tone throughout Extrem: General: no edema Psych: Other: Intubated Objective Data Vital Signs Vital Signs: Vital Signs - 24 hr 06/12/20 10:00 06/12/20 11:40 06/12/20 12:00 Temperature 37.3 C 37.5 C Pulse Rate 67 85 65 Respiratory Rate 19 18 Blood Pressure 131/79 134/77 Pulse Oximetry 99 99 100 06/12/20 14:00 06/12/20 14:50 06/12/20 15:00 Temperature 37.3 C Pulse Rate 83 66 68 Respiratory Rate 18 18 18 Blood Pressure 125/86 Pulse Oximetry 97 100 06/12/20 16:00 06/12/20 17:48 06/12/20 18:00 Temperature 37.2 C 37.5 C Pulse Rate 79 78 83 Respiratory Rate 23 H 20 Blood Pressure 120/91 H 137/92 H Pulse Oximetry 100 100 100 06/12/20 19:39 06/12/20 19:44 06/12/20 19:48 Temperature Pulse Rate 78 80 85 Respiratory Rate 24 H 20 Blood Pressure Pulse Oximetry 100 06/12/20 20:00 06/12/20 22:00 06/12/20 23:09 Temperature 37.5 C 37.3 C Pulse Rate 74 73 69 Respiratory Rate 17 18 Blood Pressure 148/75 H 153/87 H Pulse Oximetry 100 100 100 06/13/20 00:00 06/13/20 02:00 06/13/20 02:33 Temperature 37.4 C 37.5 C Pulse Rate 68 60 72 Respiratory Rate 18 18 18 Blood Pressure 161/79 H 141/76 H Pulse Oximetry 100 98 99 06/13/20 02:38 06/13/20 04:00 06/13/20 05:52 Temperature 37.5 C Pulse Rate 69 72 63 Respiratory Rate 19 18 Blood Pressure 136/80 Pulse Oximetry 100 98 06/13/20 06:00 06/13/20 08:00 06/13/20 09:19 Temperature 37.5 C 37.5 C Pulse Rate 77 69 80 Respiratory Rate 18 18 Blood Pressure 152/87 H 155/79 H Pulse Oximetry 100 100 Intake/Output Intake/Output: Intake & Output 06/10/20 06/11/20 06/12/20 06/13/20 23:59 23:59 23:59 23:59 Intake Total 2877 1795 1688 880 Output Total 1650 1500 3275 1275 Balance [facility]7 295 -[phone] -39
[2020-06-13 10:01] LABS: Lactic Acid 2.6 mmol/L (0.7-2.1)
[2020-06-13] MEDS: INSULIN GLARGINE (*BKC) 100 UNITS/ML 15 UNITS SUB-Q (10:54)
[2020-06-13] MEDS: INSULIN ASPART (*BKC) 100 UNITS/ML SUB-Q ×2 (10:54→18:04)
[2020-06-13] MEDS: CENTRAL LINE FLUSH 10 ML IV PUSH ×4 (10:56→19:57)
--- NOTE | 2020-06-13 11:20 | PCDIET ---
ICU Rounding Note: Patient tolerating Glucerna 1.2 at 50mL/hr with residuals 65mL and below. Agree with continued advancement, as tolerated, toward goal of 65mL/hr. Last recorded weight is 81kg which is stable with last review. Bowel Motility: Last documented BM on 06/12/20. Labs Reviewed: Hgb (10.6), Hct (32.2), Glu (225), BUN (29) Meds Noted: Albuterol, Fentanyl, Primaxin, Lopressor, Protonix, Decadron, Lantus, Atrovent Additional Notes: Preventative Mepilex to coccyx. Following daily in ICU rounds. Assessing/reassessing every Wednesday/Wednesday.
--- NOTE | 2020-06-13 12:40 | WPDINTPN ---
Progress Note: A&P Assessment and Plan (1) Acute respiratory failure: Code(s): J96.00 - Acute respiratory failure, unspecified whether with hypoxia or hypercapnia Status: Acute Assessment and Plan: acute respiratory failure likely multifactorial, COVID-19 pneumonia, aspiration, volume overload secondary to systolic heart failure - - patient was intubated on 06/08/2020 secondary impending respiratory failure - continue imipenem ( started on 06/08/2020). vancomycin discontinued 06/12 as culture were negative - currently off of sedation - patient was started on Lasix yesterday and chest x-ray shows some improvement- - continue Lasix - patient was placed on pressure support ventilation 07/13 and will continue as tolerated and wean down pressure support if possible. on 12/11 he had high RSBI (2) Pneumonia due to COVID-19 virus: Code(s): U07.1 - COVID-19; J12.89 - Other viral pneumonia Status: Acute Assessment and Plan: SARS-CoV-2 PCR positive for COVID-19 - elevated inflammatory markers will continue to trend and improving - continue dexamethasone, started on 06/08/2020 - elevated LFTs hence Remdesivir was not given - patient received convalescent plasma - continue droplet, airborne, contact isolation and precautions (3) Severe sepsis: Code(s): A41.9 - Sepsis, unspecified organism; R65.20 - Severe sepsis without septic shock Status: Acute Assessment and Plan: patient with severe sepsis related to pneumonia - UA reflective of UTI - blood cultures negative x2 so far - urine cultures negative for now - continue imipenem. since patient's all cultures have been negative vancomycin discontinued 06/12 - lactic acid elevated. some of it can be secondary to decreased hepatic clearance as blood pressure is normal or elevated - received 1 L saline bolus 06/10 and 25% albumin - hold further IV fluids as patient has congestive heart failure - will maintain mean arterial pressures of > 65 mmHg. BP adequate at this time without any vasopressors (4) Elevated LFTs: Code(s): R79.89 - Other specified abnormal findings of blood chemistry Status: Acute Assessment and Plan: shock liver with significant elevation in LFTs. levels are decreasing. monitor - right upper quadrant ultrasound showed Cholelithiasis, gallbladder wall thickening, and pericholecystic fluid. Sonographic features are consistent with cholecystitis. - appreciate GI and surgery consultation - negative hepatitis panel - unremarkable ammonia and coags (5) Atrial fibrillation with rapid ventricular response: Code(s): I48.91 - Unspecified atrial fibrillation Status: Acute Assessment and Plan: patient with atrial fibrillation with rapid ventricular rate in the ER requiring cardioversion. Started on Cardizem infusion and p.o. Cardizem which dropped his heart rate in the 50s, diltiazem was stopped - heart rate currently controlled patient is normal sinus rhythm with PACs - appreciate cardiology evaluation recommendations. - will continue therapeutic Lovenox and hold Eliquis for now - continue to monitor (6) Type 2 diabetes mellitus: Qualifiers: Diabetes mellitus long winder tender insulin use: without retirement use Diabetes mellitus complication status: without complication Qualified Code(s): E11.9 - Type 2 diabetes mellitus without complications Code(s): E11.9 - Type 2 diabetes mellitus without complications Status: Chronic Assessment and Plan: Continue Accu-Cheks and sliding scale insulin, continue Lantus (7) Systolic congestive heart failure: Qualifiers: Heart failure chronicity: chronic Qualified Code(s): I50.22 - Chronic systolic (congestive) heart failure Code(s): I50.20 - Unspecified systolic (congestive) heart failure Status: Chronic Assessment and Plan: systolic heart failure with EF off 25-30% on e
[2020-06-13] MEDS: LORazepam INJ (*CRX) 2 MG/ML VIAL 1 MG IV PUSH ×2 (12:53→22:05)
[2020-06-13 13:25] LABS: Glucose Point of Care 181 (65-105)
--- NOTE | 2020-06-13 14:48 | P.PNIM_ITS ---
Progress Note: A&P Assessment and Plan (1) Acute respiratory failure: Code(s): J96.00 - Acute respiratory failure, unspecified whether with hypoxia or hypercapnia Status: Acute Assessment and Plan: Patient developed respiratory failure with pending collapse on 06/08 requiring intubation. [place] to be multifactorial from COVID, aspiration PNA and CHF. Patient intuabted and stabilized. . Wean vent as tolerated, SBT today (2) Severe sepsis: Code(s): A41.9 - Sepsis, unspecified organism; R65.20 - Severe sepsis without septic shock Status: Acute Assessment and Plan: Severe sepsis with PAWEL, elevated lactic and respiratory failure. Patient had mildly elevated lactic acid on admission but worsened to 5.8 prior to being intubated on 06/08. Patient stabilized now. Not requiring pressors lactic acid down to 2.6 (3) COVID-19: Code(s): U07.1 - COVID-19 Status: Acute Assessment and Plan: * 06/08 patient transition to ICU status due to impending respiratory failure * Could not determine edilson's code status with guardian over the weekend so patient intubated, now DNR * continue dexamethasone (5 of 10) * convalescent plasma given 06/10 * No remdisivir due to LFTs > 3xNL * Continue droplet, airborne, contact isolation and precautions (4) Pneumonia: Qualifiers: Laterality: unspecified laterality Lung location: unspecified part of lung Pneumonia type: due to unspecified organism Qualified Code(s): J18.9 - Pneumonia, unspecified organism Code(s): J18.9 - Pneumonia, unspecified organism Status: Acute Assessment and Plan: * CXR reviewed showing airspace opacities bilaterally and worsened * currently receiving vancomycin and Primaxin * BCx NGTD (5) Atrial fibrillation with rapid ventricular response: Code(s): I48.91 - Unspecified atrial fibrillation Status: Acute Assessment and Plan: * rate now controlled; NSR by tele now * Eliquis on hold; Lovenox therapeutic dosing started and platelets 96K today, follow * diltiazem stopped; Hold on scheduled diltiazem or BB since HR in the 50's (6) Elevated LFTs: Code(s): R79.89 - Other specified abnormal findings of blood chemistry Status: Acute Assessment and Plan: * AST has climbed to 6351 and now 211 * RUQ US showing cholelithiasis, gallbladder wall thickening, and pericholecystic fluid * Likely due to sepsis/shock liver +/- GB disease but felt less likely to be GB disease. (7) Metabolic encephalopathy: Code(s): G93.41 - Metabolic encephalopathy Status: Acute Assessment and Plan: * currently patient is off sedation but was oriented to person only prior to i ntubation * He did state that he does not want to go on living like this * His prognosis with severe pneumonia, COVID-19, kidney failure, heart failure, dementia, diabetes, and schizophrenia is very poor. (8) Elevated troponin: Code(s): R79.89 - Other specified abnormal findings of blood chemistry Status: Acute Assessment and Plan: * Trop elevated to 0.46 but overall flat * Due to sepsis, PAWEL, afib/rvr * No ACS (9) Schizophrenia: Qualifiers: Schizophrenia type: other Qualified Code(s): F20.89 - Other schizophrenia Code(s): F20.9 - Schizophrenia, unspecified Status: Chronic Assessment and Plan: * Continue antipsychotic therapy * Hold divalproex due to elevated LFTs (10) Systolic
--- NOTE | 2020-06-13 14:48 | PM.IMPN ---
Progress Note: A&P Assessment and Plan (1) Acute respiratory failure: Code(s): J96.00 - Acute respiratory failure, unspecified whether with hypoxia or hypercapnia Status: Acute Assessment and Plan: Patient developed respiratory failure with pending collapse on 06/08 requiring intubation. [place] to be multifactorial from COVID, aspiration PNA and CHF. Patient intuabted and stabilized. . Wean vent as tolerated, SBT today (2) Severe sepsis: Code(s): A41.9 - Sepsis, unspecified organism; R65.20 - Severe sepsis without septic shock Status: Acute Assessment and Plan: Severe sepsis with PAWEL, elevated lactic and respiratory failure. Patient had mildly elevated lactic acid on admission but worsened to 5.8 prior to being intubated on 06/08. Patient stabilized now. Not requiring pressors lactic acid down to 2.6 (3) COVID-19: Code(s): U07.1 - COVID-19 Status: Acute Assessment and Plan: 06/08 patient transition to ICU status due to impending respiratory failure Could not determine patinet's code status with guardian over the weekend so patient intubated, now DNR continue dexamethasone (5 of 10) convalescent plasma given 06/10 No remdisivir due to LFTs > 3xNL Continue droplet, airborne, contact isolation and precautions (4) Pneumonia: Qualifiers: Laterality: unspecified laterality Lung location: unspecified part of lung Pneumonia type: due to unspecified organism Qualified Code(s): J18.9 - Pneumonia, unspecified organism Code(s): J18.9 - Pneumonia, unspecified organism Status: Acute Assessment and Plan: CXR reviewed showing airspace opacities bilaterally and worsened currently receiving vancomycin and Primaxin BCx NGTD (5) Atrial fibrillation with rapid ventricular response: Code(s): I48.91 - Unspecified atrial fibrillation Status: Acute Assessment and Plan: rate now controlled; NSR by tele now Eliquis on hold; Lovenox therapeutic dosing started and platelets 96K today, follow diltiazem stopped; Hold on scheduled diltiazem or BB since HR in the 50's (6) Elevated LFTs: Code(s): R79.89 - Other specified abnormal findings of blood chemistry Status: Acute Assessment and Plan: AST has climbed to 6351 and now 211 RUQ US showing cholelithiasis, gallbladder wall thickening, and pericholecystic fluid Likely due to sepsis/shock liver +/- GB disease but felt less likely to be GB disease. (7) Metabolic encephalopathy: Code(s): G93.41 - Metabolic encephalopathy Status: Acute Assessment and Plan: currently patient is off sedation but was oriented to person only prior to intubation He did state that he does not want to go on living like this His prognosis with severe pneumonia, COVID-19, kidney failure, heart failure, dementia, diabetes, and schizophrenia is very poor. (8) Elevated troponin: Code(s): R79.89 - Other specified abnormal findings of blood chemistry Status: Acute Assessment and Plan: Trop elevated to 0.46 but overall flat Due to sepsis, PAWEL, afib/rvr No ACS (9) Schizophrenia: Qualifiers: Schizophrenia type: other Qualified Code(s): F20.89 - Other schizophrenia Code(s): F20.9 - Schizophrenia, unspecified Status: Chronic Assessment and Plan: Continue antipsychotic therapy Hold divalproex due to elevated LFTs (10) Systolic congestive heart failure: Qualifiers: Heart failure chronicity: chronic Qualified Code(s): I50.22 - Chronic systolic (congestive) heart failure Code(s): I50.20 - Unspecified systolic (congestive) heart failure Status: Chronic Assessment and Plan: Echo in March showing EF 25-30% with Grade i diastolic dysfunction poor ejection fraction contributes to his overall prognosis Monitor fluid status closely (11) Type 2 felecia
[2020-06-13] MEDS: FUROSEMIDE INJ 40 MG/4 ML VIAL IV PUSH (15:13)
[2020-06-13] MEDS: SERTRALINE HCL 50 MG TABLET PO (18:05)
[2020-06-13 18:21] LABS: Glucose Point of Care 230 (65-105)
[2020-06-13] MEDS: METOPROLOL TARTRATE 25 MG TABLET PO (19:56)
[2020-06-14] VITALS (29 sets, daily range): BP systolic 120–156; BP diastolic 66–93; PULSE 55–95; RESP 14–30; TEMP 37.1–37.7; O2SAT 94–100
[2020-06-14] MEDS: INSULIN ASPART (*BKC) 100 UNITS/ML SUB-Q ×4 (01:25→18:12)
[2020-06-14] MEDS: fentaNYL CITRATE INJ (*CRX) 100 MCG/2 ML VIAL 25 MCG IV PUSH ×3 (01:29→22:49)
[2020-06-14 01:38] LABS: Glucose Point of Care 240 (65-105)
[2020-06-14] MEDS: ALBUTEROL SULFATE NEB 2.5 MG/0.5 ML INH INHALATION ×4 (01:55→20:05)
[2020-06-14] MEDS: IPRATROPIUM BR 0.02% INH SOLN 0.5 MG/2.5 ML VIAL INHALATION ×4 (01:55→20:05)
--- NOTE | 2020-06-14 02:48 | P.PCNBED_ITS ---
Procedures Intubation Intubation Date: 06/14/20 Intubation Time: 02:48 A pre-procedural Time-Out was completed immediately before starting the procedure and confirmed: Patient Identification, Site, Procedure, Patient Position and the Availability of Requisite Equipment: Yes Sedative: versed Mg given: 2 Paralytic: rocuronium Mg given: 45 Laryngoscope: fiber optic video scope Assist device used: other ([employer] exchange catheter) ET tube size: cuffed Tube secured depth (cm): 26 Tube secured location: lips Tube placement confirmation: visualized tube passing through cords, equal breath sounds bilaterally, no breath sounds over epigastrium and confirmation by capnometry Patient tolerated procedure: well Intubation complications: none Additional comments: Date of service was 06/14/2020 at 02:30 hrs.
--- NOTE | 2020-06-14 03:20 | PC.NURSE ---
Pt ET cuff not holding pressure and pt has low tidal volumes so ET tube was exchanged per Dr Almanza with Brittney RT and Tata RN at bedside. size 8 ET tube placed. CXR obtained.
[2020-06-14 04:36] LABS: Alveolar/Arterial O2 Gradient 103.3 mmHg; Base Excess ABG 4.8 mEq/l (+/-2.0); Carboxyhemoglobin 0.1 % THb (0-2.0); Fractional Inspired Oxygen 30 %; HCO3 ABG 27.2 mEq/l (22.0-26.0); Methemoglobin ABG 0.3 %THb (0-1.5); Oxygen Content ABG 17.4 %vol (16.0-22.0); Oxygen Saturation ABG 96.1 % (95.0-100.0); Oxyhemoglobin 94.2 % THb (90.0-100.0); PCO2 ABG 33.1 mmHg (35.0-45.0); PO2 ABG 71.7 mmHg (80.0-100.0); PO2 FiO2 Ratio Arterial Blood 2.39 %; Reduced Hemoglobin 5.4 %THb (0-5.0); Total Hemoglobin 13.1 g/dL (12.0-18.0)
[2020-06-14 04:38] LABS: Device VENTILATOR; Modified Allen's Test Pass; Site Drawn LEFT RADIAL; pH ABG 7.532 (7.350-7.450)
[2020-06-14 04:39] LABS: Arterial Blood Gas PEEP 5 cmH2O; Arterial Blood Gas Tidal Volume 500 ml; Arterial Blood Gas Vent Mode CMV; Arterial Blood Gas Ventilator rate 18 /MIN
[2020-06-14] MEDS: CENTRAL LINE FLUSH 10 ML IV PUSH ×4 (05:56→20:18)
[2020-06-14 06:17] LABS: Basophils Percent Auto 0.4 % (0.2-1.2); Hematocrit 33.9 % (42.0-52.0); Hemoglobin 11.5 g/dL (14.0-18.0); Immature Granulocyte Absolute 0.56 K/mm3 (0.00-0.031); Immature Granulocyte Percent A 5.3 % (0-0.5); Immature Platelet Fraction Pct 9.7 % (0.9-11.2); Lymphocytes Absolute Auto 0.25 K/mm3 (0.9-3.2); Lymphocytes Percent Auto 2.4 % (18.3-44.2); Mean Corpuscular HGB Conc 33.9 g/dl (32-36); Mean Corpuscular Volume 85.4 fl (80-100); Mean Platelet Volume 11.5 fl (7.4-10.4); Monocytes Absolute Auto 0.3 K/mm3 (0.1-0.6); Neutrophils Absolute Auto 9.3 K/mm3 (1.3-6.7); Neutrophils Percent Auto 88.9 % (45.5-73.1); Nucleated Red Blood Cells Absolute Auto 0.1 K/mm3 (0.0-0.012); Nucleated Red Blood Cells Perc 0.8 % (0.0-0.2); Platelet Count Result 113 k/mm3 (150-375); Red Blood Count 3.97 M/mm3 (4.6-6.20); Red Cell Distribution Width 14.5 % (11.5-14.5); White Blood Count 10.5 K/mm3 (4.5-10.0)
[2020-06-14 06:28] LABS: Anion Gap 9 mmol/L (8-16); Blood Urea Nitrogen 28 mg/dL (9-20); Calcium 9.2 mg/dL (8.4-10.2); Carbon Dioxide 34 mmol/L (22-30); Chloride 98 mmol/L (98-107); Estimated CRCL calculation 64 ml/min; Estimated Glomerular Filt Rate > 60; Glucose 231 mg/dL (75-110); Potassium 3.9 mmol/L (3.4-5.0); Sodium 141 mmol/L (137-145)
--- NOTE | 2020-06-14 07:00 | WPDINTPN ---
Progress Note: A&P Assessment and Plan (1) Acute respiratory failure: Code(s): J96.00 - Acute respiratory failure, unspecified whether with hypoxia or hypercapnia Status: Acute Assessment and Plan: acute respiratory failure likely multifactorial, COVID-19 pneumonia, aspiration, volume overload secondary to systolic heart failure - - patient was intubated on 06/08/2020 secondary impending respiratory failure - continue imipenem for a 7 day course. vancomycin discontinued 06/12 as culture were negative - currently off of sedation - patient was started on Lasix yesterday and chest x-ray shows some improvement- - continue Lasix today - I will try SBT trial today and try to extubate patient. he is not following commands but I am not sure what his baseline is with his dementia so as long as his respiratory status allows will try to extubate the patient - if unable to extubate will decrease tidal volume to 420 (2) Pneumonia due to COVID-19 virus: Code(s): U07.1 - COVID-19; J12.89 - Other viral pneumonia Status: Acute Assessment and Plan: SARS-CoV-2 PCR positive for COVID-19 - elevated inflammatory markers will continue to trend and improving - continue dexamethasone, started on 06/08/2020 - elevated LFTs hence Remdesivir was not given - patient received convalescent plasma - continue droplet, airborne, contact isolation and precautions (3) Severe sepsis: Code(s): A41.9 - Sepsis, unspecified organism; R65.20 - Severe sepsis without septic shock Status: Acute Assessment and Plan: patient with severe sepsis related to pneumonia - UA reflective of UTI - blood cultures negative x2 so far - urine cultures negative for now - continue imipenem through today. since patient's all cultures have been negative vancomycin discontinued 06/12 - lactic acid elevated. some of it can be secondary to decreased hepatic clearance as blood pressure is normal or elevated - received 1 L saline bolus 06/10 and 25% albumin - hold further IV fluids as patient has congestive heart failure - will maintain mean arterial pressures of > 65 mmHg. BP adequate at this time without any vasopressors (4) Elevated LFTs: Code(s): R79.89 - Other specified abnormal findings of blood chemistry Status: Acute Assessment and Plan: shock liver with significant elevation in LFTs. levels are decreasing. monitor - right upper quadrant ultrasound showed Cholelithiasis, gallbladder wall thickening, and pericholecystic fluid. Sonographic features are consistent with cholecystitis. - appreciate GI and surgery consultation - negative hepatitis panel - unremarkable ammonia and coags (5) Atrial fibrillation with rapid ventricular response: Code(s): I48.91 - Unspecified atrial fibrillation Status: Acute Assessment and Plan: patient with atrial fibrillation with rapid ventricular rate in the ER requiring cardioversion. Started on Cardizem infusion and p.o. Cardizem which dropped his heart rate in the 50s, diltiazem was stopped - heart rate currently controlled patient is normal sinus rhythm with PACs - appreciate cardiology evaluation recommendations. - will continue therapeutic Lovenox and hold Eliquis for now - continue to monitor (6) Type 2 diabetes mellitus: Qualifiers: Diabetes mellitus truck terminal manager insulin use: without truck terminal manager use Diabetes mellitus complication status: without complication Qualified Code(s): E11.9 - Type 2 diabetes mellitus without complications Code(s): E11.9 - Type 2 diabetes mellitus without complications Status: Chronic Assessment and Plan: Continue Accu-Cheks and sliding scale insulin, increase Lantus (7) Systolic congestive heart failure: Qualifiers: Heart failure chronicity: chronic Qualified Code(s): I50.22 - Chronic systolic (congestive) heart failure Code(s): I50.20 - Unspec
[2020-06-14] MEDS: INSULIN GLARGINE (*BKC) 100 UNITS/ML 15 UNITS SUB-Q (08:09)
[2020-06-14] MEDS: ENOXAPARIN 80 MG/0.8 ML SYRINGE 73 MG SUB-Q ×2 (08:11→20:16)
[2020-06-14] MEDS: DEXAMETHASONE SOD PHOS INJ 4 MG/ML VIAL 6 MG IV PUSH (08:12)
[2020-06-14] MEDS: FUROSEMIDE INJ 40 MG/4 ML VIAL IV PUSH (08:14)
[2020-06-14] MEDS: PANTOPRAZOLE SODIUM IV 40 MG VIAL IV PUSH (08:15)
[2020-06-14] MEDS: METOPROLOL TARTRATE 25 MG TABLET PO ×2 (08:15→20:17)
[2020-06-14] MEDS: polyethylene glycoL 3350 17 GM POWD.PACK PO (08:16)
[2020-06-14 09:26] LABS: Glucose Point of Care 233 (65-105)
[2020-06-14] MEDS: INSULIN GLARGINE (*BKC) 100 UNITS/ML 10 UNITS SUB-Q (11:01)
--- NOTE | 2020-06-14 11:26 | PCDIET ---
Nutrition Follow-Up Complete: Nutrition Diagnosis: Inadequate infusion of enteral nutrition related to tube feeding hold as evidenced by tube feeding infusion of 20mL/hr vs estimated needs of 65mL/hr Glucerna 1.2. Nutrition Goal: Patient to meet estimated nutritional needs. Goal met. Patient has been tolerating Glucerna 1.2 at goal of 65mL/hr without reported issues. Undergoing SBT today. Last recorded weight is 71.8 kg which is increased from last review, but overall down from admission. Bowel Motility: Last documented BM on 06/13/20. Labs Reviewed: Hgb (11.5), Hct (33.9), Glu (231), BUN (28) Meds Noted: Albuterol, Decadron, Fentanyl, Lasix, Primaxin, Novolog, Lantus, Atrovent, Lopressor, Protonix Additional Notes: Preventative Mepilex to back side. No open sores reported. Will continue to monitor with same goal. Nutrition Monitoring and Evaluation: Follow up every Wednesday/Wednesday. Follow daily in ICU rounds.
--- NOTE | 2020-06-14 11:52 | PM.PNCARD ---
Progress Note: A&P Assessment and Plan (1) COVID-19: Code(s): U07.1 - COVID-19 Status: Acute Assessment and Plan: currently intubated. Management per ICU team . Continue anticoagulation (2) Atrial fibrillation with rapid ventricular response: Code(s): I48.91 - Unspecified atrial fibrillation Status: Acute Assessment and Plan: He remains in sinus rhythm. Continue anticoagulation. continue metoprolol. Would transition to long-acting metoprolol once extubated (3) Non-ST elevated myocardial infarction (non-STEMI): Code(s): I21.4 - Non-ST elevation (NSTEMI) myocardial infarction Status: Acute Assessment and Plan: likely secondary to AFib with RVR rather than plaque rupture. (4) Vascular dementia: Qualifiers: Dementia behavioral disturbance: with behavioral disturbance Qualified Code(s): F01.51 - Vascular dementia with behavioral disturbance Code(s): F01.50 - Vascular dementia without behavioral disturbance Status: Chronic Subjective Date/time seen: 06/14/20 11:52 Interval history: Admitted for shortness of breath atrial fibrillation with rapid ventricular response, COVID positive Date of service 06/14/2020: Still intubated. thinking but weaning to extubate. remains sinus rhythm Review of Systems Review of Systems: All systems reviewed & are unremarkable except as noted in HPI and below ROS unobtainable: Yes unobtainable due to medical condition ENT: Denies epistaxis Cardiovascular: Cardiovascular: Reports dyspnea Gastrointestinal: Gastrointestinal: Denies hematemesis Genitourinary: Genitourinary: Denies hematuria Integumentary/Breasts: Skin/Breast: Denies unusual bruising Hematologic/Lymphatic: Hematologic/Lymphatic: Denies easy bleeding Allergic/Immunologic: Allergic/Immunologic: Denies lip swelling Exam Narrative: Exam Narrative: intubated and sedated Const: General: comfortable HENMT: General nose exam: Normal nares present Cardio: Rate: regular rate Rhythm: regular rhythm Psych: Other: Intubated Objective Data Vital Signs Vital Signs: Vital Signs - 24 hr 06/13/20 12:00 06/13/20 14:00 06/13/20 14:40 Temperature 37.7 C H Pulse Rate 74 60 75 Respiratory Rate 21 H 23 H 20 Blood Pressure 142/95 H 135/80 Pulse Oximetry 99 100 100 06/13/20 14:50 06/13/20 16:00 06/13/20 17:38 Temperature 37.3 C Pulse Rate 78 81 75 Respiratory Rate 20 18 Blood Pressure 146/83 H Pulse Oximetry 100 100 06/13/20 18:00 06/13/20 19:15 06/13/20 19:56 Temperature 37.3 C Pulse Rate 86 79 Respiratory Rate 23 H Blood Pressure 157/88 H Pulse Oximetry 100 99 06/13/20 20:00 06/13/20 21:19 06/13/20 21:21 Temperature Pulse Rate 82 80 79 Respiratory Rate 22 H Blood Pressure Pulse Oximetry 100 06/13/20 21:25 06/13/20 22:00 06/13/20 23:37 Temperature 37.3 C Pulse Rate 71 69 79 Respiratory Rate 18 17 Blood Pressure 142/98 H Pulse Oximetry 100 100 06/14/20 00:00 06/14/20 01:55 06/14/20 02:00 Temperature 37.3 C 37.3 C Pulse Rate 66 67 76 Respiratory Rate 20 19 18 Blood Pressure 156/86 H 142/76 H Pulse Oximetry 100 100 06/14/20 04:00 06/14/20 04:09 06/14/20 05:30 Temperature 37.3 C Pulse Rate 73 72 69 Respiratory Rate 19 18 Blood Pressure 149/80 H Pulse Oximetry 100 99 98 06/14/20 06:00 06/14/20 07:03 06/14/20 08:00 Temperature 37.2 C 37.1 C Pulse Rate 81 67 95 Respiratory Rate 18 18 Blood Pressure 132/70 153/93 H Pulse Oximetry 99 99 06/14/20 08:15 06/14/20 08:20 06/14/20 08:30 Temperature Pulse Rate 88 88 88 Respiratory Rate 14 14 Blood Pressure Pulse Oximetry 99 99 06/14/20 10:00 06/14/20 10:56 Temperature Pulse Rate 69 63 Respiratory Rate 26 H Blood Pressure 129/66 Pulse Oximetry 97 100 Intake/Output Intake/Output: Intake & Output 06/11/20 06/12/20 06/13/20 06/14/20 23:59 23:59 23:59 23:59 In
--- NOTE | 2020-06-14 12:24 | WPDGIPROGNO ---
Progress Note: A&P Assessment and Plan (1) Elevated LFTs: Code(s): R79.89 - Other specified abnormal findings of blood chemistry Status: Acute Assessment and Plan: LFTs continue to improve. This elevation appears most likely related to shock liver. Related to hypotensive event at time of presentation plan to follow conservatively. At this time follow LFTs intermittently. Till resolution. (2) COVID-19: Code(s): U07.1 - COVID-19 Status: Acute Subjective Date/time seen: 06/14/20 12:24 Patient admitted with respiratory failure found to have COVID positive pneumonia. Elevated LFTs at time of presentation gradually improved. Has remained on ventilator. Exam Narrative: Exam Narrative: Exam deferred today because of positive COVID status. Objective Data Vital Signs Vital Signs: Vital Signs - 24 hr 06/13/20 14:00 06/13/20 14:40 06/13/20 14:50 Temperature Pulse Rate 60 75 78 Respiratory Rate 23 H 20 20 Blood Pressure 135/80 Pulse Oximetry 100 100 06/13/20 16:00 06/13/20 17:38 06/13/20 18:00 Temperature 99.2 F Pulse Rate 81 75 86 Respiratory Rate 18 23 H Blood Pressure 146/83 H 157/88 H Pulse Oximetry 100 100 100 06/13/20 19:15 06/13/20 19:56 06/13/20 20:00 Temperature 99.2 F Pulse Rate 79 82 Respiratory Rate Blood Pressure Pulse Oximetry 99 06/13/20 21:19 06/13/20 21:21 06/13/20 21:25 Temperature Pulse Rate 80 79 71 Respiratory Rate 22 H 18 Blood Pressure Pulse Oximetry 100 06/13/20 22:00 06/13/20 23:37 06/14/20 00:00 Temperature 99.2 F 99.2 F Pulse Rate 69 79 66 Respiratory Rate 17 20 Blood Pressure 142/98 H 156/86 H Pulse Oximetry 100 100 100 06/14/20 01:55 06/14/20 02:00 06/14/20 04:00 Temperature 99.2 F 99.2 F Pulse Rate 67 76 73 Respiratory Rate 19 18 19 Blood Pressure 142/76 H 149/80 H Pulse Oximetry 100 100 06/14/20 04:09 06/14/20 05:30 06/14/20 06:00 Temperature 99.0 F Pulse Rate 72 69 81 Respiratory Rate 18 Blood Pressure Pulse Oximetry 99 98 06/14/20 07:03 06/14/20 08:00 06/14/20 08:15 Temperature 98.8 F Pulse Rate 67 95 88 Respiratory Rate 18 18 14 Blood Pressure 132/70 153/93 H Pulse Oximetry 99 99 99 06/14/20 08:20 06/14/20 08:30 06/14/20 10:00 Temperature Pulse Rate 88 88 69 Respiratory Rate 14 26 H Blood Pressure 129/66 Pulse Oximetry 99 97 06/14/20 10:56 Temperature Pulse Rate 63 Respiratory Rate Blood Pressure Pulse Oximetry 100 Intake/Output Intake/Output: Intake & Output 06/11/20 06/12/20 06/13/20 06/14/20 23:59 23:59 23:59 23:59 Intake Total 1795 1688 1295 789 Output Total 0550 3275 4175 1475 Balance 295 -1587 -2880 -686 Meds/Results Medications: Active Medications Generic Name Dose Route Start Last Admin Trade Name Freq PRN Reason Stop Dose Admin Albuterol 2.5 mg 06/08/20 14:00 06/14/20 08:15 Albuterol Sulfate Neb 2.5 Mg/0.5 Ml Inh INHALATION 2.5 mg Q6HRT HELENE Administration Calcium Carbonate 250 mg 06/08/20 09:00 06/08/20 11:07 Calcium Carbonate (Oscal) 250 Mg Tablet PO Not Given BID HELENE Calcium Carbonate 500 mg 06/08/20 09:00 06/08/20 11:07 Calcium Carbonate (Oscal) 500 Mg Tablet PO Not Given BID [facility] Dexamethasone Sodium Phosphate 6 mg 06/09/20 09:00 06/14/20 08:12 Dexamethasone Sod Phos Inj 4 Mg/Ml Vial IV PUSH 06/18/20 09:01 6 mg DAILY HELENE Administration Dextrose 12.5 gm 06/07/20 19:49 Dextrose 50% 25 Gm/50 Ml Syringe IV PUSH PRN PRN Hypoglycemia Protocol Docusate Sodium 100 mg 06/08/20 09:00 06/08/20 11:07 Docusate Sodium 100 Mg Capsule PO Not Given DAILY HELENE Enoxaparin Sodium 73 mg 06/08/20 21:00 06/14/20 08:11 Enoxaparin 80 Mg/0.8 Ml Syringe SUB-Q 73 mg Q12HR HELENE Administration Fentanyl Citrate 25 mcg 06/12/20 10:55 06/14/20 01:29 Fentanyl Citrate Inj (*Crx) 100 Mcg/2 Ml Vial IV PUSH 25 mcg Q1H PRN Administr
[2020-06-14 14:11] LABS: Glucose Point of Care 241 (65-105)
--- NOTE | 2020-06-14 17:08 | P.PNIM_ITS ---
Progress Note: A&P Assessment and Plan (1) Acute respiratory failure: Code(s): J96.00 - Acute respiratory failure, unspecified whether with hypoxia or hypercapnia Status: Acute Assessment and Plan: Patient developed respiratory failure with pending collapse on 06/08 requiring intubation. [place] to be multifactorial from COVID, aspiration PNA and CHF. Patient intuabted and stabilized. . Wean vent as tolerated, SBT daily now (2) Severe sepsis: Code(s): A41.9 - Sepsis, unspecified organism; R65.20 - Severe sepsis without septic shock Status: Acute Assessment and Plan: Severe sepsis with PAWEL, elevated lactic and respiratory failure. Patient had mildly elevated lactic acid on admission but worsened to 5.8 prior to being intubated on 06/08. Patient stabilized now. Not requiring pressors lactic acid down to 2.6 06/13 (3) COVID-19: Code(s): U07.1 - COVID-19 Status: Acute Assessment and Plan: * 06/08 patient transition to ICU status due to impending respiratory failure * Could not determine edilson's code status with guardian over the weekend so patient intubated, now DNR * continue dexamethasone (6 of 10) * convalescent plasma given 06/10 * No remdisivir due to LFTs > 3xNL * Continue droplet, airborne, contact isolation and precautions (4) Pneumonia: Qualifiers: Laterality: unspecified laterality Lung location: unspecified part of lung Pneumonia type: due to unspecified organism Qualified Code(s): J18.9 - Pneumonia, unspecified organism Code(s): J18.9 - Pneumonia, unspecified organism Status: Acute Assessment and Plan: * CXR reviewed showing airspace opacities bilaterally and worsened * will finish antibiotics Primaxin today * BCx NGTD (5) Atrial fibrillation with rapid ventricular response: Code(s): I48.91 - Unspecified atrial fibrillation Status: Acute Assessment and Plan: * rate now controlled; NSR by tele now * Eliquis on hold; Lovenox therapeutic dosing started and platelets 96K today, follow * diltiazem stopped; Hold on scheduled diltiazem or BB since HR in the 50's (6) Elevated LFTs: Code(s): R79.89 - Other specified abnormal findings of blood chemistry Status: Acute Assessment and Plan: * AST has climbed to 6351 and now 211 11/5 recheck a.m. * RUQ US showing cholelithiasis, gallbladder wall thickening, and pericholecystic fluid * Likely due to sepsis/shock liver +/- GB disease but felt less likely to be GB disease. (7) Metabolic encephalopathy: Code(s): G93.41 - Metabolic encephalopathy Status: Acute Assessment and Plan: * currently patient is off sedation but was oriented to person only prior to intubation * He did state that he does not want to go on living like this * His prognosis with severe pneumonia, COVID-19, kidney failure, heart failure, dementia, diabetes, and schizophrenia is very poor. (8) Elevated troponin: Code(s): R79.89 - Other specified abnormal findings of blood chemistry Status: Acute Assessment and Plan: * Trop elevated to 0.46 but overall flat * Due to sepsis, PAWEL, afib/rvr * No ACS (9) Schizophrenia: Qualifiers: Schizophrenia type: other Qualified Code(s): F20.89 - Other schizophrenia Code(s): F20.9 - Schizophrenia, unspecified Status: Chronic Assessment and Plan: * Continue antipsychotic therapy * Hold divalproex due to elevated LFTs
--- NOTE | 2020-06-14 17:08 | PM.IMPN ---
Progress Note: A&P Assessment and Plan (1) Acute respiratory failure: Code(s): J96.00 - Acute respiratory failure, unspecified whether with hypoxia or hypercapnia Status: Acute Assessment and Plan: Patient developed respiratory failure with pending collapse on 06/08 requiring intubation. [place] to be multifactorial from COVID, aspiration PNA and CHF. Patient intuabted and stabilized. . Wean vent as tolerated, SBT daily now (2) Severe sepsis: Code(s): A41.9 - Sepsis, unspecified organism; R65.20 - Severe sepsis without septic shock Status: Acute Assessment and Plan: Severe sepsis with PAWEL, elevated lactic and respiratory failure. Patient had mildly elevated lactic acid on admission but worsened to 5.8 prior to being intubated on 06/08. Patient stabilized now. Not requiring pressors lactic acid down to 2.6 06/13 (3) COVID-19: Code(s): U07.1 - COVID-19 Status: Acute Assessment and Plan: 06/08 patient transition to ICU status due to impending respiratory failure Could not determine esdrasnet's code status with guardian over the weekend so patient intubated, now DNR continue dexamethasone (6 of 10) convalescent plasma given 06/10 No remdisivir due to LFTs > 3xNL Continue droplet, airborne, contact isolation and precautions (4) Pneumonia: Qualifiers: Laterality: unspecified laterality Lung location: unspecified part of lung Pneumonia type: due to unspecified organism Qualified Code(s): J18.9 - Pneumonia, unspecified organism Code(s): J18.9 - Pneumonia, unspecified organism Status: Acute Assessment and Plan: CXR reviewed showing airspace opacities bilaterally and worsened will finish antibiotics Primaxin today BCx NGTD (5) Atrial fibrillation with rapid ventricular response: Code(s): I48.91 - Unspecified atrial fibrillation Status: Acute Assessment and Plan: rate now controlled; NSR by tele now Eliquis on hold; Lovenox therapeutic dosing started and platelets 96K today, follow diltiazem stopped; Hold on scheduled diltiazem or BB since HR in the 50's (6) Elevated LFTs: Code(s): R79.89 - Other specified abnormal findings of blood chemistry Status: Acute Assessment and Plan: AST has climbed to 6351 and now 211 06/13 recheck a.m. RUQ US showing cholelithiasis, gallbladder wall thickening, and pericholecystic fluid Likely due to sepsis/shock liver +/- GB disease but felt less likely to be GB disease. (7) Metabolic encephalopathy: Code(s): G93.41 - Metabolic encephalopathy Status: Acute Assessment and Plan: currently patient is off sedation but was oriented to person only prior to intubation He did state that he does not want to go on living like this His prognosis with severe pneumonia, COVID-19, kidney failure, heart failure, dementia, diabetes, and schizophrenia is very poor. (8) Elevated troponin: Code(s): R79.89 - Other specified abnormal findings of blood chemistry Status: Acute Assessment and Plan: Trop elevated to 0.46 but overall flat Due to sepsis, PAWEL, afib/rvr No ACS (9) Schizophrenia: Qualifiers: Schizophrenia type: other Qualified Code(s): F20.89 - Other schizophrenia Code(s): F20.9 - Schizophrenia, unspecified Status: Chronic Assessment and Plan: Continue antipsychotic therapy Hold divalproex due to elevated LFTs (10) Systolic congestive heart failure: Qualifiers: Heart failure chronicity: chronic Qualified Code(s): I50.22 - Chronic systolic (congestive) heart failure Code(s): I50.20 - Unspecified systolic (congestive) heart failure Status: Chronic Assessment and Plan: Echo in March showing EF 25-30% with Grade i diastolic dysfunction poor ejection fraction contributes to his overall prognosis Monitor fluid status albert
[2020-06-14] MEDS: SERTRALINE HCL 50 MG TABLET PO (18:13)
[2020-06-14 18:29] LABS: Glucose Point of Care 216 (65-105)
[2020-06-14] MEDS: LORazepam INJ (*CRX) 2 MG/ML VIAL 1 MG IV PUSH (20:08)
[2020-06-14 22:53] LABS: Glucose Point of Care 197 (65-105)
[2020-06-15] VITALS (24 sets, daily range): BP systolic 107–140; BP diastolic 58–90; PULSE 55–82; RESP 16–28; TEMP 36.5–37.8; O2SAT 90–100
[2020-06-15] MEDS: fentaNYL CITRATE INJ (*CRX) 100 MCG/2 ML VIAL 25 MCG IV PUSH ×2 (02:03→04:37)
[2020-06-15] MEDS: ALBUTEROL SULFATE NEB 2.5 MG/0.5 ML INH INHALATION ×3 (02:15→21:27)
[2020-06-15] MEDS: IPRATROPIUM BR 0.02% INH SOLN 0.5 MG/2.5 ML VIAL INHALATION ×3 (02:15→21:27)
[2020-06-15] MEDS: CENTRAL LINE FLUSH 10 ML IV PUSH ×4 (04:37→20:42)
[2020-06-15 04:59] LABS: Basophils Percent Auto 0.2 % (0.2-1.2); Hematocrit 35.8 % (42.0-52.0); Hemoglobin 11.9 g/dL (14.0-18.0); Immature Granulocyte Absolute 0.27 K/mm3 (0.00-0.031); Immature Granulocyte Percent A 3.1 % (0-0.5); Immature Platelet Fraction Pct 9.5 % (0.9-11.2); Lymphocytes Absolute Auto 0.33 K/mm3 (0.9-3.2); Lymphocytes Percent Auto 3.7 % (18.3-44.2); Mean Corpuscular HGB Conc 33.2 g/dl (32-36); Mean Corpuscular Hemoglobin 28.2 pg (26-34); Mean Corpuscular Volume 84.8 fl (80-100); Mean Platelet Volume 11.4 fl (7.4-10.4); Monocytes Absolute Auto 0.4 K/mm3 (0.1-0.6); Neutrophils Absolute Auto 7.9 K/mm3 (1.3-6.7); Nucleated Red Blood Cells Perc 0.5 % (0.0-0.2); Platelet Count Result 116 k/mm3 (150-375); Red Blood Count 4.22 M/mm3 (4.6-6.20); Red Cell Distribution Width 14.2 % (11.5-14.5); White Blood Count 8.8 K/mm3 (4.5-10.0)
[2020-06-15 05:36] LABS: Alanine Aminotransferase 415 U/L (4-50); Albumin Level 3.5 g/dL (3.5-5.1); Alkaline Phosphatase 79 U/L (38-126); Anion Gap 7 mmol/L (8-16); Aspartate Amino Transferase 74 U/L (17-59); Bilirubin,Total 1.8 mg/dL (0.2-1.3); Blood Urea Nitrogen 36 mg/dL (9-20); CRP 13.7 mg/dL (<1.0); Calcium 9.3 mg/dL (8.4-10.2); Carbon Dioxide 35 mmol/L (22-30); Chloride 94 mmol/L (98-107); Estimated CRCL calculation 64 ml/min; Estimated Glomerular Filt Rate > 60; Glucose 216 mg/dL (75-110); Lactate Dehydrogenase 902 U/L (313-618); Potassium 4.2 mmol/L (3.4-5.0); Sodium 136 mmol/L (137-145)
[2020-06-15 05:37] LABS: Base Excess ABG 5.8 mEq/l (+/-2.0); Carboxyhemoglobin 0.2 % THb (0-2.0); Fractional Inspired Oxygen 30 %; HCO3 ABG 27.8 mEq/l (22.0-26.0); Methemoglobin ABG 0.5 %THb (0-1.5); Oxygen Content ABG 23.7 %vol (16.0-22.0); Oxyhemoglobin 95.3 % THb (90.0-100.0); PCO2 ABG 33.1 mmHg (35.0-45.0); PO2 FiO2 Ratio Arterial Blood 2.67 %; Total Hemoglobin 17.7 g/dL (12.0-18.0)
[2020-06-15 05:39] LABS: Modified Allen's Test Pass; Site Drawn LEFT RADIAL; pH ABG 7.542 (7.350-7.450)
[2020-06-15 05:40] LABS: Device VENTILATOR
[2020-06-15] MEDS: INSULIN ASPART (*BKC) 100 UNITS/ML SUB-Q (05:49)
[2020-06-15] MEDS: ENOXAPARIN 80 MG/0.8 ML SYRINGE 73 MG SUB-Q ×2 (09:22→20:43)
[2020-06-15] MEDS: DEXAMETHASONE SOD PHOS INJ 4 MG/ML VIAL 6 MG IV PUSH (09:22)
[2020-06-15] MEDS: PANTOPRAZOLE SODIUM IV 40 MG VIAL IV PUSH (09:22)
[2020-06-15] MEDS: METOPROLOL TARTRATE 25 MG TABLET PO (09:22)
[2020-06-15] MEDS: FUROSEMIDE INJ 40 MG/4 ML VIAL IV PUSH (09:22)
--- NOTE | 2020-06-15 10:15 | WPDINTPN ---
Progress Note: A&P Assessment and Plan (1) Acute respiratory failure: Code(s): J96.00 - Acute respiratory failure, unspecified whether with hypoxia or hypercapnia Status: Acute Assessment and Plan: acute respiratory failure likely multifactorial, COVID-19 pneumonia, aspiration, volume overload secondary to systolic heart failure - - patient was intubated on 06/08/2020 secondary impending respiratory failure - continue imipenem for a 7 day course. vancomycin discontinued 06/12 as culture were negative - currently off of sedation - patient was started on Lasix and chest x-ray shows some improvement- - continue Lasix today - patient failed SBT trial yesterday due to high .RSBI. Tolerated for few hours on high pressure support. I will try SBT trial again today and try to extubate patient. he is not following commands but I am not sure what his baseline is with his dementia so as long as his respiratory status allows will try to extubate the patient (2) Pneumonia due to COVID-19 virus: Code(s): U07.1 - COVID-19; J12.89 - Other viral pneumonia Status: Acute Assessment and Plan: SARS-CoV-2 PCR positive for COVID-19 - elevated inflammatory markers will continue to trend and improving - continue dexamethasone, started on 06/08/2020 - elevated LFTs hence Remdesivir was not given - patient received convalescent plasma - continue droplet, airborne, contact isolation and precautions (3) Severe sepsis: Code(s): A41.9 - Sepsis, unspecified organism; R65.20 - Severe sepsis without septic shock Status: Acute Assessment and Plan: patient with severe sepsis related to pneumonia - UA reflective of UTI - blood cultures negative x2 so far - urine cultures negative for now - completed a course of vancomycin and imipenem - will maintain mean arterial pressures of > 65 mmHg. BP adequate at this time without any vasopressors (4) Elevated LFTs: Code(s): R79.89 - Other specified abnormal findings of blood chemistry Status: Acute Assessment and Plan: shock liver with significant elevation in LFTs. levels are decreasing. monitor - right upper quadrant ultrasound showed Cholelithiasis, gallbladder wall thickening, and pericholecystic fluid. Sonographic features are consistent with cholecystitis. - appreciate GI and surgery consultation - negative hepatitis panel - unremarkable ammonia and coags (5) Atrial fibrillation with rapid ventricular response: Code(s): I48.91 - Unspecified atrial fibrillation Status: Acute Assessment and Plan: patient with atrial fibrillation with rapid ventricular rate in the ER requiring cardioversion. Started on Cardizem infusion and p.o. Cardizem which dropped his heart rate in the 50s, diltiazem was stopped - heart rate currently controlled patient is normal sinus rhythm with PACs - appreciate cardiology evaluation recommendations. - will continue therapeutic Lovenox and hold Eliquis for now - continue to monitor (6) Type 2 diabetes mellitus: Qualifiers: Diabetes mellitus fdc insulin use: without fdc use Diabetes mellitus complication status: without complication Qualified Code(s): E11.9 - Type 2 diabetes mellitus without complications Code(s): E11.9 - Type 2 diabetes mellitus without complications Status: Chronic Assessment and Plan: Continue Accu-Cheks and sliding scale insulin, increase Lantus (7) Systolic congestive heart failure: Qualifiers: Heart failure chronicity: chronic Qualified Code(s): I50.22 - Chronic systolic (congestive) heart failure Code(s): I50.20 - Unspecified systolic (congestive) heart failure Status: Chronic Assessment and Plan: systolic heart failure with EF off 25-30% on echocardiogram done on 03/13/2020. - hold further IV fluids - continueLasix (8) DVT prophylaxis: Code(s): Z29.9 -
[2020-06-15 11:28] LABS: Alveolar/Arterial O2 Gradient 94.3 mmHg; Base Excess ABG 6.9 mEq/l (+/-2.0); Fractional Inspired Oxygen 30 %; HCO3 ABG 29.4 mEq/l (22.0-26.0); Oxygen Content ABG 18.8 %vol (16.0-22.0); Oxygen Saturation ABG 96.9 % (95.0-100.0); Oxyhemoglobin 94.9 % THb (90.0-100.0); PO2 ABG 78.5 mmHg (80.0-100.0); PO2 FiO2 Ratio Arterial Blood 2.62 %; Total Hemoglobin 14.1 g/dL (12.0-18.0)
[2020-06-15 11:30] LABS: Device VENTILATOR; Modified Allen's Test Pass; Site Drawn LEFT RADIAL; pH ABG 7.542 (7.350-7.450)
[2020-06-15 11:31] LABS: Arterial Blood Gas PEEP 5 cmH2O; Arterial Blood Gas Vent Mode PRESSURE SUPPORT
[2020-06-15 11:32] LABS: Arterial Blood Gas Pressure Support 5 cmH2O
--- NOTE | 2020-06-15 12:08 | P.PNIM_ITS ---
Progress Note: A&P Assessment and Plan (1) Acute respiratory failure: Code(s): J96.00 - Acute respiratory failure, unspecified whether with hypoxia or hypercapnia Status: Acute Assessment and Plan: Patient developed respiratory failure with pending collapse on 06/08 requiring intubation. [place] to be multifactorial from COVID, aspiration PNA and CHF. Patient intuabted and stabilized. . Wean vent as tolerated, SBT daily now (2) Severe sepsis: Code(s): A41.9 - Sepsis, unspecified organism; R65.20 - Severe sepsis without septic shock Status: Acute Assessment and Plan: Severe sepsis with PAWEL, elevated lactic and respiratory failure. Patient had mildly elevated lactic acid on admission but worsened to 5.8 prior to being intubated on 06/08. Patient stabilized now. Not requiring pressors lactic acid down to 2.6 06/13 (3) COVID-19: Code(s): U07.1 - COVID-19 Status: Acute Assessment and Plan: * 06/08 patient transition to ICU status due to impending respiratory failure * Could not determine edilson's code status with guardian over the weekend so patient intubated, now DNR * continue dexamethasone (7 of 10) * convalescent plasma given 06/10 * No remdisivir due to LFTs > 3xNL * Continue droplet, airborne, contact isolation and precautions (4) Pneumonia: Qualifiers: Laterality: unspecified laterality Lung location: unspecified part of lung Pneumonia type: due to unspecified organism Qualified Code(s): J18.9 - Pneumonia, unspecified organism Code(s): J18.9 - Pneumonia, unspecified organism Status: Acute Assessment and Plan: * CXR reviewed showing airspace opacities bilaterally and worsened * finished antibiotics Primaxin 06/14 * BCx NGTD (5) Atrial fibrillation with rapid ventricular response: Code(s): I48.91 - Unspecified atrial fibrillation Status: Acute Assessment and Plan: * rate now controlled; NSR by tele now * Eliquis on hold; Lovenox therapeutic dosing started and platelets 96K today, follow * diltiazem stopped; Hold on scheduled diltiazem or BB since HR renee (6) Elevated LFTs: Code(s): R79.89 - Other specified abnormal findings of blood chemistry Status: Acute Assessment and Plan: * AST has climbed to 6351 and now 74.. * RUQ US showing cholelithiasis, gallbladder wall thickening, and pericholecystic fluid * Likely due to sepsis/shock liver +/- GB disease but felt less likely to be GB disease. (7) Metabolic encephalopathy: Code(s): G93.41 - Metabolic encephalopathy Status: Acute Assessment and Plan: * currently patient is off sedation but was oriented to person only prior to intubation * He did state that he does not want to go on living like this * His prognosis with severe pneumonia, COVID-19, kidney failure, heart failure, dementia, diabetes, and schizophrenia is very poor. (8) Elevated troponin: Code(s): R79.89 - Other specified abnormal findings of blood chemistry Status: Acute Assessment and Plan: * Trop elevated to 0.46 but overall flat * Due to sepsis, PAWEL, afib/rvr * No ACS (9) Schizophrenia: Qualifiers: Schizophrenia type: other Qualified Code(s): F20.89 - Other schizophrenia Code(s): F20.9 - Schizophrenia, unspecified Status: Chronic Assessment and Plan: * Continue antipsychotic therapy * Hold divalproex due to elevated LFTs (10) Systolic congesti
--- NOTE | 2020-06-15 12:08 | PM.IMPN ---
Progress Note: A&P Assessment and Plan (1) Acute respiratory failure: Code(s): J96.00 - Acute respiratory failure, unspecified whether with hypoxia or hypercapnia Status: Acute Assessment and Plan: Patient developed respiratory failure with pending collapse on 06/08 requiring intubation. [place] to be multifactorial from COVID, aspiration PNA and CHF. Patient intuabted and stabilized. . Wean vent as tolerated, SBT daily now (2) Severe sepsis: Code(s): A41.9 - Sepsis, unspecified organism; R65.20 - Severe sepsis without septic shock Status: Acute Assessment and Plan: Severe sepsis with PAWEL, elevated lactic and respiratory failure. Patient had mildly elevated lactic acid on admission but worsened to 5.8 prior to being intubated on 06/08. Patient stabilized now. Not requiring pressors lactic acid down to 2.6 06/13 (3) COVID-19: Code(s): U07.1 - COVID-19 Status: Acute Assessment and Plan: 06/08 patient transition to ICU status due to impending respiratory failure Could not determine esdrasnet's code status with guardian over the weekend so patient intubated, now DNR continue dexamethasone (7 of 10) convalescent plasma given 06/10 No remdisivir due to LFTs > 3xNL Continue droplet, airborne, contact isolation and precautions (4) Pneumonia: Qualifiers: Laterality: unspecified laterality Lung location: unspecified part of lung Pneumonia type: due to unspecified organism Qualified Code(s): J18.9 - Pneumonia, unspecified organism Code(s): J18.9 - Pneumonia, unspecified organism Status: Acute Assessment and Plan: CXR reviewed showing airspace opacities bilaterally and worsened finished antibiotics Primaxin 06/14 BCx NGTD (5) Atrial fibrillation with rapid ventricular response: Code(s): I48.91 - Unspecified atrial fibrillation Status: Acute Assessment and Plan: rate now controlled; NSR by tele now Eliquis on hold; Lovenox therapeutic dosing started and platelets 96K today, follow diltiazem stopped; Hold on scheduled diltiazem or BB since HR renee (6) Elevated LFTs: Code(s): R79.89 - Other specified abnormal findings of blood chemistry Status: Acute Assessment and Plan: AST has climbed to 6351 and now 74.. RUQ US showing cholelithiasis, gallbladder wall thickening, and pericholecystic fluid Likely due to sepsis/shock liver +/- GB disease but felt less likely to be GB disease. (7) Metabolic encephalopathy: Code(s): G93.41 - Metabolic encephalopathy Status: Acute Assessment and Plan: currently patient is off sedation but was oriented to person only prior to intubation He did state that he does not want to go on living like this His prognosis with severe pneumonia, COVID-19, kidney failure, heart failure, dementia, diabetes, and schizophrenia is very poor. (8) Elevated troponin: Code(s): R79.89 - Other specified abnormal findings of blood chemistry Status: Acute Assessment and Plan: Trop elevated to 0.46 but overall flat Due to sepsis, PAWEL, afib/rvr No ACS (9) Schizophrenia: Qualifiers: Schizophrenia type: other Qualified Code(s): F20.89 - Other schizophrenia Code(s): F20.9 - Schizophrenia, unspecified Status: Chronic Assessment and Plan: Continue antipsychotic therapy Hold divalproex due to elevated LFTs (10) Systolic congestive heart failure: Qualifiers: Heart failure chronicity: chronic Qualified Code(s): I50.22 - Chronic systolic (congestive) heart failure Code(s): I50.20 - Unspecified systolic (congestive) heart failure Status: Chronic Assessment and Plan: Echo in March showing EF 25-30% with Grade i diastolic dysfunction poor ejection fraction contributes to his overall prognosis Monitor fluid status closely (11) Type 2 diabet
[2020-06-15 12:40] LABS: Glucose Point of Care 168 (65-105)
[2020-06-15 17:32] LABS: Glucose Point of Care 170 (65-105)
--- NOTE | 2020-06-15 23:45 | PC.NURSE ---
Patient was transferred from ICU 8 via bed.
--- NOTE | 2020-06-15 23:55 | PC.NURSE ---
This patient, Chirag Moura Kyle, was transferred to [facility] on 06/15/20 at 2345. Personal belongings sent with patient. Report given to AYSE Youssef. Appropriate documentation sent with patient.
[2020-06-16] VITALS (11 sets, daily range): BP systolic 122–148; BP diastolic 56–89; PULSE 56–85; RESP 12–28; TEMP 36.4–37; O2SAT 82–97
[2020-06-16 01:27] LABS: Glucose Point of Care 121 (65-105)
--- NOTE | 2020-06-16 03:34 | PCRCNOTE ---
Window of time for administration has passed. See next scheduled administration.
[2020-06-16 04:47] LABS: Alveolar/Arterial O2 Gradient 98.2 mmHg; Base Excess ABG 7.7 mEq/l (+/-2.0); Carboxyhemoglobin 0.6 % THb (0-2.0); Fractional Inspired Oxygen 21 %; HCO3 ABG 30.6 mEq/l (22.0-26.0); Methemoglobin ABG 0.4 %THb (0-1.5); Oxygen Content ABG 18.6 %vol (16.0-22.0); Oxygen Saturation ABG 91.8 % (95.0-100.0); Oxyhemoglobin 88.5 % THb (90.0-100.0); PCO2 ABG 36.9 mmHg (35.0-45.0); PO2 ABG 54.6 mmHg (80.0-100.0); Reduced Hemoglobin 10.5 %THb (0-5.0)
[2020-06-16 04:54] LABS: Device ROOM AIR; Modified Allen's Test Pass; Site Drawn RIGHT RADIAL; pH ABG 7.536 (7.350-7.450)
[2020-06-16] MEDS: CENTRAL LINE FLUSH 20 ML IV PUSH (05:30)
[2020-06-16] MEDS: CENTRAL LINE FLUSH 10 ML IV PUSH ×4 (05:30→22:13)
[2020-06-16 06:13] LABS: Hematocrit 41.9 % (42.0-52.0); Immature Platelet Fraction Pct 9.5 % (0.9-11.2); Mean Corpuscular HGB Conc 33.4 g/dl (32-36); Mean Corpuscular Hemoglobin 27.6 pg (26-34); Mean Corpuscular Volume 82.6 fl (80-100); Platelet Count Result 136 k/mm3 (150-375); Red Blood Count 5.07 M/mm3 (4.6-6.20); White Blood Count 7.8 K/mm3 (4.5-10.0)
[2020-06-16 06:27] LABS: Alanine Aminotransferase 338 U/L (4-50); Albumin Level 4.1 g/dL (3.5-5.1); Alkaline Phosphatase 80 U/L (38-126); Anion Gap 12 mmol/L (8-16); Aspartate Amino Transferase 78 U/L (17-59); Bilirubin,Total 2.2 mg/dL (0.2-1.3); Blood Urea Nitrogen 46 mg/dL (9-20); Calcium 9.5 mg/dL (8.4-10.2); Carbon Dioxide 35 mmol/L (22-30); Chloride 95 mmol/L (98-107); Estimated CRCL calculation 57 ml/min; Estimated Glomerular Filt Rate > 60; Glucose 90 mg/dL (75-110); Magnesium 1.9 mg/dL (1.6-2.3); Potassium 3.7 mmol/L (3.4-5.0); Sodium 142 mmol/L (137-145)
[2020-06-16] MEDS: DEXAMETHASONE SOD PHOS INJ 4 MG/ML VIAL 6 MG IV PUSH (08:16)
[2020-06-16] MEDS: PANTOPRAZOLE SODIUM IV 40 MG VIAL IV PUSH (08:17)
[2020-06-16] MEDS: ENOXAPARIN 80 MG/0.8 ML SYRINGE 73 MG SUB-Q ×2 (08:17→22:13)
--- NOTE | 2020-06-16 11:44 | P.PNIM_ITS ---
Progress Note: A&P Assessment and Plan (1) Acute respiratory failure: Code(s): J96.00 - Acute respiratory failure, unspecified whether with hypoxia or hypercapnia Status: Acute Assessment and Plan: Patient developed respiratory failure with pending collapse on 06/08 requiring intubation. [place] to be multifactorial from COVID, aspiration PNA and CHF. Patient extubated 06/15 Now DNI DNR. agitated but maintaining sats with normal pco2 (2) Severe sepsis: Code(s): A41.9 - Sepsis, unspecified organism; R65.20 - Severe sepsis without septic shock Status: Acute Assessment and Plan: Severe sepsis with PAWEL, elevated lactic and respiratory failure. Patient had mildly elevated lactic acid on admission but worsened to 5.8 prior to being intubated on 06/08. Patient stabilized now. Not requiring pressors lactic acid down to 2.6 06/13 (3) COVID-19: Code(s): U07.1 - COVID-19 Status: Acute Assessment and Plan: * 06/08 patient transition to ICU status due to impending respiratory failure * Could not determine edilson's code status with guardian initially so patient intubated, now DNR * continue dexamethasone (8 of 10) * convalescent plasma given 06/10 * No remdisivir due to LFTs > 3xNL * Continue droplet, airborne, contact isolation and precautions (4) Pneumonia: Qualifiers: Laterality: unspecified laterality Lung location: unspecified part of lung Pneumonia type: due to unspecified organism Qualified Code(s): J18.9 - Pneumonia, unspecified organism Code(s): J18.9 - Pneumonia, unspecified organism Status: Acute Assessment and Plan: * CXR reviewed showing airspace opacities bilaterally and worsened * finished antibiotics Primaxin 06/14 * BCx NGTD (5) Atrial fibrillation with rapid ventricular response: Code(s): I48.91 - Unspecified atrial fibrillation Status: Acute Assessment and Plan: * rate now controlled; NSR by tele now * Eliquis on hold; Lovenox therapeutic dosing started and platelets 136K today, follow * diltiazem stopped; Hold on scheduled diltiazem * IV metoprolol with bp up and unable to take oral (6) Elevated LFTs: Code(s): R79.89 - Other specified abnormal findings of blood chemistry Status: Acute Assessment and Plan: * AST has climbed to 6351 and now 78.. * RUQ US showing cholelithiasis, gallbladder wall thickening, and pericholecystic fluid * Likely due to sepsis/shock liver +/- GB disease but felt less likely to be GB disease. (7) Metabolic encephalopathy: Code(s): G93.41 - Metabolic encephalopathy Status: Acute Assessment and Plan: * currently patient is off sedation but was oriented to person only prior to intubation * He did state that he does not want to go on living like this * His prognosis with severe pneumonia, COVID-19, kidney failure, heart failure, dementia, diabetes, and schizophrenia is very poor although has been able to interview. (8) Elevated troponin: Code(s): R79.89 - Other specified abnormal findings of blood chemistry Status: Acute Assessment and Plan: * Trop elevated to 0.46 but overall flat * Due to sepsis, PAWEL, afib/rvr * No ACS (9) Schizophrenia: Qualifiers: Schizophrenia type: other Qualified Code(s): F20.89 - Other schizophrenia Code(s): F20.9 - Schizophrenia, unspecified Status: Chronic Assessment and Plan: * Continue antipsychotic therap
--- NOTE | 2020-06-16 11:44 | PM.IMPN ---
Progress Note: A&P Assessment and Plan (1) Acute respiratory failure: Code(s): J96.00 - Acute respiratory failure, unspecified whether with hypoxia or hypercapnia Status: Acute Assessment and Plan: Patient developed respiratory failure with pending collapse on 06/08 requiring intubation. [place] to be multifactorial from COVID, aspiration PNA and CHF. Patient extubated 06/15 Now DNI DNR. agitated but maintaining sats with normal pco2 (2) Severe sepsis: Code(s): A41.9 - Sepsis, unspecified organism; R65.20 - Severe sepsis without septic shock Status: Acute Assessment and Plan: Severe sepsis with PAWEL, elevated lactic and respiratory failure. Patient had mildly elevated lactic acid on admission but worsened to 5.8 prior to being intubated on 06/08. Patient stabilized now. Not requiring pressors lactic acid down to 2.6 06/13 (3) COVID-19: Code(s): U07.1 - COVID-19 Status: Acute Assessment and Plan: 06/08 patient transition to ICU status due to impending respiratory failure Could not determine edilson's code status with guardian initially so patient intubated, now DNR continue dexamethasone (8 of 10) convalescent plasma given 06/10 No remdisivir due to LFTs > 3xNL Continue droplet, airborne, contact isolation and precautions (4) Pneumonia: Qualifiers: Laterality: unspecified laterality Lung location: unspecified part of lung Pneumonia type: due to unspecified organism Qualified Code(s): J18.9 - Pneumonia, unspecified organism Code(s): J18.9 - Pneumonia, unspecified organism Status: Acute Assessment and Plan: CXR reviewed showing airspace opacities bilaterally and worsened finished antibiotics Primaxin 06/14 BCx NGTD (5) Atrial fibrillation with rapid ventricular response: Code(s): I48.91 - Unspecified atrial fibrillation Status: Acute Assessment and Plan: rate now controlled; NSR by tele now Eliquis on hold; Lovenox therapeutic dosing started and platelets 136K today, follow diltiazem stopped; Hold on scheduled diltiazem IV metoprolol with bp up and unable to take oral (6) Elevated LFTs: Code(s): R79.89 - Other specified abnormal findings of blood chemistry Status: Acute Assessment and Plan: AST has climbed to 6351 and now 78.. RUQ US showing cholelithiasis, gallbladder wall thickening, and pericholecystic fluid Likely due to sepsis/shock liver +/- GB disease but felt less likely to be GB disease. (7) Metabolic encephalopathy: Code(s): G93.41 - Metabolic encephalopathy Status: Acute Assessment and Plan: currently patient is off sedation but was oriented to person only prior to intubation He did state that he does not want to go on living like this His prognosis with severe pneumonia, COVID-19, kidney failure, heart failure, dementia, diabetes, and schizophrenia is very poor although has been able to interview. (8) Elevated troponin: Code(s): R79.89 - Other specified abnormal findings of blood chemistry Status: Acute Assessment and Plan: Trop elevated to 0.46 but overall flat Due to sepsis, PAWEL, afib/rvr No ACS (9) Schizophrenia: Qualifiers: Schizophrenia type: other Qualified Code(s): F20.89 - Other schizophrenia Code(s): F20.9 - Schizophrenia, unspecified Status: Chronic Assessment and Plan: Continue antipsychotic therapy Hold divalproex due to elevated LFTs (10) Systolic congestive heart failure: Qualifiers: Heart failure chronicity: chronic Qualified Code(s): I50.22 - Chronic systolic (congestive) heart failure Code(s): I50.20 - Unspecified systolic (congestive) heart failure Status: Chronic Assessment and Plan: Echo in March showing EF 25-30% with Grade i diastolic dysfunction poor ejection fraction contributes to his o
[2020-06-16 12:07] LABS: Glucose Point of Care 136 (65-105)
[2020-06-16] MEDS: DEXTROSE 5%/0.45% SOD CHL 1,000 ML 50 ML IV CONT (12:32)
[2020-06-16] MEDS: LORazepam INJ (*CRX) 2 MG/ML VIAL 0.5 MG IV PUSH (12:33)
[2020-06-16] MEDS: METOPROLOL TARTRATE INJ 5 MG/5 ML VIAL IV PUSH ×2 (12:33→18:03)
[2020-06-16] MEDS: ALBUTEROL SULFATE (*SP) AEROSOL 1 PUFF 2 PUFF INHALATION ×2 (13:46→21:28)
[2020-06-16] MEDS: INSULIN ASPART (*BKC) 100 UNITS/ML SUB-Q (18:05)
[2020-06-16 18:11] LABS: Glucose Point of Care 214 (65-105)
[2020-06-17] VITALS (11 sets, daily range): BP systolic 99–130; BP diastolic 53–70; PULSE 55–75; RESP 18–22; TEMP 36.2–36.7; O2SAT 90–96
[2020-06-17] MEDS: METOPROLOL TARTRATE INJ 5 MG/5 ML VIAL IV PUSH ×3 (01:02→13:16)
[2020-06-17 01:09] LABS: Glucose Point of Care 158 (65-105)
[2020-06-17] MEDS: CENTRAL LINE FLUSH 20 ML IV PUSH (05:49)
[2020-06-17] MEDS: CENTRAL LINE FLUSH 10 ML IV PUSH ×4 (05:49→21:32)
[2020-06-17 06:23] LABS: Basophils Percent Auto 0.2 % (0.2-1.2); Hematocrit 41.7 % (42.0-52.0); Hemoglobin 13.6 g/dL (14.0-18.0); Immature Granulocyte Absolute 0.06 K/mm3 (0.00-0.031); Immature Granulocyte Percent A 1.2 % (0-0.5); Lymphocytes Absolute Auto 0.64 K/mm3 (0.9-3.2); Mean Corpuscular HGB Conc 32.6 g/dl (32-36); Mean Corpuscular Hemoglobin 27.8 pg (26-34); Mean Corpuscular Volume 85.1 fl (80-100); Mean Platelet Volume 11.9 fl (7.4-10.4); Monocytes Absolute Auto 0.4 K/mm3 (0.1-0.6); Monocytes Percent Auto 7.7 % (2.6-8.5); Neutrophils Absolute Auto 3.8 K/mm3 (1.3-6.7); Neutrophils Percent Auto 77.9 % (45.5-73.1); Platelet Count Result 146 k/mm3 (150-375); Red Cell Distribution Width 14.5 % (11.5-14.5); White Blood Count 4.9 K/mm3 (4.5-10.0)
[2020-06-17 06:40] LABS: Alanine Aminotransferase 230 U/L (4-50); Albumin Level 3.5 g/dL (3.5-5.1); Alkaline Phosphatase 66 U/L (38-126); Anion Gap 7 mmol/L (8-16); Aspartate Amino Transferase 72 U/L (17-59); Bilirubin,Total 1.8 mg/dL (0.2-1.3); Blood Urea Nitrogen 45 mg/dL (9-20); CRP 6.9 mg/dL (<1.0); Calcium 8.9 mg/dL (8.4-10.2); Carbon Dioxide 34 mmol/L (22-30); Chloride 101 mmol/L (98-107); Estimated CRCL calculation 52 ml/min; Estimated Glomerular Filt Rate > 60; Glucose 156 mg/dL (75-110); Lactate Dehydrogenase 830 U/L (313-618); Magnesium 2.1 mg/dL (1.6-2.3); Potassium 3.7 mmol/L (3.4-5.0); Sodium 142 mmol/L (137-145)
[2020-06-17 06:41] LABS: D Dimer 0.51 ug/mL (<0.48)
[2020-06-17] MEDS: LORazepam INJ (*CRX) 2 MG/ML VIAL 0.5 MG IV PUSH ×2 (08:13→18:13)
[2020-06-17] MEDS: DEXTROSE 5%/0.45% SOD CHL 1,000 ML 50 ML IV CONT (08:16)
[2020-06-17] MEDS: PANTOPRAZOLE SODIUM IV 40 MG VIAL IV PUSH (08:22)
[2020-06-17] MEDS: DEXAMETHASONE SOD PHOS INJ 4 MG/ML VIAL 6 MG IV PUSH (08:22)
[2020-06-17] MEDS: ENOXAPARIN 80 MG/0.8 ML SYRINGE 73 MG SUB-Q (08:23)
[2020-06-17] MEDS: ALBUTEROL SULFATE (*SP) AEROSOL 1 PUFF 2 PUFF INHALATION ×3 (10:00→21:31)
--- NOTE | 2020-06-17 12:03 | PCNFU ---
Nutrition Follow-Up Complete: Inadequate infusion of enteral nutrition related to tube feeding hold as evidenced by tube feeding infusion of 20mL/hr vs estimated needs of 65mL/hr Glucerna 1.2. Goal: Patient to meet estimated nutritional needs. Limited progress towards goal. We will continue current goal. Pt current nutrition is Pureed, Level 4 with Mildly Thick Liquids, Level 2. Nutrition recommendation:Agree at this time. Last recorded weight is 71.8 kg. Bowel Motility:+BM reported 06/16 Labs Reviewed:Glu 156,BUN 45,Hgb 13.6 Meds Noted:Dextrose/Sodium Chloride 1000 ml at 50 ml/hr, Decadron,Lovenox Additional Notes: Spoke with nursing today due to COVID precautions. Patient had been NPO, is now going to be trying applesauce and pudding today. If unable to tolerate, plans for MD to speak to the family regarding other means of nutrition. Patient is a DNR. Monitoring: Follow up every 3 days.
[2020-06-17 13:32] LABS: Glucose Point of Care 180 (65-105)
--- NOTE | 2020-06-17 13:34 | P.PNIM_ITS ---
Progress Note: A&P Assessment and Plan (1) Acute respiratory failure: Code(s): J96.00 - Acute respiratory failure, unspecified whether with hypoxia or hypercapnia Status: Acute Assessment and Plan: Patient developed respiratory failure with pending collapse on 06/08 requiring intubation. [place] to be multifactorial from COVID, aspiration PNA and CHF. Patient extubated 06/15 Now DNI DNR. agitated but maintaining sats with normal pco2 (2) Severe sepsis: Code(s): A41.9 - Sepsis, unspecified organism; R65.20 - Severe sepsis without septic shock Status: Acute Assessment and Plan: Severe sepsis with PAWEL, elevated lactic and respiratory failure. Patient had mildly elevated lactic acid on admission but worsened to 5.8 prior to being intubated on 06/08. Patient stabilized now. Not requiring pressors lactic acid down to 2.6 06/13 (3) COVID-19: Code(s): U07.1 - COVID-19 Status: Acute Assessment and Plan: * 06/08 patient transition to ICU status due to impending respiratory failure * Could not determine edilson's code status with guardian initially so patient intubated, now DNR * continue dexamethasone ( of 10) * convalescent plasma given 06/10 * No remdisivir due to LFTs > 3xNL * Can d/c isolation since > 14 days since initial dx * chest xray today better and all inflammatory markers decreased (4) Pneumonia: Qualifiers: Laterality: unspecified laterality Lung location: unspecified part of lung Pneumonia type: due to unspecified organism Qualified Code(s): J18.9 - Pneumonia, unspecified organism Code(s): J18.9 - Pneumonia, unspecified organism Status: Acute Assessment and Plan: * CXR reviewed showing airspace opacities bilaterally and lessened today * finished antibiotics Primaxin 06/14 * BCx NGTD (5) Atrial fibrillation with rapid ventricular response: Code(s): I48.91 - Unspecified atrial fibrillation Status: Acute Assessment and Plan: * rate now controlled; NSR by tele now * Eliquis on hold and will resume today ; Lovenox therapeutic dosing started and platelets 146K today, follow * diltiazem stopped; Hold on scheduled diltiazem * IV metoprolol started 06/16 with bp up and unable to take oral but today took applesauce without any difficulties so will place on po (6) Elevated LFTs: Code(s): R79.89 - Other specified abnormal findings of blood chemistry Status: Acute Assessment and Plan: * AST has climbed to 6351 and now 72.. * RUQ US showing cholelithiasis, gallbladder wall thickening, and pericholecystic fluid * Likely due to sepsis/shock liver +/- GB disease but felt less likely to be GB disease. (7) Metabolic encephalopathy: Code(s): G93.41 - Metabolic encephalopathy Status: Acute Assessment and Plan: * currently patient is off sedation but was oriented to person only prior to intubation * He did state that he does not want to go on living like this * His prognosis with severe pneumonia, COVID-19, kidney failure, heart failure, dementia, diabetes, and schizophrenia is very poor although has improved last few days (8) Elevated troponin: Code(s): R79.89 - Other specified abnormal findings of blood chemistry Status: Acute Assessment and Plan: * Trop elevated to 0.46 but overall flat * Due to sepsis, PAWEL, afib/rvr * No ACS (9) Schizophrenia: Qualifiers: Schizophrenia type: other Qualified Code(s): F20.89 - Ot
--- NOTE | 2020-06-17 13:34 | PM.IMPN ---
Progress Note: A&P Assessment and Plan (1) Acute respiratory failure: Code(s): J96.00 - Acute respiratory failure, unspecified whether with hypoxia or hypercapnia Status: Acute Assessment and Plan: Patient developed respiratory failure with pending collapse on 06/08 requiring intubation. [place] to be multifactorial from COVID, aspiration PNA and CHF. Patient extubated 06/15 Now DNI DNR. agitated but maintaining sats with normal pco2 (2) Severe sepsis: Code(s): A41.9 - Sepsis, unspecified organism; R65.20 - Severe sepsis without septic shock Status: Acute Assessment and Plan: Severe sepsis with PAWEL, elevated lactic and respiratory failure. Patient had mildly elevated lactic acid on admission but worsened to 5.8 prior to being intubated on 06/08. Patient stabilized now. Not requiring pressors lactic acid down to 2.6 06/13 (3) COVID-19: Code(s): U07.1 - COVID-19 Status: Acute Assessment and Plan: 06/08 patient transition to ICU status due to impending respiratory failure Could not determine esdrasnet's code status with guardian initially so patient intubated, now DNR continue dexamethasone (9 of 10) convalescent plasma given 06/10 No remdisivir due to LFTs > 3xNL Can d/c isolation since > 14 days since initial dx chest xray today better and all inflammatory markers decreased (4) Pneumonia: Qualifiers: Laterality: unspecified laterality Lung location: unspecified part of lung Pneumonia type: due to unspecified organism Qualified Code(s): J18.9 - Pneumonia, unspecified organism Code(s): J18.9 - Pneumonia, unspecified organism Status: Acute Assessment and Plan: CXR reviewed showing airspace opacities bilaterally and lessened today finished antibiotics Primaxin 06/14 BCx NGTD (5) Atrial fibrillation with rapid ventricular response: Code(s): I48.91 - Unspecified atrial fibrillation Status: Acute Assessment and Plan: rate now controlled; NSR by tele now Eliquis on hold and will resume today ; Lovenox therapeutic dosing started and platelets 146K today, follow diltiazem stopped; Hold on scheduled diltiazem IV metoprolol started 06/16 with bp up and unable to take oral but today took applesauce without any difficulties so will place on po (6) Elevated LFTs: Code(s): R79.89 - Other specified abnormal findings of blood chemistry Status: Acute Assessment and Plan: AST has climbed to 6351 and now 72.. RUQ US showing cholelithiasis, gallbladder wall thickening, and pericholecystic fluid Likely due to sepsis/shock liver +/- GB disease but felt less likely to be GB disease. (7) Metabolic encephalopathy: Code(s): G93.41 - Metabolic encephalopathy Status: Acute Assessment and Plan: currently patient is off sedation but was oriented to person only prior to intubation He did state that he does not want to go on living like this His prognosis with severe pneumonia, COVID-19, kidney failure, heart failure, dementia, diabetes, and schizophrenia is very poor although has improved last few days (8) Elevated troponin: Code(s): R79.89 - Other specified abnormal findings of blood chemistry Status: Acute Assessment and Plan: Trop elevated to 0.46 but overall flat Due to sepsis, PAWEL, afib/rvr No ACS (9) Schizophrenia: Qualifiers: Schizophrenia type: other Qualified Code(s): F20.89 - Other schizophrenia Code(s): F20.9 - Schizophrenia, unspecified Status: Chronic Assessment and Plan: Continue antipsychotic therapy Hold divalproex due to elevated LFTs (10) Systolic congestive heart failure: Qualifiers: Heart failure chronicity: chronic Qualified Code(s): I50.22 - Chronic systolic (congestive) heart failure Code(s): I50.20 - Unspecified systolic (congestive) heart failure
[2020-06-17 13:54] LABS: Arterial Blood Gas PEEP 5 cmH2O; Arterial Blood Gas Tidal Volume 420 ml; Arterial Blood Gas Vent Mode ASSIST CONTROL; Arterial Blood Gas Ventilator rate 18 /MIN
[2020-06-17] MEDS: INSULIN ASPART (*BKC) 100 UNITS/ML SUB-Q (18:21)
[2020-06-17 18:34] LABS: Glucose Point of Care 273 (65-105)
[2020-06-17] MEDS: DONEPEZIL HCL 10 MG TABLET PO (21:23)
[2020-06-17] MEDS: MEMANTINE 10 MG TABLET PO (21:23)
[2020-06-17] MEDS: APIXABAN 5 MG TABLET PO (21:23)
[2020-06-17] MEDS: METOPROLOL TARTRATE 12.5 MG TABLET PO (21:24)
[2020-06-18] VITALS (9 sets, daily range): BP systolic 116–137; BP diastolic 62–90; PULSE 64–107; RESP 20–22; TEMP 35.9–36.8; O2SAT 91–100
[2020-06-18 00:14] LABS: Glucose Point of Care 150 (65-105)
[2020-06-18 05:33] LABS: Glucose Point of Care 125 (65-105)
[2020-06-18 05:49] LABS: Hematocrit 41.3 % (42.0-52.0); Hemoglobin 13.2 g/dL (14.0-18.0); Mean Corpuscular Hemoglobin 27.2 pg (26-34); Mean Platelet Volume 12.2 fl (7.4-10.4); Platelet Count Result 165 k/mm3 (150-375); Red Blood Count 4.86 M/mm3 (4.6-6.20); Red Cell Distribution Width 14.2 % (11.5-14.5); White Blood Count 4.6 K/mm3 (4.5-10.0)
[2020-06-18 05:57] LABS: Alanine Aminotransferase 174 U/L (4-50); Albumin Level 3.4 g/dL (3.5-5.1); Alkaline Phosphatase 70 U/L (38-126); Anion Gap 4 mmol/L (8-16); Aspartate Amino Transferase 66 U/L (17-59); Bilirubin,Total 1.8 mg/dL (0.2-1.3); Blood Urea Nitrogen 41 mg/dL (9-20); Calcium 8.7 mg/dL (8.4-10.2); Carbon Dioxide 35 mmol/L (22-30); Chloride 105 mmol/L (98-107); Estimated CRCL calculation 49 ml/min; Estimated Glomerular Filt Rate > 60; Glucose 144 mg/dL (75-110); Magnesium 2.1 mg/dL (1.6-2.3); Potassium 3.7 mmol/L (3.4-5.0); Sodium 144 mmol/L (137-145)
[2020-06-18] MEDS: CENTRAL LINE FLUSH 10 ML IV PUSH ×2 (06:20→14:09)
[2020-06-18] MEDS: LORazepam INJ (*CRX) 2 MG/ML VIAL 0.5 MG IV PUSH ×2 (07:39→14:08)
[2020-06-18] MEDS: ALBUTEROL SULFATE (*SP) AEROSOL 1 PUFF 2 PUFF INHALATION ×3 (08:25→22:35)
[2020-06-18] MEDS: DEXAMETHASONE SOD PHOS INJ 4 MG/ML VIAL 6 MG IV PUSH (09:41)
[2020-06-18] MEDS: APIXABAN 5 MG TABLET PO ×2 (09:41→22:40)
[2020-06-18] MEDS: METOPROLOL TARTRATE 12.5 MG TABLET PO ×2 (09:42→22:40)
[2020-06-18] MEDS: MEMANTINE 10 MG TABLET PO ×2 (09:42→22:40)
[2020-06-18] MEDS: PANTOPRAZOLE SODIUM IV 40 MG VIAL IV PUSH (09:43)
[2020-06-18 09:56] LABS: Glucose Point of Care 147 (65-105)
[2020-06-18 12:34] LABS: Glucose Point of Care 293 (65-105)
[2020-06-18] MEDS: INSULIN ASPART (*BKC) 100 UNITS/ML SUB-Q ×2 (12:50→17:47)
--- NOTE | 2020-06-18 14:39 | P.PNIM_ITS ---
Progress Note: A&P Assessment and Plan (1) Acute respiratory failure: Code(s): J96.00 - Acute respiratory failure, unspecified whether with hypoxia or hypercapnia Status: Acute Assessment and Plan: Patient developed respiratory failure with pending collapse on 06/08 requiring intubation. [place] to be multifactorial from COVID, aspiration PNA and CHF. Patient extubated 06/15 Now DNI DNR. Agitated but maintaining sats with normal pco2 on 5L. Wean O2 as toerlated. (2) Severe sepsis: Code(s): A41.9 - Sepsis, unspecified organism; R65.20 - Severe sepsis without septic shock Status: Acute Assessment and Plan: Severe sepsis with PAWEL, elevated lactic and respiratory failure. Patient had mildly elevated lactic acid on admission but worsened to 5.8 prior to being intubated on 06/08. Patient stabilized now. Not requiring pressors and lactic acid down to 2.6 06/13 (3) COVID-19: Code(s): U07.1 - COVID-19 Status: Acute Assessment and Plan: * 06/08 patient transition to ICU status due to impending respiratory failure * Could not determine edilson's code status with guardian initially so patient intubated; now DNR * continue dexamethasone () through today * convalescent plasma given 06/10 * No remdisivir due to LFTs > 3xNL * chest xray 06/17/20 better and all inflammatory markers decreased (4) Pneumonia: Qualifiers: Laterality: unspecified laterality Lung location: unspecified part of lung Pneumonia type: due to unspecified organism Qualified Code(s): J18.9 - Pneumonia, unspecified organism Code(s): J18.9 - Pneumonia, unspecified organism Status: Acute Assessment and Plan: * CXR reviewed showing airspace opacities bilaterally and lessened by CXR 06/17 * finished antibiotics with Primaxin 06/14 * BCx Negative (5) Atrial fibrillation with rapid ventricular response: Code(s): I48.91 - Unspecified atrial fibrillation Status: Acute Assessment and Plan: * rate now controlled, recently noted to be in NSR * Eliquis was on hold and resumed 06/17/20 * diltiazem stopped; Hold on scheduled diltiazem given BP. * IV metoprolol started 06/16 with bp up and unable to take oral. Able to take applesauce without any difficulties so metoprolol changed to oral route 06/17/20 (6) Elevated LFTs: Code(s): R79.89 - Other specified abnormal findings of blood chemistry Status: Acute Assessment and Plan: * AST has climbed to 6351 and now 66; ALT 3525 but better at 174 * RUQ US showing cholelithiasis, gallbladder wall thickening, and pericholecystic fluid * Likely due to sepsis/shock liver +/- GB disease but felt less likely to be GB disease. (7) Metabolic encephalopathy: Code(s): G93.41 - Metabolic encephalopathy Status: Acute Assessment and Plan: * currently patient is off sedation but was oriented to person only prior to intubation * His prognosis with severe pneumonia, COVID-19, kidney failure, heart failure, dementia, diabetes, and schizophrenia is very poor although has improved last few days (8) Elevated troponin: Code(s): R79.89 - Other specified abnormal findings of blood chemistry Status: Acute Assessment and Plan: * Trop elevated to 0.46 but overall flat * Due to sepsis, PAWEL, afib/rvr * No ACS (9) Schizophrenia: Qualifiers: Schizophrenia type: other Qualified Code(s): F20.89 - Other schizophrenia Code(s):
--- NOTE | 2020-06-18 14:39 | PM.IMPN ---
Progress Note: A&P Assessment and Plan (1) Acute respiratory failure: Code(s): J96.00 - Acute respiratory failure, unspecified whether with hypoxia or hypercapnia Status: Acute Assessment and Plan: Patient developed respiratory failure with pending collapse on 06/08 requiring intubation. [place] to be multifactorial from COVID, aspiration PNA and CHF. Patient extubated 06/15 Now DNI DNR. Agitated but maintaining sats with normal pco2 on 5L. Wean O2 as toerlated. (2) Severe sepsis: Code(s): A41.9 - Sepsis, unspecified organism; R65.20 - Severe sepsis without septic shock Status: Acute Assessment and Plan: Severe sepsis with PAWEL, elevated lactic and respiratory failure. Patient had mildly elevated lactic acid on admission but worsened to 5.8 prior to being intubated on 06/08. Patient stabilized now. Not requiring pressors and lactic acid down to 2.6 06/13 (3) COVID-19: Code(s): U07.1 - COVID-19 Status: Acute Assessment and Plan: 06/08 patient transition to ICU status due to impending respiratory failure Could not determine esdrasnet's code status with guardian initially so patient intubated; now DNR continue dexamethasone () through today convalescent plasma given 06/10 No remdisivir due to LFTs > 3xNL chest xray 06/17/20 better and all inflammatory markers decreased (4) Pneumonia: Qualifiers: Laterality: unspecified laterality Lung location: unspecified part of lung Pneumonia type: due to unspecified organism Qualified Code(s): J18.9 - Pneumonia, unspecified organism Code(s): J18.9 - Pneumonia, unspecified organism Status: Acute Assessment and Plan: CXR reviewed showing airspace opacities bilaterally and lessened by CXR 06/17 finished antibiotics with Primaxin 06/14 BCx Negative (5) Atrial fibrillation with rapid ventricular response: Code(s): I48.91 - Unspecified atrial fibrillation Status: Acute Assessment and Plan: rate now controlled, recently noted to be in NSR Eliquis was on hold and resumed 06/17/20 diltiazem stopped; Hold on scheduled diltiazem given BP. IV metoprolol started 06/16 with bp up and unable to take oral. Able to take applesauce without any difficulties so metoprolol changed to oral route 06/17/20 (6) Elevated LFTs: Code(s): R79.89 - Other specified abnormal findings of blood chemistry Status: Acute Assessment and Plan: AST has climbed to 6351 and now 66; ALT 3525 but better at 174 RUQ US showing cholelithiasis, gallbladder wall thickening, and pericholecystic fluid Likely due to sepsis/shock liver +/- GB disease but felt less likely to be GB disease. (7) Metabolic encephalopathy: Code(s): G93.41 - Metabolic encephalopathy Status: Acute Assessment and Plan: currently patient is off sedation but was oriented to person only prior to intubation His prognosis with severe pneumonia, COVID-19, kidney failure, heart failure, dementia, diabetes, and schizophrenia is very poor although has improved last few days (8) Elevated troponin: Code(s): R79.89 - Other specified abnormal findings of blood chemistry Status: Acute Assessment and Plan: Trop elevated to 0.46 but overall flat Due to sepsis, PAWEL, afib/rvr No ACS (9) Schizophrenia: Qualifiers: Schizophrenia type: other Qualified Code(s): F20.89 - Other schizophrenia Code(s): F20.9 - Schizophrenia, unspecified Status: Chronic Assessment and Plan: Continue antipsychotic therapy Hold divalproex due to elevated LFTs (10) Systolic congestive heart failure: Qualifiers: Heart failure chronicity: chronic Qualified Code(s): I50.22 - Chronic systolic (congestive) heart failure Code(s): I50.20 - Unspecified systolic (congestive) heart failure Status: Chronic Assessment and
[2020-06-18 16:13] LABS: Glucose Point of Care 343 (65-105)
[2020-06-18] MEDS: NEOMYCIN/POLYMYXIN/BACITRACIN OINTMENT PACKET 1 PACKET (18:14)
[2020-06-18] MEDS: SERTRALINE HCL 50 MG TABLET PO (18:15)
[2020-06-18] MEDS: DONEPEZIL HCL 10 MG TABLET PO (22:40)
[2020-06-19] VITALS (9 sets, daily range): BP systolic 135–148; BP diastolic 75–97; PULSE 64–78; RESP 18–22; TEMP 36.2–36.9; O2SAT 90–100
[2020-06-19 01:45] LABS: Glucose Point of Care 235 (65-105)
[2020-06-19 08:09] LABS: Hematocrit 42.8 % (42.0-52.0); Hemoglobin 13.9 g/dL (14.0-18.0); Mean Corpuscular HGB Conc 32.5 g/dl (32-36); Mean Corpuscular Hemoglobin 27.6 pg (26-34); Mean Corpuscular Volume 85.1 fl (80-100); Mean Platelet Volume 11.5 fl (7.4-10.4); Platelet Count Result 155 k/mm3 (150-375); Red Blood Count 5.03 M/mm3 (4.6-6.20); Red Cell Distribution Width 14.2 % (11.5-14.5); White Blood Count 5.1 K/mm3 (4.5-10.0)
[2020-06-19 08:23] LABS: Alanine Aminotransferase 137 U/L (4-50); Albumin Level 3.6 g/dL (3.5-5.1); Alkaline Phosphatase 70 U/L (38-126); Anion Gap 7 mmol/L (8-16); Aspartate Amino Transferase 65 U/L (17-59); Bilirubin,Total 1.4 mg/dL (0.2-1.3); Blood Urea Nitrogen 33 mg/dL (9-20); Calcium 9.2 mg/dL (8.4-10.2); Carbon Dioxide 30 mmol/L (22-30); Chloride 110 mmol/L (98-107); Estimated CRCL calculation 60 ml/min; Estimated Glomerular Filt Rate > 60; Glucose 133 mg/dL (75-110); Magnesium 2.1 mg/dL (1.6-2.3); Potassium 4.3 mmol/L (3.4-5.0); Sodium 147 mmol/L (137-145)
[2020-06-19] MEDS: ALBUTEROL SULFATE (*SP) AEROSOL 1 PUFF 2 PUFF INHALATION ×3 (08:25→22:08)
[2020-06-19 08:41] LABS: Glucose Point of Care 133 (65-105)
[2020-06-19] MEDS: METOPROLOL TARTRATE 12.5 MG TABLET PO ×2 (08:43→21:10)
[2020-06-19] MEDS: APIXABAN 5 MG TABLET PO ×2 (08:43→21:10)
[2020-06-19] MEDS: PANTOPRAZOLE SODIUM IV 40 MG VIAL IV PUSH (08:43)
[2020-06-19] MEDS: MEMANTINE 10 MG TABLET PO ×2 (08:43→21:10)
[2020-06-19 11:29] LABS: Glucose Point of Care 173 (65-105)
[2020-06-19 14:13] LABS: SARS-CoV-2 RNA PCR Positive
--- NOTE | 2020-06-19 15:59 | P.PNIM_ITS ---
Progress Note: A&P Assessment and Plan (1) Acute respiratory failure: Code(s): J96.00 - Acute respiratory failure, unspecified whether with hypoxia or hypercapnia Status: Acute Assessment and Plan: Patient developed respiratory failure with pending collapse on 06/08 requiring intubation. [place] to be multifactorial from COVID, aspiration PNA and CHF. Patient extubated 06/15. Now DNI DNR. Maintaining sats with normal pco2 on 5L. Wean O2 as tolerated. COVID stil positive but not unsurprising. Back to [place] when able to be arranged. (2) Severe sepsis: Code(s): A41.9 - Sepsis, unspecified organism; R65.20 - Severe sepsis without septic shock Status: Acute Assessment and Plan: Severe sepsis with PAWEL, elevated lactic and respiratory failure. Patient had mildly elevated lactic acid on admission but worsened to 5.8 prior to being intubated on 06/08. Patient stabilized now. Not requiring pressors and lactic acid improved (3) COVID-19: Code(s): U07.1 - COVID-19 Status: Acute Assessment and Plan: * 06/08 patient transition to ICU status due to impending respiratory failure * Could not determine edilson's code status with guardian initially so patient intubated; now DNR * continue dexamethasone () through 06/18 * convalescent plasma given 06/10 * No remdisivir due to LFTs > 3xNL * chest xray 06/17/20 better and all inflammatory markers decreased * Wean o2 as toelrated (4) Pneumonia: Qualifiers: Laterality: unspecified laterality Lung location: unspecified part of lung Pneumonia type: due to unspecified organism Qualified Code(s): J18.9 - Pneumonia, unspecified organism Code(s): J18.9 - Pneumonia, unspecified organism Status: Acute Assessment and Plan: * CXR reviewed showing airspace opacities bilaterally and lessened by CXR 06/17 * finished antibiotics with Primaxin 06/14 * BCx Negative (5) Atrial fibrillation with rapid ventricular response: Code(s): I48.91 - Unspecified atrial fibrillation Status: Acute Assessment and Plan: * rate now controlled, recently noted to be in NSR * Eliquis was on hold and resumed 06/17/20 * diltiazem stopped; Hold on resuming diltiazem given BP. * IV metoprolol started 06/16 with bp up and unable to take oral. Able to take applesauce without any difficulties so metoprolol changed to oral route 06/17 and tolerating it. (6) Elevated LFTs: Code(s): R79.89 - Other specified abnormal findings of blood chemistry Status: Acute Assessment and Plan: * AST has climbed to 6351 and now 65; ALT 3525 but better at 137 * RUQ US showing cholelithiasis, gallbladder wall thickening, and pericholecystic fluid * Likely due to sepsis/shock liver +/- GB disease but felt less likely to be GB disease. (7) Metabolic encephalopathy: Code(s): G93.41 - Metabolic encephalopathy Status: Acute Assessment and Plan: * currently patient is off sedation but was oriented to person only prior to intubation * His prognosis with severe pneumonia, COVID-19, kidney failure, heart failure, dementia, diabetes, and schizophrenia is very poor although has improved last few days (8) Elevated troponin: Code(s): R79.89 - Other specified abnormal findings of blood chemistry Status: Acute Assessment and Plan: * Trop elevated to 0.46 but overall flat * Due to sepsis, PAWEL, afib/rvr * No ACS (9) Schizophrenia: Qualifiers:
--- NOTE | 2020-06-19 15:59 | PM.IMPN ---
Progress Note: A&P Assessment and Plan (1) Acute respiratory failure: Code(s): J96.00 - Acute respiratory failure, unspecified whether with hypoxia or hypercapnia Status: Acute Assessment and Plan: Patient developed respiratory failure with pending collapse on 06/08 requiring intubation. [place] to be multifactorial from COVID, aspiration PNA and CHF. Patient extubated 06/15. Now DNI DNR. Maintaining sats with normal pco2 on 5L. Wean O2 as tolerated. COVID stil positive but not unsurprising. Back to [place] when able to be arranged. (2) Severe sepsis: Code(s): A41.9 - Sepsis, unspecified organism; R65.20 - Severe sepsis without septic shock Status: Acute Assessment and Plan: Severe sepsis with PAWEL, elevated lactic and respiratory failure. Patient had mildly elevated lactic acid on admission but worsened to 5.8 prior to being intubated on 06/08. Patient stabilized now. Not requiring pressors and lactic acid improved (3) COVID-19: Code(s): U07.1 - COVID-19 Status: Acute Assessment and Plan: 06/08 patient transition to ICU status due to impending respiratory failure Could not determine edilson's code status with guardian initially so patient intubated; now DNR continue dexamethasone () through 06/18 convalescent plasma given 06/10 No remdisivir due to LFTs > 3xNL chest xray 06/17/20 better and all inflammatory markers decreased Wean o2 as toelrated (4) Pneumonia: Qualifiers: Laterality: unspecified laterality Lung location: unspecified part of lung Pneumonia type: due to unspecified organism Qualified Code(s): J18.9 - Pneumonia, unspecified organism Code(s): J18.9 - Pneumonia, unspecified organism Status: Acute Assessment and Plan: CXR reviewed showing airspace opacities bilaterally and lessened by CXR 06/17 finished antibiotics with Primaxin 06/14 BCx Negative (5) Atrial fibrillation with rapid ventricular response: Code(s): I48.91 - Unspecified atrial fibrillation Status: Acute Assessment and Plan: rate now controlled, recently noted to be in NSR Eliquis was on hold and resumed 06/17/20 diltiazem stopped; Hold on resuming diltiazem given BP. IV metoprolol started 11/8 with bp up and unable to take oral. Able to take applesauce without any difficulties so metoprolol changed to oral route 06/17 and tolerating it. (6) Elevated LFTs: Code(s): R79.89 - Other specified abnormal findings of blood chemistry Status: Acute Assessment and Plan: AST has climbed to 6351 and now 65; ALT 3525 but better at 137 RUQ US showing cholelithiasis, gallbladder wall thickening, and pericholecystic fluid Likely due to sepsis/shock liver +/- GB disease but felt less likely to be GB disease. (7) Metabolic encephalopathy: Code(s): G93.41 - Metabolic encephalopathy Status: Acute Assessment and Plan: currently patient is off sedation but was oriented to person only prior to intubation His prognosis with severe pneumonia, COVID-19, kidney failure, heart failure, dementia, diabetes, and schizophrenia is very poor although has improved last few days (8) Elevated troponin: Code(s): R79.89 - Other specified abnormal findings of blood chemistry Status: Acute Assessment and Plan: Trop elevated to 0.46 but overall flat Due to sepsis, PAWEL, afib/rvr No ACS (9) Schizophrenia: Qualifiers: Schizophrenia type: other Qualified Code(s): F20.89 - Other schizophrenia Code(s): F20.9 - Schizophrenia, unspecified Status: Chronic Assessment and Plan: Continue antipsychotic therapy Hold divalproex due to elevated LFTs; LFTs are improving (10) Systolic congestive heart failure: Qualifiers: Heart failure chronicity: chronic Qualified Code(s): I50.22 - Chronic systolic (congestive) heart failur
[2020-06-19] MEDS: SERTRALINE HCL 50 MG TABLET PO (16:59)
[2020-06-19] MEDS: INSULIN ASPART (*BKC) 100 UNITS/ML SUB-Q (16:59)
[2020-06-19 17:10] LABS: Glucose Point of Care 240 (65-105)
[2020-06-19] MEDS: DONEPEZIL HCL 10 MG TABLET PO (21:10)
[2020-06-19 21:40] LABS: Glucose Point of Care 205 (65-105)
[2020-06-20 06:00] VITALS: BP 119/75; PULSE 72; RESP 20; TEMP 36.7; O2SAT 93
[2020-06-20 06:24] LABS: Hematocrit 41.2 % (42.0-52.0); Hemoglobin 13.1 g/dL (14.0-18.0); Mean Corpuscular HGB Conc 31.8 g/dl (32-36); Mean Corpuscular Hemoglobin 27.1 pg (26-34); Mean Corpuscular Volume 85.3 fl (80-100); Mean Platelet Volume 11.4 fl (7.4-10.4); Platelet Count Result 180 k/mm3 (150-375); Red Blood Count 4.83 M/mm3 (4.6-6.20); Red Cell Distribution Width 14.2 % (11.5-14.5); White Blood Count 5.8 K/mm3 (4.5-10.0)
[2020-06-20 06:36] LABS: Alanine Aminotransferase 106 U/L (4-50); Albumin Level 3.5 g/dL (3.5-5.1); Alkaline Phosphatase 64 U/L (38-126); Anion Gap 5 mmol/L (8-16); Aspartate Amino Transferase 53 U/L (17-59); Bilirubin,Total 1.5 mg/dL (0.2-1.3); Blood Urea Nitrogen 24 mg/dL (9-20); Calcium 8.7 mg/dL (8.4-10.2); Carbon Dioxide 32 mmol/L (22-30); Chloride 113 mmol/L (98-107); Estimated CRCL calculation 65 ml/min; Estimated Glomerular Filt Rate > 60; Glucose 146 mg/dL (75-110); Magnesium 1.8 mg/dL (1.6-2.3); Potassium 3.8 mmol/L (3.4-5.0); Sodium 150 mmol/L (137-145)
[2020-06-20] MEDS: DEXTROSE 5% IN WATER 500 ML 125 ML IV CONT (08:00)
[2020-06-20 09:18] VITALS: PULSE 76; O2SAT 92
[2020-06-20] MEDS: ALBUTEROL SULFATE (*SP) AEROSOL 1 PUFF 2 PUFF INHALATION (09:18)
[2020-06-20] MEDS: DEXTROSE 5% 1,000 ML 1,000 ML 100 ML IVPB (09:22)
[2020-06-20 09:30] VITALS: PULSE 76
[2020-06-20] MEDS: APIXABAN 5 MG TABLET PO (09:30)
[2020-06-20] MEDS: METOPROLOL TARTRATE 12.5 MG TABLET PO (09:30)
[2020-06-20] MEDS: LORazepam INJ (*CRX) 2 MG/ML VIAL 0.5 MG IV PUSH (09:33)
[2020-06-20] MEDS: MEMANTINE 10 MG TABLET PO (09:34)
[2020-06-20] MEDS: PANTOPRAZOLE SODIUM IV 40 MG VIAL IV PUSH (09:37)
[2020-06-20 12:54] LABS: Glucose Point of Care 212 (65-105)
[2020-06-20 14:00] VITALS: BP 121/96; PULSE 64; RESP 18; TEMP 36; O2SAT 100
--- NOTE | 2020-06-20 14:26 | P.DS_ITS ---
DS: Admitting Diagnosis Admitting Diagnosis Admitting Diagnosis: Shortness of breath and lethargy. DS: Discharge Diagnosis Discharge Diagnosis (1) Acute respiratory failure: Code(s): J96.00 - Acute respiratory failure, unspecified whether with hypoxia or hypercapnia Status: Acute Assessment and Plan: Patient developed respiratory failure with pending collapse on 06/08 requiring intubation. [place] to be multifactorial from COVID, aspiration PNA and CHF. Patient able to be extubated 06/15. Now DNI DNR. Maintaining sats with normal pCO2 on 5L. COVID positive on COVID 06/07; he was retested on 06/19 and still positive. (2) Severe sepsis: Code(s): A41.9 - Sepsis, unspecified organism; R65.20 - Severe sepsis without septic shock Status: Acute Assessment and Plan: Severe sepsis with PAWEL, elevated lactic and respiratory failure. Patient had mildly elevated lactic acid on admission but worsened to 5.8 prior to being intubated on 06/08. Patient stabilized. Not requiring pressors and lactic acid improved. (3) COVID-19: Code(s): U07.1 - COVID-19 Status: Acute Assessment and Plan: * 06/08 patient transition to ICU status due to impending respiratory failure * Could not determine edilson's code status with guardian initially so patient intubated; now DNR * Completed dexamethasone () through 06/18 * convalescent plasma given 06/10 * No remdisivir due to LFTs > 3xNL * chest xray 06/17/20 better and all inflammatory markers decreased (4) Pneumonia: Qualifiers: Laterality: unspecified laterality Lung location: unspecified part of lung Pneumonia type: due to unspecified organism Qualified Code(s): J18.9 - Pneumonia, unspecified organism Code(s): J18.9 - Pneumonia, unspecified organism Status: Acute Assessment and Plan: * CXR 06/17 reviewed showing airspace opacities bilaterally and lessened * Finished antibiotics with Primaxin 06/14 * BCx Negative (5) Atrial fibrillation with rapid ventricular response: Code(s): I48.91 - Unspecified atrial fibrillation Status: Acute Assessment and Plan: * rate now controlled, recently noted to be in NSR * Eliquis was on hold and resumed 06/17/20 * diltiazem stopped; Held due to soft BP at times. * IV metoprolol started 06/16 with unable to take oral. Able to take applesauce without any difficulties so metoprolol changed to oral route 06/17 and tolerating it. (6) Elevated LFTs: Code(s): R79.89 - Other specified abnormal findings of blood chemistry Status: Acute Assessment and Plan: * AST has climbed to 6351 and now 53; ALT 3525 but better at 106 * RUQ US showing cholelithiasis, gallbladder wall thickening, and pericholecystic fluid * Likely due to COVID, sepsis/shock liver +/- GB disease but felt less likely to be GB disease. (7) Metabolic encephalopathy: Code(s): G93.41 - Metabolic encephalopathy Status: Acute Assessment and Plan: * currently patient is off sedation but was oriented to person only prior to intubation * His prognosis with severe pneumonia, COVID-19, kidney failure, heart failure, dementia, diabetes, and schizophrenia is very poor although has improved last few days (8) Elevated troponin: Code(s): R79.89 - Other specified abnormal findings of blood chemistry Status: Acute Assessment and Plan: * Trop elevated to 0.46 but overall flat * Due to sepsis, PAWEL, afib/rvr, COVID * No ACS
--- NOTE | 2020-06-20 14:26 | PM.DS ---
DS: Admitting Diagnosis Admitting Diagnosis Admitting Diagnosis: Shortness of breath and lethargy. DS: Discharge Diagnosis Discharge Diagnosis (1) Acute respiratory failure: Code(s): J96.00 - Acute respiratory failure, unspecified whether with hypoxia or hypercapnia Status: Acute Assessment and Plan: Patient developed respiratory failure with pending collapse on 06/08 requiring intubation. [place] to be multifactorial from COVID, aspiration PNA and CHF. Patient able to be extubated 06/15. Now DNI DNR. Maintaining sats with normal pCO2 on 5L. COVID positive on COVID 06/07; he was retested on 06/19 and still positive. (2) Severe sepsis: Code(s): A41.9 - Sepsis, unspecified organism; R65.20 - Severe sepsis without septic shock Status: Acute Assessment and Plan: Severe sepsis with PAWEL, elevated lactic and respiratory failure. Patient had mildly elevated lactic acid on admission but worsened to 5.8 prior to being intubated on 06/08. Patient stabilized. Not requiring pressors and lactic acid improved. (3) COVID-19: Code(s): U07.1 - COVID-19 Status: Acute Assessment and Plan: 06/08 patient transition to ICU status due to impending respiratory failure Could not determine patinarciso's code status with guardian initially so patient intubated; now DNR Completed dexamethasone () through 06/18 convalescent plasma given 06/10 No remdisivir due to LFTs > 3xNL chest xray 06/17/20 better and all inflammatory markers decreased (4) Pneumonia: Qualifiers: Laterality: unspecified laterality Lung location: unspecified part of lung Pneumonia type: due to unspecified organism Qualified Code(s): J18.9 - Pneumonia, unspecified organism Code(s): J18.9 - Pneumonia, unspecified organism Status: Acute Assessment and Plan: CXR 06/17 reviewed showing airspace opacities bilaterally and lessened Finished antibiotics with Primaxin 06/14 BCx Negative (5) Atrial fibrillation with rapid ventricular response: Code(s): I48.91 - Unspecified atrial fibrillation Status: Acute Assessment and Plan: rate now controlled, recently noted to be in NSR Eliquis was on hold and resumed 06/17/20 diltiazem stopped; Held due to soft BP at times. IV metoprolol started 06/16 with unable to take oral. Able to take applesauce without any difficulties so metoprolol changed to oral route 06/17 and tolerating it. (6) Elevated LFTs: Code(s): R79.89 - Other specified abnormal findings of blood chemistry Status: Acute Assessment and Plan: AST has climbed to 6351 and now 53; ALT 3525 but better at 106 RUQ US showing cholelithiasis, gallbladder wall thickening, and pericholecystic fluid Likely due to COVID, sepsis/shock liver +/- GB disease but felt less likely to be GB disease. (7) Metabolic encephalopathy: Code(s): G93.41 - Metabolic encephalopathy Status: Acute Assessment and Plan: currently patient is off sedation but was oriented to person only prior to intubation His prognosis with severe pneumonia, COVID-19, kidney failure, heart failure, dementia, diabetes, and schizophrenia is very poor although has improved last few days (8) Elevated troponin: Code(s): R79.89 - Other specified abnormal findings of blood chemistry Status: Acute Assessment and Plan: Trop elevated to 0.46 but overall flat Due to sepsis, PAWEL, afib/rvr, COVID No ACS (9) Schizophrenia: Qualifiers: Schizophrenia type: other Qualified Code(s): F20.89 - Other schizophrenia Code(s): F20.9 - Schizophrenia, unspecified Status: Chronic Assessment and Plan: We continued some of his antipsychotic therapy Held divalproex due to elevated LFTs; LFTs are improving (10) Systolic congestive heart failure: Qualifiers: Heart failure chronicity: chr
[2020-06-20] MEDS: SERTRALINE HCL 50 MG TABLET PO (17:19)
== END 2020-06-20 17:40 | DRG 870 ==
LOC: ANHED 14:02 → ANHICU 14:51 → ANH3MEDSUR 06-15 23:53
PROVIDERS: Family Medicine; Internal Medicine; Physician Assistant; Admitting Provider Internal Medicine; Emergency Provider Emergency Medicine; PCP Internal Medicine; Visit Provider Internal Medicine
DX: A41.89 Other specified sepsis (principal); U07.1 COVID-19; J12.89 Other viral pneumonia; G93.41 Metabolic encephalopathy; J96.00 Acute respiratory failure, unspecified whether with hypoxia or hypercapnia; K72.00 Acute and subacute hepatic failure without coma; J69.0 Pneumonitis due to inhalation of food and vomit; I48.92 Unspecified atrial flutter; I47.2 Ventricular tachycardia; I50.22 Chronic systolic (congestive) heart failure; I48.20 Chronic atrial fibrillation, unspecified; K80.10 Calculus of gallbladder with chronic cholecystitis without obstruction; N17.9 Acute kidney failure, unspecified; R65.20 Severe sepsis without septic shock; F20.9 Schizophrenia, unspecified; K21.9 Gastro-esophageal reflux disease without esophagitis; I11.0 Hypertensive heart disease with heart failure; F01.50 Vascular dementia, unspecified severity, without behavioral disturbance, psychotic disturbance, mood disturbance, and anxiety; E11.9 Type 2 diabetes mellitus without complications; E78.5 Hyperlipidemia, unspecified; R79.89 Other specified abnormal findings of blood chemistry; F32.9 Major depressive disorder, single episode, unspecified; N40.0 Benign prostatic hyperplasia without lower urinary tract symptoms; Z86.73 Personal history of transient ischemic attack (TIA), and cerebral infarction without residual deficits; R13.10 Dysphagia, unspecified; I45.10 Unspecified right bundle-branch block; Z66 Do not resuscitate
CPT/HCPCS: 36415; 36430; 36600; 71045; 76705; 80048; 80053; 80074; 80076; 80164; 80202; 81001; 82140; 82375; 82728; 82805; 83050; 83605; 83615; 83735; 83880; 84100; 84443; 84484; 85025; 85027; 85055; 85380; 85610; 85730; 86140; 86850; 86900; 86901; 87040; 87086; 87635; 93005; 94002; 94003; 94640; 96365; 96366; 96375; 99285; A9270; C1751; C9113; C9803; J0743; J1100; J1650; J1815; J1940; J1956; J2060; J2250; J3010; J3360; J3370; J7030; J7040; J7050; J7060; J7070; P9047; P9059; U0003